=== PATIENT | male | born 1960 | race Caucasian/White ===

== ENCOUNTER 2017-02-12 08:57 | Inpatient (IN) | payer BC ==
[~2017-02-12] VITALS: Ht 167.6 cm; Wt 63.1 kg
[2017-02-12] VITALS (8 sets, daily range): BP systolic 116–125; BP diastolic 60–82; PULSE 51–58; RESP 16–18; TEMP 97.7–98.2; O2SAT 95–98
[~2017-02-12 08:57] MED LIST: OXCA300T2 PO; PROM25SU8 PO
[2017-02-12] MEDS ORDERED: SODIUM CHLORIDE 0.9% FLUSH 5 ML FLUSH IVF PRN ×2 (09:15→13:30)
[2017-02-12 09:35] LABS: AUTOMATED NEUTROPHIL # 2.9 TH/MM3 (1.8-7.7); BASOPHIL # 0.1 TH/MM3 (0-0.2); BASOPHIL % 1.2 % (0.0-2.0); EOSINOPHIL # 0.5 TH/MM3 (0-0.4); EOSINOPHIL % 6.6 % (0.0-4.0); HEMATOCRIT 40.1 % (39.0-51.0); HEMO FLAGS DIFF FINAL; LYMPH % 44.3 % (9.0-44.0); LYMPHOCYTE # 3.2 TH/MM3 (1.0-4.8); MEAN CORPUSCULAR HEMOGLOBIN 28.8 PG (27.0-34.0); MEAN CORPUSCULAR HGB CONC 33.1 % (32.0-36.0); MONO % 8.5 % (0.0-8.0); NEUT % 39.4 % (16.0-70.0); PLATELET COUNT 269 TH/MM3 (150-450); RED BLOOD COUNT 4.61 MIL/MM3 (4.50-5.90); RED CELL DISTRIBUTION WIDTH 14.8 % (11.6-17.2); WHITE BLOOD COUNT 7.2 TH/MM3 (4.0-11.0)
--- NOTE | 2017-02-12 09:35 | RADRPT ---
EXAM DATE/TIME: 02/12/2017 09:08 [facility] COMPARISON: No previous studies available for comparison. INDICATIONS : Left side numbness MEDICAL HISTORY : None. SURGICAL HISTORY : brain tumor and shunt ENCOUNTER: Initial ACUITY: 1 day PAIN SCORE: Non-responsive. LOCATION: Bilateral chest FINDINGS: A single view of the chest demonstrates the lungs to be symmetrically aerated without evidence of mas s, infiltrate or effusion. The cardiomediastinal contours are unremarkable. Osseous structures are intact with a levoscoliosis of the upper dorsal spine. Probable SHAKER OUT shunt tubing overlies the right ch est with some calcification of the tubing tract. CONCLUSION: 1. Right-sided SHAKER OUT shunt tubing. 2. Mild levoscoliosis of the upper dorsal spine. 3. Lungs are clear. Ced Chandler MD on February 12, 2017 at 9:32 Board Certified Radiologist. This report was verified electronically.
[2017-02-12] MEDS ORDERED: MORPHINE SULFATE 4 MG/ML INJ IV PUSH ONE (09:45)
[2017-02-12 09:47] LABS: INTERNATIONAL NORMALIZED RATIO 0.9 RATIO; PROTHROMBIN TIME - PATIENT 10.1 SEC (9.8-11.6)
--- NOTE | 2017-02-12 09:51 | PD ---
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 Symptoms started at around 2 AM today. The patient presents to the emergency department on around 9 AM. He is also having a diffuse headache which he describes as pressure, 7 out of 10. PFSH Past Medical History Cerebrovascular Accident: Yes (BRAIN BLEED S/P TRAUMA ) Neurologic: Yes Seizures: Yes Tetanus Vaccination: Unknown Influenza Vaccination: No ?: Not Past Surgical History Neurologic Surgery: Yes (TUMOR REMOVED FROM OPTIC NERVE) Other Surgery: Yes (VENTRICLE SHUNT 20 YEARS AGO DUE TO TUMOR) Social History Alcohol Use: No Tobacco Use: No (QUIT 5 YEARS AGO) Substance Use: No Allergies-Medications (Allergen,Severity, Reaction): Coded Allergies: Codeine (Verified Allergy, Severe, HEADACHE, 01/05/14) Penicillin (Verified Allergy, Severe, 01/05/14) Ativan (Verified Allergy, Unknown, 01/05/14) Reported Meds & Prescriptions Reported Meds & Active Scripts Active Phenergan (Promethazine HCl) 25 Mg Tab 25 Mg PO EVERY 6 HOURS FOR NAUSEA/VOMITING Reported Oxcarbazepine 300 Mg Tab 600 Mg PO BID Review of Systems Except as stated in HPI: all other systems reviewed are Neg Physical Exam Narrative GENERAL: Well-developed, well-nourished, awake, alert, no acute distress. SKIN: Warm and dry. HEAD: Atraumatic. Right scalp PHYSICAL THERAPY AIDES TEACHER shunt port depressible. EYES: Pupils equal, round, 3 mm, reactive to light. No scleral icterus. No injection or drainage. ENT: Mucous membranes pink and moist. NECK: Trachea midline. No JVD. No nuchal rigidity. CARDIOVASCULAR: Regular rate and rhythm. RESPIRATORY: No accessory muscle use. Clear to auscultation. Breath sounds equal bilaterally. GASTROINTESTINAL: Abdomen soft, non-tender, nondistended. MUSCULOSKELETAL: No obvious deformities. No clubbing. No cyanosis. No edema. NEUROLOGICAL: Awake and alert. No obvious cranial nerve deficits. Normal speech. Mild weakness to left upper and left lower extremity when compared to the right. No pronator drift. Normal finger nose finger test bilaterally. PSYCHIATRIC: Appropriate mood and affect; insight and judgment normal. Data Data Last Documented VS Vital Signs Date Time Temp Pulse Resp B/P Pulse Ox O2 Delivery O2 Flow Rate FiO2 02/12/17 11:08 18 02/12/17 11:06 Room Air 02/12/17 11:06 51 120/82 97 02/12/17 09:21 98.2 Orders Electrocardiogram (02/12/17 09:05) Prothrombin Time / Inr (Pt) (02/12/17 09:05) Act Partial Throm Time (Ptt) (02/12/17 09:05) Complete Blood Count With Diff (02/12/17 09:05) Comprehensive Metabolic Panel (02/12/17 09:05) Ct Brain W/O Iv Contrast(Rout) (02/12/17 09:05) Chest, Single Ap (02/12/17 09:05) Ecg Monitoring (02/12/17 09:05) Iv Access Insert/Monitor (02/12/17 09:05) Oximetry (02/12/17 09:05) Blood Glucose (02/12/17 09:05) Sodium Chloride 0.9% Flush (Ns Flush) (02/12/17 09:15) Shunt Series (02/12/17 ) Morphine Inj (Morphine Inj) (02/12/17 09:45) Aspirin Ec (Ecotrin Ec) (02/12/17 11:30) Labs Laboratory Tests Test 02/12/17 09:14 White Blood Count 7.2 TH/MM3 Red Blood Count 4.61 MIL/MM3 Hemoglobin 13.3 GM/DL Hematocrit 40.1 % Mean Corpuscular Volume 87.0 FL Mean Corpuscular Hemoglobin 28.8 PG Mean Corpuscular Hemoglobin 33.1 % Concent Red Cell Distribution Width 14.8 % Platelet Count 269 TH/MM3 Mean Platelet Volume 9.7 FL Neutrophils (%) (Auto) 39.4 % Lymphocytes (%) (Auto) 44.3 % Monocytes (%) (Auto) 8.5 % Eosinophils (%) (Auto) 6.6 % Basophils (%) (Auto) 1.2 % Neutrophils # (Auto) 2.9 TH/MM3 Lymphocytes # (Auto) 3.2 TH/MM3 Monocytes # (Auto) 0.6 TH/MM3 Eosinophils # (Auto) 0.5 TH/MM3 Basophils # (Auto) 0.1 TH/MM3 CBC Comment DIFF FINAL Differential Comment Prothrombin Time 10.1 SEC Prothromb Time International 0.9 RATIO Ratio Activated Partial 28.0 SEC Thromboplast Time Sodium Level 142 MEQ/L Potassium Level 4.4 MEQ/L Chloride Level 107 MEQ/L Carbon Dioxide Level 28.2 MEQ/L Anion Gap 7 MEQ/L Blood Urea Nitrogen 12 MG/DL Creatinine 1.11 MG/DL Estimat Glomerular Filtration 69 ML/MIN Rate Random Glucose 146 MG/DL Calcium Level 8.4 MG/DL Total Bilirubin 0.2 MG/DL Aspartate Amino Transf 27 U/L (AST/SGOT) Alanine Aminotransferase 35 U/L (ALT/SGPT) Alkaline Phosphatase 62 U/L Total Protein 6.9 GM/DL Albumin 3.6 GM/DL [facility] Medical Decision Making Medical Screen Exam Complete: Yes Emergency Medical Condition: Yes Differential Diagnosis CVA, intracranial abnormality, metabolic abnormality, shunt malfunction Narrative Course Vital signs show heart rate 55, blood pressure 118/82, pulse ox 98% on room air , oral temp of 98.2F. CBC is unremarkable. CMP is unremarkable. CT brain: CONCLUSION: 1. Stable appearance of the brain with a right-sided ventricular shunt, old right craniotomy deformity and old lacunar type infarct in the left basal ganglia. 2. Stable calcification of a suprasellar mass lesion, the vasculature at the [place] and along the tentorium. 3. No acute intracranial process or hemorrhage. Shunt series: Intact shunt. Patient and the patient's family were made aware of all findings. Headache improved with morphine. He is still having left-sided numbness. He states his bag machine tender strength in his left hand feels better since he has been here. He was given a full aspirin. He will be admitted for further treatment and evaluation of CVA. Case discussed with hospitalist Dr. Campbell who will admit the patient to his service. Diagnosis Primary Impression: CVA (cerebral vascular accident) Qualified Code: I63.9 - Cerebrovascular accident (CVA), unspecified mechanism Admitting Information Admitting Physician Requests: Admit Luis Barone MD Feb 12, 2017 09:51
[2017-02-12 09:58] LABS: ALKALINE PHOSPHATASE 62 U/L (45-117); ALT (GPT) 35 U/L (12-78); ANION GAP 7 MEQ/L (5-15); AST (GOT) 27 U/L (15-37); BICARBONATE 28.2 MEQ/L (21.0-32.0); BLOOD UREA NITROGEN 12 MG/DL (7-18); CHLORIDE 107 MEQ/L (98-107); GLOMERULAR FILTRATION RATE 69 ML/MIN (>89); POTASSIUM 4.4 MEQ/L (3.5-5.1); SODIUM (NA) 142 MEQ/L (136-145); TOTAL BILIRUBIN ADULT 0.2 MG/DL (0.2-1.0)
--- NOTE | 2017-02-12 10:57 | RADRPT ---
EXAM DATE/TIME: 02/12/2017 09:57 [facility] COMPARISON: CT BRAIN W/O CONTRAST, January 05, 2014, 20:20. INDICATIONS : Generalized weakness. RADIATION DOSE: 56.35 CTDIvol (mGy) MEDICAL HISTORY : Seizures. SURGICAL HISTORY : Shunt, Brain tumor removal. ENCOUNTER: Initial ACUITY: 1 day PAIN SCALE: 0/10 LOCATION: cranial TECHNIQUE: Multiple contiguous axial images were obtained of the head. Using automated exposure control and adj ustment of the mA and/or kV according to patient size, radiation dose was kept as low as reasonably a chievable to obtain optimal diagnostic quality images. FINDINGS: CEREBRUM: Stable appearance of the brain with volume loss on the right associated with an old craniotomy defect . Stable asymmetry of the ventricular system with the right smaller than the left. Right sided shunt enters the anterior horn of the right lateral ventricle. Old lacunar type infarct in the left basal g [place]. Stable calcification of a suprasellar mass with calcification also seen in the vasculature of the [place] and along the tentorium. POSTERIOR FOSSA: The cerebellum and brainstem are intact. The 4th ventricle is midline. The cerebellopontine angle i s unremarkable. Stable calcification of the tentorium EXTRACRANIAL: The visualized portion of the orbits is intact. SKULL: Old right craniotomy defect. CONCLUSION: 1. Stable appearance of the brain with a right-sided ventricular shunt, old right craniotomy deformit y and old lacunar type infarct in the left basal ganglia. 2. Stable calcification of a suprasellar mass lesion, the vasculature at the [place] and slime ng the tentorium. 3. No acute intracranial process or hemorrhage. Ced Chandler MD on February 12, 2017 at 10:51 Board Certified Radiologist. This report was verified electronically.
[2017-02-12] MEDS ORDERED: ASPIRIN EC 325 MG TABEC PO ONE (11:30)
--- NOTE | 2017-02-12 12:15 | RADRPT ---
EXAM DATE/TIME: 02/12/2017 09:55 [facility] COMPARISON: CT BRAIN W/O CONTRAST, February 12, 2017, 9:57. INDICATIONS : Headaches. Shunt evaluation. MEDICAL HISTORY : Brain tumor. SURGICAL HISTORY : Cerebral shunt. ENCOUNTER: Initial ACUITY: 1 day PAIN SCORE: 4/10 LOCATION: skull FINDINGS: Radiograph of the skull, neck, chest and abdomen performed to evaluate shunt patency. The shunt cath eter is seen entering the right parietal region with its tip in the region of the body of the anterio r horn of the right lateral ventricle. There appears to be a gap in the tubing between 2 radiopaque grommets adjacent to the skull. However, on the CT scan performed earlier today, there is a faintly radiopaque tubing which communicates betw een the 2 grommets. Otherwise, the tubing appears to be continuous into the mid pelvis. There is some calcification along the tubing tract at the base of the neck and upper chest on the right. The visualized heart, lungs and abdominal structures are intact. Levoscoliosis of the lumbar spine wi th associated degenerative changes CONCLUSION: Intact shunt. Ced Chandler MD on February 12, 2017 at 11:34 Board Certified Radiologist. This report was verified electronically.
[2017-02-12] MEDS ORDERED: DEXTROSE 50% IN WATER 50 ML VIAL(D50) IV PUSH PRN (13:30)
[2017-02-12] MEDS ORDERED: TEMAZEPAM 15 MG CAP PO PRN (13:30)
[2017-02-12] MEDS ORDERED: GLUCAGON 1 MG/ML VIAL IM/SQ PRN (13:30)
[2017-02-12] MEDS ORDERED: ALUMINUM/MAGNESIUM/SIMETH 30 ML CUP PO PRN (13:30)
[2017-02-12] MEDS ORDERED: MAGNESIUM HYDROXIDE SUSP 30 ML CUP PO PRN (13:30)
[2017-02-12] MEDS ORDERED: ONDANSETRON HCL 4 MG/2 ML VIAL IV PRN (13:30)
[2017-02-12] MEDS ORDERED: RESP: ALBUTEROL 2.5 MG/IPRATROPIUM 0.5 MG NEB (PRN) NEB (13:30)
[2017-02-12] MEDS ORDERED: ENALAPRILAT 1.25 MG/ML VIAL IV PUSH PRN (13:30)
[2017-02-12] MEDS ORDERED: ACETAMINOPHEN 325 MG TAB PO PRN (13:30)
--- NOTE | 2017-02-12 13:30 | HHI.HP ---
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 Patient states the Headache improved with treatment in the ED after he was given morphine on admission after 9AM however the tingling in his left arm persists despite some improvement on the weakness which is still there. Head CT without any intracranial abnormality and Shunt study was intact. He denies any GI bleed, shortness of breath Review of Systems Other 12 systems reviewed and are negative except for the ones mentioned in the history of Present Illness Past Family Social History Past Medical History BRAIN BLEED S/P TRAUMA Seizures: Yes Past Surgical History TUMOR REMOVED FROM OPTIC NERVE VENTRICLE SHUNT 20 YEARS AGO DUE TO TUMOR Left parietal lashae hole drainage of Left SDH 03/27/08 Reported Medications Not currently on any medication Allergies: Coded Allergies: Codeine (Verified Allergy, Severe, HEADACHE, 01/05/14) Penicillin (Verified Allergy, Severe, 01/05/14) Ativan (Verified Allergy, Unknown, 01/05/14) Family History Mom had HTN, CVA Dad had emphysema Social History Alcohol Use: No Tobacco Use: No (QUIT 5 YEARS AGO) Substance Use: No Physical Exam Vital Signs Vital Signs Date Time Temp Pulse Resp B/P Pulse Ox O2 Delivery O2 Flow Rate FiO2 02/12/17 13:01 53 16 116/75 98 Room Air 02/12/17 13:01 Room Air 02/12/17 11:08 18 02/12/17 11:06 Room Air 02/12/17 11:06 51 16 120/82 97 Room Air 3/20/17 09:21 98.2 55 18 118/82 98 Room Air 02/12/17 09:21 98 Room Air 02/12/17 09:21 55 18 98 Room Air 02/12/17 09:16 98.2 55 18 118/82 98 Physical Exam GENERAL: This is a well-nourished, well-developed patient, in no apparent distress. SKIN: No rashes, ecchymoses or lesions. Cool and dry. HEAD: right sided craniotomy EYES: Pupils equal round and reactive. Extraocular motions intact. No scleral icterus. No injection or drainage. ENT: Nose without bleeding, purulent drainage or septal hematoma. Throat without erythema, tonsillar hypertrophy or exudate. Uvula midline. Airway patent. NECK: Trachea midline. No JVD or lymphadenopathy. Supple, nontender, no meningeal signs. CARDIOVASCULAR: Regular rate and rhythm without murmurs, gallops, or rubs. RESPIRATORY: Clear to auscultation. Breath sounds equal bilaterally. No wheezes , rales, or rhonchi. GASTROINTESTINAL: Abdomen soft, non-tender, nondistended. No hepato-splenomegaly , or palpable masses. No guarding. MUSCULOSKELETAL: Extremities without clubbing, cyanosis, or edema. No joint tenderness, effusion, or edema noted. No calf tenderness. Negative Homans sign bilaterally. NEUROLOGICAL: Awake and alert. Cranial nerves II through XII intact. Motor and sensory grossly within normal limits. Five out of 5 muscle strength in all muscle groups. Normal speech. Laboratory Laboratory Tests Test 02/12/17 09:14 White Blood Count 7.2 Red Blood Count 4.61 Hemoglobin 13.3 Hematocrit 40.1 Mean Corpuscular Volume 87.0 Mean Corpuscular Hemoglobin 28.8 Mean Corpuscular Hemoglobin 33.1 Concent Red Cell Distribution Width 14.8 Platelet Count 269 Mean Platelet Volume 9.7 Neutrophils (%) (Auto) 39.4 Lymphocytes (%) (Auto) 44.3 Monocytes (%) (Auto) 8.5 Eosinophils (%) (Auto) 6.6 Basophils (%) (Auto) 1.2 Neutrophils # (Auto) 2.9 Lymphocytes # (Auto) 3.2 Monocytes # (Auto) 0.6 Eosinophils # (Auto) 0.5 Basophils # (Auto) 0.1 CBC Comment DIFF FINAL Differential Comment Prothrombin Time 10.1 Prothromb Time International 0.9 Ratio Activated Partial 28.0 Thromboplast Time Sodium Level 142 Potassium Level 4.4 Chloride Level 107 Carbon Dioxide Level 28.2 Anion Gap 7 Blood Urea Nitrogen 12 Creatinine 1.11 Estimat Glomerular Filtration 69 Rate Random Glucose 146 Calcium Level 8.4 Total Bilirubin 0.2 Aspartate Amino Transf 27 (AST/SGOT) Alanine Aminotransferase 35 (ALT/SGPT) Alkaline Phosphatase 62 Total Protein 6.9 Albumin 3.6 Result Diagram: 02/12/1791302/12/17913 Imaging Last Impressions Head CT 02/12/17904 Signed Impressions: Service Date/Time: Sunday, February 12, 2017 09:57 - CONCLUSION: 1. Stable appearance of the brain with a right-sided ventricular shunt, old right craniotomy deformity and old lacunar type infarct in the left basal ganglia. 2. Stable calcification of a suprasellar mass lesion, the vasculature at the [place] and along the tentorium. 3. No acute intracranial process or hemorrhage. Ced Chandler MD Chest X-Ray 02/12/17904 Signed Impressions: Service Date/Time: Sunday, February 12, 2017 09:08 - CONCLUSION: 1. 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 2. Mild levoscoliosis of the upper dorsal spine. 3. Lungs are clear. Ced Chandler MD Shunt Study (Imaging) 02/12/17 0000 Signed Impressions: Service Date/Time: Sunday, February 12, 2017 09:55 - CONCLUSION: Intact shunt. Ced Chandler MD Assessment and Plan Problem List: (1) CVA (cerebral vascular accident) ICD Code: I63.9 Status: Acute Assessment and Plan 56-year-old man with Acute TIA/CVA: Treatment per stroke protocol -Continue with aspirin -Start statin therapy -NIHSS, Neuro checks, Monitor on telemetry -PT/OT/ST evaluations, consult rehab medicine -allow permissive HTN, IV Vasotec and IV labetalol if SBP >220 -Check lipid profile and HgbA1c -Check carotid U/S -Head CT 02/12/17 noted and review by me with No acute intracranial disease -Shunt study: noted and review by and Intact shunt -Check brain MRI/MRA -Check echocardiogram and place alter monitoring -Neurology consulted Impaired fasting Glucose: Check HgA1C and treat accordingly DVT prophylaxis: Bilateral SCDs GI prophylaxis: PPI Code Status Full code Discussed Condition With patient, ED physician Physician Certification 2 Midnight Certification Type: Admission for Inpatient Services Order for Inpatient Services The services are ordered in accordance with Medicare regulations or non- Medicare payer requirements, as applicable. In the case of services not specified as inpatient-only, they are appropriately provided as inpatient services in accordance with the 2-midnight benchmark. Estimated LOS (days): 2 days is the estimated time the patient will need to remain in the hospital, assuming treatment plan goals are met and no additional complications. Post-Hospital Plan: Not yet determined Problem Qualifiers (1) CVA (cerebral vascular accident): Qualified Code: I63.9 - Cerebrovascular accident (CVA), unspecified mechanism Driss Campbell MD Feb 12, 2017 13:30
[2017-02-12] MEDS ORDERED: SUMAtriptan SUCCINATE 25 MG TAB PO PRN (13:45)
[2017-02-12] MEDS ORDERED: POTASSIUM CHLOR 10 MEQ PREMIX 100 ML IV SCH (14:00)
--- NOTE | 2017-02-12 14:19 | EKG ---
Date Performed: 02/12/2017 Time Performed: 09:05:25 PTAGE: 56 years EKG: SINUS BRADYCARDIA BORDERLINE ECG PREVIOUS TRACING : 02/12/2017 09.04 Compared to prior tracing no significant change DOCTOR: Binh Bustillo Interpretating Date/Time 02/12/2017 14:17:06
[2017-02-12] MEDS: INSULIN ASPART SUPPLEMENTAL SCALE SQ SCH ×2 (16:00→21:00)
--- NOTE | 2017-02-12 16:28 | RADRPT ---
EXAM DATE/TIME: 02/12/2017 14:48 [facility] COMPARISON: CT BRAIN W/O CONTRAST, February 12, 2017, 9:57. INDICATIONS : Left sided numbness. MEDICAL HISTORY : None. SURGICAL HISTORY : Craniotomy. Cholecystectomy. Appendectomy. 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 ENCOUNTER: Initial ACUITY: 1 day PAIN SCORE: 2/10 LOCATION: head TECHNIQUE: Multiplanar, multisequence MRI of the brain was performed without contrast. FINDINGS: The examination demonstrates extensive postsurgical changes and cranial defect along the right fronta l temporal region. This is unchanged from the CT scan dated 02/12/17. There is a mild mass effect on the right hemisphere. There is approximately 3 mm of [id number] vania cium shift. This appears chronic as there is no evidence of edema within the sulci and gyri. There are some scattered areas of increased T2 signal most consistent with mild microvascular ischemi c demyelinative change. No findings to indicate acute cortical infarction are present. No mass lesion is identified. No significant extra-axial fluid collections are seen. The appearance o f the posterior fossa is unremarkable. Susceptibility weighted imaging is provided. These demonstrate some old hemorrhage along what was lik anaid a prior shunt tract on the left. There is no other significant abnormal signal seen. Note is made of the patient's ventriculoperitoneal shunt which enters from the right sided approach. CONCLUSION: 1. Extensive postsurgical changes within the skull on the right. 2. Mild flattening of the sulci and gyri along the right frontal parietal and temporal cortex which a ppears chronic. There is no evidence of edema within this. There is some slight mass effect on the la teral ventricular system on the right. 3. No findings to indicate acute cortical infarction are present. Joshua Thomson MD on February 12, 2017 at 16:11 Board Certified Radiologist. This report was verified electronically.
--- NOTE | 2017-02-12 16:30 | RADRPT ---
EXAM DATE/TIME: 02/12/2017 14:48 [facility] COMPARISON: No previous studies available for comparison. INDICATIONS : Left sided numbness. MEDICAL HISTORY : None. SURGICAL HISTORY : Craniotomy. Cholecystectomy. Appendectomy. 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 ENCOUNTER: Initial ACUITY: 1 day PAIN SCORE: 2/10 LOCATION: head Please note a normal MRA of the brain does not entirely exclude the possibility of a small aneurysm, nor the possibility of distal intracranial vessel disease. TECHNIQUE: 3D time of flight MRA was performed. Source images, multiplanar STS MIP, and 3D volume MIP reconstru ctions were reviewed. FINDINGS: The distal internal carotids are widely patent. The left vertebral is widely patent. The basilar is w idely patent. The right vertebral terminates in a PICA. There is some shift of the intracranial vessels on the right side. This is felt to be secondary to th e patient's calvarial defect. Intracranial circulation is otherwise widely patent without evidence of aneurysm formation. CONCLUSION: 1. Atretic right vertebral. 2. Slight shift of the intracranial vasculature from right to left secondary to the patient's calvari al defect. 3. No large or central vessel occlusion identified. Joshua Thomson MD on February 12, 2017 at 16:26 Board Certified Radiologist. This report was verified electronically.
--- NOTE | 2017-02-12 17:09 | RADRPT ---
EXAM DATE/TIME: 02/12/2017 14:02 [facility] COMPARISON: No previous studies available for comparison. INDICATIONS : Cerebrovascular accident. MEDICAL HISTORY : Stroke. Brain hemorrhage. Seizures. SURGICAL HISTORY : Ventricular shunt. ENCOUNTER: Initial ACUITY: 1 day PAIN SCORE: 4/10 LOCATION: Bilateral neck PEAK SYSTOLIC VELOCITIES (cm/sec): ICA/CCA RATIO: Right: 1.0 Left: 1.4 ICA: Right: 69 Left: 57 CCA: Right: 68 Left: 63 ECA: Right: 61 Left: 64 VERTEBRAL: Right: 34 antegrade Left: 50 antegrade Elevated flow velocities and ICA/CCA ratios have been found to correlate with increased degrees of vessel stenosis, calculated as percentage of diameter relative to a normal segment of distal ICA/CCA FINDINGS: RIGHT CAROTID: Minimal calcified plaque in the carotid bulb. The waveforms are within normal limits. LEFT CAROTID: Minimal calcified plaquing in the carotid bulb. The waveforms are within normal limits. VERTEBRAL ARTERIES: Antegrade flow is seen in both vertebral arteries. MISCELLANEOUS: None. CONCLUSION: 1. Minimal calcified plaquing in both carotid bulbs. 2. However, no sonographic or Doppler findings of a hemodynamically significant stenosis. Antegrade f low in both vertebral arteries. Ced Chandler MD on February 12, 2017 at 17:06 Board Certified Radiologist. This report was verified electronically.
[2017-02-12] MEDS ORDERED: OXcarbazepine 600 MG TAB PO SCH (18:00)
[2017-02-12] MEDS: CLOPIDOGREL 75 MG TAB PO SCH (18:14)
[2017-02-12 19:55] LABS: BLOOD, URINE NEG (NEG); GLUCOSE,URINE NEG (NEG); KETONE, URINE NEG (NEG); NITRITE,URINE NEG (NEG); URINE COLOR LIGHT-YELLOW (YELLW/STRAW)
[2017-02-12 19:56] LABS: COMMENT (UR) CULT NOT INDICATED; CULTURE IF INDICATED CULT NOT INDICATED
[2017-02-12 20:03] LABS: AMPHETAMINE, URINE NEG (NEG); BARBITURATES, URINE POS (NEG); COCAINE, URINE NEG (NEG)
[2017-02-12 20:45] LABS: FREE T4 0.95 NG/DL (0.76-1.46)
[2017-02-12] MEDS ORDERED: ATORVASTATIN 10 MG TAB PO SCH (21:00)
[2017-02-12] MEDS: SODIUM CHLORIDE 0.9% FLUSH 5 ML FLUSH IVF SCH (21:00)
--- NOTE | 2017-02-12 21:24 | MB ---
cc: BELLE ARGUETA M.D. DATE OF CONSULTATION 02/12/17 REASON FOR CONSULTATION A 56-year-old right-handed man. 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 Some intermittent headaches with weather changes. Saw Dr. Coughlin is 2013 for a headache, had some lethargy with that. CT showed the old right-sided craniotomy defect, ventriculostomy shunt in place, calcified suprasellar mass. He was on Trileptal 600 b.i.d. at that time. He did have a seizure about [address] Morel in 2007. Stroke alert was called at that time. CTA was negative. He had a left subdural hematoma. Possibly some head trauma at that time. He began to clutch his forearm, stiffen up, change in mental status and then a seizure. A focal onset it was felt. This was well after his tumor removal. He stopped taking his Trileptal about a year ago when he ran out of it. Then last night about 2:00 a.m. he developed a headache rather severe and then some tingling on the left side of his face, arm and leg and said he had difficulty using the left arm. He went to bed, woke up, it was still causing it. He still has a little bit of tingling in the left hand now. After he was given some morphine or other pain meds in the ER here his arm seemed to get better. He does have headaches maybe once a month or every 6 weeks, throbbing bifrontally and he does have some scintillations at times. He had some other minor headaches maybe once a week. He was seen here in the ER and the noticed some mild weakness left upper and lower extremity compared to the right MEDICATIONS P.r.n. Phenergan. ALLERGIC TO ATACAND, PENICILLIN, CODEINE. REVIEW OF SYSTEMS He denied any hypertension, diabetes, hypercholesterolemia, MA, CABG, cardiac arrhythmia, renal, hepatic or pulmonary disease, a-fib, Coumadin, thyroid disease, lupus, ulcer, cancer, stroke. SOCIAL HISTORY Not a smoker or drinker. He lives with his . 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 FAMILY HISTORY The family history is positive for cancer in his mother. Negative for seizure. Positive stroke in his mother. PHYSICAL EXAMINATION VITAL SIGNS: On exam afebrile, 53, 16, 116/75. NECK: There were no carotid bruits. HEART: Heart was regular rhythm. I did not detect a murmur. HEAD: He has got a well-healed craniotomy defect right temporal region. NEURO: Visual pal are full. Pupils are equal. Extraocular movements are intact without nystagmus. Face is symmetric with normal sensation. Tongue was midline. There is no drift. He had normal strength, best testing in upper and lower extremities bilaterally. A little bit of giveaway weakness on the left arm but when pushed he has normal strength there. DTRs are 2+ symmetric at the knees. Toes downgoing bilaterally. Pinprick is intact throughout, face, arm and leg bilaterally except the tips of his fingers all of them are very calloused. LABORATORY DATA CBC was normal. Basic metabolic profile normal. Glucose 146. LFTs normal. Albumin normal. Coags normal. IMAGING STUDIES Chest x-ray was clear. An MRI of the brain did not show any acute infarct. MRA [place] slight pressure effect on the arteries, otherwise, negative. Shunt study intact. The carotid ultrasound normal. MRA [place] shows he is left vertebral dominant. Right MCA and right carotid system appears normal. IMPRESSION Possible complicated migraine. TIA is another consideration or small seizure. We will check an EEG, echocardiogram. He has been taking an aspirin almost every day so will put him on Plavix. You can DC his aspirin in 3 days. Restart him on the trileptal. I will be following him with you in the hospital. May be able to be discharged tomorrow depending on the results of this echo. If his echo is normal and the Holter is put on. MD PAULA Anthony/VALENTE /5:43 PM /8:53 PM
[2017-02-12 21:25] LABS: HEMOGLOBIN A1a 0.9 %; HEMOGLOBIN A1b 1.7 %; HEMOGLOBIN Ao 84.7 %; HEMOGLOBIN LA1C 2.3 %; HEMOGLOBIN P3 3.8 %
[2017-02-13] MEDS: OXcarbazepine 600 MG TAB PO SCH ×2 (00:31→05:04)
[2017-02-13 04:33] VITALS: BP 125/73; PULSE 56; RESP 16; TEMP 97; O2SAT 96
[2017-02-13] MEDS: INSULIN ASPART SUPPLEMENTAL SCALE SQ SCH (05:08)
[2017-02-13 07:35] LABS: HDL CHOLESTEROL 47.1 MG/DL (40.0-60.0)
--- NOTE | 2017-02-13 07:38 | EC ---
Study Study Date:02/12/2017 STUDY CONCLUSIONS SUMMARY - Left ventricle: The cavity size was normal. Wall thickness was normal. Systolic function was normal. The estimated ejection fraction was in the range of 55% to 60%. Wall motion was normal; there were no regional wall motion abnormalities. - Aortic valve: Valve area: 3.95cm^2(VTI). Valve area: 3.54cm^2 (Vmax). If LV function is below 40, please consider prescribing an ACEI or ARB or document rationale for non-use. PROCEDURE DATA STUDY STATUS: Elective. Procedure: Transthoracic echocardiography. Image quality was good. Scanning was performed from the parasternal, apical, and subcostal acoustic windows. Study completion: The patient tolerated the procedure well. Transthoracic echocardiography. M-mode, complete 2D, complete spectral Doppler, and color Doppler. Height: Height: 66in. Weight: Weight: 137.7lb. Body mass index: BMI: 22.3kg/m^2. Body surface area: BSA: 1.71m^2. Patient status: Inpatient. CARDIAC ANATOMY LEFT VENTRICLE: The cavity size was normal. Wall thickness was normal. Systolic function was normal. The estimated ejection fraction was in the range of 55% to 60%. Wall motion was normal; there were no regional wall motion abnormalities. AORTIC VALVE: Trileaflet; normal thickness leaflets. Doppler: Transvalvular velocity was within the normal range. There was no stenosis. No regurgitation. Valve area: 3.95cm^2(VTI). Indexed valve area: 2.31cm^2/m^2 (VTI). Valve area: 3.54cm^2 (Vmax). Indexed valve area: 2.07cm^2/m^2 (Vmax). Mean gradient: 2mm Hg (S). AORTA: Aortic root: The aortic root was normal in size. MITRAL VALVE: Structurally normal valve. Doppler: Transvalvular velocity was within the normal range. There was no evidence for stenosis. Trace to mild regurgitation. Peak gradient: 3mm Hg (D). LEFT ATRIUM: The atrium was normal in size. RIGHT VENTRICLE: The cavity size was normal. Wall thickness was normal. PULMONIC VALVE: Doppler: Transvalvular velocity was within the normal range. There was no evidence for stenosis. No regurgitation. TRICUSPID VALVE: Structurally normal valve. Doppler: Transvalvular velocity was within the normal range. No regurgitation. PULMONARY ARTERY: The main pulmonary artery was normal-sized. Systolic pressure was within the normal range. RIGHT ATRIUM: The atrium was normal in size. PERICARDIUM: There was no pericardial effusion. SYSTEMIC VEINS: Inferior vena cava: The vessel was normal in size. Patient weight: 137.7lb _Ejection fraction:_ 65-75% _Fractional shortening:_ 32% up to 5Kg 5-11.5Kg 11.6-22.9Kg 23-45Kg 45-57Kg Aortic Root 7-13 <17 13-22 17-27 17-27 LA diam 6-13 <23 24-38 33-47 37-40 RVID 10-17 7-15 7-15 7-18 8-17 LVIDd 12-22 <32 24-38 33-47 37-40 LVPW 2-4 3-6 5-7 6-8 7-8 IVS 2-4 3-6 5-7 6-8 7-8 BASIC MEASUREMENTS ADULT NORMAL Left ventricle LV internal dimension, ED, chordal 48.8 mm 43-52 level, PLAX LV internal dimension, ES, chordal 32.9 mm 23-38 level, PLAX Fractional shortening, chordal level, 33 % >29 PLAX LV posterior wall thickness, ED 8.61 mm IVS/LVPW ratio, ED 1 <1.3 Ventricular septum Septal thickness, ED 8.61 mm Aortic valve Leaflet separation 21 mm 15-26 Aorta Root diameter, ED 33 mm Left atrium Anterior-posterior dimension 34 mm Anterior-posterior dimension index 1.99 cm/m^2 <2.2 BASIC MEASUREMENTS ADULT NORMAL Aortic valve Leaflet separation 21 mm 15-26 DOPPLER MEASUREMENTS ADULT NORMAL Aortic valve Peak velocity, S 82.7 cm/s Mean velocity, S 61.1 cm/s VTI, S 20.6 cm Mean gradient, S 2 mm Hg Valve area, VTI 3.95 cm^2 Valve area index, VTI 2.31 cm^2/m^2 Valve area, Vmax 3.54 cm^2 Valve area index, Vmax 2.07 cm^2/m^2 Mitral valve Peak E-wave velocity 81.7 cm/s Peak A-wave velocity 30.1 cm/s Deceleration time 201 ms 150-230 Peak gradient, D 3 mm Hg Peak E/A ratio 2.7 Tricuspid valve Regurgitant peak velocity 235 cm/s Peak RV-RA gradient, S 22 mm Hg Maximal regurgitant velocity 235 cm/s Pulmonic valve Peak velocity, S 45.9 cm/s LEGEND: Mean values are shown as u=mean value. Asterisk (*) avelar values outside specified normal range. Prepared and signed by Kurt Kenny [id number]
--- NOTE | 2017-02-13 07:53 | HHI.PR ---
Subjective Remarks sr Objective Vital Signs Date Time Temp Pulse Resp B/P Pulse Ox O2 Delivery O2 Flow Rate FiO2 02/13/17 04:33 97.0 56 16 125/73 96 02/12/17 23:56 97.7 56 18 125/70 95 02/12/17 20:04 97.9 55 18 122/60 98 02/12/17 18:17 58 16 116/68 98 Room Air 02/12/17 18:15 Room Air 02/12/17 18:00 51 02/12/17 13:01 53 16 116/75 98 Room Air 02/12/17 13:01 Room Air 02/12/17 11:08 18 02/12/17 11:06 Room Air 02/12/17 11:06 51 16 120/82 97 Room Air 02/12/17 09:21 98.2 55 18 118/82 98 Room Air 02/12/17 09:21 98 Room Air 02/12/17 09:21 55 18 98 Room Air 02/12/17 09:16 98.2 55 18 118/82 98 Result Diagram: 02/12/17 0914 02/12/17 0914 Other Results eeg pend us neg echo nl b12 239 ldl inc 117 Objective Remarks vff face sym nl left hand Assessment and Plan Assessment and Plan imp probably small sz? trileptal plavix statin b12 shot if holter on and eeg done can dc fu office [address] holt i believe Kurt Feng MD Feb 13, 2017 07:53
[2017-02-13 08:00] VITALS: BP 149/87; PULSE 61; RESP 20; TEMP 96.4; O2SAT 98
[2017-02-13] MEDS ORDERED: CYANOCOBALAMIN 1000 MCG/ML VIAL SQ SCH (09:00)
[2017-02-13] MEDS ORDERED: ASPIRIN 81 MG CHEW TAB PO SCH (09:00)
[2017-02-13] MEDS: CLOPIDOGREL 75 MG TAB PO SCH (09:11)
[2017-02-13] MEDS: SODIUM CHLORIDE 0.9% FLUSH 5 ML FLUSH IVF SCH (09:12)
--- NOTE | 2017-02-13 10:19 | MG ---
cc: MARILEE KENDRICK MD Lab No: [id number] Date: 02/13/2017 Age: 56 Sex: M Race: DATE OF : 1960 HISTORY: 56-year-old history of tingling, numbness, left-sided weakness, headache, history of seizures. Previous brain surgery. PROCEDURE: Tiny phase reversals some rhythmic right temporal theta activity noted epoch 18 seen at T4. Post rhythm otherwise demonstrating 8-9 Hz activity 20-50 microvolts. Reduced driving with photic stimulation. Good EEG variability reactivity. Bursts of temporal slowing, epoch 146 on the right. Single EKG showing sinus rhythm. Good EEG variability reactivity. INTERPRETATION Right frontotemporal structural / seizure focus. No active seizures. Clinical correlation Marilee Kendrick MD MG/ /9:55 AM /10:11 AM
--- NOTE | 2017-02-13 11:05 | HHI.PR ---
Subjective Remarks Follow-up TIA with left-sided weakness/questionable seizure/headache 02/13/17-patient seen and examined; reports significant improvement of headaches and resolution of left-sided weakness and tingling. EEG without any seizure activity. Objective Vitals Vital Signs Date Time Temp Pulse Resp B/P Pulse Ox O2 Delivery O2 Flow Rate FiO2 02/13/17 08:00 96.4 61 20 149/87 98 02/13/17 04:33 97.0 56 16 125/73 96 02/12/17 23:56 97.7 56 18 125/70 95 02/12/17 20:04 97.9 55 18 122/60 98 02/12/17 18:17 58 16 116/68 98 Room Air 02/12/17 18:15 Room Air 02/12/17 18:00 51 02/12/17 13:01 53 16 116/75 98 Room Air 02/12/17 13:01 Room Air 02/12/17 11:08 18 02/12/17 11:06 Room Air 02/12/17 11:06 51 16 120/82 97 Room Air Result Diagram: 02/12/1714 02/12/17913 Imaging Last Impressions Head CT 02/12/17904 Signed Impressions: Service Date/Time: Sunday, February 12, 2017 09:57 - CONCLUSION: 1. Stable appearance of the brain with a right-sided ventricular shunt, old right craniotomy deformity and old lacunar type infarct in the left basal ganglia. 2. Stable calcification of a suprasellar mass lesion, the vasculature at the [place] and along the tentorium. 3. No acute intracranial process or hemorrhage. Ced Chandler MD Chest X-Ray 02/12/17904 Signed Impressions: Service Date/Time: Sunday, February 12, 2017 09:08 - CONCLUSION: 1. Right-sided NUCLE[employer]CH shunt tubing. 2. Mild levoscoliosis of the upper dorsal spine. 3. Lungs are clear. Ced Chandler MD Shunt Study (Imaging) 02/12/17 0000 Signed Impressions: Service Date/Time: Sunday, February 12, 2017 09:55 - CONCLUSION: Intact shunt. Ced Chandler MD Head Magnetic Resonance Angiography 02/12/17 0000 Signed Impressions: Service Date/Time: Sunday, February 12, 2017 14:48 - CONCLUSION: 1. Atretic right vertebral. 2. Slight shift of the intracranial vasculature from right to left secondary to the patient's calvarial defect. 3. No large or central vessel occlusion identified. Joshua Thomson MD Carotid Artery Ultrasound 02/12/17 Signed Impressions: Service Date/Time: Sunday, February 12, 2017 14:02 - CONCLUSION: 1. Minimal calcified plaquing in both carotid bulbs. 2. However, no sonographic or Doppler findings of a hemodynamically significant stenosis. Antegrade flow in both vertebral arteries. Ced Chandler MD Brain MRI 02/12/17 Signed Impressions: Service Date/Time: Sunday, February 12, 2017 14:48 - CONCLUSION: 1. Extensive postsurgical changes within the skull on the right. 2. Mild flattening of the sulci and gyri along the right frontal parietal and temporal cortex which appears chronic. There is no evidence of edema within this. There is some slight mass effect on the lateral ventricular system on the right. 3. No findings to indicate acute cortical infarction are present. Joshua Thomson MD Objective Remarks GENERAL: SKIN: Warm and dry. HEAD: right sided craniotomy EYES: No scleral icterus. No injection or drainage. NECK: Supple, trachea midline. No JVD or lymphadenopathy. CARDIOVASCULAR: Regular rate and rhythm without murmurs, gallops, or rubs. RESPIRATORY: Breath sounds equal bilaterally. No accessory muscle use. GASTROINTESTINAL: Abdomen soft, non-tender, nondistended. MUSCULOSKELETAL: No cyanosis, or edema. BACK: Nontender without obvious deformity. No CVA tenderness. A/P Problem List: (1) CVA (cerebral vascular accident) ICD Code: I63.9 Status: Acute (2) Headache ICD Code: R51 Status: Acute (3) TIA (transient ischemic attack) ICD Code: G45.9 Status: Acute Assessment and Plan 56-year-old man with Acute TIA/CVA: Treatment per stroke protocol -Continue with aspirin x 3 days and now on Plavix -continue statin therapy -NIHSS, Neuro checks, Monitor on telemetry -PT/OT/ST evaluations, -d/c permissive HTN, IV Vasotec and IV labetalol if SBP >220 -LDL of 117 and HgbA1c 5.9 - carotid U/S noted and negative -Head CT 02/12/17 noted and review by me with No acute intracranial disease -Shunt study: noted and review by and Intact shunt -Brain MRI/MRA negative - echocardiogram with EF of 55-60% and Holter monitoring -EEG negative -Neurology ff Migraine Headache: On Trileptal Impaired fasting Glucose: HgA1C 5.9 DVT prophylaxis: Bilateral SCDs GI prophylaxis: PPI Patient's condition significantly improved therefore he will be discharged home. Discharge Planning Discharge patient to home Condition on discharge: Improved Regular Diet as tolerated Ad Cyn activity Rx written: Plavix 75 mg daily, Lipitor 10mg HS, Follow-up with primary care physician in 1 week Neurology 2 weeks Problem Qualifiers (1) CVA (cerebral vascular accident): Qualified Code: I63.9 - Cerebrovascular accident (CVA), unspecified mechanism Driss Campbell MD Feb 13, 2017 11:05
[2017-02-13] MEDS ORDERED: CYAN1000P SQ (11:09)
[2017-02-13] MEDS ORDERED: LIPI10TA PO (11:09)
[2017-02-13] MEDS ORDERED: PLAV75TA29 PO (11:09)
[2017-02-13] MEDS ORDERED: Aspirin Chew PO (11:09)
[2017-02-13] MEDS ORDERED: OXCA600T PO (11:09)
--- NOTE | 2017-02-14 09:49 | HM ---
Date Performed: 02/13/2017 Time Performed: 20:13:00 HOOKUP DATE: 02/13/17 08:13:00 PM Tue ANALYSIS START TIME: 02/13/2017 8:18:00 PM ANALYSIS END TIME: 02/14/2017 10:50:00 AM PATIENT AGE: 56 PATIENT HEIGHT PATIENT WEIGHT DRUG LIST PATIENT DIAGNOSIS: cva TEST NARRATIVE: The patient's average heart rate was 58 BPM. Heart rates greater than 120 B PM were noted < 1% of the time. Heart rates less than 50 BPM were noted 36% of the time. No paus es exceeding 2.0 seconds were noted. 2 ventricular ectopics, which represented < 1% of the total beat count, were noted. The highest ventricular ectopic frequency occurred from 04:00 AM to 05:00 AM Wed. During this time 1 VE(s) occurred. Ventricular ectopics were observed as 2 isolated beat(s) o nly. No couplets or runs were noted. 5 supraventricular ectopics, which represented < 1% of the total beat count, were noted. The highest supraventricular ectopic frequency occurred from 09:00 PM to 10:00 PM Tue. During this time 2 SVE(s) occurred. No episodes of ST depression (defined as -1 .0 mm or more) were noted in channel 1. No episodes of ST depression (defined as -1.0 mm or more) we re noted in channel 2. No episodes of ST depression (defined as -1.0 mm or more) were noted in chann el 3. NO DIARY ENTRIES TEST INTERPRETATION: Sinus rhythm AND SINUS TACHYCARDIA OCCASIONAL PACS AND SHORT ATRIAL RUNS Signed by : Crow Camargo
== END 2017-02-13 12:02 | disposition home or self-care (01) | DRG 69 ==
LOC: NEPC 08:57 → NEDA 12:47 → N05A 19:38
PROVIDERS: ADMIT Hospitalist; ATTEND Hospitalist
DX: G45.9 Transient cerebral ischemic attack, unspecified (principal); G43.909 Migraine, unspecified, not intractable, without status migrainosus; R53.1 Weakness; Z98.2 Presence of cerebrospinal fluid drainage device; R73.01 Impaired fasting glucose; Z87.891 Personal history of nicotine dependence
CPT/HCPCS: 70250; 70450; 70544; 70551; 71010; 72040; 74000; 80053; 80061; 80307; 81001; 82607; 82948; 83036; 84439; 84443; 85025; 85610; 85652; 85730; 86038; 93005; 93225; 93226; 93306; 93880; 95819; 96374; J2270; J3420

== ENCOUNTER 2017-04-28 11:18 | Emergency (ER) | payer BC, OTHER ==
[~2017-04-28 11:18] MED LIST changes: +Aspirin Chew PO; +CYAN1000P SQ; +LIPI10TA PO; -OXCA300T2 PO; +OXCA600T PO; +PLAV75TA29 PO; -PROM25SU8 PO
[2017-04-28 11:19] VITALS: BP 132/77; PULSE 68; RESP 20; TEMP 98; O2SAT 99
--- NOTE | 2017-04-28 11:48 | PD ---
Physical Exam Date Seen by Provider: Apr 28, 2017 Time Seen by Provider: 11:46 Data Data Last Documented VS Vital Signs Date Time Temp Pulse Resp B/P Pulse Ox O2 Delivery O2 Flow Rate FiO2 04/28/17 11:19 98.0 68 20 132/77 99 Room Air MDM Supervised Visit with JORDAN: No Narrative Course 56 YO M complains of bug bite of left forearm x 4 days. Denies fever. Vitals reviewed. Awaiting bed placement. Sherine Merida Apr 28, 2017 11:48
[2017-04-28] MEDS ORDERED: CEPH-460 PO (11:56)
[2017-04-28] MEDS ORDERED: BACT800T5 PO (11:56)
[2017-04-28] MEDS ORDERED: SULFAMETHOXAZOLE-TRIMETHOPRIM DS 800-160 MG TAB PO ONE (12:00)
[2017-04-28] MEDS ORDERED: CEPHALEXIN MONOHYDRATE 500 MG CAP PO ONE (12:00)
--- NOTE | 2017-04-28 12:07 | PD ---
HPI Chief Complaint: Skin Problem Time Seen by Provider: 11:57 Travel History International Travel<30 days: No Contact w/Intl Traveler<30days: No Traveled to known affect area: No History of Present Illness HPI 56-year-old male presents for evaluation of a bug bite to left forearm. He saw a black bug bite him 4 days ago. He is developed some redness and tenderness in the area since then. Burning sensation, worse with palpation. No fevers, chills, drainage. No other complaints. PFSH Past Medical History Cerebrovascular Accident: Yes (BRAIN BLEED S/P TRAUMA ) Genitourinary: No Neurologic: Yes Respiratory: No Seizures: Yes Past Surgical History Neurologic Surgery: Yes (TUMOR REMOVED FROM OPTIC NERVE) Other Surgery: Yes (VENTRICLE SHUNT 20 YEARS AGO DUE TO TUMOR) Social History Alcohol Use: No Tobacco Use: No (QUIT 5 YEARS AGO) Substance Use: No Allergies-Medications (Allergen,Severity, Reaction): Coded Allergies: Codeine (Verified Allergy, Severe, HEADACHE, 04/28/17) Penicillin (Verified Allergy, Severe, 04/28/17) Ativan (Verified Allergy, Unknown, 04/28/17) Reported Meds & Prescriptions Reported Meds & Active Scripts Active Keflex (Cephalexin) 500 Mg Cap 500 Mg PO Q8H Bactrim DS (Sulfamethoxazole-Trimethoprim) 800-160 Mg Tab 1 Tab PO BID Oxcarbazepine 600 Mg Tab 600 Mg PO Q12H Cyanocobalamin Inj (Cyanocobalamin) 1,000 Mcg/Ml Inj 1,000 Mcg SQ DAILY Plavix (Clopidogrel Bisulfate) 75 Mg Tab 75 Mg PO DAILY Lipitor (Atorvastatin Calcium) 10 Mg Tab 10 Mg PO HS [Aspirin Chew] 81 MG Chew 81 Mg PO DAILY Review of Systems Except as stated in HPI: all other systems reviewed are Neg Physical Exam Narrative GENERAL: Well-nourished male in no acute distress SKIN: Warm and dry. 3 cm of erythema, induration left forearm. No proximal streaking, axillary lymphadenopathy HEAD: Atraumatic. Normocephalic. CARDIOVASCULAR: Regular rate and rhythm. No murmur appreciated. RESPIRATORY: No accessory muscle use. Clear to auscultation. Breath sounds equal bilaterally. MUSCULOSKELETAL: No obvious deformities. No clubbing. No cyanosis. No edema. Data Data Last Documented VS Vital Signs Date Time Temp Pulse Resp B/P Pulse Ox O2 Delivery O2 Flow Rate FiO2 04/28/17 11:19 98.0 68 20 132/77 99 Room Air Orders Sulfamet-Trimeth Ds 800-160 Mg (Bactrim (04/28/17 12:00) Cephalexin (Keflex) (04/28/17 12:00) MDM Medical Decision Making Medical Screen Exam Complete: Yes Emergency Medical Condition: Yes Medical Record Reviewed: Yes Differential Diagnosis Cellulitis, allergic reaction to bug bite, erysipelas, abscess Narrative Course Examination reveals mild cellulitis secondary to bug bite. Discharged with oral antibiotics. Diagnosis Primary Impression: Cellulitis of left arm Additional Instructions: Antibiotics as prescribed. Warm compresses several times a day 10-15 minutes at a time. Return for evidence of worsening infection. Med/Other Pt SpecificInfo: Prescription(s) given Scripts Cephalexin (Keflex)500 Mg [id number] Mg PO Q8H #30 CAP Ref 0 Prov:Mlia Menendez MD 04/28/17 Sulfamethoxazole-Trimethoprim (Bactrim DS)800-160 Mg Tab1 Tab PO BID #20 TAB Ref 0 Prov:Mila Menendez MD 04/28/17 Disposition: 01 DISCHARGE HOME Condition: Stable Basil Covington Apr 28, 2017 12:07
== END 2017-04-28 13:44 | disposition home or self-care (01) ==
LOC: NEPK 11:18
DX: L03.114 Cellulitis of left upper limb (principal); Z86.73 Personal history of transient ischemic attack (TIA), and cerebral infarction without residual deficits; Z87.891 Personal history of nicotine dependence
CPT/HCPCS: 99284

== ENCOUNTER 2018-02-20 11:07 | Inpatient (IN) | payer BC, OTHER ==
[~2018-02-20] VITALS: Ht 170.2 cm; Wt 60.4 kg
[~2018-02-20 11:07] MED LIST changes: +BACT800T5 PO; +CEPH-460 PO
[2018-02-20 11:09] VITALS: BP 131/79; PULSE 56; RESP 16; TEMP 97.2; O2SAT 98
[2018-02-20 11:22] VITALS: BP 138/78; PULSE 51; RESP 19; O2SAT 100
[2018-02-20] MEDS ORDERED: SODIUM CHLORIDE 0.9% FLUSH 10 ML FLUSH IVF PRN (11:30)
--- NOTE | 2018-02-20 11:31 | PD ---
HPI Chief Complaint: Neuro Symptoms/ Deficits Time Seen by Provider: 11:16 Travel History International Travel<30 days: No Contact w/Intl Traveler<30days: No Traveled to known affect area: No History of Present Illness HPI Patient is a 57-year-old male presenting to the emergency department for evaluation of right-sided weakness. Patient reports feeling fine yesterday, he worked overnight and approximately 0430 this morning he started experiencing right facial drooping and right-sided weakness in his extremities. He went home at 6 AM went to sleep, reported feeling better to his family and when he woke up at 1030 this morning he was unable to ambulate due to the increased weakness that had progressed since the initiation of his symptoms at 0430. Patient denies any chest pain, shortness of breath, nausea, vomiting, abdominal pain. He does report a dull headache. He rates his pain a 3 out of 10. He denies any visual changes. 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 His states that the shunt was last revised in 1999. He is currently followed by Dr. Morel, his primary doctor is Dr. Bailey. [facility] Past Medical History Cerebrovascular Accident: Yes (BRAIN BLEED S/P TRAUMA ) Genitourinary: No Neurologic: Yes (Brain tumor) Respiratory: No Seizures: Yes Past Surgical History Neurologic Surgery: Yes (TUMOR REMOVED FROM OPTIC NERVE) Other Surgery: Yes (VENTRICLE SHUNT 20 YEARS AGO DUE TO TUMOR) Social History Alcohol Use: No Tobacco Use: No (QUIT 5 YEARS AGO) Substance Use: No Allergies-Medications (Allergen,Severity, Reaction): Coded Allergies: codeine (Unverified Allergy, Severe, HEADACHE, 02/20/18) penicillin G (Unverified Allergy, Severe, 02/20/18) lorazepam (Unverified Allergy, Unknown, 02/20/18) Reported Meds & Prescriptions Reported Meds & Active Scripts Active Oxcarbazepine 600 Mg Tab 600 Mg PO Q12H [Aspirin Chew] 81 MG Chew 81 Mg PO DAILY Review of Systems Except as stated in HPI: all other systems reviewed are Neg Eyes: No: Blurred Vision, Photophobia HENT: Positive: Headaches Cardiovascular: No: Chest Pain or Discomfort Respiratory: No: Shortness of Breath Gastrointestinal: No: Nausea, Abdominal Pain Neurologic: Positive: Weakness, Focal Abnormalities, Coordination Problem, Headache, Slurred Speech Physical Exam Narrative GENERAL: Well-developed, well-nourished, alert male. Presenting in no acute distress. SKIN: Warm and dry. HEAD: Atraumatic. Deformity to right uatsdin. EYES: Pupils equal and round. No scleral icterus. No injection or drainage. Extraocular movements are intact. ENT: No nasal bleeding or discharge. Mucous membranes pink and moist. NECK: Trachea midline. No JVD. CARDIOVASCULAR: Regular rate and rhythm. RESPIRATORY: No accessory muscle use. Clear to auscultation. Breath sounds equal bilaterally. GASTROINTESTINAL: Abdomen soft, non-tender, nondistended. Hepatic and splenic margins not palpable. MUSCULOSKELETAL: Extremities without clubbing, cyanosis, or edema. No obvious deformities. NEUROLOGICAL: Awake and alert. Slurred speech, 1/5 strength on the right side, 5 out of 5 on the left. Right facial droop. PSYCHIATRIC: Appropriate mood and affect; insight and judgment normal. Data Data Last Documented VS Vital Signs Date Time Temp Pulse Resp B/P (MAP) Pulse Ox O2 Delivery O2 Flow Rate FiO2 02/20/18 11:38 100 Room Air 02/20/18 11:22 51 19 02/20/18 11:09 97.2 Orders Orders Electrocardiogram (02/20/18 11:25) Prothrombin Time / Inr (Pt) (02/20/18 11:25) Act Partial Throm Time (Ptt) (02/20/18 11:25) Complete Blood Count With Diff (02/20/18 11:25) Comprehensive Metabolic Panel (02/20/18 11:25) Creatine Kinase (Cpk) (02/20/18 11:25) Troponin I (02/20/18 11:25) Ct Brain W/O Iv Contrast(Rout) (02/20/18 11:25) Chest, Single Ap (02/20/18 11:25) Ecg Monitoring (02/20/18 11:25) Iv Access Insert/Monitor (02/20/18 11:25) Oximetry (02/20/18 11:25) Sodium Chloride 0.9% Flush (Ns Flush) (02/20/18 11:30) Piece Work Checker / Telemetry RADHA.Q8H (02/20/18 13:10) Vital Signs (Adult) Q4H (02/20/18 13:10) Activity Bed Rest (02/20/18 13:10) Notify Dr: Other (02/20/18 13:10) Admit Order (Ed Use Only) (02/20/18 14:45) Labs Laboratory Tests Test 02/20/18 11:40 White Blood Count 6.3 TH/MM3 Red Blood Count 4.67 MIL/MM3 Hemoglobin 13.6 GM/DL Hematocrit 40.2 % Mean Corpuscular Volume 86.0 FL Mean Corpuscular Hemoglobin 29.0 PG Mean Corpuscular Hemoglobin Concent 33.8 % Red Cell Distribution Width 14.0 % Platelet Count 302 TH/MM3 Mean Platelet Volume 8.2 FL Neutrophils (%) (Auto) 50.2 % Lymphocytes (%) (Auto) 32.5 % Monocytes (%) (Auto) 9.5 % Eosinophils (%) (Auto) 7.0 % Basophils (%) (Auto) 0.8 % Neutrophils # (Auto) 3.2 TH/MM3 Lymphocytes # (Auto) 2.1 TH/MM3 Monocytes # (Auto) 0.6 TH/MM3 Eosinophils # (Auto) 0.4 TH/MM3 Basophils # (Auto) 0.1 TH/MM3 CBC Comment DIFF FINAL Differential Comment Prothrombin Time 10.0 SEC Prothromb Time International Ratio 1.0 RATIO Activated Partial Thromboplast Time 27.7 SEC Blood Urea Nitrogen 13 MG/DL Creatinine 0.79 MG/DL Random Glucose 95 MG/DL Total Protein 6.7 GM/DL Albumin 3.4 GM/DL Calcium Level 8.6 MG/DL Alkaline Phosphatase 65 U/L Aspartate Amino Transf (AST/SGOT) 20 U/L Alanine Aminotransferase (ALT/SGPT) 28 U/L Total Bilirubin 0.3 MG/DL Sodium Level 135 MEQ/L Potassium Level 4.4 MEQ/L Chloride Level 101 MEQ/L Carbon Dioxide Level 26.6 MEQ/L Anion Gap 7 MEQ/L Estimat Glomerular Filtration Rate 102 ML/MIN Total Creatine Kinase 169 U/L Troponin I LESS THAN 0.02 NG/ML MDM Medical Decision Making Medical Screen Exam Complete: Yes Emergency Medical Condition: Yes Medical Record Reviewed: Yes Interpretation(s) Last Impressions Head CT 02/20/18 1125 Signed Impressions: Service Date/Time: Tuesday, February 20, 2018 11:48 - CONCLUSION: 1. No acute hemorrhage, midline shift or extra-axial fluid collections. 2. No significant change compared to 02/12/17. Bharat Hu MD Laboratory Tests Test 02/20/18 11:40 White Blood Count 6.3 TH/MM3 Red Blood Count 4.67 MIL/MM3 Hemoglobin 13.6 GM/DL Hematocrit 40.2 % Mean Corpuscular Volume 86.0 FL Mean Corpuscular Hemoglobin 29.0 PG Mean Corpuscular Hemoglobin Concent 33.8 % Red Cell Distribution Width 14.0 % Platelet Count 302 TH/MM3 Mean Platelet Volume 8.2 FL Neutrophils (%) (Auto) 50.2 % Lymphocytes (%) (Auto) 32.5 % Monocytes (%) (Auto) 9.5 % Eosinophils (%) (Auto) 7.0 % Basophils (%) (Auto) 0.8 % Neutrophils # (Auto) 3.2 TH/MM3 Lymphocytes # (Auto) 2.1 TH/MM3 Monocytes # (Auto) 0.6 TH/MM3 Eosinophils # (Auto) 0.4 TH/MM3 Basophils # (Auto) 0.1 TH/MM3 CBC Comment DIFF FINAL Differential Comment Prothrombin Time 10.0 SEC Prothromb Time International Ratio 1.0 RATIO Activated Partial Thromboplast Time 27.7 SEC Blood Urea Nitrogen 13 MG/DL Creatinine 0.79 MG/DL Random Glucose 95 MG/DL Total Protein 6.7 GM/DL Albumin 3.4 GM/DL Calcium Level 8.6 MG/DL Alkaline Phosphatase 65 U/L Aspartate Amino Transf (AST/SGOT) 20 U/L Alanine Aminotransferase (ALT/SGPT) 28 U/L Total Bilirubin 0.3 MG/DL Sodium Level 135 MEQ/L Potassium Level 4.4 MEQ/L Chloride Level 101 MEQ/L Carbon Dioxide Level 26.6 MEQ/L Anion Gap 7 MEQ/L Estimat Glomerular Filtration Rate 102 ML/MIN Total Creatine Kinase 169 U/L Troponin I LESS THAN 0.02 NG/ML Vital Signs Date Time Temp Pulse Resp B/P (MAP) Pulse Ox O2 Delivery O2 Flow Rate FiO2 02/20/18 11:22 51 19 138/78 (98) 100 Room Air 02/20/18 11:09 97.2 56 16 131/79 (96) 98 Differential Diagnosis CVA versus TIA versus cardiac arrhythmia versus metabolic abnormality versus increased intracranial pressure versus other Narrative Course Patient is a 57-year-old male presenting with obvious right-sided deficits. Last seen normal was prior to 4:30 AM this morning. Patient's vital signs are stable, patient placed on bakery technician, continuous pulse oximetry. Labs and imaging ordered and pending. Family is at bedside. CBC is unremarkable Chemistry is unremarkable Cardiac enzymes are negative [address] scan of the brain shows no acute hemorrhage, midline shift, or extra-axial fluid collections. No significant change compared to 02/12/2017. Discussed patient's presentation and plan of care with my attending physician. Chest x-ray resulted and shows no acute cardiopulmonary disease. Patient will be admitted for CVA, discussed findings with and patient. Dr. Bailey accepted admission, admit orders placed. Patient was initially admitted to Dr. Bailey, admission was changed to residents, discussed patient presentation and findings with the resident who accepted admission for Dr. Holden. Admit orders adjusted. Diagnosis Primary Impression: CVA (cerebral vascular accident) Qualified Codes: I63.9 - Cerebral infarction, unspecified Admitting Information Admitting Physician Requests: Admit Condition: Stable Zofia Rodriguez Feb 20, 2018 11:31
[2018-02-20 11:38] VITALS: O2SAT 100
[2018-02-20 11:51] LABS: AUTOMATED NEUTROPHIL # 3.2 TH/MM3 (1.8-7.7); BASOPHIL # 0.1 TH/MM3 (0-0.2); BASOPHIL % 0.8 % (0.0-2.0); EOSINOPHIL # 0.4 TH/MM3 (0-0.4); HEMATOCRIT 40.2 % (39.0-51.0); HEMOGLOBIN 13.6 GM/DL (13.0-17.0); LYMPH % 32.5 % (9.0-44.0); LYMPHOCYTE # 2.1 TH/MM3 (1.0-4.8); MEAN CORPUSCULAR HGB CONC 33.8 % (32.0-36.0); MEAN PLATELET VOLUME 8.2 FL (7.0-11.0); MONO % 9.5 % (0.0-8.0); MONOCYTE # 0.6 TH/MM3 (0-0.9); NEUT % 50.2 % (16.0-70.0); PLATELET COUNT 302 TH/MM3 (150-450); RED BLOOD COUNT 4.67 MIL/MM3 (4.50-5.90); WHITE BLOOD COUNT 6.3 TH/MM3 (4.0-11.0)
--- NOTE | 2018-02-20 12:13 | RADRPT ---
EXAM DATE/TIME: 02/20/2018 11:48 [facility] COMPARISON: MRI BRAIN W/O CONTRAST, February 12, 2017, 14:48. CT BRAIN W/O CONTRAST, February 12, 2017, 9:57. INDICATIONS : Right side facial droop and weakness, trouble walking RADIATION DOSE: 35.85 CTDIvol (mGy) MEDICAL HISTORY : Cerebrovascular disease. Seizures. Tumor removed from optic nerve SURGICAL HISTORY : Craniotomy. ENCOUNTER: Initial ACUITY: 1 day PAIN SCALE: 0/10 LOCATION: cranial TECHNIQUE: Multiple contiguous axial images were obtained of the head. Using automated exposure control and adj ustment of the mA and/or kV according to patient size, radiation dose was kept as low as reasonably a chievable to obtain optimal diagnostic quality images. DICOM format image data is available electro nically for review and comparison. FINDINGS: CEREBRUM: The right-sided ventricular shunt is unchanged in position. Old lacunar infarct within the left basal ganglia is stable. There is a stable calcific density noted within the suprasellar cistern. The vent ricles are normal for age. No evidence of midline shift, mass lesion, hemorrhage or acute infarction . No extra-axial fluid collections are seen. POSTERIOR FOSSA: The cerebellum and brainstem are intact. The 4th ventricle is midline. The cerebellopontine angle i s unremarkable. EXTRACRANIAL: The visualized portion of the orbits is intact. SKULL: Deformity of the right side of the skull is again noted status post craniotomy. No evidence of skull fracture. CONCLUSION: 1. No acute hemorrhage, midline shift or extra-axial fluid collections. 2. No significant change compared to 02/12/17. Bharat Hu MD on February 20, 2018 at 12:06 Board Certified Radiologist. This report was verified electronically.
[2018-02-20 12:14] LABS: ALBUMIN 3.4 GM/DL (3.4-5.0); ALKALINE PHOSPHATASE 65 U/L (45-117); ALT (GPT) 28 U/L (12-78); AST (GOT) 20 U/L (15-37); BICARBONATE 26.6 MEQ/L (21.0-32.0); BLOOD UREA NITROGEN 13 MG/DL (7-18); CALCIUM 8.6 MG/DL (8.5-10.1); CHLORIDE 101 MEQ/L (98-107); CREATININE 0.79 MG/DL (0.60-1.30); GLOMERULAR FILTRATION RATE 102 ML/MIN (>89); GLUCOSE,RANDOM 95 MG/DL (74-106); SODIUM (NA) 135 MEQ/L (136-145); TOTAL BILIRUBIN ADULT 0.3 MG/DL (0.2-1.0); TOTAL PROTEIN 6.7 GM/DL (6.4-8.2); TROPONIN I LESS THAN 0.02 NG/ML (0.02-0.05)
--- NOTE | 2018-02-20 12:53 | RADRPT ---
EXAM DATE/TIME: 02/20/2018 12:24 [facility] COMPARISON: CHEST SINGLE AP, February 12, 2017, 9:08. INDICATIONS : Right side weakness with numbness. MEDICAL HISTORY : Montes tumor SURGICAL HISTORY : Brain surgery ENCOUNTER: Initial ACUITY: 1 day PAIN SCORE: 1/10 LOCATION: Bilateral chest FINDINGS: The heart is stable. The pulmonary vascular pattern is normal. The lungs are clear. Ventriculo-perito marco antonio shunt is noted. Degenerative changes and scoliosis of the thoraco-lumbar spine are noted. CONCLUSION: No acute cardiopulmonary disease. Bharat Hu MD on February 20, 2018 at 12:50 Board Certified Radiologist. This report was verified electronically.
--- NOTE | 2018-02-20 13:09 | PD ---
Physical Exam Date Seen by Provider: Feb 20, 2018 Time Seen by Provider: 13:00 Narrative 57-year-old male came to the emergency room with history of progressive right- sided weakness since 4:30 AM. By this time patient came to the emergency room and was seen it was 11:30 AM. Patient has history of pain tumor with status post craniotomy 20 years ago. Patient was seen by my nurse practitioner. I am supervising her. CT scan was negative for any intracranial bleed. Patient has significant right upper and lower extremity weakness. NIH stroke score of 10 currently. Vital signs were stable. Blood test results of back and within acceptable limits. Given the time lapse of 7 hours patient was not a candidate for TPA or clot retrieval. Hence no stroke alert was called. Patient will need to be admitted. Data Data Last Documented VS Vital Signs Date Time Temp Pulse Resp B/P (MAP) Pulse Ox O2 Delivery O2 Flow Rate FiO2 02/20/18 11:38 100 Room Air 02/20/18 11:22 51 19 02/20/18 11:09 97.2 Orders Orders Electrocardiogram (02/20/18 11:25) Prothrombin Time / Inr (Pt) (02/20/18 11:25) Act Partial Throm Time (Ptt) (02/20/18 11:25) Complete Blood Count With Diff (02/20/18 11:25) Comprehensive Metabolic Panel (02/20/18 11:25) Creatine Kinase (Cpk) (02/20/18 11:25) Troponin I (02/20/18 11:25) Ct Brain W/O Iv Contrast(Rout) (02/20/18 11:25) Chest, Single Ap (02/20/18 11:25) Ecg Monitoring (02/20/18 11:25) Iv Access Insert/Monitor (02/20/18 11:25) Oximetry (02/20/18 11:25) Sodium Chloride 0.9% Flush (Ns Flush) (02/20/18 11:30) Consumer Loan Underwriter / Telemetry RADHA.Q8H (02/20/18 13:10) Vital Signs (Adult) Q4H (02/20/18 13:10) Activity Bed Rest (02/20/18 13:10) Notify Dr: Other (02/20/18 13:10) Labs Laboratory Tests Test 3/28/18 11:40 White Blood Count 6.3 TH/MM3 Red Blood Count 4.67 MIL/MM3 Hemoglobin 13.6 GM/DL Hematocrit 40.2 % Mean Corpuscular Volume 86.0 FL Mean Corpuscular Hemoglobin 29.0 PG Mean Corpuscular Hemoglobin Concent 33.8 % Red Cell Distribution Width 14.0 % Platelet Count 302 TH/MM3 Mean Platelet Volume 8.2 FL Neutrophils (%) (Auto) 50.2 % Lymphocytes (%) (Auto) 32.5 % Monocytes (%) (Auto) 9.5 % Eosinophils (%) (Auto) 7.0 % Basophils (%) (Auto) 0.8 % Neutrophils # (Auto) 3.2 TH/MM3 Lymphocytes # (Auto) 2.1 TH/MM3 Monocytes # (Auto) 0.6 TH/MM3 Eosinophils # (Auto) 0.4 TH/MM3 Basophils # (Auto) 0.1 TH/MM3 CBC Comment DIFF FINAL Differential Comment Prothrombin Time 10.0 SEC Prothromb Time International Ratio 1.0 RATIO Activated Partial Thromboplast Time 27.7 SEC Blood Urea Nitrogen 13 MG/DL Creatinine 0.79 MG/DL Random Glucose 95 MG/DL Total Protein 6.7 GM/DL Albumin 3.4 GM/DL Calcium Level 8.6 MG/DL Alkaline Phosphatase 65 U/L Aspartate Amino Transf (AST/SGOT) 20 U/L Alanine Aminotransferase (ALT/SGPT) 28 U/L Total Bilirubin 0.3 MG/DL Sodium Level 135 MEQ/L Potassium Level 4.4 MEQ/L Chloride Level 101 MEQ/L Carbon Dioxide Level 26.6 MEQ/L Anion Gap 7 MEQ/L Estimat Glomerular Filtration Rate 102 ML/MIN Hemoglobin A1c 6.0 % Total Creatine Kinase 169 U/L Troponin I LESS THAN 0.02 NG/ML [facility] Supervised Visit with JORDAN: Leonard Crawford MD Feb 20, 2018 13:09
[2018-02-20 15:15] VITALS: BP 110/85; PULSE 58; RESP 19; O2SAT 100
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
[2018-02-20] MEDS ORDERED: GLUCAGON 1 MG/ML VIAL OTHER PRN (16:00)
[2018-02-20] MEDS ORDERED: DEXTROSE 50% IN WATER 50 ML VIAL(D50) IV PUSH PRN (16:00)
[2018-02-20] MEDS ORDERED: SODIUM CHLORIDE 0.9% FLUSH 10 ML FLUSH IV FLUSH PRN (16:00)
[2018-02-20] MEDS: INSULIN ASPART SUPPLEMENTAL SCALE SQ SCH ×2 (17:00→20:06)
--- NOTE | 2018-02-20 17:29 | RADRPT ---
EXAM DATE/TIME: 02/20/2018 16:49 [facility] COMPARISON: No previous studies available for comparison. INDICATIONS : Cerebrovascular accident. MEDICAL HISTORY : Stroke. Brain hemorrhage. Seizures. SURGICAL HISTORY : Ventricular shunt. ENCOUNTER: Subsequent ACUITY: 1 day PAIN SCORE: 0/10 LOCATION: Bilateral neck PEAK SYSTOLIC VELOCITIES (cm/sec): ICA/CCA RATIO: Right: 0.9 Left: 1.1 ICA: Right: 85.5 Left: 85.1 CCA: Right: 90.5 Left: 75.8 ECA: Right: 64.5 Left: 87.1 VERTEBRAL: Right: 41.7 antegrade Left: 56.8 antegrade Elevated flow velocities and ICA/CCA ratios have been found to correlate with increased degrees of vessel stenosis, calculated as percentage of diameter relative to a normal segment of distal ICA/CCA FINDINGS: RIGHT CAROTID: No significant stenosis is visualized. The waveforms are within normal limits. LEFT CAROTID: No significant stenosis is visualized. The waveforms are within normal limits. VERTEBRAL ARTERIES: Antegrade flow is seen in both vertebral arteries. MISCELLANEOUS: None. CONCLUSION: No evidence of flow-limiting carotid stenosis. Navneet Nazario MD on February 20, 2018 at 17:26 Board Certified Radiologist. This report was verified electronically.
[2018-02-20] MEDS: OXcarbazepine 600 MG TAB PO SCH (18:00)
[2018-02-20 20:00] VITALS: BP 169/81; PULSE 57; RESP 18; TEMP 97.9; O2SAT 96
[2018-02-20] MEDS: PRAVASTATIN SOD 40 MG TAB PO SCH (20:06)
[2018-02-20] MEDS: SODIUM CHLORIDE 0.9% FLUSH 10 ML FLUSH IV FLUSH SCH (20:06)
[2018-02-20 20:09] VITALS: O2SAT 99
[2018-02-20] MEDS: ACETAMINOPHEN 1000 MG/100 ML 100 ML IV SCH (20:34)
[2018-02-20] MEDS: SODIUM CHLOR 0.9% 1000 ML INJ 1,000 ML IV SCH (20:37)
[2018-02-21] VITALS (10 sets, daily range): BP systolic 136–162; BP diastolic 72–90; PULSE 44–61; RESP 16–19; TEMP 97.2–98.5; O2SAT 98–99
[2018-02-21] MEDS: ACETAMINOPHEN 1000 MG/100 ML 100 ML IV SCH ×2 (02:25→10:13)
[2018-02-21 03:40] LABS: ALBUMIN 3.3 GM/DL (3.4-5.0); BICARBONATE 23.3 MEQ/L (21.0-32.0); CALCIUM 8.2 MG/DL (8.5-10.1); CREATININE 0.64 MG/DL (0.60-1.30); DIRECT BILIRUBIN ADULT 0.1 MG/DL (0.0-0.2)
[2018-02-21 03:43] LABS: CHOLESTEROL/ HDL RATIO 3.3 RATIO; INDIRECT BILIRUBIN 0.3 MG/DL (0.0-0.8); TOTAL BILIRUBIN ADULT 0.4 MG/DL (0.2-1.0); TOTAL PROTEIN 6.4 GM/DL (6.4-8.2)
[2018-02-21 03:57] LABS: AUTOMATED NEUTROPHIL # 3.1 TH/MM3 (1.8-7.7); BASOPHIL # 0.1 TH/MM3 (0-0.2); BASOPHIL % 1.1 % (0.0-2.0); EOSINOPHIL # 0.4 TH/MM3 (0-0.4); EOSINOPHIL % 6.1 % (0.0-4.0); HEMATOCRIT 39.5 % (39.0-51.0); HEMOGLOBIN 13.4 GM/DL (13.0-17.0); LYMPH % 38.9 % (9.0-44.0); LYMPHOCYTE # 2.6 TH/MM3 (1.0-4.8); MEAN CELL VOLUME 84.9 FL (80.0-100.0); MEAN CORPUSCULAR HEMOGLOBIN 28.8 PG (27.0-34.0); MEAN CORPUSCULAR HGB CONC 33.9 % (32.0-36.0); MEAN PLATELET VOLUME 8.6 FL (7.0-11.0); MONO % 7.5 % (0.0-8.0); MONOCYTE # 0.5 TH/MM3 (0-0.9); NEUT % 46.4 % (16.0-70.0); PLATELET COUNT 301 TH/MM3 (150-450); RED BLOOD COUNT 4.66 MIL/MM3 (4.50-5.90); WHITE BLOOD COUNT 6.7 TH/MM3 (4.0-11.0)
[2018-02-21] MEDS: OXcarbazepine 600 MG TAB PO SCH ×2 (07:51→21:27)
[2018-02-21] MEDS: SODIUM CHLORIDE 0.9% FLUSH 10 ML FLUSH IV FLUSH SCH ×2 (07:52→21:27)
[2018-02-21] MEDS: INSULIN ASPART SUPPLEMENTAL SCALE SQ SCH ×4 (08:00→21:00)
[2018-02-21] MEDS ORDERED: ASPIRIN 81 MG CHEW TAB PO SCH (09:00)
[2018-02-21] MEDS ORDERED: ASPIRIN 325 MG TAB PO SCH (09:00)
[2018-02-21] MEDS: SODIUM CHLOR 0.9% 1000 ML INJ 1,000 ML IV SCH ×2 (10:06→11:00)
--- NOTE | 2018-02-21 10:57 | MB ---
cc: Kurt Feng MD DATE: 02/21/2018 HISTORY OF PRESENT ILLNESS: This is a 57-year-old right-handed man with a history of right optic nerve tumor resection. 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 He had seizure. He does not remember exactly how many years ago, but he thinks he only had it one time. He was hospitalized here about a year ago for a headache and tingling on the left side of the face, arm, and leg. Workup was essentially negative at that time and he was placed on Plavix and a statin and discharged. However, he only takes a baby aspirin now. He is also taking Trileptal for a history of seizures which was restarted a year ago. He takes 600 mg every 12 hours of the Trileptal. REVIEW OF SYSTEMS: He denies hypertension, diabetes, hypercholesterolemia, myocardial infarction, bypass and angioplasty, atrial fibrillation, Coumadin, renal disease, hepatic disease, pulmonary disease, thyroid disease, lupus, ulcer, cancer, or stroke before. He states no other major medical problems except for the CUPOLA PATCHER HELPER shunt and brain bleed after a trauma many years ago. SOCIAL HISTORY: He is a nonsmoker and nondrinker. He lives with his . FAMILY HISTORY: Negative for cancer, seizure, or stroke. 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 On the way to his car, he had a slight headache about 3/10 and noticed some numbness on the right side of his body, right arm, right leg, right face and also some weakness not so much in his leg, but in the arm and then he went home. He was feeling better so he went to bed around 6 a.m. and then he woke up and his called his daughter. He had some difficulty walking at that time due to weakness in the right leg and came to the hospital. He thinks he arrived at the hospital around 11:00 a.m. He denies any chest pain, palpitations, lightheadedness, dizziness, odd smells, tastes, Yi vu. He did not wake up with his tongue bitten and did not have bowel or bladder incontinence. He does state that yesterday before going to bed, he was able to raise his right arm off of the bed; however, this morning is not able to move the right arm at all or wiggle the fingers or the thumb, but he is able to move his right leg. MEDICATIONS: At home, he is on a baby aspirin and the Trileptal 600 mg twice a day. MEDICATIONS IN THE HOSPITAL: He is on 325 of aspirin, now Pravastatin and Trileptal. PHYSICAL EXAM: VITAL SIGNS: On admission, 169/81, now 150/85, pulse is 44, respiratory rate 18, pulse oximetry 99% on room air. HEART: Regular rate and rhythm. I did not detect a murmur or carotid bruit. NEUROLOGIC: Visual pal were full. He does have a right temporal defect where the craniotomy was that is healed. Extraocular movements are intact without nystagmus. He does have a right facial droop. Tongue is midline. He is unable to lift the right arm. Strength in the left upper and left lower extremity is 5/5. He is unable to wiggle or move the fingers or the thumb in the right hand. 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 Tibialis anterior is 4/5, iliopsoas 3/5 on the right. Toe is upgoing on the right, downgoing on the left. DTRs are 2+ in the right lower extremity, 1+ in the left lower extremity, 1+ in the upper extremities bilaterally. Pinprick and vibratory sense is intact throughout. Tone is normal throughout. There is no ankle clonus. He is not ataxic on the left arm. Unable to assess gait at this time. He is alert and oriented. He does have a bit of slurred speech, but he is not aphasic. LABORATORY DATA: CBC is normal. Coags are normal. Chemistry profile: Sodium slightly low at 134 and troponin is negative, LDL is 112. IMAGING: CT of the head shows some post-surgical changes and otherwise negative for acute infarct. Chest x-ray was negative. Carotid ultrasound was normal. He had a brain MRI a year ago that did not show any acute infarcts and showed postsurgical changes on the right. Head and neck CTA in 2007 were read as normal at that time. IMPRESSION: Likely a left lacunar infarction since he has worsened overnight. PLAN: We will put him on Plavix, fluid and head of bed flat for now. We will hold blood pressure medication for under 200/100. We will order an MRI and MRA of the brain and some additional blood work, and a hypercoagulation panel. MD Mary Orellana ARNP DJRuma/ANNABELLA , 10:20 AM , 10:56 AM
--- NOTE | 2018-02-21 11:34 | RADRPT ---
EXAM DATE/TIME: 02/21/2018 11:01 [facility] COMPARISON: MRA BRAIN W/O CONTRAST, February 12, 2017, 14:48. INDICATIONS : Stroke. Right sided weakness and facial droop. MEDICAL HISTORY : None. SURGICAL HISTORY : Appendectomy. Cholecystectomy. V/P shunt. ENCOUNTER: Initial ACUITY: 1 day PAIN SCORE: 0/10 LOCATION: Head. Please note a normal MRA of the brain does not entirely exclude the possibility of a small aneurysm, nor the possibility of distal intracranial vessel disease. TECHNIQUE: 3D time of flight MRA was performed. Source images, multiplanar STS MIP, and 3D volume MIP reconstru ctions were reviewed. FINDINGS: There is excellent visualization of the major intracranial arteries out to the second-order branch ve ssels. There is no evidence for aneurysm, vessel truncation or stenosis, and no evidence for vascula r malformation. 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 The appearance is unchanged from prior exam CONCLUSION: No acute [place] [facility] [place] vascular findings Navneet Nazario MD on February 21, 2018 at 11:27 Board Certified Radiologist. This report was verified electronically.
[2018-02-21] MEDS ORDERED: GADODIAMIDE PF 287 MG/ML 20 ML VIAL (for RAD MRI) IVCONTRAST ONE (11:49)
--- NOTE | 2018-02-21 12:00 | RADRPT ---
EXAM DATE/TIME: 02/21/2018 11:01 [facility] COMPARISON: MRI BRAIN W/O CONTRAST, February 12, 2017, 14:48. CT BRAIN W/O CONTRAST, February 20, 2018, 11:48. INDICATIONS : Stroke. Right sided weakness, right facial droop and slurred speech. CONTRAST: 20 cc Omniscan (gadodiamide) IV MEDICAL HISTORY : None. SURGICAL HISTORY : Appendectomy. Cholecystectomy. V/P shunt. ENCOUNTER: Subsequent ACUITY: 1 day PAIN SCORE: 0/10 LOCATION: Head. TECHNIQUE: Multiplanar, multisequence MRI of the brain was performed both prior to and following the administrat ion of paramagnetic contrast. FINDINGS: Today's exam is compared to the prior MRI of the brain of 02/12/2017. There has been an interval soto e on the diffusion weighted images. There are bilateral focal areas of increased signal in the basal ganglia regions consist of an acute infarction. The largest focal area of infarction is involving the left basal ganglia region measuring approximately 1.6 cm. There is a 5 mm area of acute infarction i nvolving the right basal ganglia. These findings are new compared to the prior study. Otherwise, the rest of the appearance of the brain is stable compared to the prior MRI. There continue to be some st able white matter changes bilaterally. The ventricles remain normal in size and midline in position. Stable postsurgical changes are again noted along the right frontoparietal region. The posterior annika a and midbrain are within normal limits and stable. The pituitary gland is stable and unremarkable. CONCLUSION: 1. Compared to the prior study there has been interval development of bilateral acute infarctions in the basal ganglia regions, left greater than right. 2. Otherwise, the rest of the examination is stable compared to the prior study. Ramirez Arenas MD on February 21, 2018 at 11:53 Board Certified Radiologist. This report was verified electronically.
--- NOTE | 2018-02-21 12:01 | RADRPT ---
EXAM DATE/TIME: 02/21/2018 11:01 [facility] COMPARISON: No previous studies available for comparison. INDICATIONS : Stroke. Right sided weakness and facial droop. CONTRAST: 20 cc Omniscan (gadodiamide) IV MEDICAL HISTORY : None. SURGICAL HISTORY : Appendectomy. Cholecystectomy. V/P shunt. ENCOUNTER: Initial ACUITY: 1 day PAIN SCORE: 0/10 LOCATION: Head. Percent stenosis is calculated using the diameter of the stenotic region over the diameter of the nor mal distal internal carotid artery. TECHNIQUE: Bolus infused MRA of the extracranial circulation was performed using a neurovascular coil. Post pro cessing was performed including rotating subvolume maximum intensity projections of each carotid celso ry, rotating full volume maximum intensity projections of both carotid arteries, sagittal and coronal sliding thin slab reformations of each carotid artery, and left oblique sliding thin slab reformatio n through the aortic arch to include the origin of the arch branch vessels. FINDINGS: AORTIC ARCH: There is a three vessel origin of the great vessels from the aorta. No evidence of ostial narrowing. RIGHT CAROTID: The common carotid artery is intact. The carotid bulb has a normal configuration without ulceration or narrowing. The internal carotid artery lumen is smooth without stenosis. The external carotid ar ronald is intact. LEFT CAROTID: The common carotid artery is intact. The carotid bulb has a normal configuration without ulceration or narrowing. The internal carotid artery lumen is smooth without stenosis. The external carotid ar ronald is intact. VERTEBRALS: The vertebral arteries have a symmetric diameter. No stenotic lesions are seen. CONCLUSION: Unremarkable MRA of the carotids. Ramirez Arenas MD on February 21, 2018 at 11:58 Board Certified Radiologist. This report was verified electronically.
--- NOTE | 2018-02-21 12:31 | EKG ---
Date Performed: 02/20/2018 Time Performed: 11:39:21 PTAGE: 57 years EKG: SINUS BRADYCARDIA BORDERLINE ECG PREVIOUS TRACING : 02/12/2017 09.05 Since the previous tracing, no significant change noted DOCTOR: Ilan Tillman Interpretating Date/Time 02/21/2018 12:31:15
[2018-02-21] MEDS: CLOPIDOGREL 75 MG TAB PO SCH (13:05)
--- NOTE | 2018-02-21 13:31 | HHI.FPPN ---
Subjective Remarks No acute events overnight. Patient seen by medicine team in radiology after undergoing MRI. Patient states that the weakness in his R arm is currently worse than yesterday. Facial droop, slurred speech and R leg weakness unchanged. He states his function improves intermittently but nothing persistent. Denies CP, SOB, headache, N/V. (Severo Mott MD R1) Objective Vitals Vital Signs Date Time Temp Pulse Resp B/P (MAP) Pulse Ox O2 Delivery O2 Flow Rate FiO2 02/21/18 09:25 98.3 56 19 140/74 (96) 98 02/21/18 09:21 98 21 02/21/18 05:51 44 02/21/18 04:13 98.3 44 18 150/85 (106) 99 02/21/18 00:17 97.2 55 18 160/90 (113) 99 02/21/18 00:05 47 02/20/18 20:09 99 02/20/18 20:00 97.9 57 18 169/81 (110) 96 02/20/18 16:02 02/20/18 15:15 58 19 110/85 (93) 100 Room Air I/O 02/20/18 02/20/18 02/20/18 02/21/18 02/21/18 02/21/18 07:00 15:00 23:00 07:00 15:00 23:00 Intake Total 100 ml 100 ml Output Total 1000 ml Balance 100 ml -900 ml Intake Oral 0 ml IV Total 100 ml 100 ml Output Urine Total 1000 ml # Voids 4 (Severo Mott MD R1) Result Diagram: 02/21/18 0238 02/21/18 0238 Objective Remarks GENERAL: This is a well-nourished, well-developed patient, in no apparent distress. SKIN: No rashes, ecchymoses or lesions. Cool and dry. HEAD: Atraumatic. Normocephalic. No temporal or scalp tenderness. EYES: Pupils equal round and reactive. Extraocular motions intact. No scleral icterus. No injection or drainage. ENT: Nose without bleeding, purulent drainage or septal hematoma. Throat without erythema, tonsillar hypertrophy or exudate. Uvula midline. Airway patent. NECK: Trachea midline. No JVD or lymphadenopathy. Supple, nontender, no meningeal signs. CARDIOVASCULAR: Regular rate and rhythm without murmurs, gallops, or rubs. RESPIRATORY: Clear to auscultation. Breath sounds equal bilaterally. No wheezes , rales, or rhonchi. GASTROINTESTINAL: Abdomen soft, non-tender, nondistended. No hepato-splenomegaly , or palpable masses. No guarding. MUSCULOSKELETAL: Extremities without clubbing, cyanosis, or edema. No joint tenderness, effusion, or edema noted. No calf tenderness. Negative Homans sign bilaterally. NEUROLOGICAL: Awake and alert. Cranial nerves II through XII intact with the exception of asymmetric smile (facial droop on the R). Sensory intact and equal bilaterally. 3 out of 5 muscle strength in the RLE - stable from admission , 1 out of 5 in the RUE (unable to lift arm - decline in function from admission ), 5 out of 5 on the L. Slurred speech. (Severo Mott MD R1) A/P Assessment and Plan 57 yo with PMH of TIA in 2016, [employer] shunt presenting to ED with 5-6 hour history of R sided weakness, R facial droop and slurred speech. Symptoms have improved but are still present in ED. Admitted for stroke workup. CT head in ED negative for bleed. Neurology consulted. Symptoms persisting on morning of 02/21 Discharge Planning Persistent deficits that will likely need SNF placement. (Severo Mott MD R1) Attending Attestation Table rounds this morning with Dr Perez, Dr Lisa Kenny, Dr Mott and Dr Villafana Patients admission and hospital course discussed in detail EMR reviewed Patient interviewed and examined with medical team Agree with contents of above documentation See Orders (Juan Holden MD) Problem List: (1) CVA (cerebral vascular accident) ICD Codes: I63.9 - Cerebral infarction, unspecified Status: Acute Plan: Patient admitted for R sided weakness, R sided facial droop and slurred speech. Improved but still present on admission Had TIA in january of 2017 with L sided weakness with headache, but returned to baseline within 24 hours - was discharged on plavix and a statin but prescription was not refilled a month later CT head on admission negative for bleed EKG on admission showing sinus bradycardia Troponin x3 negative Neurology consulted Stroke workup as follows: MRI showing interval development of bilateral acute infarctions in the basal ganglia regions, L greater than R MRA negative Carotid U/S no evidence of flow-limiting carotid stenosis Echocardiogram pending EEG pending Hypercoagulability workup pending PT/OT consulted Speech Therapy recommending mechanical soft diet, nectar thick liquids Lipid panel showing elevated LDL at 112 Telemetry Meds: Giving IVF at 75mL/hr ASA 81mg daily Pravastatin 40mg HS Plavix 75mg po daily (2) History of seizure ICD Codes: Z87.898 - Personal history of other specified conditions Plan: Patient had 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 No seizures since Continue home Trileptal EEG pending (3) FEN Plan: F: NS at 75mL/hr E: replete as needed N: Regular diet with mechanical soft food, nectar thick liquids DVT: Holding for now as patient has history of brain bleed, ASA daily and SCDs (Severo Mott MD R1) Problem Qualifiers (1) CVA (cerebral vascular accident): Qualified Codes: I63.9 - Cerebral infarction, unspecified Severo Mott MD R1 Feb 21, 2018 13:31 Juan Holden MD Feb 21, 2018 19:39
--- NOTE | 2018-02-21 14:35 | ECHRPT ---
Indication: CVA/TIA CONCLUSIONS Normal left ventricular size and wall thickness. The left ventricular systolic function is normal wi th an estimated ejection fraction in the range of 60-65%. Wall motion is normal. There is trace tricuspid valve regurgitation. BP: 150 / 85 HR: 44 Rhythm: Sinus MEASUREMENTS (Male / Female) Normal Values Technical Quality:Fair 2D ECHO LV Diastolic Diameter PLAX 4.8 cm 4.2 - 5.9 / 3.9 - 5.3 cm LV Systolic Diameter PLAX 2.9 cm IVS Diastolic Thickness 1.2 cm 0.6 - 1.0 / 0.6 - 0.9 cm LVPW Diastolic Thickness 1.2 cm 0.6 - 1.0 / 0.6 - 0.9 cm LV Relative Wall Thickness 0.5 RV Internal Dim ED PLAX 2.6 cm LVOT Diameter 2.3 cm Aortic Root Diameter 3.4 cm LA Systolic Diameter LX 3.3 cm 3.0 - 4.0 / 2.7 - 3.8 cm M-MODE AV Cusp Separation MM 2.2 cm DOPPLER AV Peak Velocity 146.0 cm/s AV Peak Gradient 8.5 mmHg AV Mean Gradient 3.0 mmHg AV Velocity Time Integral 27.4 cm LVOT Peak Velocity 95.5 cm/s LVOT Peak Gradient 3.6 mmHg LVOT Velocity Time Integral 18.1 cm AV Area Cont Eq vti 2.7 cm AV Area Cont Eq pk 2.7 cm Mitral E Point Velocity 94.3 cm/s Mitral A Point Velocity 53.8 cm/s Mitral E to A Ratio 1.8 LV E' Lateral Velocity 12.5 cm/s Mitral E to LV E' Lateral Ratio 7.5 LV E' Septal Velocity 8.1 cm/s Mitral E to LV E' Septal Ratio 11.7 PV Peak Velocity 80.5 cm/s PV Peak Gradient 2.6 mmHg FINDINGS LEFT VENTRICLE Normal left ventricular size and wall thickness. The left ventricular systolic function is normal wi th an estimated ejection fraction in the range of 60-65%. Wall motion is normal. RIGHT VENTRICLE Normal right ventricular size and systolic function. LEFT ATRIUM The left atrial size is normal. RIGHT ATRIUM The right atrial size is mildly dilated. ATRIAL SEPTUM The interatrial septum not well visualized. AORTA The aortic root and proximal ascending aorta are not well visualized. MITRAL VALVE Structurally normal mitral valve. No mitral valve stenosis or regurgitation. AORTIC VALVE Trileaflet aortic valve. No aortic valve stenosis or regurgitation. TRICUSPID VALVE There is trace tricuspid valve regurgitation. PULMONARY VALVE No pulmonary valve regurgitation or stenosis. VESSELS The inferior vena cava is normal in size. PERICARDIUM No pericardial effusion. Lionel Garcia MD (Electronically Signed) Final Date:21 February 2018 14:34
[2018-02-21 15:40] LABS: RHEUMATOID FACTOR SCREEN NEGATIVE (NEGATIVE)
[2018-02-21 15:42] LABS: C-REACTIVE PROTEIN LESS THAN 0.29 MG/DL (0.00-0.30); CHOLESTEROL 197 MG/DL (120-200); TRIGLYCERIDES 74 MG/DL (42-150)
[2018-02-21 16:07] LABS: CHOLESTEROL/ HDL RATIO 3.51 RATIO; FOLATE 14.2 NG/ML (3.1-17.5); FREE T4 0.94 NG/DL (0.76-1.46); LDL CHOLESTEROL 126 MG/DL (0-99)
--- NOTE | 2018-02-21 16:58 | MG ---
cc: Fahad Coughlin MD, PhD TEST NUMBER: [id number]. TECHNIQUE: 17-channel EEG. DESCRIPTION: Background rhythm is a symmetrical alpha rhythm, frequency 8-9 Hz, amplitude 20 microvolts. There is the expected anterior decrement to the response. There are no lateralizing features seen. There are no epileptiform discharges. Photic stimulation results in a normal driving response. Later in the tracing, there is some sharp activity in the right temporoparietal area, which may represent an ictal focus. INTERPRETATION: Borderline abnormal study. There is some sharp activity over the right hemisphere, possibly related to an ictal focus. Fahad Coughlin MD, PhD SHANTELL/OSCAR , 04:48 PM , 04:57 PM
[2018-02-21 18:46] LABS: BILIRUBIN, URINE NEG (NEG); BLOOD, URINE NEG (NEG); GLUCOSE,URINE NEG (NEG); KETONE, URINE NEG (NEG); NITRITE,URINE NEG (NEG); URINE COLOR LIGHT-YELLOW (YELLW/STRAW); URINE LEUKOCYTE ESTERASE NEG (NEG)
[2018-02-21] MEDS: PRAVASTATIN SOD 40 MG TAB PO SCH (21:27)
[2018-02-21] MEDS ORDERED: ACETAMINOPHEN 325 MG TAB PO PRN (21:45)
[2018-02-22] VITALS (10 sets, daily range): BP systolic 117–167; BP diastolic 63–84; PULSE 48–84; RESP 12–20; TEMP 97.3–98.6; O2SAT 96–99
[2018-02-22] MEDS: SODIUM CHLOR 0.9% 1000 ML INJ 1,000 ML IV SCH ×2 (00:20→12:51)
[2018-02-22] MEDS: INSULIN ASPART SUPPLEMENTAL SCALE SQ SCH ×4 (07:48→21:00)
--- NOTE | 2018-02-22 08:20 | HHI.PR ---
Subjective Remarks sr Objective Vital Signs Date Time Temp Pulse Resp B/P (MAP) Pulse Ox O2 Delivery O2 Flow Rate FiO2 02/22/18 04:00 97.3 50 12 136/63 (87) 97 02/22/18 04:00 97.3 50 12 136/63 (87) 97 02/22/18 00:00 98.6 53 16 160/80 (106) 99 02/21/18 20:00 97.6 51 16 162/80 (107) 98 02/21/18 20:00 97.6 51 16 162/80 (107) 98 02/21/18 17:20 53 02/21/18 16:00 97.6 55 18 152/88 (109) 98 02/21/18 12:00 98.5 61 17 136/72 (93) 98 02/21/18 09:25 98.3 56 19 140/74 (96) 98 02/21/18 09:21 98 21 I/O 02/21/18 02/21/18 02/21/18 02/22/18 02/22/18 02/22/18 07:00 15:00 23:00 07:00 15:00 23:00 Intake Total 100 ml 50 ml 1988 ml Output Total 1000 ml Balance -900 ml 50 ml 1988 ml Intake Oral 0 ml IV Total 100 ml 50 ml 1988 ml Output Urine Total 1000 ml # Voids 4 Result Diagram: 02/21/188 02/21/18 0238 Objective Remarks r droop and still 0/5 rue rle 4/5 speech ok Assessment and Plan Assessment and Plan imp left>right bilat cva deep mrax2 nl echo nl hyper labs pend on plavix and statin he needs alexander and loop placed will need rehab keep ivf on and bp up for next 48 hours would be better to do loop and alexander sunday so he stabilizes neurowise over weekend Kurt Feng MD Feb 22, 2018 08:20
[2018-02-22] MEDS: SODIUM CHLORIDE 0.9% FLUSH 10 ML FLUSH IV FLUSH SCH ×2 (08:33→22:40)
[2018-02-22] MEDS: CLOPIDOGREL 75 MG TAB PO SCH (08:49)
[2018-02-22] MEDS: ASPIRIN 81 MG CHEW TAB PO SCH (08:49)
[2018-02-22] MEDS: OXcarbazepine 600 MG TAB PO SCH ×2 (08:49→22:39)
--- NOTE | 2018-02-22 09:40 | PD.CONS ---
HPI Service cardiology Consult Requested By Reason for Consult CVA Primary Care Physician Irvin Bailey MD History of Present Illness 57 yo WM with prior TIA, optic nerve tumor with removal and [employer] HAND shunt in place who presents with sudden onset R-sided weakness that began several days ago which has progressively worsened. He was diagnosed with TIA in 2017 and reports being compliant with asa and plavix. He denies prior cardiac history; no chest pain,sob or palpitations. Imaging reveals new development of bilateral acute infarctions. carotid ultrasound and transthoracic echo are unremarkable. He is unable to actively lift his R arm at all, R leg remains weak and he continues to have slurred speech. (Janessa Chavez) Review of Systems Consitutional: DENIES: Fever, Chills, Weight gain, Weight loss Respiratory: DENIES: Cough, Snoring, Shortness of breath, Wheezing, Sputum production Cardiovascular: DENIES: Chest pain, Palpitations, Syncope, Tachycardia Gastrointestinal: DENIES: Nausea, Vomiting, Change in bowel habits, Reflux, Bloody stools, Melena (Janessa Chavez) Past Family Social History Allergies: Coded Allergies: codeine (Unverified Allergy, Severe, HEADACHE, 02/20/18) penicillin G (Unverified Allergy, Severe, 02/20/18) lorazepam (Unverified Allergy, Unknown, 02/20/18) Past Medical History 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 Ventricle shunt 20 years ago Left parietal lashae hole drainage of Left SDH 03/27/08 Reported Medications Reported Meds & Active Scripts Active Oxcarbazepine 600 Mg Tab 600 Mg PO Q12H [Aspirin Chew] 81 MG Chew 81 Mg PO DAILY Active Ordered Medications Current Medications Medications (Trade) Dose Ordered Sig/Phil Route Start Time Stop Time Status Last Admin (Trileptal) 600 mg Q12HR PO 02/20/18 18:00 02/22/18 08:49 (NS Flush) 2 ml BID IV FLUSH 02/20/18 21:00 02/21/18 21:27 (NS Flush) 2 ml UNSCH PRN IV FLUSH 02/20/18 16:00 (Pravachol) 40 mg HS PO 02/20/18 21:00 02/21/18 21:27 (NovoLOG SUPPLEMENTAL SCALE) 1 ACHS SQ 02/20/18 17:00 02/21/18 17:00 (D50w (Vial) Inj) 50 ml UNSCH PRN IV PUSH 02/20/18 16:00 (Glucagon Inj) 1 mg UNSCH PRN OTHER 02/20/18 16:00 (Plavix) 75 mg DAILY PO 02/21/18 11:00 02/22/18 08:49 Sodium Chloride 1,000 ml @ 75 mls/hr [id number] IV 02/21/18 11:00 02/22/18 00:20 (Aspirin Chew) 81 mg DAILY PO 02/22/18 09:00 02/22/18 08:49 (Tylenol) 650 mg Q6HR PRN PO 02/21/18 21:45 Family History Mom had HTN, CVA Dad had emphysema Social History 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 at 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 No alcohol Former smoker (quit 13 years ago), smoked 30 years 1ppd No illicit drugs (Janessa Chavez) Physical Exam Vital Signs Vital Signs Date Time Temp Pulse Resp B/P (MAP) Pulse Ox O2 Delivery O2 Flow Rate FiO2 02/22/18 08:00 97.9 52 18 138/79 (98) 99 02/22/18 04:00 97.3 50 12 136/63 (87) 97 02/22/18 04:00 97.3 50 12 136/63 (87) 97 02/22/18 00:00 98.6 53 16 160/80 (106) 99 02/21/18 20:00 97.6 51 16 162/80 (107) 98 02/21/18 20:00 97.6 51 16 162/80 (107) 98 02/21/18 17:20 53 02/21/18 16:00 97.6 55 18 152/88 (109) 98 02/21/18 12:00 98.5 61 17 136/72 (93) 98 02/21/18 09:25 98.3 56 19 140/74 (96) 98 Physical Exam GENERAL: SKIN: Warm and dry. HEAD: Atraumatic. Normocephalic. EYES: Pupils equal and round. No scleral icterus. ENT: No nasal bleeding or discharge. NECK: Trachea midline. No JVD. CARDIOVASCULAR: Regular rate and rhythm. no murmurs RESPIRATORY: No accessory muscle use. Clear to auscultation. Breath sounds equal bilaterally. GASTROINTESTINAL: Abdomen soft, non-tender, nondistended. Hepatic and splenic margins not palpable. MUSCULOSKELETAL: Extremities without clubbing, cyanosis, or edema. R parietal cranium defect NEUROLOGICAL: Awake and alert. gross weakness to R leg, 0/5 strength to R arm, slurred speech PSYCHIATRIC: Appropriate mood and affect; insight and judgment normal. Laboratory Laboratory Tests Test 02/21/18 14:39 02/21/18 18:28 C-Reactive Protein LESS THAN 0.29 Total Protein 6.8 Triglycerides Level 74 Cholesterol Level 197 LDL Cholesterol 126 HDL Cholesterol 56.0 Cholesterol/HDL Ratio 3.51 Vitamin B12 Level 975 Folate 14.2 Free Thyroxine 0.94 Thyroid Stimulating Hormone 3rd Gen 2.530 Rheumatoid Factor Screen NEGATIVE Rheumatoid Factor Titer Urine Color LIGHT-YELLOW Urine Turbidity CLEAR Urine pH 6.0 Urine Specific [place] 1.008 Urine Protein NEG Urine Glucose (UA) NEG Urine Ketones NEG Urine Occult Blood NEG Urine Nitrite NEG Urine Bilirubin NEG Urine Urobilinogen LESS THAN 2.0 Urine Leukocyte Esterase NEG Microscopic Urinalysis Comment CULT NOT INDICATED (Janessa Chavez) Result Diagram: 02/21/188 02/21/18 0238 Imaging Last 24 hours Impressions Neck Magnetic Resonance Angiography 02/21/18955 Signed Impressions: Service Date/Time: January 11:01 - CONCLUSION: Unremarkable MRA of the carotids. Ramirez Arenas MD Brain MRI 02/21/18955 Signed Impressions: Service Date/Time: January 11:01 - CONCLUSION: 1. Compared to the prior study there has been interval development of bilateral acute infarctions in the basal ganglia regions, left greater than right. 2. Otherwise , the rest of the examination is stable compared to the prior study. Ramirez Arenas MD (Jaenssa Chavez) Assessment and Plan Problem List: (1) CVA (cerebral vascular accident) ICD Codes: I63.9 - Cerebral infarction, unspecified Status: Acute Assessment and Plan 57 yo WM with prior TIA, optic nerve tumor with removal and [employer] HAND shunt in place who presents with sudden onset R-sided weakness that began several days ago which has progressively worsened. He was diagnosed with TIA in 2017 and reports being compliant with asa and Plavix. He denies prior cardiac history; no chest pain,sob or palpitations. Imaging reveals new development of bilateral acute infarctions. carotid ultrasound and transthoracic echo are unremarkable. He is unable to actively lift his R arm at all, R leg remains weak and he continues to have slurred speech. CVA- plan for MERON to rule out cardioembolic source consider loop recorder. (Janessa Chavez) Assessment and Plan recurrent stroke on asa plavix ?cardioembolic he ate breakfast this am NPO p MN MERON tomorrow am will need to coordinate loop recorder as outpatient as cardiac cath tech not open until sunday for elective cases (Crow Camargo MD) Problem Qualifiers (1) CVA (cerebral vascular accident): Qualified Codes: I63.9 - Cerebral infarction, unspecified Janessa Chavez Feb 22, 2018 09:40 Crow Camargo MD Feb 22, 2018 10:13
[2018-02-22 09:57] LABS: AUTOMATED NEUTROPHIL # 3.5 TH/MM3 (1.8-7.7); BASOPHIL # 0.1 TH/MM3 (0-0.2); BASOPHIL % 0.9 % (0.0-2.0); EOSINOPHIL # 0.3 TH/MM3 (0-0.4); EOSINOPHIL % 4.8 % (0.0-4.0); HEMATOCRIT 41.4 % (39.0-51.0); HEMOGLOBIN 14.2 GM/DL (13.0-17.0); LYMPH % 26.9 % (9.0-44.0); LYMPHOCYTE # 1.6 TH/MM3 (1.0-4.8); MEAN CELL VOLUME 85.4 FL (80.0-100.0); MEAN CORPUSCULAR HEMOGLOBIN 29.2 PG (27.0-34.0); MEAN CORPUSCULAR HGB CONC 34.2 % (32.0-36.0); MEAN PLATELET VOLUME 8.6 FL (7.0-11.0); MONO % 10.8 % (0.0-8.0); MONOCYTE # 0.7 TH/MM3 (0-0.9); NEUT % 56.6 % (16.0-70.0); PLATELET COUNT 288 TH/MM3 (150-450); RED BLOOD COUNT 4.85 MIL/MM3 (4.50-5.90); RED CELL DISTRIBUTION WIDTH 14.2 % (11.6-17.2); WHITE BLOOD COUNT 6.1 TH/MM3 (4.0-11.0)
[2018-02-22 10:25] LABS: CALCIUM 8.5 MG/DL (8.5-10.1); CREATININE 0.67 MG/DL (0.60-1.30)
--- NOTE | 2018-02-22 10:32 | HHI.FPPN ---
Subjective Remarks No acute events overnight. Patient reports some mild improvement in strength in the RLE but no change in RUE. Continues to have mild facial droop and slurred speech. States he was able to eat meals with no difficulties. Denies CP, SOB, N/ V. Objective Vitals Vital Signs Date Time Temp Pulse Resp B/P (MAP) Pulse Ox O2 Delivery O2 Flow Rate FiO2 02/22/18 08:00 97.9 52 18 138/79 (98) 99 02/22/18 04:00 97.3 50 12 136/63 (87) 97 02/22/18 04:00 97.3 50 12 136/63 (87) 97 02/22/18 00:00 98.6 53 16 160/80 (106) 99 02/21/18 20:00 97.6 51 16 162/80 (107) 98 02/21/18 20:00 97.6 51 16 162/80 (107) 98 02/21/18 17:20 53 02/21/18 16:00 97.6 55 18 152/88 (109) 98 02/21/18 12:00 98.5 61 17 136/72 (93) 98 I/O 02/21/18 02/21/18 02/21/18 02/22/18 02/22/18 02/22/18 07:00 15:00 23:00 07:00 15:00 23:00 Intake Total 100 ml 50 ml 1989 ml Output Total 1000 ml Balance -900 ml 50 ml 1988 ml Intake Oral 0 ml IV Total 100 ml 50 ml 1989 ml Output Urine Total 1000 ml # Voids 4 Result Diagram: 02/22/1881302/22/18813 Objective Remarks GENERAL: This is a well-nourished, well-developed patient, in no apparent distress. SKIN: No rashes, ecchymoses or lesions. Cool and dry. HEAD: Atraumatic. Normocephalic. No temporal or scalp tenderness. EYES: Pupils equal round and reactive. Extraocular motions intact. No scleral icterus. No injection or drainage. ENT: Nose without bleeding, purulent drainage or septal hematoma. Throat without erythema, tonsillar hypertrophy or exudate. Uvula midline. Airway patent. NECK: Trachea midline. No JVD or lymphadenopathy. Supple, nontender, no meningeal signs. CARDIOVASCULAR: Regular rate and rhythm without murmurs, gallops, or rubs. RESPIRATORY: Clear to auscultation. Breath sounds equal bilaterally. No wheezes , rales, or rhonchi. GASTROINTESTINAL: Abdomen soft, non-tender, nondistended. No hepato-splenomegaly , or palpable masses. No guarding. MUSCULOSKELETAL: Extremities without clubbing, cyanosis, or edema. No joint tenderness, effusion, or edema noted. No calf tenderness. Negative Homans sign bilaterally. NEUROLOGICAL: Awake and alert. Cranial nerves II through XII intact with the exception of asymmetric smile (facial droop on the R). Sensory intact and equal bilaterally. 4 out of 5 muscle strength in the RLE - improved from admission, 1 out of 5 in the RUE (unable to lift arm - decline in function from admission), 5 out of 5 on the L. Slurred speech. A/P Assessment and Plan 57 yo with PMH of TIA in 2016, [employer] shunt presenting to ED with 5-6 hour history of R sided weakness, R facial droop and slurred speech. Symptoms have improved but are still present in ED. Admitted for stroke workup. CT head in ED negative for bleed. Neurology consulted. Symptoms persisting on morning of 02/21. MRI brain showed bilateral acute infarctions in the basal ganglia, left greater than R. EEG showed sharp activity over R hemisphere, possibly related to an ictal focus. TTE unremarkable. Planning for MERON, loop recorder to evaluate for cardioembolic source of stroke. Discharge Planning Persistent deficits that will likely need SNF placement. Problem List: (1) CVA (cerebral vascular accident) ICD Codes: I63.9 - Cerebral infarction, unspecified Status: Acute Plan: Patient admitted for R sided weakness, R sided facial droop and slurred speech. Improved but still present on admission Had TIA in january of 2017 with L sided weakness with headache, but returned to baseline within 24 hours - was discharged on plavix and a statin but prescription was not refilled a month later CT head on admission negative for bleed EKG on admission showing sinus bradycardia Troponin x3 negative Neurology consulted Stroke workup as follows: MRI showing interval development of bilateral acute infarctions in the basal ganglia regions, L greater than R MRA negative Carotid U/S no evidence of flow-limiting carotid stenosis Echocardiogram normal EEG sharp activity over R hemisphere, possibly related to an ictal focus Planning for MERON, loop recorder to evaluate for cardioembolic source Hypercoagulability workup pending PT/OT consulted - will need inpatient Rehab Speech Therapy now recommending regular diet with thin liquids Lipid panel showing elevated LDL at 112 Telemetry Meds: Giving IVF at 75mL/hr ASA 81mg daily Pravastatin 40mg HS Plavix 75mg po daily (2) History of seizure ICD Codes: Z87.898 - Personal history of other specified conditions Plan: Patient had 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 No seizures since Continue home Trileptal EEG pending (3) FEN Plan: F: NS at 75mL/hr E: replete as needed N: Regular diet with no restrictions DVT: Holding for now as patient has history of brain bleed, ASA daily and SCDs Problem Qualifiers (1) CVA (cerebral vascular accident): Qualified Codes: I63.9 - Cerebral infarction, unspecified Severo Mott MD R1 Feb 22, 2018 10:32
[2018-02-22] MEDS ORDERED: SODIUM CHLORID 0.9% 500 ML IV PRN (14:00)
[2018-02-22] MEDS ORDERED: CHLORHEXIDINE GLUCONATE 2 % 1 PACK (2 CLOTHS) TOPICAL PRN (14:00)
[2018-02-22] MEDS ORDERED: POVIDONE IODINE 5% (ANTISEPSIS KIT) 4 APPLICATIONS EACH NARE PRN (14:00)
[2018-02-22] MEDS ORDERED: METOPROLOL TARTRATE 25 MG TAB PO PRN (14:00)
[2018-02-22] MEDS ORDERED: LACTATED RINGER'S 1000 ML IV PRN (14:00)
[2018-02-22 22:22] LABS: ALB/GLOB RATIO (SPE) 1.65 (1.39-2.23)
[2018-02-22] MEDS: PRAVASTATIN SOD 40 MG TAB PO SCH (22:39)
[2018-02-23] VITALS (8 sets, daily range): BP systolic 113–141; BP diastolic 66–81; PULSE 45–67; RESP 16–20; TEMP 97.1–98.1; O2SAT 95–99
[2018-02-23] MEDS: SODIUM CHLOR 0.9% 1000 ML INJ 1,000 ML IV SCH ×2 (03:00→16:56)
[2018-02-23] MEDS: SODIUM CHLORIDE 0.9% FLUSH 10 ML FLUSH IV FLUSH SCH ×2 (09:04→21:00)
[2018-02-23] MEDS: OXcarbazepine 600 MG TAB PO SCH ×2 (09:04→22:17)
[2018-02-23] MEDS: ASPIRIN 81 MG CHEW TAB PO SCH (09:04)
[2018-02-23] MEDS: CLOPIDOGREL 75 MG TAB PO SCH (09:04)
[2018-02-23] MEDS: INSULIN ASPART SUPPLEMENTAL SCALE SQ SCH ×4 (09:05→22:18)
--- NOTE | 2018-02-23 10:13 | HHI.FPPN ---
Subjective Remarks No acute events overnight. Patient states his R sided weakness is unchanged. He is scheduled for a MERON this AM and he expressed understanding of why. Was able to tolerate regular diet yesterday with no difficulties. Denies CP, SOB, N/V. Objective Vitals Vital Signs Date Time Temp Pulse Resp B/P (MAP) Pulse Ox O2 Delivery O2 Flow Rate FiO2 02/23/18 08:27 21 02/23/18 08:26 97.5 46 20 141/68 (92) 95 02/23/18 04:00 97.9 53 16 113/75 (88) 99 02/23/18 04:00 97.9 53 16 113/75 (88) 99 02/23/18 00:00 97.1 53 16 136/80 (98) 97 02/22/18 23:50 48 02/22/18 21:08 97.9 48 18 118/78 (91) 97 02/22/18 20:00 98.2 84 16 167/84 (111) 98 02/22/18 20:00 98.0 65 20 117/80 (92) 96 02/22/18 19:52 53 02/22/18 18:50 97.5 55 20 159/82 (107) 97 02/22/18 17:47 21 02/22/18 16:00 97.8 54 18 144/82 (102) 98 02/22/18 12:00 98.0 63 18 157/84 (108) 98 I/O 02/22/18 02/22/18 02/22/18 02/23/18 02/23/18 02/23/18 07:00 15:00 23:00 07:00 15:00 23:00 Intake Total 1988 ml 1001 ml Balance 1988 ml 1001 ml IV Total 1988 ml 1001 ml Result Diagram: 02/22/18 0814 02/22/1814 Objective Remarks GENERAL: This is a well-nourished, well-developed patient, in no apparent distress. SKIN: No rashes, ecchymoses or lesions. Cool and dry. HEAD: Atraumatic. Normocephalic. No temporal or scalp tenderness. EYES: Pupils equal round and reactive. Extraocular motions intact. No scleral icterus. No injection or drainage. ENT: Nose without bleeding, purulent drainage or septal hematoma. Throat without erythema, tonsillar hypertrophy or exudate. Uvula midline. Airway patent. NECK: Trachea midline. No JVD or lymphadenopathy. Supple, nontender, no meningeal signs. CARDIOVASCULAR: Regular rate and rhythm without murmurs, gallops, or rubs. RESPIRATORY: Clear to auscultation. Breath sounds equal bilaterally. No wheezes , rales, or rhonchi. GASTROINTESTINAL: Abdomen soft, non-tender, nondistended. No hepato-splenomegaly , or palpable masses. No guarding. MUSCULOSKELETAL: Extremities without clubbing, cyanosis, or edema. No joint tenderness, effusion, or edema noted. No calf tenderness. Negative Homans sign bilaterally. NEUROLOGICAL: Awake and alert. Cranial nerves II through XII intact with the exception of asymmetric smile (facial droop on the R). Sensory intact and equal bilaterally. 3 out of 5 muscle strength in the RLE - improved from admission but stable, 0 out of 5 in the RUE (unable move arm at all - decline in function from admission), 5 out of 5 on the L. Slurred speech is stable. A/P Assessment and Plan 57 yo with PMH of TIA in 2016, [employer] shunt presenting to ED with 5-6 hour history of R sided weakness, R facial droop and slurred speech. Symptoms have improved but are still present in ED. Admitted for stroke workup. CT head in ED negative for bleed. Neurology consulted. Symptoms persisting on morning of 02/21. MRI brain showed bilateral acute infarctions in the basal ganglia, left greater than R. EEG showed sharp activity over R hemisphere, possibly related to an ictal focus. TTE unremarkable. Planning for MERON on 02/23, loop recorder to evaluate for cardioembolic source of stroke. Discharge Planning Persistent deficits that will likely need SNF placement. Problem List: (1) CVA (cerebral vascular accident) ICD Codes: I63.9 - Cerebral infarction, unspecified Status: Acute Plan: Patient admitted for R sided weakness, R sided facial droop and slurred speech. Improved but still present on admission Had TIA in january of 2017 with L sided weakness with headache, but returned to baseline within 24 hours - was discharged on plavix and a statin but prescription was not refilled a month later CT head on admission negative for bleed EKG on admission showing sinus bradycardia Troponin x3 negative Neurology consulted Stroke workup as follows: MRI showing interval development of bilateral acute infarctions in the basal ganglia regions, L greater than R MRA negative Carotid U/S no evidence of flow-limiting carotid stenosis Echocardiogram normal EEG sharp activity over R hemisphere, possibly related to an ictal focus Planning for MERON on 02/23, loop recorder to evaluate for cardioembolic source Hypercoagulability workup pending PT/OT consulted - will need inpatient Rehab Speech Therapy now recommending regular diet with thin liquids Lipid panel showing elevated LDL at 112 Telemetry Meds: Giving IVF at 75mL/hr ASA 81mg daily Pravastatin 40mg HS Plavix 75mg po daily (2) History of seizure ICD Codes: Z87.898 - Personal history of other specified conditions Plan: Patient had 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 No seizures since Continue home Trileptal EEG with sharp activity over R hemisphere, possibly related to an ictal focus (3) FEN Plan: F: NS at 75mL/hr E: replete as needed N: Regular diet with no restrictions DVT: Holding for now as patient has history of brain bleed, ASA daily and SCDs Problem Qualifiers (1) CVA (cerebral vascular accident): Qualified Codes: I63.9 - Cerebral infarction, unspecified Severo Mott MD R1 Feb 23, 2018 10:13
--- NOTE | 2018-02-23 10:17 | PD.CARD.PN ---
Subjective Subjective Remarks no evnets Objective Medications Current Medications Medications (Trade) Dose Ordered Sig/Phil Route Start Time Stop Time Status Last Admin (Trileptal) 600 mg Q12HR PO 02/20/18 18:00 02/23/18 09:04 (NS Flush) 2 ml BID IV FLUSH 02/20/18 21:00 02/23/18 09:04 (NS Flush) 2 ml UNSCH PRN IV FLUSH 02/20/18 16:00 (Pravachol) 40 mg HS PO 02/20/18 21:00 02/22/18 22:39 (NovoLOG SUPPLEMENTAL SCALE) 1 ACHS SQ 02/20/18 17:00 02/21/18 17:00 (D50w (Vial) Inj) 50 ml UNSCH PRN IV PUSH 02/20/18 16:00 (Glucagon Inj) 1 mg UNSCH PRN OTHER 02/20/18 16:00 (Plavix) 75 mg DAILY PO 02/21/18 11:00 02/23/18 09:04 Sodium Chloride 1,000 ml @ 75 mls/hr [id number] IV 02/21/18 11:00 02/22/18 12:51 (Aspirin Chew) 81 mg DAILY PO 02/22/18 09:00 02/23/18 09:04 (Tylenol) 650 mg Q6HR PRN PO 02/21/18 21:45 02/22/18 22:40 Lactated Ringer's 1,000 ml @ 30 mls/hr Q24H PRN IV 02/22/18 14:00 02/25/18 13:59 Sodium Chloride 500 ml @ 30 mls/hr [id number] PRN IV 02/22/18 14:00 02/25/18 13:59 (Lopressor) 25 mg AGRICULTURAL PLOW OPERATOR PRN PO 02/22/18 14:00 02/25/18 13:59 (Betadine 5% Antisepsis Kit) 1 applic AGRICULTURAL PLOW OPERATOR PRN EACH NARE 02/22/18 14:00 02/25/18 13:59 (Chlorhexidine 2% Cloth) 3 pack AGRICULTURAL PLOW OPERATOR PRN TOPICAL 02/22/18 14:00 02/25/18 13:59 Vital Signs / I&O Vital Signs Date Time Temp Pulse Resp B/P (MAP) Pulse Ox O2 Delivery O2 Flow Rate FiO2 02/23/18 08:27 21 02/23/18 08:26 97.5 46 20 141/68 (92) 95 02/23/18 04:00 97.9 53 16 113/75 (88) 99 02/23/18 04:00 97.9 53 16 113/75 (88) 99 02/23/18 00:00 97.1 53 16 136/80 (98) 97 02/22/18 23:50 48 02/22/18 21:08 97.9 48 18 118/78 (91) 97 02/22/18 20:00 98.2 84 16 167/84 (111) 98 02/22/18 20:00 98.0 65 20 117/80 (92) 96 02/22/18 19:52 53 02/22/18 18:50 97.5 55 20 159/82 (107) 97 02/22/18 17:47 21 02/22/18 16:00 97.8 54 18 144/82 (102) 98 02/22/18 12:00 98.0 63 18 157/84 (108) 98 I/O 02/22/18 02/22/18 02/22/18 02/23/18 02/23/18 02/23/18 07:00 15:00 23:00 07:00 15:00 23:00 Intake Total 1989 ml 1001 ml Balance 1988 ml 1001 ml IV Total 1989 ml 1001 ml Physical Exam GENERAL: SKIN: Warm and dry. HEAD: Normocephalic. EYES: No scleral icterus. No injection or drainage. NECK: Supple, trachea midline. No JVD or lymphadenopathy. CARDIOVASCULAR: Regular rate and rhythm without murmurs, gallops, or rubs. RESPIRATORY: Breath sounds equal bilaterally. No accessory muscle use. GASTROINTESTINAL: Abdomen soft, non-tender, nondistended. MUSCULOSKELETAL: No cyanosis, or edema. BACK: Nontender without obvious deformity. No CVA tenderness. Assessment and Plan Problem List: (1) CVA (cerebral vascular accident) ICD Codes: I63.9 - Cerebral infarction, unspecified Status: Acute Assessment and Plan MERON - no cardioembolic source. management per neuro will sign off call with questions Problem Qualifiers (1) CVA (cerebral vascular accident): Qualified Codes: I63.9 - Cerebral infarction, unspecified Minor,Crow Watson MD Feb 23, 2018 10:17
[2018-02-23] MEDS ORDERED: DO NOT ADM ANY ANTICOAGULANT DRUGS PRN (10:20)
[2018-02-23] MEDS ORDERED: MISCELLANEOUS NURSING INFORMATION XX PRN (10:30)
--- NOTE | 2018-02-23 11:19 | ECHRPT ---
Indication: cva/tia CONCLUSIONS Normal left ventricular size and wall thickness. The left ventricular systolic function is normal wi th an estimated ejection fraction in the range of 60-65%. Left ventricular diastolic function parameters a re normal. Normal left atrial appendage size with no evidence of thrombus formation. Normal atrial septal thickness without atrial level shunting by limited color doppler interrogation. No atrial level shunt is demonstrated by color flow Doppler or agitated saline imaging. Moderate thickening of the mitral valve leaflets. Trace mitral valve regurgitation. BP: / HR: Rhythm: Technical Quality: Medications Complications Proc. Components The patient was brought to the diagnostic imaging area in a fasting state after o btaining an informed consent. The patient was premedicated with IV Versed and IV Fentanyl. The electronic organ technician ior pharynx was sprayed with Cetacaine spray and the patient was administered viscous Xylocaine 2 %. The MERON probe was passed into the posterior pharynx , mid-esophagus, distal esophagus, and gastric fundus. MERON was performed at multiple levels. The patient tolerated the procedure well and there were no complications. The patient was transferred to the floor in satisfactory condition.. FINDINGS LEFT VENTRICLE Normal left ventricular size and wall thickness. The left ventricular systolic function is normal wi th an estimated ejection fraction in the range of 60-65%. Left ventricular diastolic function parameters a re normal. RIGHT VENTRICLE Normal right ventricular size and systolic function. LEFT ATRIUM The left atrial size is normal. RIGHT ATRIUM The right atrial size is normal. ATRIAL APPENDAGES Normal left atrial appendage size with no evidence of thrombus formation. ATRIAL SEPTUM Normal atrial septal thickness without atrial level shunting by limited color doppler interrogation. No atrial level shunt is demonstrated by color flow Doppler or agitated saline imaging. AORTA The aortic root and proximal ascending aorta are normal in size on limited imaging. MITRAL VALVE Moderate thickening of the mitral valve leaflets. Trace mitral valve regurgitation. AORTIC VALVE Trileaflet aortic valve. No aortic valve stenosis or regurgitation. TRICUSPID VALVE Structurally normal tricuspid valve. No tricuspid valve stenosis or regurgitation. VESSELS The inferior vena cava is normal in size. PULMONARY VALVE The pulmonary valve is not well visualized. PERICADIUM No pericardial effusion. Crow Camargo MD, FACC (Electronically Signed) Final Date:23 February 2018 11:18
[2018-02-23] MEDS: PRAVASTATIN SOD 40 MG TAB PO SCH (22:16)
[2018-02-24] VITALS (9 sets, daily range): BP systolic 108–144; BP diastolic 67–76; PULSE 51–71; RESP 17–18; TEMP 97.7–98.2; O2SAT 97–99
[2018-02-24] MEDS: SODIUM CHLOR 0.9% 1000 ML INJ 1,000 ML IV SCH ×2 (05:55→16:22)
[2018-02-24] MEDS: INSULIN ASPART SUPPLEMENTAL SCALE SQ SCH ×4 (07:22→21:55)
[2018-02-24] MEDS: OXcarbazepine 600 MG TAB PO SCH ×2 (07:55→20:31)
[2018-02-24] MEDS: ASPIRIN 81 MG CHEW TAB PO SCH (07:55)
[2018-02-24] MEDS: CLOPIDOGREL 75 MG TAB PO SCH (07:55)
[2018-02-24] MEDS: SODIUM CHLORIDE 0.9% FLUSH 10 ML FLUSH IV FLUSH SCH ×2 (07:55→20:32)
--- NOTE | 2018-02-24 14:37 | HHI.FPPN ---
Subjective Remarks Patient was seen and evaluated this morning. He is feeling well. Patient denies chest pain, heart palpitations, shortness of breath, nausea/vomiting, diarrhea and constipation. All questions were answered. Objective Vitals Vital Signs Date Time Temp Pulse Resp B/P (MAP) Pulse Ox O2 Delivery O2 Flow Rate FiO2 02/24/18 12:00 97.7 68 18 108/67 (81) 98 02/24/18 11:13 64 02/24/18 08:09 51 02/24/18 08:00 97.7 55 18 144/76 (98) 99 02/24/18 04:44 98.0 51 17 130/69 (89) 97 02/24/18 00:06 98.2 71 17 115/68 (84) 98 02/23/18 21:49 98 21 02/23/18 20:00 97.7 67 18 141/66 (91) 99 02/23/18 16:00 98.1 62 20 129/77 (94) 99 I/O 02/23/18 02/23/18 02/23/18 02/24/18 02/24/18 02/24/18 07:00 15:00 23:00 07:00 15:00 23:00 Intake Total 1001 ml 440 ml 847 ml Output Total 0 ml 250 ml Balance 1001 ml 440 ml 597 ml Intake Oral 240 ml IV Total 1001 ml 847 ml Other 200 ml Output Urine Total 0 ml 250 ml # Voids 2 Result Diagram: 02/22/1814 02/22/18 0814 Objective Remarks GENERAL: This is a well-nourished, well-developed patient, in no apparent distress. SKIN: No rashes, ecchymoses or lesions. Cool and dry. HEAD: Atraumatic. Normocephalic. No temporal or scalp tenderness. EYES: Pupils equal round. Extraocular motions intact. No scleral icterus. No injection or drainage. ENT: Nose without bleeding, purulent drainage or septal hematoma. Throat without erythema, tonsillar hypertrophy or exudate. Uvula midline. Airway patent. NECK: Trachea midline. No JVD or lymphadenopathy. Supple, nontender, no meningeal signs. CARDIOVASCULAR: Regular rate and rhythm without murmurs, gallops, or rubs. RESPIRATORY: Clear to auscultation. Breath sounds equal bilaterally. No wheezes , rales, or rhonchi. GASTROINTESTINAL: Abdomen soft, non-tender, nondistended. No hepato-splenomegaly , or palpable masses. No guarding. MUSCULOSKELETAL: Extremities without clubbing, cyanosis, or edema. No joint tenderness, effusion, or edema noted. No calf tenderness. Negative Homans sign bilaterally. NEUROLOGICAL: Awake and alert. Cranial nerves II through XII intact with the exception of asymmetric smile (facial droop on the R). Sensory intact and equal bilaterally. 0 out of 5 in the RLE, 0 out of 5 in the RUE, 5 out of 5 on the L. Slurred speech is stable. Medications and IVs Current Medications Medications (Trade) Dose Ordered Sig/Phil Route Start Time Stop Time Status Last Admin (Trileptal) 600 mg Q12HR PO 02/20/18 18:00 02/24/18 07:55 (NS Flush) 2 ml BID IV FLUSH 02/20/18 21:00 02/24/18 07:55 (NS Flush) 2 ml UNSCH PRN IV FLUSH 02/20/18 16:00 (Pravachol) 40 mg HS PO 02/20/18 21:00 02/23/18 22:16 (NovoLOG SUPPLEMENTAL SCALE) 1 ACHS SQ 02/20/18 17:00 02/23/18 22:18 (D50w (Vial) Inj) 50 ml UNSCH PRN IV PUSH 02/20/18 16:00 (Glucagon Inj) 1 mg UNSCH PRN OTHER 02/20/18 16:00 (Plavix) 75 mg DAILY PO 02/21/18 11:00 02/24/18 07:55 Sodium Chloride 1,000 ml @ 75 mls/hr [id number] IV 02/21/18 11:00 02/24/18 16:22 (Aspirin Chew) 81 mg DAILY PO 02/22/18 09:00 02/24/18 07:55 (Tylenol) 650 mg Q6HR PRN PO 02/21/18 21:45 02/22/18 22:40 Lactated Ringer's 1,000 ml @ 30 mls/hr Q24H PRN IV 02/22/18 14:00 02/25/18 13:59 Sodium Chloride 500 ml @ 30 mls/hr [id number] PRN IV 02/22/18 14:00 4/2/18 13:59 (Lopressor) 25 mg DIGITAL MARKETING ASSOCIATE PRN PO 02/22/18 14:00 02/25/18 13:59 (Betadine 5% Antisepsis Kit) 1 applic DIGITAL MARKETING ASSOCIATE PRN EACH NARE 02/22/18 14:00 02/25/18 13:59 (Chlorhexidine 2% Cloth) 3 pack DIGITAL MARKETING ASSOCIATE PRN TOPICAL 02/22/18 14:00 02/25/18 13:59 Miscellaneous Information 1 UNSCH PRN XX 02/23/18 10:30 02/26/18 10:29 Urinary Catheter: No Vascular Central Line Catheter: No A/P Assessment and Plan 57 yo with PMH of TIA in 2016, [employer] shunt presenting to ED with 5-6 hour history of R sided weakness, R facial droop and slurred speech. Symptoms have improved but are still present in ED. Admitted for stroke workup. CT head in ED negative for bleed. Neurology consulted. Symptoms persisting on morning of 02/21. MRI brain showed bilateral acute infarctions in the basal ganglia, left greater than R. EEG showed sharp activity over R hemisphere, possibly related to an ictal focus. TTE unremarkable. MERON with no cardioembolic source. Discharge Planning Persistent deficits that will likely need SNF placement. Problem List: (1) CVA (cerebral vascular accident) ICD Codes: I63.9 - Cerebral infarction, unspecified Status: Acute Plan: Patient admitted for R sided weakness, R sided facial droop and slurred speech. Improved but still present on admission Had TIA in january of 2017 with L sided weakness with headache, but returned to baseline within 24 hours - was discharged on plavix and a statin but prescription was not refilled a month later CT head on admission negative for bleed EKG on admission showing sinus bradycardia Troponin x3 negative Neurology consulted Stroke workup as follows: MRI showing interval development of bilateral acute infarctions in the basal ganglia regions, L greater than R MRA negative Carotid U/S no evidence of flow-limiting carotid stenosis Echocardiogram normal EEG sharp activity over R hemisphere, possibly related to an ictal focus MERON on 02/23 with no cardioembolic source identified. Hypercoagulability workup pending PT/OT consulted - will need inpatient Rehab Speech Therapy now recommending regular diet with thin liquids Lipid panel showing elevated LDL at 112 Telemetry Meds: Giving IVF at 75mL/hr ASA 81mg daily Pravastatin 40mg HS Plavix 75mg po daily (2) History of seizure ICD Codes: Z87.898 - Personal history of other specified conditions Plan: Patient had 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 No seizures since Continue home Trileptal EEG with sharp activity over R hemisphere, possibly related to an ictal focus (3) FEN Plan: F: NS at 75mL/hr E: replete as needed N: Regular diet with no restrictions DVT: Holding for now as patient has history of brain bleed, ASA daily and SCDs Problem Qualifiers (1) CVA (cerebral vascular accident): Qualified Codes: I63.9 - Cerebral infarction, unspecified Bridget Stone MD R1 Feb 24, 2018 14:37
[2018-02-24] MEDS: PRAVASTATIN SOD 40 MG TAB PO SCH (20:31)
[2018-02-25] VITALS (10 sets, daily range): BP systolic 127–153; BP diastolic 67–86; PULSE 43–63; RESP 16–18; TEMP 97.5–98.3; O2SAT 97–100
[2018-02-25] MEDS: CLOPIDOGREL 75 MG TAB PO SCH (08:27)
[2018-02-25] MEDS: SODIUM CHLOR 0.9% 1000 ML INJ 1,000 ML IV SCH ×2 (08:27→21:40)
[2018-02-25] MEDS: OXcarbazepine 600 MG TAB PO SCH ×2 (08:27→20:31)
[2018-02-25] MEDS: ASPIRIN 81 MG CHEW TAB PO SCH (08:27)
[2018-02-25] MEDS: SODIUM CHLORIDE 0.9% FLUSH 10 ML FLUSH IV FLUSH SCH ×2 (08:28→20:31)
[2018-02-25] MEDS: INSULIN ASPART SUPPLEMENTAL SCALE SQ SCH ×4 (09:22→20:33)
--- NOTE | 2018-02-25 09:56 | HHI.PR ---
Subjective Remarks sr Objective Vital Signs Date Time Temp Pulse Resp B/P (MAP) Pulse Ox O2 Delivery O2 Flow Rate FiO2 02/25/18 04:56 43 02/25/18 04:28 97.6 50 17 150/86 (107) 98 02/25/18 02:33 47 02/25/18 00:01 97.8 59 17 137/67 (90) 98 02/24/18 23:00 56 02/24/18 22:20 21 02/24/18 19:48 98.1 60 18 128/73 (91) 97 02/24/18 16:00 97.8 66 18 144/72 (96) 98 02/24/18 12:00 97.7 68 18 108/67 (81) 98 02/24/18 11:13 64 I/O 02/24/18 02/24/18 02/24/18 02/25/18 02/25/18 02/25/18 07:00 15:00 23:00 07:00 15:00 23:00 Intake Total 847 ml 240 ml Output Total 250 ml 650 ml Balance 597 ml -410 ml Intake Oral 240 ml IV Total 847 ml Output Urine Total 250 ml 650 ml Result Diagram: 02/22/1814 02/22/1814 Objective Remarks r droop and still 0/5 rue rle 4/5 speech ok no change Assessment and Plan Assessment and Plan imp left>right bilat cva deep mrax2 nl echo nl hyper labs pend on plavix and statin he needs alexander and loop placed will need rehab keep ivf on and bp up for next 48 hours would be better to do loop and alexander sunday so he stabilizes neurowise over weekend 02/25/18 stable neuro alexander neg hyper labs pend would like to get loop done b4 dc to rehab after loop ready to go Kurt Feng MD Feb 25, 2018 09:56
[2018-02-25 11:44] LABS: AUTOMATED NEUTROPHIL # 3.7 TH/MM3 (1.8-7.7); BASOPHIL # 0.1 TH/MM3 (0-0.2); BASOPHIL % 1.3 % (0.0-2.0); EOSINOPHIL # 0.4 TH/MM3 (0-0.4); EOSINOPHIL % 6.3 % (0.0-4.0); HEMATOCRIT 38.4 % (39.0-51.0); HEMOGLOBIN 12.8 GM/DL (13.0-17.0); LYMPH % 25.1 % (9.0-44.0); LYMPHOCYTE # 1.6 TH/MM3 (1.0-4.8); MEAN CORPUSCULAR HGB CONC 33.4 % (32.0-36.0); MEAN PLATELET VOLUME 8.9 FL (7.0-11.0); MONO % 10.6 % (0.0-8.0); MONOCYTE # 0.7 TH/MM3 (0-0.9); NEUT % 56.7 % (16.0-70.0); PLATELET COUNT 274 TH/MM3 (150-450); RED BLOOD COUNT 4.41 MIL/MM3 (4.50-5.90); RED CELL DISTRIBUTION WIDTH 14.5 % (11.6-17.2); WHITE BLOOD COUNT 6.5 TH/MM3 (4.0-11.0)
[2018-02-25 12:12] LABS: BICARBONATE 27.2 MEQ/L (21.0-32.0); CALCIUM 8.5 MG/DL (8.5-10.1); CREATININE 0.74 MG/DL (0.60-1.30)
[2018-02-25 15:04] LABS: CARDIOLIPIN IGG AB <9.4 GPL; CARDIOLIPIN IGM AB <9.4 MPL
--- NOTE | 2018-02-25 15:44 | HHI.FPPN ---
Subjective Remarks Patient was seen and evaluated this morning. He feels well overall. He denies chest pain, heart palpitations, shortness of breath, nausea/vomiting, diarrhea and constipation. All questions were answered. Objective Vitals Vital Signs Date Time Temp Pulse Resp B/P (MAP) Pulse Ox O2 Delivery O2 Flow Rate FiO2 02/25/18 12:00 98.1 59 18 136/71 (92) 98 02/25/18 12:00 50 02/25/18 10:10 98 21 02/25/18 08:00 46 02/25/18 08:00 97.6 46 18 153/83 (106) 98 02/25/18 04:56 43 02/25/18 04:28 97.6 50 17 150/86 (107) 98 02/25/18 02:33 47 02/25/18 00:01 97.8 59 17 137/67 (90) 98 02/24/18 23:00 56 02/24/18 22:20 21 02/24/18 19:48 98.1 60 18 128/73 (91) 97 02/24/18 16:00 97.8 66 18 144/72 (96) 98 I/O 02/24/18 02/24/18 02/24/18 02/25/18 02/25/18 02/25/18 07:00 15:00 23:00 07:00 15:00 23:00 Intake Total 847 ml 240 ml Output Total 250 ml 650 ml Balance 597 ml -410 ml Intake Oral 240 ml IV Total 847 ml Output Urine Total 250 ml 650 ml Result Diagram: 02/25/18 1051 02/25/18 1051 Objective Remarks GENERAL: This is a well-nourished, well-developed patient, in no apparent distress. SKIN: No rashes, ecchymoses or lesions. Warm and dry. HEAD: Atraumatic. Normocephalic. EYES: Pupils equal round. Extraocular motions intact. No scleral icterus. No injection or drainage. ENT: Nose without bleeding, purulent drainage or septal hematoma. Airway patent. NECK: Trachea midline. Supple, nontender, no meningeal signs. CARDIOVASCULAR: Regular rate and rhythm without murmurs, gallops, or rubs. RESPIRATORY: Clear to auscultation. Breath sounds equal bilaterally. No wheezes , rales, or rhonchi. GASTROINTESTINAL: Positive bowel sounds. Abdomen soft, non-tender, nondistended. No hepato-splenomegaly, or palpable masses. No guarding. MUSCULOSKELETAL: Extremities without clubbing, cyanosis, or edema. No joint tenderness, effusion, or edema noted. No calf tenderness. NEUROLOGICAL: Awake and alert. Cranial nerves II through XII intact with the exception of asymmetric smile (facial droop on the R - improved). Sensory intact and equal bilaterally. 4 out of 5 in the RLE, 0 out of 5 in the RUE, 5 out of 5 on the L. Slurred speech is improved from yesterday. Procedures MERON 02/23. Loop recorder placement to be performed 02/26. Urinary Catheter: No Vascular Central Line Catheter: No A/P Assessment and Plan Patient is a 57 year old male with a past medical history significant of TIA in January of 2017 who presented to ED with 5-6 hour history of right facial droop with slurred speech and right-sided weakness. Admitted for stroke workup. Neurology consulted. MRI brain showed bilateral acute infarctions in the basal ganglia, left greater than right. EEG showed sharp activity over right hemisphere, possibly related to an ictal focus. TTE unremarkable. MERON with no cardioembolic source. Loop to be placed on 02/26. After procedure, patient cleared for discharge by neurology and cardiology. Discharge Planning Persistent deficits that will likely need SNF placement. Possible discharge 02/26. Problem List: (1) CVA (cerebral vascular accident) ICD Codes: I63.9 - Cerebral infarction, unspecified Status: Acute Plan: Patient admitted for right facial droop with slurred speech and right- sided weakness. Improved. Had TIA in January of 2017 with headache and left-sided weakness; returned to baseline within 24 hours - was discharged on Plavix and a Statin. CT head on admission negative for bleed. EKG on admission showing sinus bradycardia. Troponin x3 negative. Neurology consulted. Stroke workup as follows: MRI showing interval development of bilateral acute infarctions in the basal ganglia regions, left greater than right. MRA negative. Carotid U/S no evidence of flow-limiting carotid stenosis. Echocardiogram normal. EEG sharp activity over right hemisphere, possibly related to an ictal focus. MERON with no cardioembolic source identified. Hypercoagulability workup pending. Loop placement per cardiology on 02/26. PT/OT consulted - will need inpatient rehab. Lipid panel showing elevated LDL at 112. Telemetry. Meds: Giving IVF at 75mL/hr. ASA 81mg daily. Plavix 75mg po daily. Pravastatin 40mg HS. (2) History of seizure ICD Codes: Z87.898 - Personal history of other specified conditions Plan: Patient had 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 No seizures since. Continue home Trileptal. EEG with sharp activity over right hemisphere, possibly related to an ictal focus. (3) FEN Plan: F: NS at 75mL/hr E: Replete as needed. N: Regular diet with no restrictions. DVT: Holding for now as patient has history of brain bleed, ASA daily and SCDs. Problem Qualifiers (1) CVA (cerebral vascular accident): Qualified Codes: I63.9 - Cerebral infarction, unspecified Bridget Stone MD R1 Feb 25, 2018 15:43
[2018-02-25 15:53] LABS: DRVVT 1:1 MIX ND (CORRECTED); DRVVT CONFIRM ND (NEGATIVE); HEXAGONAL PHASE CONFIRM ND (NEGATIVE)
[2018-02-25 17:45] LABS: PROTEIN C ACTIVITY 102 % (70 - 150); PROTEIN S ACTIVITY 119 % (65 - 160)
[2018-02-25] MEDS ORDERED: CHLORHEXIDINE GLUCONATE 2 % 1 PACK (2 CLOTHS) TOPICAL PRN (18:00)
[2018-02-25] MEDS ORDERED: LACTATED RINGER'S 1000 ML IV PRN (18:00)
[2018-02-25] MEDS ORDERED: SODIUM CHLORID 0.9% 500 ML IV PRN (18:00)
[2018-02-25] MEDS ORDERED: POVIDONE IODINE 5% (ANTISEPSIS KIT) 4 APPLICATIONS EACH NARE PRN (18:00)
[2018-02-25] MEDS ORDERED: INSULIN HUMAN REGULAR 1,000 UNITS/10 ML VIAL SQ PRN (18:00)
[2018-02-25] MEDS ORDERED: METOPROLOL TARTRATE 25 MG TAB PO PRN (18:00)
[2018-02-25] MEDS: PRAVASTATIN SOD 40 MG TAB PO SCH (20:31)
[2018-02-25 23:52] LABS: FACTOR VIII(8) ACTIVITY 47 (50-180)
--- NOTE | 2018-02-26 00:35 | HHI.PR ---
Addendum to Inpatient Note Addendum Reason: Additional Documentation Additional Information S: Resident team called at approximately 2350 on 02/25/18 by nursing staff. They reported that the patient had fallen while out of bed. Patient was interviewed. Patient reports that the past he has had "sleepwalking experiences " where he is not quite awake nor asleep but will attempt to walk. He reports this time he stood up and began to walk however due to the weakness in his right leg he fell down. He reports that he fell straight down on to his butt. He did not hit his head or hurt his extremities. No loss of consciousness, headache, nausea, vomiting, change in vision, chest pain, shortness of breath, palpitations. Denies any significant change from when assessed earlier this morning. O: GENERAL: This is a well-nourished, well-developed patient, in no apparent distress. SKIN: No rashes, ecchymoses or lesions. Warm and dry. No new deformities, contusions, abrasions, puncture/penetrations, lacerations, swelling HEAD: Atraumatic. Front right cranial concavity, consistent with history of neurosurgery. EYES: Pupils equal round. Extraocular motions intact. No scleral icterus. No injection or drainage. ENT: Nose without bleeding, purulent drainage or septal hematoma. Airway patent. NECK: Trachea midline. Supple, nontender, no meningeal signs. CARDIOVASCULAR: Regular rate and rhythm without murmurs, gallops, or rubs. RESPIRATORY: Clear to auscultation. Breath sounds equal bilaterally. No wheezes , rales, or rhonchi. GASTROINTESTINAL: Positive bowel sounds. Abdomen soft, non-tender, nondistended. No hepato-splenomegaly, or palpable masses. No guarding. MUSCULOSKELETAL: Extremities without clubbing, cyanosis, or edema. No joint tenderness, effusion, or edema noted. No calf tenderness. NEUROLOGICAL: Awake and alert. Cranial nerves II through XII intact with the exception of asymmetric smile (facial droop on the R ). Sensory intact and equal bilaterally. 3 out of 5 in the RLE, 0 out of 5 in the RUE (no muscle flicker), 5 out of 5 on the L. A/P: Patient with decreased mobility, limited strength in right leg. -Will place bed rails up -Explained to patient importance of only leaving bed assisted, patient expressed understanding and agreed -No further studies indicated at this time as there are new new injuries, signs or symptoms. Ric Evangelista MD R1 Feb 26, 2018 00:35
[2018-02-26 00:40] VITALS: BP 154/70; PULSE 53; RESP 17; TEMP 97.3; O2SAT 100
[2018-02-26 05:47] VITALS: BP 162/84; PULSE 56; RESP 17; TEMP 98; O2SAT 97
[2018-02-26 06:50] LABS: METHYLMALONIC ACID 0.08 nmol/mL (<=0.40)
[2018-02-26] MEDS: INSULIN ASPART SUPPLEMENTAL SCALE SQ SCH ×2 (07:28→11:41)
[2018-02-26] MEDS: SODIUM CHLORIDE 0.9% FLUSH 10 ML FLUSH IV FLUSH SCH (07:28)
[2018-02-26] MEDS: ASPIRIN 81 MG CHEW TAB PO SCH (07:28)
[2018-02-26] MEDS: CLOPIDOGREL 75 MG TAB PO SCH (07:28)
[2018-02-26] MEDS: OXcarbazepine 600 MG TAB PO SCH (07:28)
[2018-02-26 08:00] VITALS: BP 156/81; PULSE 54; RESP 18; TEMP 97.5; O2SAT 98
[2018-02-26] MEDS ORDERED: MIDAZOLAM HCL 5 MG/ML VIAL (1 ML) ONE (08:20)
[2018-02-26] MEDS ORDERED: MIDAZOLAM HCL 5 MG/5 ML VIAL IV ONE (09:00)
--- NOTE | 2018-02-26 09:05 | MA ---
cc: Lionel Garcia MD DATE: 02/26/2018 PROCEDURE: Placement of a Medtronic implantable loop recorder. INDICATIONS: Rule out occult atrial fibrillation, history of CVAs. PROCEDURE NOTE: The patient was brought to the DOC unit in a fasting state after having signed informed consent. The left parasternal chest region was prepped and draped as per policy and a small area anesthetized with 1% lidocaine. A Medtronic Reveal loop recorder was implanted as per protocol without difficulty. A Steri-Strip was placed over the tiny incision. There were no apparent, immediate complications. The patient tolerated the procedure well. CONCLUSIONS: Successful placement of a Medtronic implantable loop recorder. Lionel Garcia MD [facility]/DL , 08:46 AM , 09:04 AM [facility]
[2018-02-26] MEDS: SODIUM CHLOR 0.9% 1000 ML INJ 1,000 ML IV SCH (11:41)
[2018-02-26 12:00] VITALS: BP 137/82; PULSE 53; PULSE 57; RESP 18; TEMP 98; O2SAT 99
[2018-02-26 13:38] VITALS: O2SAT 99
[2018-02-26 13:40] LABS: AUTOMATED NEUTROPHIL # 5.1 TH/MM3 (1.8-7.7); BASOPHIL % 0.5 % (0.0-2.0); EOSINOPHIL # 0.4 TH/MM3 (0-0.4); EOSINOPHIL % 4.6 % (0.0-4.0); HEMATOCRIT 40.2 % (39.0-51.0); HEMOGLOBIN 13.8 GM/DL (13.0-17.0); LYMPH % 19.7 % (9.0-44.0); LYMPHOCYTE # 1.5 TH/MM3 (1.0-4.8); MEAN CELL VOLUME 87.4 FL (80.0-100.0); MEAN CORPUSCULAR HGB CONC 34.4 % (32.0-36.0); MEAN PLATELET VOLUME 8.4 FL (7.0-11.0); MONO % 9.7 % (0.0-8.0); MONOCYTE # 0.7 TH/MM3 (0-0.9); NEUT % 65.5 % (16.0-70.0); PLATELET COUNT 252 TH/MM3 (150-450); RED CELL DISTRIBUTION WIDTH 14.2 % (11.6-17.2); WHITE BLOOD COUNT 7.7 TH/MM3 (4.0-11.0)
[2018-02-26] MEDS ORDERED: PRAV40TA PO (15:24)
[2018-02-26] MEDS ORDERED: PLAV75TA29 PO (15:24)
--- NOTE | 2018-02-26 15:24 | HHI.DCPOC ---
Discharge Care Plan Diagnosis: (1) CVA (cerebral vascular accident) (2) History of seizure Goals to Promote Your Health * To prevent worsening of your condition and complications * To maintain your health at the optimal level Directions to Meet Your Goals Take your medications as prescribed Follow your dietary instruction Follow activity as directed Keep your appointments as scheduled Take your immunizations and boosters as scheduled If your symptoms worsen call your PCP, if no PCP go to Urgent Care Center or Emergency Room Smoking is Dangerous to Your Health. Avoid second hand smoke Call the 24-hour hour crisis hotline for domestic abuse at Bridget Stone MD R1 Feb 26, 2018 15:24
[2018-02-26 16:00] VITALS: BP 130/76; PULSE 51; RESP 18; TEMP 98.1; O2SAT 98
[2018-02-27 03:48] LABS: ANTI-THROMBIN III ACT 107 (80-120)
== END 2018-02-26 17:28 | DRG 41 ==
LOC: NEPC 11:07 → NEDA 13:12 → INTOOBSV 13:12 → N05B 16:04 → OBSVTOIN 02-21 08:42
PROVIDERS: ADMIT Family Medicine; ATTEND Family Medicine
PROC: 0JH602Z Insertion of Monitoring Device into Chest Subcutaneous Tissue and Fascia, Open Approach (ICD-10-PCS; principal; 2018-02-26 08:15)
DX: I63.8 Other cerebral infarction (principal); G81.91 Hemiplegia, unspecified affecting right dominant side; W18.39XA Other fall on same level, initial encounter; Y92.230 Patient room in hospital as the place of occurrence of the external cause; R00.1 Bradycardia, unspecified; R47.81 Slurred speech; R29.710 NIHSS score 10; Z87.891 Personal history of nicotine dependence; Z79.82 Long term (current) use of aspirin; Z82.3 Family history of stroke; Z98.2 Presence of cerebrospinal fluid drainage device; Z86.73 Personal history of transient ischemic attack (TIA), and cerebral infarction without residual deficits
CPT/HCPCS: 33282; 70450; 70544; 70548; 70553; 71045; 80048; 80053; 80061; 80076; 81001; 81240; 81241; 81291; 82550; 82607; 82746; 82948; 83036; 83921; 84165; 84425; 84439; 84443; 84484; 85025; 85240; 85300; 85303; 85306; 85610; 85613; 85652; 85730; 86140; 86147; 86430; 86592; 93005; 93306; 93312; 93320; 93325; 93880; 94150; 95819; 96365; 99152; A9579; C1764; G0378; G8996-GN; G8997-GN; J0131; J1815; J2250; J3010; J7030

== ENCOUNTER 2018-09-22 14:23 | Inpatient (IN) ==
--- NOTE | 2018-09-22 14:48 | ED ---
HPI General Chief Complaint: Fall Stated Complaint: Fall/Head injury Time Seen by Provider: 09/22/18 14:32 Source: patient Mode of arrival: wheelchair Limitations: altered mental status and physical limitation History of Present Illness HPI Narrative: The patient is a 57-year-old male who presents to the emergency department via private vehicle [facility]. 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 The patient then had a stroke January 2018 which slightly affected his speech and right upper extremity. The patient underwent rehab with improvement of his speech. The states that patient's speech is normally normal, however, does become slurred when he is tired. The patient's states he fell earlier today, unknown LOC, and he has had slurred speech since then with slight change in behavior. The patient does take Plavix daily. The patient is unable to provide any information and does not follow commands. MD complaint: Reports fall Onset (ago): hour(s) Fall from: standing Fall witnessed: yes, by family Place fall occurred: other Loss of consciousness: unsure Prolonged down time: no Location of injury: Reports head Severity: severe Severity scale (1-10): 8 Associated symptoms (after fall): Reports unable to walk, confusion and other Related Data Allergies Allergy/AdvReac Type Severity Reaction Status Date / Time codeine Allergy Severe HEADACHE Unverified 02/20/18 11:21 penicillin G Allergy Severe Unverified 02/20/18 11:21 clindamycin Allergy Intermediate Itching Verified 03/01/18 08:16 lorazepam Allergy Unknown Unverified 02/20/18 11:21 Review of Systems ROS: all other systems reviewed are negative [facility] Social History Social History Recent Travel in [facility] within the Last 8 Weeks: No Recent Out of Country Travel within the Last 8 Weeks: No Exam Narrative Exam Narrative: GENERAL: Awake, eyes open, 57-year-old male who appears his stated age. SKIN: Laceration to the right lateral orbit measuring 2 cm in length, L shaped. HEAD: Old appearing deformity to the right temporal parietal region. EYES: Pupils equal and round. 4 mm bilateral and reactive. ENT: No nasal bleeding or discharge. Dry blood in the oropharynx. NECK: Trachea midline. No JVD. CARDIOVASCULAR: Regular, bradycardic with a heart rate in the 40s. RESPIRATORY: No accessory muscle use. Clear to auscultation. Breath sounds equal bilaterally. GASTROINTESTINAL: Abdomen soft, non-tender, nondistended. Hepatic and splenic margins not palpable. MUSCULOSKELETAL: Old appearing ecchymosis over the medial right thigh and lateral aspect of the mid right thigh. Back: No tenderness over the thoracic or lumbar vertebrae. NEUROLOGICAL: Awake, eyes open, apparent receptive and expressive aphasia. Does not follow commands. Does move the left upper extremity and lower extremity spontaneously. No obvious movement of the right upper extremity. Noticeable dysarthria. PSYCHIATRIC: Appears confused. Procedures Intubation Time Out Performed: No Sedative: etomidate Mg Given: 20 Paralytic: succinylcholine Mg Given: 100 Laryngoscope: Joni ET Tube Size: 8 ET Tube Uncuffed: No Tube Secured Depth (cm): 24 Tube Secured Location: lips Tube Placement Confirmation: visualized tube passing through cords, equal breath sounds bilaterally, no breath sounds over epigastrium and confirmation by capnometry Patient Tolerated Procedure: well Intubation Complications: none Laceration Laceration 1: Site: face Side (If applicable): right Size (cm): 2 Description: irregular Depth: simple, single layer Pre-repair:: irrigated extensively and deep structures intact Skin layer closed with: ethilon Size (cm): 4-0 Technique:: simple, interrupted Course Initial Documented Vital Signs Temperature 98.3 F 09/22/18 14:28 Pulse Rate 48 L 09/22/18 14:28 Respiratory Rate 20 09/22/18 14:28 Pulse Oximetry 98 09/22/18 14:28 Last Documented Vital Signs Temperature 98.3 F 09/22/18 14:28 Pulse Rate 48 L 09/22/18 14:28 Respiratory Rate 20 09/22/18 14:28 Pulse Oximetry 98 09/22/18 14:28 Critical Care Time Critical Care Time: Yes Total Critical Care Time: 45 Attestation: Aggregate critical care time was 45 minutes. Time to perform other separately billable procedures was not included in the critical care time. My time did not include minutes spent treating any other patients simultaneously or on activities that did not directly contribute to the patient's treatment. The services I provided to this patient were to treat and/or prevent clinically significant deterioration that could result in: Herniation, aspiration, arrhythmia, anoxic injury, . I provided critical care services requiring my management, as noted below: Chart data review, documentation time, medication orders and management, vital sign assessments/reviewing monitor data, ordering and reviewing lab tests, ordering and interpreting/reviewing x-rays and diagnostic studies, care of the patient and discussion of the patient with the admitting physicians. Medical Decision Making MDM Narrative Medical decision making narrative: The patient was initially evaluated in [place] [id number]. The patient appeared to have altered mental status after a trauma and fall, striking the right aspect of his head. IV was established, labs are drawn and sent, and the patient was placed on cardiac telemetry monitoring and continuous pulse oximetry monitoring. The patient went immediately to CT for CT the brain which did reveal bilateral subdurals with mild shift. The patient had decreasing mental status, would not follow commands, therefore, was taken to the trauma room and a level 1 trauma was called. The patient was intubated using rapid sequence intubation to protect the airway after lidocaine 100 mg was given the patient received etomidate 20 mg intravenously and succinylcholine 100 mg at. The patient was intubated using an endotracheal tube , 8.0, without difficulty. The patient did receive 50 g of mannitol. I discussed the patient with Dr. Tay who evaluated the patient in the trauma room. I also discussed the patient with the neurosurgeon, Dr. Johnson. The patient is on Plavix, therefore, the neurosurgeon requested one single unit donor platelets which were ordered. Chest x-ray and pelvis x-ray were obtained , unremarkable. The patient then went back to the CT suite for CT the cervical spine and facial bones. The patient then went straight to the operating room under the care of the neurosurgeon and will be admitted to the trauma service in the intensive surgical care unit. I discussed the patient with family in the consultation room and they were taken to the intensive surgical care waiting room. Medical Screen Exam Complete: Yes Emergency Medical Condition: Yes Differential Diagnosis Differential Diagnosis: Differential diagnosis includes subdural hemorrhage, epidural hemorrhage, subarachnoid hemorrhage, closed head injury, ischemic stroke, coagulopathy, multisystem trauma, cervical fracture, facial fracture. Lab Data Lab results reviewed: Yes I reviewed the patient's lab results. Result diagrams: 09/22/18 14:42 09/22/18 14:42 Lab Results 09/22/18 09/22/18 Range/Units 14:42 15:30 WBC 12.6 H (4.0-11.0) th/mm3 RBC 4.13 L (4.50-5.90) mil/mm3 Hgb 12.2 L (13.0-17.0) gm/dL Hct 35.9 L (39.0-51.0) % MCV 86.9 (80.0-100.0) fL MCH 29.5 (27.0-34.0) pg MCHC 33.9 (32.0-36.0) % RDW 14.7 (11.6-17.2) % Plt Count 411 (150-450) th/mm3 MPV 8.5 (7.0-11.0) fL Prelim Diff (Auto) Slide review pending Neut % (Auto) 82.0 H (16.0-70.0) % Lymph % (Auto) 8.8 L (9.0-44.0) % [place] % (Auto) 5.4 (0.0-8.0) % Eos % (Auto) 1.8 (0.0-4.0) % Baso % (Auto) 2.0 (0.0-2.0) % Neut # (Auto) 10.3 H (1.8-7.7) th/mm3 Lymph # (Auto) 1.1 (1.0-4.8) th/mm3 [place] # (Auto) 0.7 (0.0-0.9) th/mm3 Eos # (Auto) 0.2 (0.0-0.4) th/mm3 Baso # (Auto) 0.3 H (0.0-0.2) th/mm3 Differential Comment . Bld Prod Order Comment Imaging Data Radiologist's impression: Chest X-Ray 09/22/18 00:00 CONCLUSION: Endotracheal tube in good position. Lungs are clear. Pelvis X-Ray 09/22/18 00:00 CONCLUSION: Negative examination. Head CT 09/22/18 14:40 CONCLUSION: 1. Bilateral subdural hematomas left considerably greater than right. The subdural on the left extends from the left occipital lobe superiorly to the high convexities measuring a small as much as 15 mm across with considerable mixed density. 2. The small right occipital subdural is more homogeneous c/w acute hemorrhagic density. . Discharge Plan Discharge Disposition Patient Disposition: 30 Still Patient Discharge Condition Condition: Critical Discharge Details Diagnosis: Acute subdural hematoma Physicians Team ED Provider: Tadoe Shipman Primary Care Provider: Irvin Bailey Attending Provider: Zach Quiroz ED Status: Admitted Patient
[2018-09-22] MEDS ORDERED: Succinylcholine Inj 200 MG/10 ML Vial ONE (14:49)
[2018-09-22] MEDS ORDERED: Etomidate Inj 40 MG/20 ML Vial IV.PUSH ONE (14:49)
[2018-09-22] MEDS ORDERED: Atropine Inj 1 MG/10 ML Syringe IV.PUSH ONE (14:50)
[2018-09-22] MEDS ORDERED: Lidocaine 2% 100 MG/5 ML Syringe ONE (14:56)
[2018-09-22] MEDS ORDERED: Atropine Inj 1 MG/ML Vial ONE (14:58)
[2018-09-22] MEDS ORDERED: ceFAZolin 2 GM Premix Inj 2 GM/50 ML PIGGYBACK IV.SIG ONE (15:03)
[2018-09-22] MEDS ORDERED: Diphtheria/Tetanus/Pertussis Vaccine Inj 0.5 ML Syringe IM ONE (15:04)
--- NOTE | 2018-09-22 15:06 | CT ---
EXAM DATE: 09/22/2018 2:57 PM EDT AGE/SEX: 57 years / Male INDICATIONS: FALL CLINICAL DATA: This is the patient's initial encounter. Patient reports that signs and symptoms have been present for 1 day and indicates a pain score of Nonresponsive. MEDICAL/SURGICAL HISTORY: Non-responsive. Non-responsive. RADIATION DOSE: 56.35 CTD (mGy) COMPARISON: [facility] [place], CT BRAIN W/O CONTRAST, 02/20/2018. . TECHNIQUE: CT of the head without contrast. Using automated exposure control and adjustment of the mA and/or kV according to patient size, radiation dose was kept as low as reasonably achievable to ob tain optimal diagnostic quality images. DICOM format image data is available electronically for revi ew and comparison. FINDINGS: Cerebrum: There is a mixed density large subdural hematoma on the left side beginning just above the tentorium posteriorly extending all the way to the high convexities. Its a combination of a previous subdural hygroma with definite acute hemorrhage. It Measures 15 mm across in its mid part at the lev el of the posterior temporal lobe. There does appear to be a small amount of parenchymal shift from l eft to right. The patient has undergone a previous right ventriculostomy catheter placement which rem ains in good position. There is a right temporal craniotomy with prominent bony defect. There is a 7 mm small subdural hematoma in the right occipital region. Posterior Fossa: The cerebellum and brainstem are intact. The 4th ventricle is midline. The cerebe llopontine angle is unremarkable. Extracranial: The visualized portion of the orbits is intact. Skull: No evidence of skull fracture. CONCLUSION: 1. Bilateral subdural hematomas left considerably greater than right. The subdural on the left exten ds from the left occipital lobe superiorly to the high convexities measuring a small as much as 15 mm across with considerable mixed density. 2. The small right occipital subdural is more homogeneous c/w acute hemorrhagic density. . Electronically signed by: Crow Perez MD 09/22/2018 3:05 PM EDT
[2018-09-22] MEDS ORDERED: Propofol 1000 mg/100 ml Inj 1,000 MG/100 ML BOTTLE ONE (15:12)
[2018-09-22] MEDS ORDERED: niCARdipine Inj 25 MG/10 ML Vial ONE (15:17)
[2018-09-22] MEDS ORDERED: Labetalol HCl Inj 100 MG/20 ML Vial ONE (15:17)
--- NOTE | 2018-09-22 15:19 | XR ---
EXAM DATE: 09/22/2018 3:15 PM EDT AGE/SEX: 57 years / Male INDICATIONS: Trauma alert. Fall. CLINICAL DATA: This is the patient's initial encounter. Patient reports that signs and symptoms have been present for 1 day and indicates a pain score of Nonresponsive. MEDICAL/SURGICAL HISTORY: Stroke. Brain hemorrhage. Seizures. . Ventricular shunt. COMPARISON: [facility], CHEST SINGLE AP, 02/20/2018. . FINDINGS: The endotracheal tube is in good position. There is a right-sided ventriculostomy catheter extending down the right chest wall. The lungs are clear. Heart and mediastinum are unremarkable. CONCLUSION: Endotracheal tube in good position. Lungs are clear. Electronically signed by: Crow Perez MD 09/22/2018 3:18 PM EDT
--- NOTE | 2018-09-22 15:20 | XR ---
EXAM DATE: 09/22/2018 3:17 PM EDT AGE/SEX: 57 years / Male INDICATIONS: Trauma alert. Fall. CLINICAL DATA: This is the patient's initial encounter. Patient reports that signs and symptoms have been present for 1 day and indicates a pain score of Nonresponsive. MEDICAL/SURGICAL HISTORY: Stroke. Brain hemorrhage. Seizures. . Ventricular shunt. COMPARISON: No prior exams available for comparison. FINDINGS: Examination of the pelvis demonstrates no evidence of fracture or dislocation. Bony mineralization i s normal. There is no widening of the sacroiliac joints. No foreign body is identified. CONCLUSION: Negative examination. Electronically signed by: Crow Perez MD 09/22/2018 3:18 PM EDT
[2018-09-22 15:25] LABS: Baso # (Auto) 0.3 th/mm3 (0.0-0.2); Eos # (Auto) 0.2 th/mm3 (0.0-0.4); Eos % (Auto) 1.8 % (0.0-4.0); Hematocrit 35.9 % (39.0-51.0); Hemoglobin 12.2 gm/dL (13.0-17.0); Lymph # (Auto) 1.1 th/mm3 (1.0-4.8); Lymph % (Auto) 8.8 % (9.0-44.0); Mean Corpuscular HGB Conc 33.9 % (32.0-36.0); Mean Corpuscular Hemoglobin 29.5 pg (27.0-34.0); Mean Corpuscular Volume 86.9 fL (80.0-100.0); Mean Platelet Volume 8.5 fL (7.0-11.0); Mono # (Auto) 0.7 th/mm3 (0.0-0.9); Mono % (Auto) 5.4 % (0.0-8.0); Neut # (Auto) 10.3 th/mm3 (1.8-7.7); Platelet Count 411 th/mm3 (150-450); Red Blood Count 4.13 mil/mm3 (4.50-5.90); Red Cell Distribution Width 14.7 % (11.6-17.2); White Blood Count 12.6 th/mm3 (4.0-11.0)
[2018-09-22 15:39] LABS: Activated Partial Thrombo Time 20.5 sec (24.3-30.1); Prothrombin Time 9.9 sec (9.8-11.6)
[2018-09-22] MEDS ORDERED: Thrombin Topical Soln 5,000 UNIT Vial TOPICAL ONE (15:42)
[2018-09-22] MEDS ORDERED: Gelatin Size 100 Topical Foam ONE (15:42)
[2018-09-22] MEDS ORDERED: Lidocaine 1%/Epinephrine 1:100,000 Inj 30 ML Vial ONE (15:42)
[2018-09-22 15:43] LABS: Anion Gap 12 meq/L (5-15)
[2018-09-22 15:45] LABS: Alanine Aminotransferase 36 U/L (12-78); Albumin 3.8 g/dL (3.4-5.0); Alkaline Phosphatase 82 U/L (45-117); Aspartate Aminotransferase 46 U/L (15-37); Blood Urea Nitrogen 12 mg/dL (7-18); Calcium 8.3 mg/dL (8.5-10.1); Carbon Dioxide 22.3 meq/L (21.0-32.0); Chloride 100 meq/L (98-107); Creatine Kinase 225 U/L (39-308); Glomerular Filtration Rate Greater Than 89 mL/min (>89); Glucose,Random 252 mg/dL (74-106); Potassium 3.8 meq/L (3.5-5.1); Sodium 134 meq/L (136-145); Total Protein 7.1 g/dL (6.4-8.2)
--- NOTE | 2018-09-22 15:57 | CT ---
EXAM DATE: 09/22/2018 3:52 PM EDT AGE/SEX: 57 years / Male INDICATIONS: Trauma alert. Fall. CLINICAL DATA: This is the patient's initial encounter. Patient reports that signs and symptoms have been present for 1 day and indicates a pain score of Nonresponsive. MEDICAL/SURGICAL HISTORY: Non-responsive. Non-responsive. RADIATION DOSE: 63.98 CTDI (mGy) COMPARISON: No prior exams available for comparison. TECHNIQUE: Contiguous images in the axial and coronal planes were obtained using helical multirow de tector technique. Using automated exposure control and adjustment of the mA and/or kV according to p atient size, radiation dose was kept as low as reasonably achievable to obtain optimal diagnostic tiffany lity images. DICOM format image data is available electronically for review and comparison. FINDINGS: The patient's had a previous right temporal craniotomy large bony defect extending for at l east 5.3 cm in length. There are known subdural hematomas present bilaterally left greater than right . Orbits: The orbital and infraorbital osseous structures are intact. The retroconal structures have a normal configuration. No radiopaque foreign bodies are seen. Nasal Bone: The nasal bone and maxillary spine are intact. Zygomatic Arches: Symmetric without evidence of fracture. Sinuses: The maxillary, ethmoid, and frontal sinuses are intact. No air-fluid levels seen. Nasal Cavity: The nasal septum is slightly bowed to the right. The lacrimal ducts are intact. Soft Tissues: No radiopaque foreign bodies seen. No soft-tissue swelling is seen. Intracranial: No intracranial air seen. Cribriform Plate: Grossly intact. CONCLUSION: 1. Evidence of right temporal craniotomy. The patient is intubated. There is some fluid in the nasop harynx. No fractures are seen. Electronically signed by: Crow Perez MD 09/22/2018 3:56 PM EDT
[2018-09-22] MEDS ORDERED: Bisacodyl 10 MG Supp RECTAL PRN ×2 (15:58→19:10)
--- NOTE | 2018-09-22 15:58 | P.CONNS ---
History of Present Illness Service: neurosurgery Consult date: 09/22/18 Requesting Physician: Zach Quiroz Reason for Consult: Trauma alert Primary Care Provider: Irvin Bailey MD Chief Complaint: Head injury, altered mental status History of Present Illness: This is a 57-year-old male with history of a prior right sided craniectomy and cranioplasty, status post ventriculoperitoneal shunt, who was brought to the emergency department and trauma alert was called. He fell at the supermarket earlier today. 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 The patient then had a stroke January 2018 which slightly affected his speech and right upper extremity. The patient underwent rehab with improvement of his speech. The states that patient's speech is normally normal, however, does become slurred when he is tired. The patient's states he fell today. Unknown LOC. No seizure activity noted. No tongue bitting. no inicontinence of stool or urine. The patient was not moving well his upper extremities. He has multilevel degenerative changes throrough his cervical spine but no fractures seen. He developed slurred speech since the fall with with slight change in behavior. The patient takes Plavix daily. The patient is unable to provide any information and does not follow commands. Withdraw to pain in his lower extremities. Trauma alert was called due to the decreased in GCS. CT brain showed a left subdural hematoma. neurosurgery consultation was requested. Family history is unobtainable due to his clinical condition Review of Systems unobtainable due to mental status PMF - History History Provided By: Patient, Family Member - Medical History Medical History: Medical History (Last Reviewed 09/22/18 @ 16:59 by Torrey Wolff MD) Blood thinned due to long-term anticoagulant use Brain tumor Head injury Right-sided sensory deficit present Shunt malfunction Stroke Stroke TIA (transient ischemic attack) - Travel History Recent Travel in the [place] Within the Last 8 Weeks: No Recent Travel Out of the Country Within the Last 8 Weeks: No Medications and Allergies Active Medications: Active Medications Chlorhexidine Gluconate (Chlorhexidine 2% Cloth) 3 pack TOPICAL DAILY@0400 STONEY Stop: 09/28/18 03:59 Chlorhexidine Gluconate (Chlorhexidine 2% Cloth) 3 pack TOPICAL DAILY@0400 PRN PRN Reason: Extra cloth needed Stop: 09/28/18 03:59 Enalaprilat (Vasotec Inj) 1.25 mg IV.PUSH Q8H PRN PRN Reason: Blood pressure 180/95 Sodium Chloride (Ns Inj) 1,000 mls @ 100 mls/hr IV.CONT .Q10H STONEY Ondansetron HCl (Zofran Inj) 4 mg IV.PUSH Q6H PRN PRN Reason: NAUSEA OR VOMITING Pantoprazole Sodium (Protonix Inj) 40 mg IV.PUSH Q24H STONEY Sodium Chloride (Ns Flush) 2 ml IV.FLUSH UNSCH PRN PRN Reason: FLUSH AFTER USING IV ACCESS Allergies Allergy/AdvReac Type Severity Reaction Status Date / Time codeine Allergy Severe HEADACHE Unverified 02/20/18 11:21 penicillin G Allergy Severe Unverified 02/20/18 11:21 clindamycin Allergy Intermediate Itching Verified 03/01/18 08:16 lorazepam Allergy Unknown Unverified 02/20/18 11:21 Home Medications Medication Instructions Recorded Confirmed Type aspirin 81 mg PO DAILY 09/22/18 09/22/18 History atorvastatin 40 mg PO DAILY 09/22/18 09/22/18 History clopidogrel [Plavix] 75 mg PO DAILY 09/22/18 09/22/18 History oxcarbazepine 600 mg PO BID 09/22/18 09/22/18 History Exam Vital signs: Vital Signs 09/22/18 14:28 Temperature 98.3 F Pulse Rate 48 L Respiratory Rate 20 Pulse Oximetry 98 Intake & Output 09/21/18 09/22/18 09/22/18 18:59 06:59 18:59 Weight 62.142 kg Narrative: The patient is intubated and sedated. GCS 7 Cranial Nerves: Pupils equal, 3 mm round, reactive to light. Eyes appear conjugated. There was no nystagmus, no papilledema. Face musculature appeared symmetrical at rest. Face sensation, olfaction, and hearing cannot be adequately assessed due to the patient's neurological condition. The patient has a corneal reflex. The patient has a gag reflex. The sternocleidomastoid and trapezius were symmetrical. Cervical Spine: The patient's neck is soft, supple, without nuchal rigidity. Motor: His muscle tone and bulk are normal. He withdraws to pain with lower extremities Reflexes: Deep tendon reflexes are trace in the biceps, triceps, and brachioradialis, patellar and ankles. There is a bilateral silent response to plantar stimulation. There is no clonus Sensory: On examination there there is response to painful stimuli, withdrawing with his lower extremities. Cerebellar: Examination cannot be adequately assessed due to the patient's neurological condition. Lungs: clear Heart: Regular rhythm and rate Skin: warm and dry Results - Laboratory Findings CBC and BMP: 09/22/18 16:34 09/22/18 14:42 Abnormal lab findings: Abnormal Labs 09/22/18 09/22/18 09/22/18 14:42 14:42 14:42 WBC 12.6 H RBC 4.13 L Hgb 12.2 L Hct 35.9 L Neut % (Auto) 82.0 H Lymph % (Auto) 8.8 L Neut # (Auto) 10.3 H Baso # (Auto) 0.3 H APTT 20.5 L Sodium 134 L Random Glucose 252 H Calcium 8.3 L AST 46 H Troponin I Less than 0.02 L Assessment and Plan - Plan I have reviewed the clinical and radiological findings Chest X-Ray 09/22/18 00:00 CONCLUSION: Endotracheal tube in good position. Lungs are clear. Pelvis X-Ray 09/22/18 00:00 CONCLUSION: Negative examination. Cervical Spine CT 09/22/18 14:40 CONCLUSION: 1. Chronic degenerative disease at multiple levels. No evidence of an acute fracture or injury Face CT 09/22/18 14:40 CONCLUSION: 1. Evidence of right temporal craniotomy. The patient is intubated. There is some fluid in the nasopharynx. No fractures are seen. Head CT 09/22/18 14:40 CONCLUSION: 1. Bilateral subdural hematomas left considerably greater than right. The subdural on the left extends from the left occipital lobe superiorly to the high convexities measuring a small as much as 15 mm across with considerable mixed density. 2. The small right occipital subdural is more homogeneous c/w acute hemorrhagic density. Neuro: neuro checks in a serial fashion. The patient went immediately to CT for CT the brain which did reveal bilateral subdurals with mild shift. The patient had decreasing mental status, would not follow commands, therefore, given his drop in GCS was taken to the trauma room and a level 1 trauma was called. The patient was intubated using rapid sequence intubation to protect the airway after lidocaine 100 mg was given the patient received etomidate 20 mg intravenously and succinylcholine 100 mg at. The patient was intubated using an endotracheal tube, 8.0, without difficulty. The patient did receive [address] Tay who evaluated the patient in the trauma room and he was ressucitated according to ATLS. He will; be taken emergently to the OR for a left decrompresive craniotomy or craniectomy with evacuation opf the subdural hematoma in an attempt to save his life. Placement of ICP monkitor is indicated as recommended by the [place] [employer]. This was a complex patient given his prior craniotomy and cranioplasty, as well as his ventriculoperitoneal shunt, a recent cerebrovascular accident and anticoagulation with Plavix and aspirin. Mr Vu is anticoagulated with plavix and aspirin. which increased his risk of hemorrhagic complications. he will receive 2 units of platelet transfusion during the surgical procedure Keppra for seizure prophylaxis. Hyperosmolar therapy with mannitol followed by 3% Na Cl Pulmonary: on full mechanical ventil;ation on assist control mode of mechanical ventilation, aggressive pulmonary toilette, nasotracheal suction, and breathing treatments with nebulizers. PT and OT evaluation The patient was not moving well his upper extremities. He has multilevel degenerative changes throrough his cervical spine. Rule out central cord syndrome. MRI of cervical spine once that medically stable Renal: Continue to monitor closely urine output, BUN and creatinine Endocrine: Continue to Monitor serial Acu checks and SSI as needed in detail ID continue to monitor for signs of infection Continue Protonix for stress ulcer prophylaxis Continue Kiran hose and SCD's for DVT prophylaxis Further recommendations will be provided depending on the patient's clinical evaluation and follow up studies.
--- NOTE | 2018-09-22 16:07 | CT ---
EXAM DATE: 09/22/2018 3:54 PM EDT AGE/SEX: 57 years / Male INDICATIONS: Trauma alert. Fall. CLINICAL DATA: This is the patient's initial encounter. Patient reports that signs and symptoms have been present for 1 day and indicates a pain score of Nonresponsive. MEDICAL/SURGICAL HISTORY: Non-responsive. Non-responsive. RADIATION DOSE: 14.02 CTDI (mGy) COMPARISON: Unremarkable. TECHNIQUE: Contiguous axial images were obtained using helical multirow detector technique. The vol umetric data was post-processed with multiplanar reconstruction in oblique axial, sagittal, and coron al planes. Using automated exposure control and adjustment of the mA and/or kV according to patient s ize, radiation dose was kept as low as reasonably achievable to obtain optimal diagnostic quality bradford ges. DICOM format image data is available electronically for review and comparison. FINDINGS: Vertebrae: Normal vertebral body height. Moderate disc space narrowing at the C5-6 level. Mild narro wing at C6-7 and C4-5. Alignment: Overall straightening. No subluxation. C2-3: The bony spinal canal is normal in size. No evidence of disc bulge or herniation. The neural foramina are bilaterally patent. C3-4: The bony spinal canal is normal in size. No evidence of disc bulge or herniation. The neural foramina are bilaterally patent. C4-5: The bony spinal canal is normal in size. No evidence of disc bulge or herniation. The neural foramina are bilaterally patent. C5-6: The bony spinal canal is normal in size. No evidence of disc bulge or herniation. The neural foramina are slightly narrowed . C6-7: The bony spinal canal is normal in size. No evidence of disc bulge or herniation. The neural foramina are bilaterally patent. C7-T1: The bony spinal canal is normal in size. No evidence of disc bulge or herniation. The neura l foramina are bilaterally patent. CONCLUSION: 1. Chronic degenerative disease at multiple levels. No evidence of an acute fracture or injury Electronically signed by: Crow Perez MD 09/22/2018 4:05 PM EDT
[2018-09-22 16:45] LABS: ABG Base Excess -3.8 mmol/L (-2-2); ABG PCO2 29 mmHg (38-42); ABG PO2 273 mmHG (61-120)
--- NOTE | 2018-09-22 17:02 | P.OP ---
Preoperative Diagnosis: Trauma alert. Severe traumatic brain injury. left acute subdural hematoma Anticoagulation with Plaxix and Aspirin Postoperative Diagnosis: Trauma alert. Severe traumatic brain injury. left acute subdural hematoma Anticoagulation with Plaxix and Aspirin Date of procedure: 09/22/18 Procedure: Left frontal temporal parietal decompressive craniectomy, evacuation of subdural hematoma Anesthesia: ANA Surgeon: Torrey Wolff MD Agile Test Lead: Uriel Sanderson Pathology: other (Subdural hematoma) Operation and Findings: INDICATIONS FOR THE PROCEDURE The patient is a 57 year old adult male who was brought to [facility] following a fall. he suffered a sudden decline in his mental status with decreased GCS, and a trauma alert level 1 was called due to his with a severe traumatic brain injury CT of the brain showed bilateral subdural hematomas with a large acute left subdural hematoma with mass effect and midline shift An emergency decompressive craniectomy was indicated as recommended by the Trauma Committee of [employer] in a desperate attempt to save his life. This was a complex patient given his prior craniotomy and cranioplasty, as well as his ventriculoperitoneal shunt, a recent cerebrovascular accident eafrlier this year and was anticoagulation with Plavix and aspirin. DETAILS OF THE SURGICAL PROCEDURE The patient was endotracheally intubated and mechanically ventilated. A Brunner catheter, bilateral NNEKA hose and sequential compression devices were placed and kept throughout the procedure. The patient was positioned supine on a 3080 table over a soft mattress. The eyes were tapped shut after ointment was applied by the anesthesiologist to prevent corneal abrasion. A Gen hugger was placed over the exposed lower body to maintain control of the core body temperature. The head was placed on a soft doughnut. All pressure points were carefully padded with egg crate mattress. The left frontotemporal parietal area was shaved, prepped and draped in the usual sterile fashion. A standard inverted question moira incision was outlined on the left frontal temporal parietal scalp and infiltrated with 1% lidocaine with epinephrine. The skin incision was made with a #10 blade down to the level of the periosteum in the frontoparietal region and to the temporalis fascia in the temporal region. Jami clips were applied to the scalp. Using a Bovie, the temporalis fascia and muscle were incised and a subperiosteal dissection was performed reflecting the scalp flap anteriorly. The scalp was covered with a moist sponge and held in position using fish hooks. The TPS drill was brought to the field and a bur hole was made in the temporal region using the craniotome attachment. Then, using the footplate attachment, a large frontotemporoparietal craniotomy flap was elevated. The dura was bulging, very tense with severe pressure and an underlying dark coloration related to the acute subdural hematoma. The dura was opened with a 15 blade and metzembaun scissors and a large subdural hematoma was found, causing significant mass effect. The hematoma was evacuated by gentle irrigation and sent to the lab for histologic analysis. The patient was on Plavix, and there was diffuse bleeding. The bleeding was controlled using the bipolar retail marketing specialist, and gentle irrigation. Then the incision was irrigated with saline solution. The dural edges were tacked to the bone. The dura was loosely reconstructed with 4-0 neurolon sutures. A 10 millimeter Severo-Nowak drain was then left in the subdural space and externalized through a separate stab incision. Given the brain edema and anticipated increased intracranial pressure. the craniotomy flap was saved in sterile condition and saved in the operative room freezer. The incision was then closed in layers. 0 Vicryl in interrupted sutures were used to close the temporalis fascia. The galea was closed with interrupted 3- 0 Vicryl. Morgan were applied to the skin. The drain was secured with a 3-0 nylon. At the end of the procedure, the sponge, needle and instrument counts were all correct. Estimated blood loss was less than 250 cc. No blood transfusion was given. No intraoperative complications occurred. The patient received prophylactic antibiotics. The patient was then transferred to the recovery room in stable condition.
[2018-09-22 17:03] LABS: Hematocrit 25.1 % (39.0-51.0); Hemoglobin 8.5 gm/dL (13.0-17.0)
--- NOTE | 2018-09-22 17:06 | P.OP ---
Preoperative Diagnosis: Severe traumatic brain injury. left acute subdural hematoma Postoperative Diagnosis: Severe traumatic brain injury. left acute subdural hematoma Date of procedure: 09/22/18 Procedure: Right frontal bur hole with placement of an intracranial pressure monitor. Anesthesia: JANISA Surgeon: Torrey Wolff MD Pattern Marking Supervisor: AJ Pathology: none sent Operation and Findings: INTRAOPERATIVE FINDINGS Intracranial pressures of 5 mmHg. INDICATIONS FOR THE PROCEDURE The patient is a 57 year old adult male who was brought to [facility] following a fall. he suffered a sudden decline in his mental status with decreased GCS, and a trauma alert level 1 was called due to his with a severe traumatic brain injury CT of the brain showed bilateral subdural hematomas with a large acute left subdural hematoma with mass effect and midline shift Placement of ICP monitor was indicated as recommended by the Trauma Commitee of [employer] Surgeonbs DETAILS OF THE SURGICAL PROCEDURE The right frontal area was shaved, prepped and draped in the usual sterile fashion. An entry point was selected behind the hairline, approximately 30 mm lateral to the midline. The incision was infiltrated with 1% lidocaine with epinephrine 1:100,000 dilution. A small incision was made with a 15 blade down to the level of the periosteum. Using a twist drill a lashae hole was made. The dura was opened with a blunt stylet, and a [place] bolt was secured to the bone. A fiberoptic transducer was calibrated according to the state comptroller's instructions, and advanced into the parenchyma of the frontal lobe through the bolt. An intracranial pressure of 5 mmHg was achieved with a good waveform. A Betadine sterile dressing was applied. The patient tolerated the procedure well. There were no intraoperative complications. Blood loss was minimal.
[2018-09-22] MEDS ORDERED: Propofol Inj 500 MG/50 ML Vial ONE ×2 (17:12→19:31)
[2018-09-22] MEDS ORDERED: fentaNYL Citrate Inj 100 MCG/2 ML Ampul ONE (17:58)
--- NOTE | 2018-09-22 18:00 | MH ---
cc: Zach Quiroz MD DATE OF ADMISSION: 09/22/2018 HISTORY OF PRESENT ILLNESS: This is a 57-year-old male with a history of optic nerve surgery who was walking and fell. He out at the grocery and as the day progressed, the noted the patient's speech to slur. As a result, she brought him to the emergency room. A CT of the head was performed which revealed a subdural hematoma and shift. Trauma service was requested. On my arrival, the patient was intubated. As a result, all other review of systems and history is unobtainable. By report, the patient takes Plavix daily. PHYSICAL EXAMINATION: HEENT: Reveals a sutured laceration in his right periorbital region and deformity to his right skull. Pupils are equal and round. NECK: In C-collar. RESPIRATORY: Clear. CARDIOVASCULAR: Regular. GASTROINTESTINAL: Soft, nondistended. MUSCULOSKELETAL: No deformities. NEUROLOGIC: He is moving his extremities, intubated, sedated. RADIOLOGIC IMAGING: The patient's head CT revealed a bilateral subdural hematoma, left considerably greater than the right. The subdural on the left extends from the left occipital lobe superiorly to the high convexity, measuring as much as 15 mm across. ASSESSMENT: This is a patient status post fall with a subdural bleed. Neurosurgery has been consulted. The patient is going directly to the operating room. We will monitor his neurological status and provide supportive care. MD MERLIN Bai/samantha , 03:47 PM , 03:55 PM
[2018-09-22] MEDS: Vancomycin Inj 1,000 MG in Sodium Chlor 0.9% Inj 250 ML IV.SIG SCH (18:23)
[2018-09-22 18:36] LABS: ABG PCO2 47 mmHg (38-42); ABG PO2 177 mmHg (61-120)
[2018-09-22 18:39] LABS: Hematocrit 25.4 % (39.0-51.0); Hemoglobin 8.8 gm/dL (13.0-17.0); Mean Corpuscular HGB Conc 34.5 % (32.0-36.0); Mean Corpuscular Hemoglobin 29.4 pg (27.0-34.0); Mean Corpuscular Volume 85.1 fL (80.0-100.0); Mean Platelet Volume 7.8 fL (7.0-11.0); Platelet Count 385 th/mm3 (150-450); Red Blood Count 2.99 mil/mm3 (4.50-5.90); Red Cell Distribution Width 14.2 % (11.6-17.2); White Blood Count 13.6 th/mm3 (4.0-11.0)
[2018-09-22 19:07] LABS: Anion Gap 8 meq/L (5-15); Blood Urea Nitrogen 10 mg/dL (7-18); Calcium 7.2 mg/dL (8.5-10.1); Carbon Dioxide 25.2 meq/L (21.0-32.0); Chloride 103 meq/L (98-107); Glomerular Filtration Rate Greater Than 89 mL/min (>89); Glucose,Random 183 mg/dL (74-106); Potassium 4.3 meq/L (3.5-5.1); Sodium 136 meq/L (136-145)
[2018-09-22] MEDS ORDERED: Post-op Orders (for Pharmacy) OTHER ONE (19:10)
[2018-09-22] MEDS ORDERED: Naloxone Inj 0.4 MG/ML Vial IV.PUSH PRN (19:10)
--- NOTE | 2018-09-22 19:10 | P.PNCC ---
Subjective Brief History: This is a 57-year-old male with history of a prior right sided craniectomy and cranioplasty, status post ventriculoperitoneal shunt, who was brought to the emergency department and trauma alert was called. He fell at the supermarket earlier today. 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 The patient then had a stroke January 2018 which slightly affected his speech and right upper extremity. The patient underwent rehab with improvement of his speech. He developed slurred speech since the fall with with slight change in behavior. The patient takes Plavix daily. The patient is unable to provide any information and does not follow commands. Withdraw to pain in his lower extremities. Trauma alert was called due to the decreased in GCS. The patient went immediately to CT for CT the brain which did reveal bilateral subdurals with mild shift. The patient had decreasing mental status, would not follow commands, therefore, given his drop in GCS was taken to the trauma room and a level 1 trauma was called. The patient was intubated using rapid sequence intubation to protect the airway after lidocaine 100 mg was given the patient received etomidate 20 mg intravenously and succinylcholine 100 mg at. The patient was intubated using an endotracheal tube, 8.0, without difficulty. The patient did receive [address] Tay who evaluated the patient in the trauma room and he was resuscitated according to ATLS principles. Initial diagnostic workup reveals Bilateral subdural hematomas left considerably greater than right. The subdural on the left extends from the left frontal to occipital lobe and superiorly to the high convexity and measures 15 mm across with considerable mixed density. The small right occipital subdural is more homogeneous c/w acute hemorrhagic density Patient is taken immediately to the operating room for decompressive craniectomy and is now in ICU for further care Should be noted patient was on Plavix aspirin which has been stopped Patient will be managed according to the established neurosurgical critical care principles and full evaluation will be completed considering that patient has other comorbidities that need to be addressed Objective Vital Signs / I&O: Vital Signs 09/22/18 14:28 09/22/18 14:31 09/22/18 18:17 Temperature 98.3 F 97.6 F Pulse Rate 48 L 52 L Respiratory Rate 20 17 14 Blood Pressure 195/88 H Pulse Oximetry 98 100 09/22/18 18:30 Temperature Pulse Rate Respiratory Rate 14 Blood Pressure Pulse Oximetry 100 Intake & Output 09/22/18 09/22/18 09/23/18 06:59 18:59 06:59 Intake Total 3000 / 3000 Output Total 2000 / 2000 Balance 1000 / 1000 Weight 62.142 kg Intake: Anesthesia Amount 3000 / 3000 Output: Estimated Blood Loss 400 / 400 Urine Amount (Catheter) 1600 / 1600 Indwelling Urethral Catheter 1600 / 1600 Result Diagrams: 09/23/18 04:50 09/23/18 04:50 Imaging: Impressions Chest X-Ray 09/22/18 00:00 CONCLUSION: Endotracheal tube in good position. Lungs are clear. Pelvis X-Ray 09/22/18 00:00 CONCLUSION: Negative examination. Cervical Spine CT 09/22/18 14:40 CONCLUSION: 1. Chronic degenerative disease at multiple levels. No evidence of an acute fracture or injury Face CT 09/22/18 14:40 CONCLUSION: 1. Evidence of right temporal craniotomy. The patient is intubated. There is some fluid in the nasopharynx. No fractures are seen. Head CT 09/22/18 14:40 CONCLUSION: 1. Bilateral subdural hematomas left considerably greater than right. The subdural on the left extends from the left occipital lobe superiorly to the high convexities measuring a small as much as 15 mm across with considerable mixed density. 2. The small right occipital subdural is more homogeneous c/w acute hemorrhagic density. . Assessment and Plan Attestation: Critical care time 64 minutes
[2018-09-22 19:24] LABS: Total Protein 5.3 g/dL (6.4-8.2)
[2018-09-22] MEDS: Propofol 1000 mg/100 ml Inj 1,000 MG/100 ML BOTTLE IV.CONT PRN (19:50)
[2018-09-22] MEDS: fentaNYL 10 mcg/mL Premix Drip 2,500 MCG/250 ML BAG IV.SIG PRN (19:50)
--- NOTE | 2018-09-22 19:58 | XR ---
EXAM DATE: 09/22/2018 7:33 PM EDT AGE/SEX: 57 years / Male INDICATIONS: Central line and ET tube placement. CLINICAL DATA: This is the patient's initial encounter. Patient reports that signs and symptoms have been present for 1 day and indicates a pain score of Nonresponsive. MEDICAL/SURGICAL HISTORY: . Stroke. Brain hemorrhage. Seizures. . Ventricular shunt. . COMPARISON: [facility], CHEST 1V SINGLE AP, 09/22/2018. . FINDINGS: Endotracheal tube in good position. Left central line in superior vena cava without pneumothorax. Rig ht-sided ventriculostomy catheter extends over right chest wall. Loop recorder left base. Minimal bas ilar atelectasis. Heart size normal. CONCLUSION: Endotracheal tube and left central line in good position. No pneumothorax. Minimal basilar atelectasi s. Electronically signed by: Rex Helms MD 09/22/2018 7:57 PM EDT
[2018-09-22] MEDS ORDERED: Senna/Docusate Sodium 8.6/50 MG Tablet PO SCH (21:00)
[2018-09-22] MEDS ORDERED: Potassium Phosphate Inj 30 MMOL in Sodium Chlor 0.9% Inj 250 ML IV.SIG PRN (21:09)
[2018-09-22] MEDS ORDERED: Potassium Chloride 25 MEQ Effervescent Tablet PO PRN (21:09)
[2018-09-22] MEDS ORDERED: Magnesium Oxide 400 MG Tablet PO PRN (21:09)
[2018-09-22] MEDS ORDERED: Potassium Chlor 40 mEq Premix 40 MEQ/100 ML PIGGYBACK IV.SIG PRN ×2 (21:09)
[2018-09-22] MEDS ORDERED: Sodium Phosphate Inj 30 MMOL in Sodium Chlor 0.9% Inj 250 ML IV.SIG PRN (21:09)
[2018-09-22] MEDS ORDERED: Magnesium Sulfate Inj 4 GM in Sodium Chlor 0.9% Inj 92 ML IV.SIG PRN (21:09)
[2018-09-22] MEDS ORDERED: Potassium Phosphate 500 MG Soluble Tablet PO PRN ×2 (21:09)
[2018-09-22] MEDS ORDERED: Potassium Chlor 20 mEq Premix 20 MEQ/100 ML PIGGYBACK IV.SIG PRN (21:09)
[2018-09-22] MEDS ORDERED: Magnesium Sulfate Inj 2 GM in Sodium Chlor 0.9% Inj 96 ML IV.SIG PRN (21:09)
--- NOTE | 2018-09-22 22:40 | MP ---
cc: Nadia Ramirez MD DATE OF OPERATION: 09/22/2018 PREOPERATIVE DIAGNOSIS: Brain trauma. POSTOPERATIVE DIAGNOSIS: Brain trauma. PROCEDURE: Triple lumen placement, left subclavian. SURGEON: Nadia Ramirez MD ANESTHESIA: 1% Xylocaine. ESTIMATED BLOOD LOSS: Minimal. DESCRIPTION OF PROCEDURE: The patient was prepped and draped in usual fashion. The area was infiltrated with 1% Xylocaine. Needle inserted into the left subclavian vein. Through the needle, a J-wire was passed, and over the J-wire, a dilator and triple lumen placed, sutured in place with 0 silk. Chest x-ray obtained. MD RASHID Gonzales/danna , 10:29 PM , 10:33 PM
[2018-09-22 22:45] LABS: ABG Base Excess -3.6 mmol/L (-2-2); ABG PCO2 34 mmHg (38-42); ABG PO2 221 mmHg (61-120)
[2018-09-22] MEDS: Senna/Docusate Sodium 8.6/50 MG Tablet PO SCH (23:14)
[2018-09-22] MEDS: OXcarbazepine 600 MG Tablet PO SCH (23:14)
[2018-09-22 23:15] LABS: Sodium 139 meq/L (136-145)
[2018-09-22] MEDS: ceFAZolin Inj 1,000 MG in Sodium Chlor 0.9% Inj 100 ML IV.SIG SCH (23:38)
[2018-09-22] MEDS: Oral Hygiene Kit OROPHARYNG SCH (23:39)
[2018-09-23] MEDS: Propofol 1000 mg/100 ml Inj 1,000 MG/100 ML BOTTLE IV.CONT PRN ×5 (00:40→20:47)
[2018-09-23] MEDS: Chlorhexidine Gluconate 2% 1 Pack (2 Cloths) TOPICAL SCH (03:34)
[2018-09-23] MEDS: Oral Hygiene Kit OROPHARYNG SCH ×4 (03:34→23:51)
[2018-09-23] MEDS ORDERED: Chlorhexidine Gluconate 2% 1 Pack (2 Cloths) TOPICAL PRN (04:00)
[2018-09-23] MEDS: Vancomycin Inj 1,000 MG in Sodium Chlor 0.9% Inj 250 ML IV.SIG SCH (04:43)
[2018-09-23] MEDS: ceFAZolin Inj 1,000 MG in Sodium Chlor 0.9% Inj 100 ML IV.SIG SCH ×2 (05:03→16:03)
[2018-09-23 05:08] LABS: Baso # (Auto) 0.1 th/mm3 (0.0-0.2); Baso % (Auto) 0.4 % (0.0-2.0); Hematocrit 28.7 % (39.0-51.0); Hemoglobin 9.9 gm/dL (13.0-17.0); Lymph # (Auto) 0.6 th/mm3 (1.0-4.8); Lymph % (Auto) 3.5 % (9.0-44.0); Mean Corpuscular HGB Conc 34.7 % (32.0-36.0); Mean Corpuscular Hemoglobin 28.9 pg (27.0-34.0); Mean Corpuscular Volume 83.4 fL (80.0-100.0); Mean Platelet Volume 7.9 fL (7.0-11.0); Mono # (Auto) 1.5 th/mm3 (0.0-0.9); Mono % (Auto) 8.9 % (0.0-8.0); Neut # (Auto) 14.8 th/mm3 (1.8-7.7); Neut % (Auto) 87.2 % (16.0-70.0); Platelet Count 301 th/mm3 (150-450); Red Blood Count 3.43 mil/mm3 (4.50-5.90); Red Cell Distribution Width 14.8 % (11.6-17.2); White Blood Count 16.9 th/mm3 (4.0-11.0)
[2018-09-23 05:27] LABS: Activated Partial Thrombo Time 23.7 sec (24.3-30.1); Prothrombin Time 10.6 sec (9.8-11.6)
[2018-09-23 05:32] LABS: Alanine Aminotransferase 26 U/L (12-78); Albumin 2.7 g/dL (3.4-5.0); Alkaline Phosphatase 57 U/L (45-117); Anion Gap 6 meq/L (5-15); Aspartate Aminotransferase 22 U/L (15-37); Blood Urea Nitrogen 10 mg/dL (7-18); Carbon Dioxide 24.9 meq/L (21.0-32.0); Chloride 112 meq/L (98-107); Glomerular Filtration Rate Greater Than 89 mL/min (>89); Glucose,Random 132 mg/dL (74-106); Potassium 4.6 meq/L (3.5-5.1); Sodium 143 meq/L (136-145); Total Protein 5.1 g/dL (6.4-8.2)
--- NOTE | 2018-09-23 05:43 | XR ---
EXAM DATE: 09/23/2018 5:31 AM EDT AGE/SEX: 57 years / Male INDICATIONS: Respiratory distress. CLINICAL DATA: This is the patient's subsequent encounter. Patient reports that signs and symptoms h ave been present for 2 days and indicates a pain score of Nonresponsive. MEDICAL/SURGICAL HISTORY: Stroke. Seizures. . Ventricular shunt. COMPARISON: [facility] [place], CHEST 1V SINGLE AP, 09/22/2018. . FINDINGS: Mild atelectasis and probable tiny effusion again seen left base. Right lung remains clear. No pneumo thorax on either side. Normal, stable heart size. Endotracheal tube tip is 3 cm above the jorge alberto. There is a nasogastric tube coiled in the stomach. Le ft subclavian central venous catheter again noted, tip in the superior vena cava. A ventriculoperiton eal shunt catheter is again noted. CONCLUSION: No significant change. Mild consolidation and tiny effusion again seen left base. Electronically signed by: Navneet Mckenzie MD 09/23/2018 5:42 AM EDT
[2018-09-23 05:45] LABS: Sodium 143 meq/L (136-145)
[2018-09-23 06:15] LABS: ABG Base Excess -1.5 mmol/L (-2-2); ABG PO2 179 mmHg (61-120)
[2018-09-23 06:17] LABS: ABG PCO2 41 mmHg (38-42)
[2018-09-23] MEDS: Chlorhexidine 0.12% Oral Kit 15 ML UDC OROPHARYNG SCH ×2 (08:00→20:48)
--- NOTE | 2018-09-23 08:26 | P.NPEVAL ---
Patient History - Record/History Review Reason for Referral: The patient is a 57 year old unknown handed man status post traumatic brain injury secondary to a fall on 09/22/2018. [place] patient [place] the [employer]. 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 His is s/p right craniectomy and cranioplasty and [employer] shunt. Head CT showed bilateral SDH L>R. He is referred for baseline neurobehavioral status examination per trauma protocol to assess cognitive, behavioral and emotional aspects of the injury and to provide treatment recommendations. [facility] - History History Provided By: Patient, Family Member - Medical History Medical History: Medical History (Last Reviewed 09/23/18 @ 08:22 by Kai Stringer) Blood thinned due to long-term anticoagulant use Brain tumor Head injury Right-sided sensory deficit present Shunt malfunction Stroke Stroke TIA (transient ischemic attack) - Tobacco History Smoking Status: Unknown if ever smoked - Alcohol History How Often Do You Have a Drink Containing Alcohol: Unable to Obtain - Substance Use History Substance History: Unable to Obtain - Travel History Recent Travel in the [place] Within the Last 8 Weeks: No Recent Travel Out of the Country Within the Last 8 Weeks: No - Immunization History Tetanus Immunization: Unable to Assess Hx Influenza Vaccine This Season: Unable to Assess Medications Active Medications Acetaminophen (Tylenol) 650 mg PO Q4H PRN PRN Reason: PAIN 1-10 AND/OR FEVER >101F Al Hydroxide/Mg Hydroxide (Milk Of Magnconrado Liq) 30 ml PO Q12H PRN PRN Reason: Mild Constipation Albuterol (Duoneb Neb (Prn)) 1 ampul NEB Q2HR NEB PRN PRN Reason: SHORTNESS OF BREATH Albuterol (Duoneb Neb (Phil)) 1 ampul NEB Q6HR NEB PHIL Last Admin: 09/23/18 03:22 Dose: 1 ampul Atorvastatin Calcium (Lipitor) 40 mg PO DAILY PHIL Bisacodyl (Dulcolax Supp) 10 mg RECTAL DAILY PRN PRN Reason: SEVERE CONSITIPATION Chlorhexidine Gluconate (Chlorhexidine 2% Cloth) 3 pack TOPICAL DAILY@0400 PHIL Stop: 09/28/18 03:59 Last Admin: 09/23/18 03:34 Dose: 3 pack Chlorhexidine Gluconate (Chlorhexidine 2% Cloth) 3 pack TOPICAL DAILY@0400 PRN PRN Reason: Extra cloth needed Stop: 09/28/18 03:59 Chlorhexidine Gluconate (Peridex 0.12% Oral Kit) 15 ml OROPHARYNG BID@0800, 2000 [facility] Enalaprilat (Vasotec Inj) 1.25 mg IV.PUSH Q8H PRN PRN Reason: Blood pressure 180/95 Last Admin: 09/23/18 00:22 Dose: 1.25 mg Sodium Chloride (Ns Inj) 1,000 mls @ 100 mls/hr IV.CONT .Q10H PHIL Levetiracetam 500 mg/ Sodium (Chloride) 105 mls @ 400 mls/hr IV.SIG Q12H PHIL Last Infusion: 09/23/18 04:59 Dose: Infused Potassium Chloride/Sodium Chloride (Ns + Kcl 20 Meq Inj) 1,000 mls @ 100 mls/ hr IV.CONT .Q10H PHIL Last Admin: 09/23/18 03:34 Dose: 100 mls/hr Cefazolin Sodium 1,000 mg/ (Sodium Chloride) 100 mls @ 200 mls/hr IV.SIG Q8H PHIL Stop: 09/23/18 14:29 Last Infusion: 09/23/18 05:33 Dose: Infused Fentanyl (Fentanyl 10 Mcg/Ml Premix Drip) 2,500 mcg in 250 mls @ 5 mls/hr IV.SIG TITRATE PRN; Protocol PRN Reason: Per Protocol Last Titration: 09/23/18 00:00 Dose: 150 mcg/hr, 15 mls/hr Propofol (Diprivan 1000 Mg/100 Ml Inj) 1,000 mg in 100 mls @ 1.864 mls/hr IV.CONT TITRATE PRN; Protocol PRN Reason: Per Protocol Last Admin: 09/23/18 06:07 Dose: 50 mcg/kg/min, 18.64 mls/hr Magnesium Sulfate 4 gm/ Sodium (Chloride) 100 mls @ 50 mls/hr IV.SIG UNSCH PRN PRN Reason: For Magnesium 0.9 - 1.1 mg/dL Magnesium Sulfate 2 gm/ Sodium (Chloride) 100 mls @ 50 mls/hr IV.SIG UNSCH PRN PRN Reason: For Magnesium 1.2 - 1.6 mg/dL Potassium Chloride (Kcl 40 Meq Premix Inj) 40 meq in 100 mls @ 25 mls/hr IV.SIG Q2H PRN PRN Reason: For Potassium 2.8 - 3.2 mEq/L Potassium Chloride (Kcl 20 Meq Premix Inj) 20 meq in 100 mls @ 50 mls/hr IV.SIG Q2H PRN PRN Reason: For Potassium 3.3 - 3.5 mEq/L Potassium Chloride (Kcl 20 Meq Premix Inj) 20 meq in 100 mls @ 50 mls/hr IV.SIG Q2H PRN PRN Reason: For Potassium 2.8 - 3.2 mEq/L Potassium Phosphate 30 mmol/ (Sodium Chloride) 260 mls @ 42 mls/hr IV.SIG UNSCH PRN PRN Reason: SEE LABEL COMMENTS Sodium Phosphate 30 mmol/ (Sodium Chloride) 260 mls @ 42 mls/hr IV.SIG UNSCH PRN PRN Reason: For Phosphorus < 2.5 mg/dL Potassium Chloride (Kcl 40 Meq Premix Inj) 40 meq in 100 mls @ 25 mls/hr IV.SIG UNSCH PRN PRN Reason: For Potassium 3.3 - 3.5 mEq/L Lactulose (Lactulose Liq) 30 ml PO DAILY PRN PRN Reason: SEVERE CONSITIPATION Magnesium Oxide (Mag-Ox) 800 mg PO UNSCH PRN PRN Reason: For Magnesium 1.2 - 1.6 mg/dL Mannitol (Mannitol Inj) 25 gm IV.SIG Q6H [facility] Last Admin: 09/23/18 06:08 Dose: 25 gm Miscellaneous Medication () 1 each OROPHARYNG 0000,0400,1200,1600 [facility] Last Admin: 09/23/18 03:34 Dose: 1 each Naloxone HCl (Narcan Inj) 0.4 mg IV.PUSH UNSCH PRN PRN Reason: SEE LABEL COMMENTS Ondansetron HCl (Zofran Inj) 4 mg IV.PUSH Q6H PRN PRN Reason: NAUSEA OR VOMITING Ondansetron HCl (Zofran Inj) 4 mg IV.PUSH Q6H PRN PRN Reason: NAUSEA OR VOMITING Oxcarbazepine (Trileptal) 600 mg PO BID [facility] Last Admin: 09/22/18 23:14 Dose: Not Given Pantoprazole Sodium (Protonix Inj) 40 mg IV.PUSH Q24H [facility] Potassium Bicarb/Potassium Chloride (K-Lyte Cl Eff) 50 meq PO UNSCH PRN PRN Reason: For Potassium 3.3 - 3.5 mEq/L Potassium Phosphate (K-Phos Original) 2,000 mg PO Q4H PRN PRN Reason: Phosphorus Less Than 2.5 mg/dL Potassium Phosphate (K-Phos Original) 2,000 mg PO UNSCH PRN PRN Reason: SEE LABEL COMMENTS Senna/Docusate Sodium (Yumiko-Colace) 1 tab PO BID PHIL Last Admin: 09/22/18 23:14 Dose: Not Given Sennosides (Senokot) 17.2 mg PO Q12H PRN PRN Reason: Moderate Constipation Sodium Chloride (Ns Flush) 2 ml IV.FLUSH UNSCH PRN PRN Reason: FLUSH AFTER USING IV ACCESS Mental Status Assessment - Mental Status Orientation: unable to assess: Self, Place, Time, Situation Absent: Hallucinations, Delusions Adjustment/Coping Assessment - Observation This patient is sedated and intubated. - Goals/Team Members LTG Status: Deferred STG Status: Deferred Team Members: Neuropsychologist Behavior - Behavior Treatment Engagement: Average - Observation Behaviorally, the patient demonstrated no signs of agitation, impulsivity or disinhibition. There was no remarkable evidence of a formal thought disorder or psychosis. - Goals LTG Status: Deferred STG Status: Deferred - Team Members Team Members: Neuropsychologist Diagnosis/Discharge Plan - Diagnosis (1) Major neurocognitive disorder as late effect of traumatic brain injury without behavioral disturbance Status: Acute Impression: 57 year old male with complicated neurological history including prior brain surgery for optic nerve tumor, CVA in 01/2018 and now TBI 2T fall. Disinhibition Score: 17.50 Aggression Score: 14.00 Lability Score: 14.00 Agitated Behavior Total Score: 16 Maximizing Acute Care Outcome: It is recommended that the patient be monitored for emergent behavioral impulsivity as the medical condition evolves. This patients neuropathological challenges may limit rehabilitation potential going forward, and these challenges will require specialized therapeutic skills to maximize outcome. Additionally, the patients family is experiencing ongoing issues of adjustment given the traumatic nature of the injury, and they may benefit from ongoing psychological assistance. At this point in the recovery process, the patient does not have cognitive capacity as the patient is unable to understand a situation and its likely consequences, nor is the patient able to manipulate information rationally. Cognitive capacity will be assessed throughout the recovery process. - Discharge Planning Anticipated Problems: Ongoing areas of concern will include behavioral impulsivity, lack of insight and judgment, which is expected to improve with time and treatment. Treatment Plan: This clinician will continue to follow with you throughout the course of this patients critical care treatment, and I will be available to meet with the patients family/support system to facilitate their understanding and the ongoing care of their family member. The goals of neuropsychological intervention shall be both educational and supportive to the family/support system as is deemed clinically appropriate. Thank you for the opportunity to assist in this patients care. Elan Hansen, Ph.D., ABPP Board Certified in Clinical Neuropsychology Citizen Of [place] Board of Professional Psychology [place] Licensed Psychologist #[id number]
[2018-09-23] MEDS ORDERED: Pantoprazole Inj 40 MG Vial IV.PUSH SCH (09:00)
[2018-09-23] MEDS: OXcarbazepine 600 MG Tablet PO SCH ×2 (09:37→20:48)
[2018-09-23] MEDS: Senna/Docusate Sodium 8.6/50 MG Tablet PO SCH ×2 (09:37→20:48)
[2018-09-23] MEDS: Sod Chloride 0.9% Inj 1,000 ML IV.CONT SCH ×3 (10:17→10:21)
--- NOTE | 2018-09-23 11:53 | P.PNCC ---
Subjective Brief History: This is a 57-year-old male with history of a prior right sided craniectomy and cranioplasty, status post ventriculoperitoneal shunt, who was brought to the emergency department and trauma alert was called. [place] earlier today. 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 The patient then had a stroke January 2018 which slightly affected his speech and right upper extremity. The patient underwent rehab with improvement of his speech. He developed slurred speech since the fall with with slight change in behavior. The patient takes Plavix daily. The patient is unable to provide any information and does not follow commands. Withdraw to pain in his lower extremities. Trauma alert was called due to the decreased in GCS. The patient went immediately to CT for CT the brain which did reveal bilateral subdurals with mild shift. The patient had decreasing mental status, would not follow commands, therefore, given his drop in GCS was taken to the trauma room and a level 1 trauma was called. The patient was intubated using rapid sequence intubation to protect the airway after lidocaine 100 mg was given the patient received etomidate 20 mg intravenously and succinylcholine 100 mg at. The patient was intubated using an endotracheal tube, 8.0, without difficulty. The patient did receive [address] Tay who evaluated the patient in the trauma room and he was resuscitated according to ATLS principles. Initial diagnostic workup reveals Bilateral subdural hematomas left considerably greater than right. The subdural on the left extends from the left frontal to occipital lobe and superiorly to the high convexity and measures 15 mm across with considerable mixed density. The small right occipital subdural is more homogeneous c/w acute hemorrhagic density Patient is taken immediately to the operating room for decompressive craniectomy and is now in ICU for further care Should be noted patient was on Plavix aspirin which has been stopped Patient will be managed according to the established neurosurgical critical care principles and full evaluation will be completed considering that patient has other comorbidities that need to be addressed 24 Hour Review/Hospital Course: 09/23/2018 Patient with massive head injury and huge left subdural hematoma status post craniectomy and drainage Patient is sedated on neuroprotective measures including propofol fentanyl and Keppra ICP remains around 8-14 mmHg Patient received 25 g of mannitol last night and since then ICP has been low Serum sodium 142 mEq/L and patient is on 3% saline at 30 cc/h We will keep sodium less than 160 mEq/L At this point [place] Coma Scale remains 3 and patient has no activity whatsoever Hemodynamically patient is stable and hemoglobin and hematocrit are stable after transfusion of 1 unit PRBC last night Bilateral breath sounds patient fully ventilatory supported on assist control ventilation mode with good PO2 FiO2 gradient Keep PCO2 between 32-40 mmHg Abdomen soft Renal function well-preserved patient is euvolemic and will decrease maintenance fluids This patient has very poor prognosis based on his age and severity of brain injury on top of already previous craniotomy for optic nerve tumor Patient has about 80% 1 year mortality and 100% morbidity with 100% chance of permanent neurologic deficits either cognitive motoric or both We will consult palliative care to discuss his further prospects with the family and lay out some options Objective Vital Signs / I&O: Vital Signs 09/22/18 14:28 09/22/18 14:31 09/22/18 17:49 Temperature 98.3 F 97.6 F Pulse Rate 48 L 52 L 100 H Respiratory Rate 20 17 12 Blood Pressure 195/88 H Pulse Oximetry 98 100 100 09/22/18 18:00 09/22/18 18:17 09/22/18 18:30 Temperature Pulse Rate 83 Respiratory Rate 24 14 14 Blood Pressure Pulse Oximetry 100 100 09/22/18 19:00 09/22/18 20:00 09/22/18 20:16 Temperature 94.1 F L 94.0 F L Pulse Rate 56 L 64 57 L Respiratory Rate 38 H 18 18 Blood Pressure 131/74 Pulse Oximetry 100 100 09/22/18 21:00 09/22/18 21:34 09/22/18 21:47 Temperature 94.1 F L Pulse Rate 55 L 47 L 48 L Respiratory Rate 18 18 18 Blood Pressure 148/75 H Pulse Oximetry 100 100 09/22/18 22:00 09/22/18 23:00 09/23/18 00:00 Temperature 97.7 F Pulse Rate 47 L 47 L 47 L Respiratory Rate 18 21 24 Blood Pressure Pulse Oximetry 100 100 100 09/23/18 00:40 09/23/18 01:00 09/23/18 03:23 Temperature Pulse Rate 55 L 63 Respiratory Rate 18 18 18 Blood Pressure Pulse Oximetry 100 100 100 09/23/18 04:00 09/23/18 07:32 09/23/18 07:35 Temperature 99.0 F Pulse Rate 64 Respiratory Rate 18 20 20 Blood Pressure Pulse Oximetry 100 100 100 09/23/18 08:50 Temperature Pulse Rate 58 L Respiratory Rate 20 Blood Pressure Pulse Oximetry Intake & Output 09/22/18 09/23/18 09/23/18 18:59 06:59 18:59 Intake Total 3105 / 3105 3605 / 3605 700 / 700 Output Total 1999 2385 / 2385 Balance 1105 / 1105 1220 / 1220 700 / 700 Weight 62.142 kg 66.9 kg Intake: IV 105 / 105 2004 / 2004 700 / 700 NS + KCl 20 mEq Inj 1,000 ML @ 1000 / 1000 200 / 200 100 mls/hr IV.CONT .Q10H [facility] Rx #:[id number] Diprivan 1000 mg/100 ml Inj 1, 200 / 200 000 mg In 100 ml @ 5 MCG/KG/MIN 1.864 mls/hr IV.CONT TITRATE PRN Rx#:[id number] Sodium Chloride 3% Inj 500 ML @ 500 / 500 40 mls/hr IV.SIG ONCE ONE Rx#: [id number] Vancomycin Inj 1,000 MG In NS 500 / 500 Inj 250 ML @ 250 mls/hr IV.SIG Q12H [facility] Rx#:[id number] Ancef Inj 1,000 MG In NS Inj 200 / 200 100 ML @ 200 mls/hr IV.SIG Q8H [facility] Rx#:[id number] Keppra Inj 500 MG In NS Inj 100 105 / 105 105 / 105 ML @ 400 mls/hr IV.SIG Q12H [facility] Rx#:[id number] Anesthesia Amount 3000 / 3000 Intake (Blood Product) Amt 800 / 800 Rbc As-3 Leukoreduced Unit 400 / 400 [id number] Rbc As-3 Leukoreduced Unit 400 / 400 [id number] Autotransfusion Amount 800 / 800 Output: Estimated Blood Loss 400 / 400 Urine Amount (Catheter) 1600 / 1600 1900 / 1900 Indwelling Urethral Catheter 1600 / 1600 1900 / 1900 Gastric Drainage 300 / 300 Oral Orogastric Tube 300 / 300 Wound Drainage 185 / 185 # 1 Left Head 60 / 60 # 2 Left Head 125 / 125 Other: # Bowel Movements 0 Weight On Admission 62.14 kg Result Diagrams: 09/23/18 04:50 09/23/18 04:50 Imaging: Impressions Chest X-Ray 09/22/18 00:00 CONCLUSION: Endotracheal tube in good position. Lungs are clear. Pelvis X-Ray 09/22/18 00:00 CONCLUSION: Negative examination. Cervical Spine CT 09/22/18 14:40 CONCLUSION: 1. Chronic degenerative disease at multiple levels. No evidence of an acute fracture or injury Face CT 09/22/18 14:40 CONCLUSION: 1. Evidence of right temporal craniotomy. The patient is intubated. There is some fluid in the nasopharynx. No fractures are seen. Head CT 09/22/18 14:40 CONCLUSION: 1. Bilateral subdural hematomas left considerably greater than right. The subdural on the left extends from the left occipital lobe superiorly to the high convexities measuring a small as much as 15 mm across with considerable mixed density. 2. The small right occipital subdural is more homogeneous c/w acute hemorrhagic density. . Chest X-Ray 09/22/18 19:16 CONCLUSION: Endotracheal tube and left central line in good position. No pneumothorax. Minimal basilar atelectasis. Chest X-Ray 09/23/18 06:00 CONCLUSION: No significant change. Mild consolidation and tiny effusion again seen left base. 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: 09/23/2018 Patient with massive head injury and huge left subdural hematoma status post craniectomy and drainage Patient is sedated on neuroprotective measures including propofol fentanyl and Keppra ICP remains around 8-14 mmHg Patient received 25 g of mannitol last night and since then ICP has been low Serum sodium 142 mEq/L and patient is on 3% saline at 30 cc/h We will keep sodium less than 160 mEq/L At this point [place] Coma Scale remains 3 and patient has no activity whatsoever Repeat CT scan of the brain tomorrow and at this point we will leave everything as it is for there is no place to go right now with any of the sedation or other support Hemodynamic/Cardiac: Hemodynamically patient is stable and hemoglobin and hematocrit are stable after transfusion of 1 unit PRBC last night Pulmonary/Respiratory: Bilateral breath sounds patient fully ventilatory supported on assist control ventilation mode with good PO2 FiO2 gradient Keep PCO2 between 32-40 mmHg Abdomen/GI Nutrition: Abdomen soft Depending on the long-term planning will probably start on enteral feedings tomorrow Renal/I&O: Renal function well-preserved patient is euvolemic and will decrease maintenance fluids Assessment and Plan Attestation: This patient has very poor prognosis based on his age and severity of brain injury on top of already previous craniotomy for optic nerve tumor Patient has about 80% 1 year mortality and 100% morbidity with 100% chance of permanent neurologic deficits either cognitive motoric or both We will consult palliative care to discuss his further prospects with the family and lay out some options Critical care 38 minutes
--- NOTE | 2018-09-23 12:10 | P.PNNS ---
Subjective Interval history: intubated, sedated. ICPs controlled. Physical Exam Vital signs: Vital Signs 09/22/18 14:28 09/22/18 14:31 09/22/18 17:49 Temperature 98.3 F 97.6 F Pulse Rate 48 L 52 L 100 H Respiratory Rate 20 17 12 Blood Pressure 195/88 H Pulse Oximetry 98 100 100 09/22/18 18:00 09/22/18 18:17 09/22/18 18:30 Temperature Pulse Rate 83 Respiratory Rate 24 14 14 Blood Pressure Pulse Oximetry 100 100 09/22/18 19:00 09/22/18 20:00 09/22/18 20:16 Temperature 94.1 F L 94.0 F L Pulse Rate 56 L 64 57 L Respiratory Rate 38 H 18 18 Blood Pressure 131/74 Pulse Oximetry 100 100 09/22/18 21:00 09/22/18 21:34 09/22/18 21:47 Temperature 94.1 F L Pulse Rate 55 L 47 L 48 L Respiratory Rate 18 18 18 Blood Pressure 148/75 H Pulse Oximetry 100 100 09/22/18 22:00 09/22/18 23:00 09/23/18 00:00 Temperature 97.7 F Pulse Rate 47 L 47 L 47 L Respiratory Rate 18 21 24 Blood Pressure Pulse Oximetry 100 100 100 09/23/18 00:40 09/23/18 01:00 09/23/18 03:23 Temperature Pulse Rate 55 L 63 Respiratory Rate 18 18 18 Blood Pressure Pulse Oximetry 100 100 100 09/23/18 04:00 09/23/18 07:32 09/23/18 07:35 Temperature 99.0 F Pulse Rate 64 Respiratory Rate 18 20 20 Blood Pressure Pulse Oximetry 100 100 100 09/23/18 08:50 Temperature Pulse Rate 58 L Respiratory Rate 20 Blood Pressure Pulse Oximetry Intake & Output 09/22/18 09/23/18 09/23/18 18:59 06:59 18:59 Intake Total 3105 / 3105 3605 / 3605 700 / 700 Output Total 1999 2385 / 2385 Balance 1105 / 1105 1220 / 1220 700 / 700 Weight 62.142 kg 66.9 kg Intake: IV 105 / 105 2004 / 2004 700 / 700 NS + KCl 20 mEq Inj 1,000 ML @ 1000 / 1000 200 / 200 100 mls/hr IV.CONT .Q10H [facility] Rx #:[id number] Diprivan 1000 mg/100 ml Inj 1, 200 / 200 000 mg In 100 ml @ 5 MCG/KG/MIN 1.864 mls/hr IV.CONT TITRATE PRN Rx#:[id number] Sodium Chloride 3% Inj 500 ML @ 500 / 500 40 mls/hr IV.SIG ONCE ONE Rx#: [id number] Vancomycin Inj 1,000 MG In NS 500 / 500 Inj 250 ML @ 250 mls/hr IV.SIG Q12H [facility] Rx#:[id number] Ancef Inj 1,000 MG In NS Inj 200 / 200 100 ML @ 200 mls/hr IV.SIG Q8H [facility] Rx#:[id number] Keppra Inj 500 MG In NS Inj 100 105 / 105 105 / 105 ML @ 400 mls/hr IV.SIG Q12H [facility] Rx#:[id number] Anesthesia Amount 3000 / 3000 Intake (Blood Product) Amt 800 / 800 Rbc As-3 Leukoreduced Unit 400 / 400 [id number] Rbc As-3 Leukoreduced Unit 400 / 400 [id number] Autotransfusion Amount 800 / 800 Output: Estimated Blood Loss 400 / 400 Urine Amount (Catheter) 1600 / 1600 1900 / 1900 Indwelling Urethral Catheter 1600 / 1600 1900 / 1900 Gastric Drainage 300 / 300 Oral Orogastric Tube 300 / 300 Wound Drainage 185 / 185 # 1 Left Head 60 / 60 # 2 Left Head 125 / 125 Other: # Bowel Movements 0 Weight On Admission 62.14 kg Narrative: intubated, sedated, mechanically ventilated left crani flap full and tight ICP monitor in place = 9 facial swelling and ecchymoses wound with clean dressing, MARK drains in place pupils equal 3 mm, left eyelid swelling no response to pain stimuli - Urinary Catheter Management Indwelling Urethral Catheter Cath placed during this visit: yes Reason for continuing: Hourly intake/output Insertion date: 09/22/18 Insertion time: 15:50 Assessment and Plan - Plan s/p left decompressive craniectomy with evacuation of the subdural hematoma, Placement of ICP monitor, stable ICPs cont icp monitoring cont sedation for ICP control Continue Protonix for stress ulcer prophylaxis continue Kiran hose and SCD's for DVT prophylaxis cont MARK draining and monitoring output f/u cT Brain tomorrow am
[2018-09-23] MEDS: fentaNYL 10 mcg/mL Premix Drip 2,500 MCG/250 ML BAG IV.SIG PRN (12:44)
--- NOTE | 2018-09-23 14:17 | P.CONPAL ---
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 care: There are currently no known ethical issues impacting care at this time Important Contacts: `` Judy Vu, /HCP [phone] Prognosis: This patient is a complicated case with multiple traumatic brain injuries, craniotomies and [employer] shunt placement. He remains critically ill and is at increased risk for continued neurological and physical decompensation. It is unsure if he will have any meaningful neurological recovery at this point. The patient is at high risk for decline and . Code Status: Full Code Plan: * LEGAL DECISION MAKER -Judy Vu, /HCP [phone] * GOALS - Mr. Vu is currently critically ill, intubated and sedated and unable to participate in his own healthcare decision making. Had a long conversation with his , Judy Vu via telephone. We discussed his prognosis and current medical trajectory. She is hopeful for a meaningful neurological recovery and feels that he has the ability to do so given his previous history (previous TBI's, optic nerve tumor removal, etc.) We discussed CODE STATUS, she would like for her to remain full code at this time. Goals are aggressive at this time and she would like every possible avenue explored. * CODE STATUS -FULL CODE * SYMPTOMS: Painthe patient does not appear to be in any acute distress at this time. No nonverbal pain cues were noticed during exam. Patient is currently receiving a fentanyl infusion. Will make suggestions as the case evolves Dyspneacurrently managed by mechanical ventilation. The patient is on AC settings with FiO2 40%, PEEP of 5. Defer to critical care Altered mental statuspatient has a complicated history including optic tumor removal with H[employer] shunt placement, lashae hole placement, and stroke as recent as January 2018. 24 hours post left craniotomy patient remains heavily sedated with fluctuating intracranial pressures. Has had some spikes in pressures overnight and today with care, particularly with repositioning. Appreciate input from neurosurgery Palliative care will continue to follow during hospital course as condition evolves, to assist patient/decision maker with understanding of medical conditions, weighing benefits/burdens of treatment options, for clarification of goals of treatment. Additionally will assist with any symptoms of palliative concern. Appreciation Thank you for the opportunity to participate in the care of Shankar Vu. Attestation Attestation: To help prompt me to consider important information that might be impacting today's encounter and assessment, information from prior notes written by myself or my colleagues may have been "brought forward" into today's note. My signature on this note, however, is an attestation that I personally performed the exam, history, and/or decision-making noted today, and, unless otherwise indicated, the interactions with patient, family, and staff as well as the review of records all occurred today. I also attest that the listed assessment and stated plan reflect my best clinical judgment today based on the combination of historical information, prior notes, and today's exam/ interactions. When time spent is documented, it refers only to time spent today by the signer, or if indicated, combined time spent today by collaborating physician/nurse practitioner.
[2018-09-23] MEDS: Pantoprazole Inj 40 MG Vial IV.PUSH SCH ×2 (15:54→20:46)
--- NOTE | 2018-09-23 18:01 | ECG ---
Date Performed: 09/22/2018 Time Performed: 18:45:36 PTAGE: 57 years EKG: Sinus rhythm . Prolonged QT interval Borderline ECG PREVIOUS TRACING 02/20/2018 @ 11.39 Since the previous tracing, no significant change not ed DOCTOR: Kurt Kenny Interpretating Date/Time 09/23/2018 18:00:31
[2018-09-23 19:51] LABS: Sodium 147 meq/L (136-145)
[2018-09-23 23:05] LABS: Sodium 149 meq/L (136-145)
[2018-09-24] MEDS: Propofol 1000 mg/100 ml Inj 1,000 MG/100 ML BOTTLE IV.CONT PRN ×5 (02:07→23:08)
[2018-09-24] MEDS: fentaNYL 10 mcg/mL Premix Drip 2,500 MCG/250 ML BAG IV.SIG PRN ×2 (02:08→19:53)
[2018-09-24 05:06] LABS: Baso % (Auto) 0.3 % (0.0-2.0); Eos % (Auto) 0.1 % (0.0-4.0); Hemoglobin 7.6 gm/dL (13.0-17.0); Lymph # (Auto) 1.4 th/mm3 (1.0-4.8); Lymph % (Auto) 11.4 % (9.0-44.0); Mean Corpuscular HGB Conc 34.8 % (32.0-36.0); Mean Corpuscular Volume 83.4 fL (80.0-100.0); Mean Platelet Volume 8.4 fL (7.0-11.0); Mono # (Auto) 1.7 th/mm3 (0.0-0.9); Mono % (Auto) 13.2 % (0.0-8.0); Neut # (Auto) 9.5 th/mm3 (1.8-7.7); Platelet Count 231 th/mm3 (150-450); Red Blood Count 2.64 mil/mm3 (4.50-5.90); Red Cell Distribution Width 15.1 % (11.6-17.2); White Blood Count 12.6 th/mm3 (4.0-11.0)
[2018-09-24 05:08] LABS: Alanine Aminotransferase 21 U/L (12-78); Albumin 2.3 g/dL (3.4-5.0); Anion Gap 4 meq/L (5-15); Aspartate Aminotransferase 28 U/L (15-37); Blood Urea Nitrogen 11 mg/dL (7-18); Calcium 7.5 mg/dL (8.5-10.1); Carbon Dioxide 27.4 meq/L (21.0-32.0); Chloride 119 meq/L (98-107); Glomerular Filtration Rate Greater Than 89 mL/min (>89); Glucose,Random 114 mg/dL (74-106); Potassium 3.7 meq/L (3.5-5.1); Sodium 150 meq/L (136-145)
[2018-09-24 05:11] LABS: Alkaline Phosphatase 53 U/L (45-117); Total Protein 4.8 g/dL (6.4-8.2)
[2018-09-24] MEDS: Chlorhexidine Gluconate 2% 1 Pack (2 Cloths) TOPICAL SCH (05:43)
[2018-09-24] MEDS: Oral Hygiene Kit OROPHARYNG SCH ×4 (05:43→23:08)
[2018-09-24 06:05] LABS: ABG Base Excess 0.7 mmol/L (-2-2); ABG PCO2 40 mmHg (38-42); ABG PO2 165 mmHg (61-120)
--- NOTE | 2018-09-24 06:09 | XR ---
EXAM DATE: 09/24/2018 5:50 AM EDT AGE/SEX: 57 years / Male INDICATIONS: Respiratory distress. CLINICAL DATA: This is the patient's subsequent encounter. Patient reports that signs and symptoms h ave been present for 3 days and indicates a pain score of Nonresponsive. MEDICAL/SURGICAL HISTORY: Stroke. Seizures. Craniotomy. Ventricular shunt. COMPARISON: C, CHEST 1V SINGLE AP, 09/23/2018. . FINDINGS: Minimal left base consolidation without change. Right lung clear. No pleural effusion or pneumothorax . Endotracheal tube tip is approximately 1.7 cm above the jorge alberto. There is a nasogastric tube coursing into the stomach. CONCLUSION: No significant change. Minimal left base consolidation again noted. Electronically signed by: Navneet Mckenzie MD 09/24/2018 6:08 AM EDT
--- NOTE | 2018-09-24 08:20 | P.PNNPSY ---
- Behavior Intact: Impulsive/agitated - Progress Notes/Response to Treatment Contents of Sessions: Adjustment, Level of consciousness Time with Patient: 30 minutes Premorbid Psychological Status: Premorbid Cognitive, Emotional and Behavioral Status: Tenuous. The patient has high school years of education and is not in the work force prior to this injury. The patient has no prior psychiatric difficulties, as described above. Substance abuse history is unremarkable. Behavioral Reactions of Patient and Family/Support System: Stable. The patients family is experiencing ongoing issues of adjustment given the nature of the injury, and this aspect of recovery will require ongoing monitoring. Emotional/Behavioral Status of Patient and Family/Support System: Stable. Pertinent issues, if appropriate to this patients clinical care, are described in detail above. Maximizing Acute Care Outcome: It is recommended that the patient be monitored for emergent behavioral impulsivity as the medical condition evolves. This patients neuropathological challenges may limit rehabilitation potential going forward, and these challenges will require specialized therapeutic skills to maximize outcome. Additionally, the patients family is experiencing ongoing issues of adjustment given the traumatic nature of the injury, and they may benefit from ongoing psychological assistance. At this point in the recovery process, the patient does not have cognitive capacity as the patient is unable to understand a situation and its likely consequences, nor is the patient able to manipulate information rationally. Cognitive capacity will be assessed throughout the recovery process. Anticipated Problems: Ongoing areas of concern will include behavioral impulsivity, lack of insight and judgment, which is expected to improve with time and treatment. Treatment Plan: This clinician will continue to follow with you throughout the course of this patients critical care treatment, and I will be available to meet with the patients family/support system to facilitate their understanding and the ongoing care of their family member. The goals of neuropsychological intervention shall be both educational and supportive to the family/support system as is deemed clinically appropriate. Disinhibition Score: 14.00 Aggression Score: 14.00 Lability Score: 14.00 Agitated Behavior Total Score: 14 Impression: 57 year old male with complicated neurological history including prior brain surgery for optic nerve tumor, CVA in 01/2018 and now TBI 2T fall. Progress Note Narrative: PTD 2. There is no neurobehavioral change, and the patient remains sedated and intubated. This patient carries a very poor prognosis considering the underlying comorbidities prior to the TBI, which is quite severe. He is [place]. No agitation/restlessness with ABS = 14 (14,14,14). I will follow. - Diagnosis (1) Major neurocognitive disorder as late effect of traumatic brain injury without behavioral disturbance Status: Acute
[2018-09-24] MEDS: Chlorhexidine 0.12% Oral Kit 15 ML UDC OROPHARYNG SCH ×2 (08:30→20:14)
[2018-09-24] MEDS: Senna/Docusate Sodium 8.6/50 MG Tablet PO SCH ×3 (08:53→20:14)
[2018-09-24] MEDS: OXcarbazepine 600 MG Tablet PO SCH ×2 (08:53→20:14)
--- NOTE | 2018-09-24 12:39 | P.DIET ---
Nutritional Evaluation Type of nutrition evaluation: initial Nutrition consult regarding: Tube Feeding Objective - Diagnosis Subdural Hemorrhage - Objective % IBW: 101 (IBW = 142 #) Body Weight Used for Calculations: Actual (65.3 kg) Energy Needs - Lower Range (kCal/kg): 25 Energy Needs - Upper Range (kCal/kg): 30 Lower Limit kCal/kg (kCals): 1,633 Upper Limit kCal/kg (kCals): 1,959 Lower Limit Protein Factor (Grams per Kg): 1.2 Upper Limit Protein Factor (Grams per Kg): 1.6 Lower Protein Needs (Protein): 78 Upper Protein Needs (Protein): 105 Dietitian Reviewed in Medical Record: Curent medications, Intake & Output, Labs , Medical history, Tube feeding Diet Order: NPO Assessment Assessment: Pt is s/p L prasanth crani (09/22) and needs TFing to meet nutritional needs. Current order is for Jevity 1.5 @ 50 mls/hr. This will provide 1800 kcals, 77 gms protein and 912 mls of free water. Some additional kcals will be provided by propofol (1.1 kcal/ml). Recommend the addition of Beneprotein 1 pack tid for increased protein needs. This will provide an additional 18 gms protein and 75 kcals. Recommendations: Jevity 1.5 @ 50 mls/hr goal Beneprotein 1 pack tid Dietitian to Monitor: Lab values, Intake & Output, Tube feeding tolerance, Weight change, Medical course
--- NOTE | 2018-09-24 12:42 | P.PNPAL ---
Reason for Visit Reason for visit: a. To assist with evaluation and management of symptoms including:pain, dyspnea , debility b. To assist medical decision maker(s) with: better understanding of current medical conditions; weighing benefits/burdens of medical treatment options; making medical treatment decisions. Subjective Subjective/Interval History: Mr. Vu is a 57-year-old male who came into the emergency they will call on after a fall at the grocery store. 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 At that time he had ROLL HAND shunt placement. 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 In March 2008 he suffered a left subdural hematoma for which required rehab. In January 2018 the patient suffered a stroke which slightly affected his speech and right upper extremity. He underwent rehab which resulted in improvement to his speech. Due to his worsening GCS 1 trauma alert was called. As per his , the patient's speech is usually normal but does slur when he is tired. It is unknown if he lost consciousness during the fall. No seizure activity was noted at the scene. The patient takes Plavix daily. The patient was unable to provide any information was not following commands. He was not moving upper extremities and withdrawal only to the lower. The patient was emergently intubated for airway protection and admitted for further evaluation and care. Dr. Wolff (neurosurgery) was consulted the patient was taken emergently to the emergency room for left decompressive craniotomy with evacuation of of the hematoma and attempt to stabilize. A right intracranial monitor was placed with opening pressures of 5 mmHg. He was given Keppra for seizure prophylaxis and started on hyperosmolar therapy. 09/24/18 Palliative care to follow-up with symptom management and goals of medical care. Not much change in clinical status. Patient remains critically ill, intubated and sedated. Some concern neurologically as it appears patient does not have a gag reflex and extremely weak cough. No withdrawal to bilateral upper versus. Extremely weak withdrawal left lower extremity to noxious stimuli. Slightly stronger withdrawal to right lower extremity to noxious stimuli. Left bone flap remains full and firm. Pupils 3 mm and nonreactive. Repeat CT of head showed increasing in size of left subdural hemorrhage measuring 17 mm with prominent edema throughout the left cerebral hemisphere and [id number] midline shift of [address] Wolff was informed of results and felt that if the family requested aggressive treatments, he would require an emergent repeat craniotomy. Today's clinical information revealed: * WBC 12.6, Hgb 7.6, HCT 22.0, platelets 231 * NA 150, K+ 3.7, CL 119, CO2 27.4, BUN 11, creatinine 0.46, glucose 114 * Serum osmolality 303, calcium 7.5 * ABG: PH 7.41, PCO2 40, PO2 165, HCO3 25 settings on FiO2 35% PEEP of 5 * CXR: No significant change. Minimal left base consolidation again noted. Family/Friend Interactions: Dr. Wolff did discuss with the that this neurological insult was worse that the others he suffered previously and verbalized that he was unsure if the patient would survive this event. Dr. Wolff also informed that patient's that if he did survive, there was most probable that he would not have any type of meaningful neurological recovery. She stated that she understood and wished to proceed with surgery. She verbalized that she would like to have everything possible done for her . 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 We will continue with aggressive measures including repeat craniotomy Objective Vital Signs: Vital Signs 09/23/18 15:15 09/23/18 16:00 09/23/18 20:00 Temperature 99.6 F 99.7 F H Pulse Rate 54 L 53 L 52 L Respiratory Rate 17 16 16 Pulse Oximetry 100 100 100 09/23/18 21:19 09/23/18 21:25 09/23/18 22:00 Temperature Pulse Rate 53 L 52 L Respiratory Rate 16 16 Pulse Oximetry 100 100 09/24/18 00:00 09/24/18 00:26 09/24/18 02:00 Temperature 98.4 F Pulse Rate 58 L 58 L Respiratory Rate 16 16 Pulse Oximetry 100 100 09/24/18 03:25 09/24/18 04:00 09/24/18 04:01 Temperature 98.5 F Pulse Rate 54 L 54 L Respiratory Rate 16 16 16 Pulse Oximetry 100 100 09/24/18 06:00 09/24/18 07:24 09/24/18 07:26 Temperature Pulse Rate 56 L Respiratory Rate 14 14 Pulse Oximetry 100 100 09/24/18 08:00 09/24/18 08:51 09/24/18 10:00 Temperature 98 F Pulse Rate 52 L 52 L 52 L Respiratory Rate 14 14 Pulse Oximetry 100 09/24/18 12:00 09/24/18 12:04 Temperature Pulse Rate 51 L Respiratory Rate 14 Pulse Oximetry 100 Intake & Output 09/23/18 09/24/18 09/24/18 18:59 06:59 18:59 Intake Total 1475 / 1475 1105 / 1105 100 / 100 Output Total 1630 / 1630 1105 / 1105 Balance -155 / -155 0 / 0 100 / 100 Weight 65.3 kg Intake: IV 1355 / 1355 1055 / 1055 100 / 100 NS + KCl 20 mEq Inj 1,000 ML @ 200 / 200 100 mls/hr IV.CONT .Q10H STONEY Rx #:[id number] Diprivan 1000 mg/100 ml Inj 1, 200 / 200 200 / 200 100 / 100 000 mg In 100 ml @ 5 MCG/KG/MIN 1.864 mls/hr IV.CONT TITRATE PRN Rx#:[id number] Sodium Chloride 3% Inj 500 ML @ 500 / 500 500 / 500 30 mls/hr IV.SIG DAILY ONE Rx# :[id number] Ancef Inj 1,000 MG In NS Inj 100 / 100 100 ML @ 200 mls/hr IV.SIG Q8H STONEY Rx#:[id number] fentaNYL 10 mcg/mL Premix Drip 250 / 250 250 / 250 2,500 mcg In 250 ml @ 50 MCG/HR 5 mls/hr IV.SIG TITRATE PRN Rx #:[id number] Keppra Inj 500 MG In NS Inj 100 105 / 105 105 / 105 ML @ 400 mls/hr IV.SIG Q12H STONEY Rx#:[id number] Tube Irrigant 50 / 50 Other 120 / 120 Output: Urine Amount (Catheter) 1400 / 1400 950 / 950 Indwelling Urethral Catheter 1400 / 1400 950 / 950 Gastric Drainage 200 / 200 150 / 150 Oral Orogastric Tube 200 / 200 150 / 150 Wound Drainage 30 / 30 5 / 5 # 1 Left Head 10 / 10 0 / 0 # 2 Left Head 20 / 20 5 / 5 Other: # Bowel Movements 0 # Incontinent Bowel Movements 0 Physical Exam: CONSTITUTIONAL/GENERAL: Currently intubated and sedated, appears critically ill. TUBES/LINES/DRAINS:PIV, LSC, LRAL, JPx2, Brunner, bilateral soft wrist restraints , OGT SKIN: No jaundice, rashes, or lesions. Multiple abrasions noted to bilateral toes. Feet appear poorly cared for. Skin temperature appropriate. Not diaphoretic. HEAD: Old right-sided skull deformity noted. Left sided horse shoe incision with jey C/D/I appears full. Bone flap with 2 MARK to left side of the head with scant amount of serosanguineous fluid EYES: Pupils 3 mm with no reaction ENT: Unable to assess hearing due to clinical condition. nose without bleeding or purulent drainage. Throat without visible erythema, exudates, masses, or lesions. CARDIOVASCULAR: Bradycardic with regular rhythm. Without murmurs, gallops, or rubs. No JVD. Peripheral pulses symmetric, weak pedal pulses RESPIRATORY/CHEST: Symmetric, unlabored respirations. Clear to auscultation. Breath sounds equal bilaterally. Diminished at the bases, scattered rhonchi GASTROINTESTINAL: Abdomen soft, non-tender, nondistended. No hepato-splenomegaly , or palpable masses. Bowel sounds hypoactive. OGT to suction. GENITOURINARY: Without palpable bladder distension. Brunner catheter in place. MUSCULOSKELETAL: Extremities without clubbing, cyanosis, or edema. No joint effusion noted. No mottling or clubbing. NEUROLOGICAL: Heavily sedated, no gag, extremely weak cough which is slightly worse from yesterday. Flaccid bilateral upper extremities, very weak withdrawal to noxious stimuli left lower and slight withdrawal right lower also to noxious stimuli. PSYCHIATRIC: Unable to assess due to clinical condition Diagnostic Tests Laboratory: Laboratory Results - last 72 hr 09/22/18 09/22/18 09/22/18 14:42 14:42 14:42 WBC 12.6 H RBC 4.13 L Hgb 12.2 L Hct 35.9 L MCV 86.9 MCH 29.5 MCHC 33.9 RDW 14.7 Plt Count 411 MPV 8.5 Prelim Diff (Auto) Slide review pending Neut % (Auto) 82.0 H Lymph % (Auto) 8.8 L [place] % (Auto) 5.4 Eos % (Auto) 1.8 Baso % (Auto) 2.0 Neut # (Auto) 10.3 H Lymph # (Auto) 1.1 [place] # (Auto) 0.7 Eos # (Auto) 0.2 Baso # (Auto) 0.3 H WBC Differential . Diff Scan Auto diff confirmed Differential Comment . PT 9.9 INR 1.0 APTT 20.5 L Puncture Site Patient Temperature O2 Saturation ABG pH ABG pCO2 ABG pO2 ABG HCO3 ABG O2 Content ABG Base Excess ABG Methemoglobin Hemoglobin Carboxyhemoglobin O2 Delivery Device Vent Setting Inspired O2 Critical Value Sodium 134 L Potassium 3.8 Chloride 100 Carbon Dioxide 22.3 Anion Gap 12 BUN 12 Creatinine 0.85 Estimated GFR Greater than 89 Random Glucose 252 H Osmolality Calcium 8.3 L Prot Corrected Calcium Total Bilirubin 0.3 AST 46 H ALT 36 Alkaline Phosphatase 82 Total Creatine Kinase 225 Troponin I Less than 0.02 L Total Protein 7.1 Albumin 3.8 Nasal Screen MRSA (PCR) Serum Alcohol Blood Type Antibody Screen MTS Gel Crossmatch Bld Prod Order Comment 09/22/18 09/22/18 09/22/18 15:30 16:34 16:34 WBC RBC Hgb 8.5 L D Hct 25.1 L MCV MCH MCHC RDW Plt Count MPV Prelim Diff (Auto) Neut % (Auto) Lymph % (Auto) [place] % (Auto) Eos % (Auto) Baso % (Auto) Neut # (Auto) Lymph # (Auto) [place] # (Auto) Eos # (Auto) Baso # (Auto) WBC Differential Diff Scan Differential Comment PT INR APTT Puncture Site Art line Patient Temperature 98.6 O2 Saturation 97 ABG pH 7.45 H ABG pCO2 29 L ABG pO2 273 H ABG HCO3 20 L ABG O2 Content 12.0 ABG Base Excess -3.8 L ABG Methemoglobin 1.7 Hemoglobin 8.3 L Carboxyhemoglobin 1.3 O2 Delivery Device Ventilator Vent Setting In or Inspired O2 56 Critical Value No Sodium Potassium Chloride Carbon Dioxide Anion Gap BUN Creatinine Estimated GFR Random Glucose Osmolality Calcium Prot Corrected Calcium Total Bilirubin AST ALT Alkaline Phosphatase Total Creatine Kinase Troponin I Total Protein Albumin Nasal Screen MRSA (PCR) Serum Alcohol Blood Type Antibody Screen MTS Gel Crossmatch Bld Prod Order Comment 09/22/18 09/22/18 09/22/18 17:06 18:15 18:15 WBC RBC Hgb Hct MCV MCH MCHC RDW Plt Count MPV Prelim Diff (Auto) Neut % (Auto) Lymph % (Auto) [place] % (Auto) Eos % (Auto) Baso % (Auto) Neut # (Auto) Lymph # (Auto) [place] # (Auto) Eos # (Auto) Baso # (Auto) WBC Differential Diff Scan Differential Comment PT INR APTT Puncture Site Patient Temperature O2 Saturation ABG pH ABG pCO2 ABG pO2 ABG HCO3 ABG O2 Content ABG Base Excess ABG Methemoglobin Hemoglobin Carboxyhemoglobin O2 Delivery Device Vent Setting Inspired O2 Critical Value Sodium Potassium Chloride Carbon Dioxide Anion Gap BUN Creatinine Estimated GFR Random Glucose Osmolality 287 Calcium Prot Corrected Calcium Total Bilirubin AST ALT Alkaline Phosphatase Total Creatine Kinase Troponin I Total Protein Albumin Nasal Screen MRSA (PCR) Serum Alcohol Less than 3 Blood Type A Positive Antibody Screen Negative MTS Gel Crossmatch See Detail Bld Prod Order Comment 09/22/18 09/22/18 09/22/18 18:15 18:15 18:18 WBC 13.6 H RBC 2.99 L Hgb 8.8 L Hct 25.4 L MCV 85.1 MCH 29.4 MCHC 34.5 RDW 14.2 Plt Count 385 MPV 7.8 Prelim Diff (Auto) Neut % (Auto) Lymph % (Auto) [place] % (Auto) Eos % (Auto) Baso % (Auto) Neut # (Auto) Lymph # (Auto) [place] # (Auto) Eos # (Auto) Baso # (Auto) WBC Differential Diff Scan Differential Comment PT INR APTT Puncture Site Art line Patient Temperature 98.6 O2 Saturation 97 ABG pH 7.32 L ABG pCO2 47 H ABG pO2 177 H ABG HCO3 23 ABG O2 Content 12.3 ABG Base Excess -2.0 ABG Methemoglobin 1.2 Hemoglobin 8.8 L Carboxyhemoglobin 1.1 O2 Delivery Device Ventilator Vent Setting Ac/14/500/peep5 Inspired O2 40 Critical Value No Sodium 136 Potassium 4.3 Chloride 103 Carbon Dioxide 25.2 Anion Gap 8 BUN 10 Creatinine 0.62 Estimated GFR Greater than 89 Random Glucose 183 H Osmolality Calcium 7.2 L* D Prot Corrected Calcium 8.2 L Total Bilirubin AST ALT Alkaline Phosphatase Total Creatine Kinase Troponin I Total Protein 5.3 L D Albumin Nasal Screen MRSA (PCR) Serum Alcohol Blood Type Antibody Screen MTS Gel Crossmatch Bld Prod Order Comment 09/22/18 09/22/18 09/22/18 19:17 21:03 22:35 WBC RBC Hgb Hct MCV MCH MCHC RDW Plt Count MPV Prelim Diff (Auto) Neut % (Auto) Lymph % (Auto) [place] % (Auto) Eos % (Auto) Baso % (Auto) Neut # (Auto) Lymph # (Auto) [place] # (Auto) Eos # (Auto) Baso # (Auto) WBC Differential Diff Scan Differential Comment PT INR APTT Puncture Site Art line Patient Temperature 98.6 O2 Saturation 97 ABG pH 7.40 ABG pCO2 34 L ABG pO2 221 H ABG HCO3 21 L ABG O2 Content 12.4 ABG Base Excess -3.6 L ABG Methemoglobin 1.4 Hemoglobin 8.7 L Carboxyhemoglobin 1.1 O2 Delivery Device Ventilator Vent Setting Ac/18/550/peep5 Inspired O2 40 Critical Value No Sodium 139 Potassium Chloride Carbon Dioxide Anion Gap BUN Creatinine Estimated GFR Random Glucose Osmolality 293 Calcium Prot Corrected Calcium Total Bilirubin AST ALT Alkaline Phosphatase Total Creatine Kinase Troponin I Total Protein Albumin Nasal Screen MRSA (PCR) Serum Alcohol Blood Type Antibody Screen MTS Gel Crossmatch See Detail Bld Prod Order Comment Cancelled 09/23/18 09/23/18 09/23/18 04:50 04:50 04:50 WBC 16.9 H RBC 3.43 L Hgb 9.9 L Hct 28.7 L MCV 83.4 MCH 28.9 MCHC 34.7 RDW 14.8 Plt Count 301 MPV 7.9 Prelim Diff (Auto) Neut % (Auto) 87.2 H Lymph % (Auto) 3.5 L [place] % (Auto) 8.9 H Eos % (Auto) 0.0 Baso % (Auto) 0.4 Neut # (Auto) 14.8 H Lymph # (Auto) 0.6 L [place] # (Auto) 1.5 H Eos # (Auto) 0.0 Baso # (Auto) 0.1 WBC Differential . Diff Scan Differential Comment Auto diff final PT 10.6 INR 1.0 APTT 23.7 L Puncture Site Patient Temperature O2 Saturation ABG pH ABG pCO2 ABG pO2 ABG HCO3 ABG O2 Content ABG Base Excess ABG Methemoglobin Hemoglobin Carboxyhemoglobin O2 Delivery Device Vent Setting Inspired O2 Critical Value Sodium 143 Potassium 4.6 Chloride 112 H D Carbon Dioxide 24.9 Anion Gap 6 BUN 10 Creatinine 0.59 L Estimated GFR Greater than 89 Random Glucose 132 H Osmolality Calcium 7.0 L* Prot Corrected Calcium 8.1 L Total Bilirubin 0.3 AST 22 ALT 26 Alkaline Phosphatase 57 Total Creatine Kinase Troponin I Total Protein 5.1 L Albumin 2.7 L D Nasal Screen MRSA (PCR) Serum Alcohol Blood Type Antibody Screen MTS Gel Crossmatch Bld Prod Order Comment 09/23/18 09/23/18 09/23/18 04:50 06:07 08:54 WBC RBC Hgb Hct MCV MCH MCHC RDW Plt Count MPV Prelim Diff (Auto) Neut % (Auto) Lymph % (Auto) [place] % (Auto) Eos % (Auto) Baso % (Auto) Neut # (Auto) Lymph # (Auto) [place] # (Auto) Eos # (Auto) Baso # (Auto) WBC Differential Diff Scan Differential Comment PT INR APTT Puncture Site Art line Patient Temperature 98.6 O2 Saturation 97 ABG pH 7.37 L ABG pCO2 41 ABG pO2 179 H ABG HCO3 23 ABG O2 Content 19.1 ABG Base Excess -1.5 ABG Methemoglobin 1.3 Hemoglobin 13.8 Carboxyhemoglobin 0.9 O2 Delivery Device N Vent Setting 18/550/5peep Inspired O2 40 Critical Value No Sodium 143 Potassium Chloride Carbon Dioxide Anion Gap BUN Creatinine Estimated GFR Random Glucose Osmolality 296 H Calcium Prot Corrected Calcium Total Bilirubin AST ALT Alkaline Phosphatase Total Creatine Kinase Troponin I Total Protein Albumin Nasal Screen MRSA (PCR) Not detected Serum Alcohol Blood Type Antibody Screen MTS Gel Crossmatch Bld Prod Order Comment 09/23/18 09/23/18 09/24/18 18:58 22:45 04:30 WBC RBC Hgb Hct MCV MCH MCHC RDW Plt Count MPV Prelim Diff (Auto) Neut % (Auto) Lymph % (Auto) [place] % (Auto) Eos % (Auto) Baso % (Auto) Neut # (Auto) Lymph # (Auto) [place] # (Auto) Eos # (Auto) Baso # (Auto) WBC Differential Diff Scan Differential Comment PT INR APTT Puncture Site Patient Temperature O2 Saturation ABG pH ABG pCO2 ABG pO2 ABG HCO3 ABG O2 Content ABG Base Excess ABG Methemoglobin Hemoglobin Carboxyhemoglobin O2 Delivery Device Vent Setting Inspired O2 Critical Value Sodium 147 H 149 H 150 H Potassium 3.7 D Chloride 119 H Carbon Dioxide 27.4 Anion Gap 4 L BUN 11 Creatinine 0.46 L Estimated GFR Greater than 89 Random Glucose 114 H Osmolality 306 H 299 H 303 H Calcium 7.5 L Prot Corrected Calcium Total Bilirubin 0.2 AST 28 ALT 21 Alkaline Phosphatase 53 Total Creatine Kinase Troponin I Total Protein 4.8 L Albumin 2.3 L Nasal Screen MRSA (PCR) Serum Alcohol Blood Type Antibody Screen MTS Gel Crossmatch Bld Prod Order Comment 09/24/18 09/24/18 04:30 05:30 WBC 12.6 H RBC 2.64 L Hgb 7.6 L D Hct 22.0 L MCV 83.4 MCH 29.0 MCHC 34.8 RDW 15.1 Plt Count 231 MPV 8.4 Prelim Diff (Auto) Neut % (Auto) 75.0 H Lymph % (Auto) 11.4 [place] % (Auto) 13.2 H Eos % (Auto) 0.1 Baso % (Auto) 0.3 Neut # (Auto) 9.5 H Lymph # (Auto) 1.4 [place] # (Auto) 1.7 H Eos # (Auto) 0.0 Baso # (Auto) 0.0 WBC Differential . Diff Scan Differential Comment Auto diff final PT INR APTT Puncture Site Art line Patient Temperature 98.6 O2 Saturation 97 ABG pH 7.41 ABG pCO2 40 ABG pO2 165 H ABG HCO3 25 ABG O2 Content 10.5 L ABG Base Excess 0.7 ABG Methemoglobin 1.2 Hemoglobin 7.4 L* Carboxyhemoglobin 1.1 O2 Delivery Device Ventilator Vent Setting 14/550/peep 5 Inspired O2 35 Critical Value Yes Sodium Potassium Chloride Carbon Dioxide Anion Gap BUN Creatinine Estimated GFR Random Glucose Osmolality Calcium Prot Corrected Calcium Total Bilirubin AST ALT Alkaline Phosphatase Total Creatine Kinase Troponin I Total Protein Albumin Nasal Screen MRSA (PCR) Serum Alcohol Blood Type Antibody Screen MTS Gel Crossmatch Bld Prod Order Comment Result Diagrams: 09/24/18 04:30 09/24/18 11:37 Imaging: Impressions Chest X-Ray 09/24/18 06:00 CONCLUSION: No significant change. Minimal left base consolidation again noted. Procedures: 09/22/18 * Left craniotomy with subdural hematoma evacuation * Right Davian with ICP monitor placement * Intubation * Left subclavian central line placement * Left radial atrial line placement Assessment and Plan - Disease Oriented Problem List (1) Acute subdural hematoma - Symptom Scale (1) Pain 0-10 Scale: Unable to quantify Comment: Currently managed with fentanyl infusion (2) Dyspnea 0-10 Scale: Unable to quantify Comment: Currently managed with mechanical ventilator (3) Altered mental status 0-10 Scale: Unable to quantify Pertinent Non-Medical Issues: Psychosocial: The patient is currently . The couple have 2 children one who lives in [place] and one who lives locally. He was independent of ambulation and most ADLs. He was currently retired Spiritual: None Legal: In the absence of a documented living will, per [place] statutes, decision making falls to the patient's Judy Vu by proxy Ethical issues impacting care: There are currently no known ethical issues impacting care at this time Important Contacts: `` Judy Vu, /HCP [phone] Yosef Vu, son [phone] Ramona Vu, daughter [phone] Prognosis: This patient is a complicated case with multiple traumatic brain injuries, craniotomies and ROLL HAND shunt placement. He remains critically ill and is at increased risk for continued neurological and physical decompensation. It is unsure if he will have any meaningful neurological recovery at this point. The patient is at high risk for decline and . Code Status: Full Code Plan: * LEGAL DECISION MAKER -Judy Vu, /HCP [phone] * GOALS - Mr. Vu is currently critically ill, intubated and sedated and unable to participate in his own healthcare decision making. Dr. Wolff discussed at length with and son at bedside. They were informed that this neurological incident is worse than any he has received prior. They are aware that he may not survive the procedure and if he does he will most likely not have any meaningful neurological recovery. They wish to proceed with surgery and want full aggressive measures taken. * CODE STATUS -FULL CODE * SYMPTOMS: Painmultifactorial including bedbound status, invasive procedures, invasive tubes and lines etc., The patient does not appear to be in any acute distress at this time. No nonverbal pain cues were noticed during exam. Patient is currently receiving a fentanyl infusion. Will make suggestions as the case evolves Dyspneacurrently managed by mechanical ventilation. The patient is on AC settings with FiO2 40%, PEEP of 5. Continue with pulmonary toilet is appropriate for this patient. Defer to critical care Altered mental statuspatient has a complicated history including optic tumor removal with ROLL HAND shunt placement, lashae hole placement, and stroke as recent as January 2018. 24 hours post left craniotomy patient remains heavily sedated with fluctuating intracranial pressures. Has had some spikes in pressures overnight and today with care, particularly with repositioning. Appreciate input from neurosurgery. CT today showed increased bleed and midline shift. Patient going for emergent repeat craniotomy today. Overall poor outcome. Palliative care will continue to follow during hospital course as condition evolves, to assist patient/decision maker with understanding of medical conditions, weighing benefits/burdens of treatment options, for clarification of goals of treatment. Additionally will assist with any symptoms of palliative concern. Attestation Attestation: To help prompt me to consider important information that might be impacting today's encounter and assessment, information from prior notes written by myself or my colleagues may have been "brought forward" into today's note. My signature on this note, however, is an attestation that I personally performed the exam, history, and/or decision-making noted today, and, unless otherwise indicated, the interactions with patient, family, and staff as well as the review of records all occurred today. I also attest that the listed assessment and stated plan reflect my best clinical judgment today based on the combination of historical information, prior notes, and today's exam/ interactions. When time spent is documented, it refers only to time spent today by the signer, or if indicated, combined time spent today by collaborating physician/nurse practitioner.
[2018-09-24 13:20] LABS: Sodium 153 meq/L (136-145)
--- NOTE | 2018-09-24 13:21 | CT ---
EXAM DATE: 09/24/2018 1:09 PM EDT AGE/SEX: 57 years / Male INDICATIONS: subdural hematoma CLINICAL DATA: This is the patient's subsequent encounter. Patient reports that signs and symptoms h ave been present for 1 day and indicates a pain score of Nonresponsive. MEDICAL/SURGICAL HISTORY: Stroke. Brain and optic nerve tumor Craniotomy. JAVA DEVELOPER shunt RADIATION DOSE: 53.44 CTDI (mGy) COMPARISON: [facility] [place], CT HEAD W/O CONTRAST, 09/22/2018. . TECHNIQUE: CT of the head without contrast. Using automated exposure control and adjustment of the mA and/or kV according to patient size, radiation dose was kept as low as reasonably achievable to ob tain optimal diagnostic quality images. DICOM format image data is available electronically for revi ew and comparison. FINDINGS: Cerebrum: Increasing in size of left subdural hemorrhage measuring 17 mm posteriorly. Large amount o f edema throughout the left cerebral hemisphere. There is mass effect and [id number] midline shift of what appears to be 1.4 cm. Right frontal ventriculostomy catheter. Right lateral ventricle decomp ressed. Right-sided craniectomy. Left-sided craniectomy with postsurgical changes and dural drains x2 . Posterior Fossa: The cerebellum and brainstem are intact. The 4th ventricle is midline. The cerebe llopontine angle is unremarkable. CONCLUSION: 1. Increasing in size of left subdural hemorrhage measuring 17 mm with prominent edema throughout th e left cerebral hemisphere and [id number] midline shift of 14 mm. . Electronically signed by: Driss Henson MD 09/24/2018 1:19 PM EDT
[2018-09-24] MEDS: Pantoprazole Inj 40 MG Vial IV.PUSH SCH (15:30)
--- NOTE | 2018-09-24 15:34 | P.PNCC ---
Subjective Brief History: This is a 57-year-old male with history of a prior right sided craniectomy and cranioplasty, status post ventriculoperitoneal shunt, who was brought to the emergency department and trauma alert was called. He fell at the supermarket earlier today. 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 The patient then had a stroke January 2018 which slightly affected his speech and right upper extremity. The patient underwent rehab with improvement of his speech. He developed slurred speech since the fall with with slight change in behavior. The patient takes Plavix daily. The patient is unable to provide any information and does not follow commands. Withdraw to pain in his lower extremities. Trauma alert was called due to the decreased in GCS. The patient went immediately to CT for CT the brain which did reveal bilateral subdurals with mild shift. The patient had decreasing mental status, would not follow commands, therefore, given his drop in GCS was taken to the trauma room and a level 1 trauma was called. The patient was intubated using rapid sequence intubation to protect the airway after lidocaine 100 mg was given the patient received etomidate 20 mg intravenously and succinylcholine 100 mg at. The patient was intubated using an endotracheal tube, 8.0, without difficulty. The patient did receive [address] Tay who evaluated the patient in the trauma room and he was resuscitated according to ATLS principles. Initial diagnostic workup reveals Bilateral subdural hematomas left considerably greater than right. The subdural on the left extends from the left frontal to occipital lobe and superiorly to the high convexity and measures 15 mm across with considerable mixed density. The small right occipital subdural is more homogeneous c/w acute hemorrhagic density Patient is taken immediately to the operating room for decompressive craniectomy and is now in ICU for further care Should be noted patient was on Plavix aspirin which has been stopped Patient will be managed according to the established neurosurgical critical care principles and full evaluation will be completed considering that patient has other comorbidities that need to be addressed 24 Hour Review/Hospital Course: 09/23/2018 Patient with massive head injury and huge left subdural hematoma status post craniectomy and drainage Patient is sedated on neuroprotective measures including propofol fentanyl and Keppra ICP remains around 8-14 mmHg Patient received 25 g of mannitol last night and since then ICP has been low Serum sodium 142 mEq/L and patient is on 3% saline at 30 cc/h We will keep sodium less than 160 mEq/L At this point Diana Coma Scale remains 3 and patient has no activity whatsoever Hemodynamically patient is stable and hemoglobin and hematocrit are stable after transfusion of 1 unit PRBC last night Bilateral breath sounds patient fully ventilatory supported on assist control ventilation mode with good PO2 FiO2 gradient Keep PCO2 between 32-40 mmHg Abdomen soft Renal function well-preserved patient is euvolemic and will decrease maintenance fluids This patient has very poor prognosis based on his age and severity of brain injury on top of already previous craniotomy for optic nerve tumor Patient has about 80% 1 year mortality and 100% morbidity with 100% chance of permanent neurologic deficits either cognitive motoric or both We will consult palliative care to discuss his further prospects with the family and lay out some options 09/[address] scan today which shows significant worsening of his subdural hematoma His ICPs remain within normal limits his sodium is 150 his CPP is also within normal limits Patient overall is status post multiple craniotomy craniotomy start craniectomies I had a discussion with the neurosurgeon regarding the clinical picture we both agreed that we need to have a discussion with patient's -for a potential craniectomy Overall patient prognosis remain poor If craniectomy is being decided we will need to transfuse patient 2 units of blood Objective Vital Signs / I&O: Vital Signs 09/23/18 16:00 09/23/18 20:00 09/23/18 21:19 Temperature 99.6 F 99.7 F H Pulse Rate 53 L 52 L 53 L Respiratory Rate 16 16 16 Pulse Oximetry 100 100 100 09/23/18 21:25 09/23/18 22:00 09/24/18 00:00 Temperature 98.4 F Pulse Rate 52 L 58 L Respiratory Rate 16 16 Pulse Oximetry 100 100 09/24/18 00:26 09/24/18 02:00 09/24/18 03:25 Temperature Pulse Rate 58 L 54 L Respiratory Rate 16 16 Pulse Oximetry 100 09/24/18 04:00 09/24/18 04:01 09/24/18 06:00 Temperature 98.5 F Pulse Rate 54 L 56 L Respiratory Rate 16 16 Pulse Oximetry 100 100 09/24/18 07:24 09/24/18 07:26 09/24/18 08:00 Temperature 98 F Pulse Rate 52 L Respiratory Rate 14 14 14 Pulse Oximetry 100 100 100 09/24/18 08:51 09/24/18 10:00 09/24/18 12:00 Temperature 98 F Pulse Rate 52 L 52 L 51 L Respiratory Rate 14 14 Pulse Oximetry 100 09/24/18 12:04 09/24/18 13:15 09/24/18 15:06 Temperature Pulse Rate 48 L Respiratory Rate 14 14 Pulse Oximetry 100 100 100 Intake & Output 09/23/18 09/24/18 09/24/18 18:59 06:59 18:59 Intake Total 1475 / 1475 1105 / 1105 200 / 200 Output Total 1630 / 1630 1105 / 1105 Balance -155 / -155 0 / 0 200 / 200 Weight 65.3 kg Intake: IV 1355 / 1355 1055 / 1055 200 / 200 NS + KCl 20 mEq Inj 1,000 ML @ 200 / 200 100 mls/hr IV.CONT .Q10H [facility] Rx #:[id number] Diprivan 1000 mg/100 ml Inj 1, 200 / 200 200 / 200 200 / 200 000 mg In 100 ml @ 5 MCG/KG/MIN 1.864 mls/hr IV.CONT TITRATE PRN Rx#:[id number] Sodium Chloride 3% Inj 500 ML @ 500 / 500 500 / 500 30 mls/hr IV.SIG DAILY ONE Rx# :[id number] Ancef Inj 1,000 MG In NS Inj 100 / 100 100 ML @ 200 mls/hr IV.SIG Q8H [facility] Rx#:[id number] fentaNYL 10 mcg/mL Premix Drip 250 / 250 250 / 250 2,500 mcg In 250 ml @ 50 MCG/HR 5 mls/hr IV.SIG TITRATE PRN Rx #:[id number] Keppra Inj 500 MG In NS Inj 100 105 / 105 105 / 105 ML @ 400 mls/hr IV.SIG Q12H [facility] Rx#:[id number] Tube Irrigant 50 / 50 Other 120 / 120 Output: Urine Amount (Catheter) 1400 / 1400 950 / 950 Indwelling Urethral Catheter 1400 / 1400 950 / 950 Gastric Drainage 200 / 200 150 / 150 Oral Orogastric Tube 200 / 200 150 / 150 Wound Drainage 30 / 30 5 / 5 # 1 Left Head 10 / 10 0 / 0 # 2 Left Head 20 / 20 5 / 5 Other: # Bowel Movements 0 # Incontinent Bowel Movements 0 Result Diagrams: 09/24/18 04:30 09/24/18 11:37 Imaging: Impressions Head CT 09/24/18 00:00 CONCLUSION: 1. Increasing in size of left subdural hemorrhage measuring 17 mm with prominent edema throughout the left cerebral hemisphere and [id number] midline shift of 14 mm. . Chest X-Ray 09/24/18 06:00 CONCLUSION: No significant change. Minimal left base consolidation again noted. 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 3T-scan shows significant increase of his subdural hematoma Hemodynamic/Cardiac: Hemodynamically normal CPP remains within normal limits Pulmonary/Respiratory: Mechanical ventilation sounds clear bilateral Abdomen/GI Nutrition: Abdomen is soft Renal/I&O: Patient is on hypertonic saline continue with the goal to keep sodium in the 150 range Hematologic: Globin is 7.6 Assessment and Plan Plan: Patient overall with poor prognosis Significantly worsening of the CT scan Neurosurgery may bring patient to the OR if family would like to be aggressive with patient's care otherwise palliative care is involved
[2018-09-24] MEDS ORDERED: Sodium Chlor 0.9% Inj 250 ML IV.SIG SCH (17:00)
[2018-09-24] MEDS ORDERED: Bisacodyl 10 MG Supp RECTAL PRN (17:49)
[2018-09-24] MEDS ORDERED: Thrombin Topical Soln 5,000 UNIT Vial TOPICAL ONE (17:55)
[2018-09-24 19:01] LABS: ABG Base Excess 0.1 mmol/L (-2-2); ABG PCO2 30 mmHg (38-42); ABG PO2 279 mmHG (61-120)
[2018-09-24] MEDS ORDERED: fentaNYL Citrate Inj 100 MCG/2 ML Ampul ONE (19:13)
[2018-09-24 19:20] LABS: Baso # (Auto) 0.1 th/mm3 (0.0-0.2); Baso % (Auto) 0.5 % (0.0-2.0); Eos % (Auto) 0.2 % (0.0-4.0); Hematocrit 23.9 % (39.0-51.0); Hemoglobin 8.1 gm/dL (13.0-17.0); Lymph # (Auto) 1.5 th/mm3 (1.0-4.8); Lymph % (Auto) 15.3 % (9.0-44.0); Mean Corpuscular Hemoglobin 28.8 pg (27.0-34.0); Mean Corpuscular Volume 84.5 fL (80.0-100.0); Mean Platelet Volume 8.3 fL (7.0-11.0); Mono # (Auto) 1.1 th/mm3 (0.0-0.9); Mono % (Auto) 11.2 % (0.0-8.0); Neut # (Auto) 7.2 th/mm3 (1.8-7.7); Neut % (Auto) 72.8 % (16.0-70.0); Platelet Count 185 th/mm3 (150-450); Red Blood Count 2.83 mil/mm3 (4.50-5.90); Red Cell Distribution Width 15.1 % (11.6-17.2); White Blood Count 9.9 th/mm3 (4.0-11.0)
--- NOTE | 2018-09-24 19:49 | P.OP ---
Preoperative Diagnosis: Trauma alert, severe traumatic bfrain injury. Recurrent left subdural hematoma Postoperative Diagnosis: Trauma alert, severe traumatic bfrain injury. Recurrent left subdural hematoma Date of procedure: 09/24/18 Procedure: Left frontal temporal parietal decompressive craniectomy, evacuation of subdural hematoma. Duroplasty Anesthesia: ANA Surgeon: Torrey Wolff MD Business Objects Analyst: Emi Grant Operation and Findings: INDICATIONS FOR THE PROCEDURE Mr Cole is a 57 year old adult male who was brought to [facility] following a fall. he suffered a sudden decline in his mental status with decreased GCS, and a trauma alert level 1 was called due to his with a severe traumatic brain injury CT of the brain showed bilateral subdural hematomas with a large acute left subdural hematoma with mass effect and midline shift He underwent an emergency decompressive craniectomy with evacuation of the hematoma and placement of an ICP monitor. He had a prior cerebrovascular accident and he was anticoagulation with Plavix and aspirin. A follow up CT of the brain showed a large recurrent subdural hematoma, mostly located posterior to the craniectomy site. I discussed with his , son, and daughter the findings and the alternatives of treatment, including the possibility of surgical decompression versus no aggressive treatment. Ihave discussed the [id number] details of the surgical procedure, its indications, alternatives, risks, and potential complications. Risks and potential complications include, but are not limited to, infection, blood loss, CSF leak, partial or complete loss of sight in one or both eyes, paresis, paralysis, permanent pain or difficulty swallowing, loss of bowel or bladder function, complications from anesthesia, blood clot, stroke, myocardial infarction, or even . The possibility of nonoperative treatment has been offered. The family requested to continue aggressive treatment and provided surgical informed consents. DETAILS OF THE SURGICAL PROCEDURE The patient was endotracheally intubated and mechanically ventilated. A Brunner catheter, bilateral NNEKA hose and sequential compression devices were placed and kept throughout the procedure. The patient was positioned supine on a 3080 table over a soft mattress. The eyes were tapped shut after ointment was applied by the anesthesiologist to prevent corneal abrasion. A Gen hugger was kept over the exposed lower body to maintain control of the core body temperature. A roll was placed underneath his left shoulder and his head turned to the right side, and kept over a soft noghnut over the horseshoe headholder. All pressure points were carefully padded with egg crate mattress. The left frontotemporal parietal occipital region was shaved, prepped and draped in the usual sterile fashion. The standard inverted question moira incision was opened with Metzembaun scissors reflecting the scalp flap anteriorly. The scalp was covered with a moist sponge and held in position using fish hooks. An epidural hematoma was evacuated. The dura was then opened with Metzenbaun and a subdural hematoma was evacuated. Then, the TPS drill was brought to the field. The skin over the posterior parietal region was retracted using army an navy retractor and then, using the footplate attachment, a posterior parietal craniotomy flap was elevated. The dura was was opened with Metzembaun scissors and a subdural hematoma was evacuated by gentle irrigation and suction. There was again diffuse bleeding. The bleeding was controlled using the bipolar lab intern, and gentle irrigation. Then the incision was irrigated with saline solution. The dural edges were tacked to the bone. The dura was loosely reconstructed with 4-0 neurolon sutures and Duragen. A 10 millimeter Severo-Nowak drain and a 7mm flat fluted drain were left in the subdural space and externalized through a separate stab incisions. Given the brain edema and anticipated increased intracranial pressure. the craniotomy flap was saved in sterile condition and saved in the operative room freezer. The incision was then closed in layers. 0 Vicryl in interrupted sutures were used to close the temporalis fascia. The galea was closed with interrupted 3- 0 Vicryl. [place] were applied to the skin. The drain was secured with a 3-0 nylon. At the end of the procedure, the sponge, needle and instrument counts were all correct. Estimated blood loss was less than 200cc. The patient received @ UPRBC prior to the procedure and 2U platelets No intraoperative complications occurred. The patient received prophylactic antibiotics. The patient was then transferred to the recovery room in stable condition.
[2018-09-24] MEDS: ceFAZolin 2 GM Premix Inj 2 GM/50 ML PIGGYBACK IV.SIG SCH (21:32)
[2018-09-24 21:35] LABS: Alanine Aminotransferase 17 U/L (12-78); Albumin 1.9 g/dL (3.4-5.0); Alkaline Phosphatase 48 U/L (45-117); Anion Gap 6 meq/L (5-15); Aspartate Aminotransferase 24 U/L (15-37); Blood Urea Nitrogen 14 mg/dL (7-18); Calcium 7.4 mg/dL (8.5-10.1); Carbon Dioxide 24.1 meq/L (21.0-32.0); Chloride 124 meq/L (98-107); Glomerular Filtration Rate Greater Than 89 mL/min (>89); Glucose,Random 104 mg/dL (74-106); Potassium 3.1 meq/L (3.5-5.1); Sodium 154 meq/L (136-145); Total Protein 4.5 g/dL (6.4-8.2)
[2018-09-25] MEDS: Chlorhexidine Gluconate 2% 1 Pack (2 Cloths) TOPICAL SCH (03:16)
[2018-09-25] MEDS: Oral Hygiene Kit OROPHARYNG SCH ×4 (03:17→23:20)
[2018-09-25] MEDS: Propofol 1000 mg/100 ml Inj 1,000 MG/100 ML BOTTLE IV.CONT PRN ×3 (04:54→19:56)
[2018-09-25] MEDS: ceFAZolin 2 GM Premix Inj 2 GM/50 ML PIGGYBACK IV.SIG SCH ×2 (05:26→15:56)
[2018-09-25 06:18] LABS: ABG Base Excess 0.4 mmol/L (-2-2); ABG PCO2 39 mmHg (38-42); ABG PO2 161 mmHg (61-120)
--- NOTE | 2018-09-25 06:23 | XR ---
EXAM DATE: 09/25/2018 6:09 AM EDT AGE/SEX: 57 years / Male INDICATIONS: Shortness of breath. CLINICAL DATA: This is the patient's subsequent encounter. Patient reports that signs and symptoms h ave been present for 4 - 6 days and indicates a pain score of Nonresponsive. MEDICAL/SURGICAL HISTORY: . Stroke. Seizures. . Craniotomy. Ventricular shunt. [place] [facility] [place]. . FINDINGS: Mild parenchymal consolidation developing at the left base and possibly with a small effusion. Right lung remains clear. No pneumothorax. Normal, stable heart size. Endotracheal tube tip is approximately 2 cm above the jorge alberto. Nasogastric tube courses into the stoma ch. There is a left subclavian central venous catheter again seen with tip in the superior vena cava. CONCLUSION: Worsening left base consolidation. Electronically signed by: Navneet Mckenzie MD 09/25/2018 6:22 AM EDT
[2018-09-25 07:26] LABS: Alanine Aminotransferase 18 U/L (12-78); Albumin 1.9 g/dL (3.4-5.0); Alkaline Phosphatase 52 U/L (45-117); Anion Gap 8 meq/L (5-15); Aspartate Aminotransferase 22 U/L (15-37); Blood Urea Nitrogen 16 mg/dL (7-18); Calcium 7.3 mg/dL (8.5-10.1); Carbon Dioxide 24.5 meq/L (21.0-32.0); Chloride 123 meq/L (98-107); Glomerular Filtration Rate Greater Than 89 mL/min (>89); Glucose,Random 98 mg/dL (74-106); Potassium 3.1 meq/L (3.5-5.1); Sodium 155 meq/L (136-145); Total Protein 4.6 g/dL (6.4-8.2)
[2018-09-25 07:37] LABS: Baso % (Auto) 0.5 % (0.0-2.0); Eos # (Auto) 0.1 th/mm3 (0.0-0.4); Eos % (Auto) 0.6 % (0.0-4.0); Hematocrit 23.7 % (39.0-51.0); Hemoglobin 8.3 gm/dL (13.0-17.0); Lymph # (Auto) 1.3 th/mm3 (1.0-4.8); Lymph % (Auto) 13.6 % (9.0-44.0); Mean Corpuscular HGB Conc 35.1 % (32.0-36.0); Mean Corpuscular Hemoglobin 29.3 pg (27.0-34.0); Mean Corpuscular Volume 83.5 fL (80.0-100.0); Mean Platelet Volume 8.5 fL (7.0-11.0); Mono % (Auto) 10.4 % (0.0-8.0); Neut % (Auto) 74.9 % (16.0-70.0); Platelet Count 203 th/mm3 (150-450); Red Blood Count 2.85 mil/mm3 (4.50-5.90); Red Cell Distribution Width 15.5 % (11.6-17.2); White Blood Count 9.4 th/mm3 (4.0-11.0)
--- NOTE | 2018-09-25 08:28 | P.PNNPSY ---
- Progress Notes/Response to Treatment Contents of Sessions: Adjustment, Level of consciousness Time with Patient: 30 minutes Premorbid Psychological Status: Premorbid Cognitive, Emotional and Behavioral Status: Tenuous. The patient has high school years of education and is not in the work force prior to this injury. The patient has no prior psychiatric difficulties, as described above. Substance abuse history is unremarkable. Behavioral Reactions of Patient and Family/Support System: Stable. The patients family is experiencing ongoing issues of adjustment given the nature of the injury, and this aspect of recovery will require ongoing monitoring. Emotional/Behavioral Status of Patient and Family/Support System: Stable. Pertinent issues, if appropriate to this patients clinical care, are described in detail above. Maximizing Acute Care Outcome: It is recommended that the patient be monitored for emergent behavioral impulsivity as the medical condition evolves. This patients neuropathological challenges may limit rehabilitation potential going forward, and these challenges will require specialized therapeutic skills to maximize outcome. Additionally, the patients family is experiencing ongoing issues of adjustment given the traumatic nature of the injury, and they may benefit from ongoing psychological assistance. At this point in the recovery process, the patient does not have cognitive capacity as the patient is unable to understand a situation and its likely consequences, nor is the patient able to manipulate information rationally. Cognitive capacity will be assessed throughout the recovery process. Anticipated Problems: Ongoing areas of concern will include behavioral impulsivity, lack of insight and judgment, which is expected to improve with time and treatment. Treatment Plan: This clinician will continue to follow with you throughout the course of this patients critical care treatment, and I will be available to meet with the patients family/support system to facilitate their understanding and the ongoing care of their family member. The goals of neuropsychological intervention shall be both educational and supportive to the family/support system as is deemed clinically appropriate. [place] COG Scale: Level II Disinhibition Score: 14.00 Aggression Score: 14.00 Lability Score: 14.00 Agitated Behavior Total Score: 14 Impression: 57 year old male with complicated neurological history including prior brain surgery for optic nerve tumor, CVA in 01/2018 and now TBI 2T fall. Progress Note Narrative: PTD 3. The patient's SDH worsened, and he underwent craniectomy yesterday. No issues of agitation/restlessness since return from OR with ABS of 14 (14,14,14) . He is Rancho II with poor prognosis. I will follow. - Diagnosis (1) Major neurocognitive disorder as late effect of traumatic brain injury without behavioral disturbance Status: Acute
[2018-09-25] MEDS: Potassium Chlor 20 mEq Premix 20 MEQ/100 ML PIGGYBACK IV.SIG PRN ×4 (08:30→12:37)
[2018-09-25] MEDS: OXcarbazepine 600 MG Tablet PO SCH ×2 (09:03→20:11)
[2018-09-25] MEDS: Chlorhexidine 0.12% Oral Kit 15 ML UDC OROPHARYNG SCH ×2 (09:03→20:12)
[2018-09-25] MEDS: Senna/Docusate Sodium 8.6/50 MG Tablet PO SCH ×2 (09:03→20:11)
--- NOTE | 2018-09-25 13:04 | P.PNNS ---
Subjective Interval history: had f/u CT Brain yesterday which showed subdural hematoma causing significant mass effect and midline shift. he went back to OR for redo Left frontal temporal parietal decompressive craniectomy, evacuation of subdural hematoma, duroplasty 09/24/18 intubated, sedated. ICPs controlled Physical Exam Vital signs: Vital Signs 09/24/18 13:00 09/24/18 13:15 09/24/18 14:00 Temperature Pulse Rate 52 L 49 L Respiratory Rate 14 14 Pulse Oximetry 100 100 100 09/24/18 15:00 09/24/18 15:06 09/24/18 16:00 Temperature Pulse Rate 48 L 48 L 49 L Respiratory Rate 14 14 14 Pulse Oximetry 100 100 100 09/24/18 17:00 09/24/18 17:32 09/24/18 19:17 Temperature Pulse Rate 48 L 65 Respiratory Rate 14 17 Pulse Oximetry 100 100 09/24/18 19:32 09/24/18 20:00 09/24/18 20:51 Temperature 93.8 F L Pulse Rate 42 L 43 L Respiratory Rate 14 14 14 Pulse Oximetry 100 100 09/24/18 21:00 09/24/18 22:00 09/24/18 23:00 Temperature Pulse Rate 43 L 50 L 54 L Respiratory Rate 14 14 14 Pulse Oximetry 100 100 100 09/25/18 00:00 09/25/18 00:07 09/25/18 01:00 Temperature 97.9 F Pulse Rate 53 L 57 L Respiratory Rate 14 14 14 Pulse Oximetry 100 100 100 09/25/18 02:00 09/25/18 03:00 09/25/18 03:51 Temperature Pulse Rate 57 L 59 L 60 Respiratory Rate 14 14 14 Pulse Oximetry 100 100 100 09/25/18 04:00 09/25/18 05:00 09/25/18 06:00 Temperature 98.5 F Pulse Rate 59 L 61 57 L Respiratory Rate 14 14 14 Pulse Oximetry 100 100 100 09/25/18 07:00 09/25/18 07:36 09/25/18 08:00 Temperature 98.2 F Pulse Rate 55 L 54 L Respiratory Rate 14 14 14 Pulse Oximetry 100 100 100 09/25/18 08:49 09/25/18 10:00 09/25/18 12:00 Temperature 98.2 F Pulse Rate 50 L 50 L 83 Respiratory Rate 14 Pulse Oximetry 09/25/18 12:28 Temperature Pulse Rate Respiratory Rate 14 Pulse Oximetry 100 Intake & Output 09/24/18 09/25/18 09/25/18 18:59 06:59 18:59 Intake Total 675 / 675 1125 / 1125 300 / 300 Output Total 910 / 910 400 / 400 Balance -235 / -235 725 / 725 300 / 300 Weight 69.2 kg Intake: IV 555 / 555 1005 / 1005 300 / 300 Sodium Chloride 3% Inj 500 ML @ 500 / 500 30 mls/hr IV.CONT CONT [facility] Rx# :[id number] Diprivan 1000 mg/100 ml Inj 1, 200 / 200 300 / 300 000 mg In 100 ml @ 5 MCG/KG/MIN 1.864 mls/hr IV.CONT TITRATE PRN Rx#:[id number] KCl 20 mEq Premix Inj 20 meq In 300 / 300 100 ml @ 50 mls/hr IV.SIG Q2H [facility] Rx#:[id number] Ancef 2 GM Premix Inj 2 gm In 100 / 100 50 ml @ 100 mls/hr IV.SIG Q8H [facility] Rx#:[id number] fentaNYL 10 mcg/mL Premix Drip 250 / 250 2,500 mcg In 250 ml @ 50 MCG/HR 5 mls/hr IV.SIG TITRATE PRN Rx #:[id number] Keppra Inj 500 MG In NS Inj 100 105 / 105 105 / 105 ML @ 400 mls/hr IV.SIG Q12H [facility] Rx#:[id number] Tube Feeding 0 / 0 Tube Irrigant 120 / 120 Other 120 / 120 Output: Urine Amount (Catheter) 650 / 650 300 / 300 Indwelling Urethral Catheter 650 / 650 300 / 300 Gastric Drainage 250 / 250 100 / 100 Oral Orogastric Tube 250 / 250 100 / 100 Wound Drainage # 1 Left Head 5 / 5 # 2 Left Head 5 / 5 Other: # Bowel Movements 0 # Incontinent Bowel Movements 0 Narrative: intubated, sedated left flap much softer today, MARK drains in place ICP controlled = 0 well sedated, no response to pain stimuli, no eye opening, not following commands - Urinary Catheter Management Indwelling Urethral Catheter Cath placed during this visit: yes Reason for continuing: Hourly intake/output Insertion date: 09/22/18 Insertion time: 15:50 Assessment and Plan - Plan s/p left decompressive craniectomy with evacuation of the subdural hematoma, Placement of ICP monitor, stable ICPs redo left craniectomy evac of SDH 09/24/18 cont icp monitoring cont sedation for ICP control Continue Protonix for stress ulcer prophylaxis continue Krian hose and SCD's for DVT prophylaxis f/u cT Brain tomorrow am
--- NOTE | 2018-09-25 13:21 | P.PNCC ---
Subjective Brief History: This is a 57-year-old male with history of a prior right sided craniectomy and cranioplasty, status post ventriculoperitoneal shunt, who was brought to the emergency department and trauma alert was called. He fell at the supermarket earlier today. 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 The patient then had a stroke January 2018 which slightly affected his speech and right upper extremity. The patient underwent rehab with improvement of his speech. He developed slurred speech since the fall with with slight change in behavior. The patient takes Plavix daily. The patient is unable to provide any information and does not follow commands. Withdraw to pain in his lower extremities. Trauma alert was called due to the decreased in GCS. The patient went immediately to CT for CT the brain which did reveal bilateral subdurals with mild shift. The patient had decreasing mental status, would not follow commands, therefore, given his drop in GCS was taken to the trauma room and a level 1 trauma was called. The patient was intubated using rapid sequence intubation to protect the airway after lidocaine 100 mg was given the patient received etomidate 20 mg intravenously and succinylcholine 100 mg at. The patient was intubated using an endotracheal tube, 8.0, without difficulty. The patient did receive [address] Tay who evaluated the patient in the trauma room and he was resuscitated according to ATLS principles. Initial diagnostic workup reveals Bilateral subdural hematomas left considerably greater than right. The subdural on the left extends from the left frontal to occipital lobe and superiorly to the high convexity and measures 15 mm across with considerable mixed density. The small right occipital subdural is more homogeneous c/w acute hemorrhagic density Patient is taken immediately to the operating room for decompressive craniectomy and is now in ICU for further care Should be noted patient was on Plavix aspirin which has been stopped Patient will be managed according to the established neurosurgical critical care principles and full evaluation will be completed considering that patient has other comorbidities that need to be addressed 24 Hour Review/Hospital Course: 09/23/2018 Patient with massive head injury and huge left subdural hematoma status post craniectomy and drainage Patient is sedated on neuroprotective measures including propofol fentanyl and Keppra ICP remains around 8-14 mmHg Patient received 25 g of mannitol last night and since then ICP has been low Serum sodium 142 mEq/L and patient is on 3% saline at 30 cc/h We will keep sodium less than 160 mEq/L At this point Diana Coma Scale remains 3 and patient has no activity whatsoever Hemodynamically patient is stable and hemoglobin and hematocrit are stable after transfusion of 1 unit PRBC last night Bilateral breath sounds patient fully ventilatory supported on assist control ventilation mode with good PO2 FiO2 gradient Keep PCO2 between 32-40 mmHg Abdomen soft Renal function well-preserved patient is euvolemic and will decrease maintenance fluids This patient has very poor prognosis based on his age and severity of brain injury on top of already previous craniotomy for optic nerve tumor Patient has about 80% 1 year mortality and 100% morbidity with 100% chance of permanent neurologic deficits either cognitive motoric or both We will consult palliative care to discuss his further prospects with the family and lay out some options 09/[address] scan today which shows significant worsening of his subdural hematoma His ICPs remain within normal limits his sodium is 150 his CPP is also within normal limits Patient overall is status post multiple craniotomy craniotomy start craniectomies I had a discussion with the neurosurgeon regarding the clinical picture we both agreed that we need to have a discussion with patient's -for a potential craniectomy Overall patient prognosis remain poor If craniectomy is being decided we will need to transfuse patient 2 units of blood 09/25 Patient is status post decompressive craniectomy postop day 1 Neurosurgery would like to maintain full sedation today and reassess mental status tomorrow His CPP ICP and hemodynamics are within normal limits His sodium is 155 and will keep it at this higher level for now continue the hypertonic saline Continue the tube feeds Family updated at the bedside Objective Vital Signs / I&O: Vital Signs 09/24/18 14:00 09/24/18 15:00 09/24/18 15:06 Temperature Pulse Rate 49 L 48 L 48 L Respiratory Rate 14 14 14 Pulse Oximetry 100 100 100 09/24/18 16:00 09/24/18 17:00 09/24/18 17:32 Temperature Pulse Rate 49 L 48 L Respiratory Rate 14 14 Pulse Oximetry 100 100 100 09/24/18 19:17 09/24/18 19:32 09/24/18 20:00 Temperature 93.8 F L Pulse Rate 65 42 L Respiratory Rate 17 14 14 Pulse Oximetry 100 100 09/24/18 20:51 09/24/18 21:00 09/24/18 22:00 Temperature Pulse Rate 43 L 43 L 50 L Respiratory Rate 14 14 14 Pulse Oximetry 100 100 09/24/18 23:00 09/25/18 00:00 09/25/18 00:07 Temperature 97.9 F Pulse Rate 54 L 53 L Respiratory Rate 14 14 14 Pulse Oximetry 100 100 100 09/25/18 01:00 09/25/18 02:00 09/25/18 03:00 Temperature Pulse Rate 57 L 57 L 59 L Respiratory Rate 14 14 14 Pulse Oximetry 100 100 100 09/25/18 03:51 09/25/18 04:00 09/25/18 05:00 Temperature 98.5 F Pulse Rate 60 59 L 61 Respiratory Rate 14 14 14 Pulse Oximetry 100 100 100 09/25/18 06:00 09/25/18 07:00 09/25/18 07:36 Temperature Pulse Rate 57 L 55 L Respiratory Rate 14 14 14 Pulse Oximetry 100 100 100 09/25/18 08:00 09/25/18 08:49 09/25/18 10:00 Temperature 98.2 F Pulse Rate 54 L 50 L 50 L Respiratory Rate 14 14 Pulse Oximetry 100 09/25/18 12:00 09/25/18 12:28 Temperature 98.2 F Pulse Rate 83 Respiratory Rate 14 Pulse Oximetry 100 Intake & Output 09/24/18 09/25/18 09/25/18 18:59 06:59 18:59 Intake Total 675 / 675 1125 / 1125 400 / 400 Output Total 910 / 910 400 / 400 Balance -235 / -235 725 / 725 400 / 400 Weight 69.2 kg Intake: IV 555 / 555 1005 / 1005 400 / 400 Sodium Chloride 3% Inj 500 ML @ 500 / 500 30 mls/hr IV.CONT CONT [facility] Rx# :[id number] Diprivan 1000 mg/100 ml Inj 1, 200 / 200 300 / 300 100 / 100 000 mg In 100 ml @ 5 MCG/KG/MIN 1.864 mls/hr IV.CONT TITRATE PRN Rx#:[id number] KCl 20 mEq Premix Inj 20 meq In 300 / 300 100 ml @ 50 mls/hr IV.SIG Q2H PRN Rx#:[id number] Ancef 2 GM Premix Inj 2 gm In 100 / 100 50 ml @ 100 mls/hr IV.SIG Q8H [facility] Rx#:[id number] fentaNYL 10 mcg/mL Premix Drip 250 / 250 2,500 mcg In 250 ml @ 50 MCG/HR 5 mls/hr IV.SIG TITRATE PRN Rx #:[id number] Keppra Inj 500 MG In NS Inj 100 105 / 105 105 / 105 ML @ 400 mls/hr IV.SIG Q12H [facility] Rx#:[id number] Tube Feeding 0 / 0 Tube Irrigant 120 / 120 Other 120 / 120 Output: Urine Amount (Catheter) 650 / 650 300 / 300 Indwelling Urethral Catheter 650 / 650 300 / 300 Gastric Drainage 250 / 250 100 / 100 Oral Orogastric Tube 250 / 250 100 / 100 Wound Drainage # 1 Left Head 5 / 5 # 2 Left Head 5 / 5 Other: # Bowel Movements 0 # Incontinent Bowel Movements 0 Result Diagrams: 09/25/18 06:10 09/25/18 06:10 Imaging: Impressions Head CT 09/24/18 00:00 CONCLUSION: 1. Increasing in size of left subdural hemorrhage measuring 17 mm with prominent edema throughout the left cerebral hemisphere and [id number] midline shift of 14 mm. . Chest X-Ray 09/25/18 06:00 CONCLUSION: Worsening left base consolidation. Disinhibition Score: 14.00 Aggression Score: 14.00 Lability Score: 14.00 Agitated Behavior Total Score: 14 - Exam MANAGER WIND: Diana Coma Score is 3T patient is fully sedated on propofol and fentanyl Hemodynamic/Cardiac: hemoDynamically normal Pulmonary/Respiratory: Patient mechanically ventilated breath sounds clear bilateral Abdomen/GI Nutrition: Abdomen is soft tolerating tube feeds Renal/I&O: hypertonic saline ,na 155 Assessment and Plan Plan: Team to keep patient full sedated for 24 hours Met neuro status exam tomorrow hold DVT prophylaxis for now as patient's bleed recurred continue tube feeds Continue mechanical ventilation
[2018-09-25] MEDS: fentaNYL 10 mcg/mL Premix Drip 2,500 MCG/250 ML BAG IV.SIG PRN (17:58)
[2018-09-25] MEDS: Pantoprazole Inj 40 MG Vial IV.PUSH SCH (17:58)
[2018-09-26] MEDS: Propofol 1000 mg/100 ml Inj 1,000 MG/100 ML BOTTLE IV.CONT PRN ×3 (01:04→18:31)
[2018-09-26] MEDS: Oral Hygiene Kit OROPHARYNG SCH ×3 (03:25→15:49)
[2018-09-26] MEDS: Chlorhexidine Gluconate 2% 1 Pack (2 Cloths) TOPICAL SCH (04:04)
[2018-09-26 05:52] LABS: ABG Base Excess -1.2 mmol/L (-2-2); ABG PO2 137 mmHg (61-120)
[2018-09-26 05:53] LABS: ABG PCO2 42 mmHg (38-42)
[2018-09-26 06:57] LABS: Baso % (Auto) 0.2 % (0.0-2.0); Eos # (Auto) 0.1 th/mm3 (0.0-0.4); Eos % (Auto) 0.8 % (0.0-4.0); Hematocrit 24.9 % (39.0-51.0); Hemoglobin 8.7 gm/dL (13.0-17.0); Lymph # (Auto) 0.8 th/mm3 (1.0-4.8); Lymph % (Auto) 8.4 % (9.0-44.0); Mean Corpuscular Hemoglobin 29.8 pg (27.0-34.0); Mean Corpuscular Volume 85.1 fL (80.0-100.0); Mean Platelet Volume 8.6 fL (7.0-11.0); Mono # (Auto) 0.9 th/mm3 (0.0-0.9); Mono % (Auto) 9.5 % (0.0-8.0); Neut # (Auto) 7.7 th/mm3 (1.8-7.7); Neut % (Auto) 81.1 % (16.0-70.0); Platelet Count 213 th/mm3 (150-450); Red Blood Count 2.92 mil/mm3 (4.50-5.90); White Blood Count 9.5 th/mm3 (4.0-11.0)
--- NOTE | 2018-09-26 07:04 | P.PNNPSY ---
- Behavior Intact: Impulsive/agitated - Psychosocial Intact: Psychosocial, Family/other adjustment, Realistic expectation - Progress Notes/Response to Treatment Contents of Sessions: Adjustment, Level of consciousness Time with Patient: 30 minutes Premorbid Psychological Status: Premorbid Cognitive, Emotional and Behavioral Status: Tenuous. The patient has high school years of education and is not in the work force prior to this injury. The patient has no prior psychiatric difficulties, as described above. Substance abuse history is unremarkable. Behavioral Reactions of Patient and Family/Support System: Stable. The patients family is experiencing ongoing issues of adjustment given the nature of the injury, and this aspect of recovery will require ongoing monitoring. Emotional/Behavioral Status of Patient and Family/Support System: Stable. Pertinent issues, if appropriate to this patients clinical care, are described in detail above. Maximizing Acute Care Outcome: It is recommended that the patient be monitored for emergent behavioral impulsivity as the medical condition evolves. This patients neuropathological challenges may limit rehabilitation potential going forward, and these challenges will require specialized therapeutic skills to maximize outcome. Additionally, the patients family is experiencing ongoing issues of adjustment given the traumatic nature of the injury, and they may benefit from ongoing psychological assistance. At this point in the recovery process, the patient does not have cognitive capacity as the patient is unable to understand a situation and its likely consequences, nor is the patient able to manipulate information rationally. Cognitive capacity will be assessed throughout the recovery process. Anticipated Problems: Ongoing areas of concern will include behavioral impulsivity, lack of insight and judgment, which is expected to improve with time and treatment. Treatment Plan: This clinician will continue to follow with you throughout the course of this patients critical care treatment, and I will be available to meet with the patients family/support system to facilitate their understanding and the ongoing care of their family member. The goals of neuropsychological intervention shall be both educational and supportive to the family/support system as is deemed clinically appropriate. [place] COG Scale: Level II Disinhibition Score: 14.00 Aggression Score: 14.00 Lability Score: 14.00 Agitated Behavior Total Score: 14 Impression: 57 year old male with complicated neurological history including prior brain surgery for optic nerve tumor, CVA in 01/2018 and now TBI 2T fall. Progress Note Narrative: PTD 4. The patient remains sedated and intubated. He is s/p DC. No agitation/ restlessness with ABS = 14 (14,14,14). He is Rancho II. I will follow. - Diagnosis (1) Major neurocognitive disorder as late effect of traumatic brain injury without behavioral disturbance Status: Acute
[2018-09-26 07:25] LABS: Blood Urea Nitrogen 18 mg/dL (7-18); Calcium 7.4 mg/dL (8.5-10.1); Carbon Dioxide 24.5 meq/L (21.0-32.0); Chloride 128 meq/L (98-107); Glomerular Filtration Rate Greater Than 89 mL/min (>89); Glucose,Random 154 mg/dL (74-106); Potassium 3.9 meq/L (3.5-5.1)
[2018-09-26 07:27] LABS: Anion Gap 9 meq/L (5-15)
[2018-09-26 07:40] LABS: Sodium 161 meq/L (136-145)
[2018-09-26 07:51] LABS: Total Protein 5.1 g/dL (6.4-8.2)
[2018-09-26] MEDS: Chlorhexidine 0.12% Oral Kit 15 ML UDC OROPHARYNG SCH ×2 (09:13→20:04)
[2018-09-26] MEDS: Senna/Docusate Sodium 8.6/50 MG Tablet PO SCH ×2 (09:14→20:04)
[2018-09-26] MEDS: OXcarbazepine 600 MG Tablet PO SCH ×2 (09:14→20:04)
--- NOTE | 2018-09-26 12:30 | CT ---
EXAM DATE: 09/26/2018 12:17 PM EDT AGE/SEX: 57 years / Male INDICATIONS: Post op craniotomy. CLINICAL DATA: This is the patient's initial encounter. Patient reports that signs and symptoms have been present for 1 day and indicates a pain score of Nonresponsive. MEDICAL/SURGICAL HISTORY: Transient ischemic attack. Stroke. Brain tumor, optic nerve tumor. Cran iotomy. Electrotyper Helper shunt, lashae hole surgery. RADIATION DOSE: 61.98 CTDI (mGy) [place] [facility] [place]. . TECHNIQUE: CT of the head without contrast. Using automated exposure control and adjustment of the mA and/or kV according to patient size, radiation dose was kept as low as reasonably achievable to ob tain optimal diagnostic quality images. DICOM format image data is available electronically for revi ew and comparison. FINDINGS: Cerebrum: Large amount of edema remains throughout the left cerebral hemisphere with mass effect and [id number] midline shift left subdural hematoma parafalcine region has significantly decreased in size measuring only 9 mm in thickness. New dural drain placed. 2 other drains seen on the left. Left craniectomy. There is also right temporal craniectomy. Left frontal horn of the lateral ventricle no w patent. Left to right midline shift of 6 mm. Posterior Fossa: The cerebellum and brainstem are intact. The 4th ventricle is midline. The cerebe llopontine angle is unremarkable. CONCLUSION: 1. Left-sided subdural hematoma is less prominent measuring 9 mm. 2. Edema remains throughout the left cerebral hemisphere with less mass effect and decreasing left t o right midline shift . Electronically signed by: Driss Henson MD 09/26/2018 12:29 PM EDT
--- NOTE | 2018-09-26 13:30 | P.PNCC ---
Subjective Brief History: This is a 57-year-old male with history of a prior right sided craniectomy and cranioplasty, status post ventriculoperitoneal shunt, who was brought to the emergency department and trauma alert was called. [place] earlier [place]. 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 The patient then had a stroke January 2018 which slightly affected his speech and right upper extremity. The patient underwent rehab with improvement of his speech. He developed slurred speech since the fall with with slight change in behavior. The patient takes Plavix daily. The patient is unable to provide any information and does not follow commands. Withdraw to pain in his lower extremities. Trauma alert was called due to the decreased in GCS. The patient went immediately to CT for CT the brain which did reveal bilateral subdurals with mild shift. The patient had decreasing mental status, would not follow commands, therefore, given his drop in GCS was taken to the trauma room and a level 1 trauma was called. The patient was intubated using rapid sequence intubation to protect the airway after lidocaine 100 mg was given the patient received etomidate 20 mg intravenously and succinylcholine 100 mg at. The patient was intubated using an endotracheal tube, 8.0, without difficulty. The patient did receive [address] Tay who evaluated the patient in the trauma room and he was resuscitated according to ATLS principles. Initial diagnostic workup reveals Bilateral subdural hematomas left considerably greater than right. The subdural on the left extends from the left frontal to occipital lobe and superiorly to the high convexity and measures 15 mm across with considerable mixed density. The small right occipital subdural is more homogeneous c/w acute hemorrhagic density Patient is taken immediately to the operating room for decompressive craniectomy and is now in ICU for further care Should be noted patient was on Plavix aspirin which has been stopped Patient will be managed according to the established neurosurgical critical care principles and full evaluation will be completed considering that patient has other comorbidities that need to be addressed 24 Hour Review/Hospital Course: 09/23/2018 Patient with massive head injury and huge left subdural hematoma status post craniectomy and drainage Patient is sedated on neuroprotective measures including propofol fentanyl and Keppra ICP remains around 8-14 mmHg Patient received 25 g of mannitol last night and since then ICP has been low Serum sodium 142 mEq/L and patient is on 3% saline at 30 cc/h We will keep sodium less than 160 mEq/L At this point Diana Coma Scale remains 3 and patient has no activity whatsoever Hemodynamically patient is stable and hemoglobin and hematocrit are stable after transfusion of 1 unit PRBC last night Bilateral breath sounds patient fully ventilatory supported on assist control ventilation mode with good PO2 FiO2 gradient Keep PCO2 between 32-40 mmHg Abdomen soft Renal function well-preserved patient is euvolemic and will decrease maintenance fluids This patient has very poor prognosis based on his age and severity of brain injury on top of already previous craniotomy for optic nerve tumor Patient has about 80% 1 year mortality and 100% morbidity with 100% chance of permanent neurologic deficits either cognitive motoric or both We will consult palliative care to discuss his further prospects with the family and lay out some options 09/[address] scan today which shows significant worsening of his subdural hematoma His ICPs remain within normal limits his sodium is 150 his CPP is also within normal limits Patient overall is status post multiple craniotomy craniotomy start craniectomies I had a discussion with the neurosurgeon regarding the clinical picture we both agreed that we need to have a discussion with patient's -for a potential craniectomy Overall patient prognosis remain poor If craniectomy is being decided we will need to transfuse patient 2 units of blood 09/25 Patient is status post decompressive craniectomy postop day 1 Neurosurgery would like to maintain full sedation today and reassess mental status tomorrow His CPP ICP and hemodynamics are within normal limits His sodium is 155 and will keep it at this level for now Continue the tube feeds Family updated at the bedside 09/26 He- underwent a CT scan of the head in the morning here is still a large amount of edema, subdural hematoma improved however His ICPs and CPPs remain good level-stay fully sedated for now as per neurosurgeon Sodium is 161 and hypertonic saline has been dcd-we will monitor sodium until it reaches the desired level of 150-155 She is on tube feeds and tolerating well In light of increased bleeding and redo craniectomy will discuss with the neurosurgeon before starting chemical DVT prophylaxis Objective Vital Signs / I&O: Vital Signs 09/25/18 14:00 09/25/18 15:00 09/25/18 16:00 Temperature 98.2 F Pulse Rate 53 L 53 L 54 L Respiratory Rate 14 14 14 Pulse Oximetry 100 100 100 09/25/18 16:22 09/25/18 17:00 09/25/18 18:00 Temperature Pulse Rate 65 55 L 54 L Respiratory Rate 20 14 14 Pulse Oximetry 100 100 100 09/25/18 19:00 09/25/18 19:20 09/25/18 20:00 Temperature 98.1 F Pulse Rate 53 L 53 L 56 L Respiratory Rate 14 14 14 Pulse Oximetry 100 100 100 09/25/18 21:00 09/25/18 22:00 09/25/18 23:00 Temperature Pulse Rate 67 60 59 L Respiratory Rate 14 14 14 Pulse Oximetry 100 100 100 09/25/18 23:15 09/26/18 00:00 09/26/18 01:00 Temperature 98.9 F Pulse Rate 60 57 L Respiratory Rate 14 14 14 Pulse Oximetry 100 100 100 09/26/18 02:00 09/26/18 02:04 09/26/18 03:00 Temperature Pulse Rate 57 L 58 L 62 Respiratory Rate 14 15 14 Pulse Oximetry 100 100 09/26/18 04:00 09/26/18 04:38 09/26/18 06:00 Temperature 98.3 F Pulse Rate 64 58 L Respiratory Rate 14 14 Pulse Oximetry 100 100 09/26/18 07:49 09/26/18 07:55 09/26/18 08:00 Temperature 98.6 F Pulse Rate 74 60 Respiratory Rate 14 16 14 Pulse Oximetry 100 100 09/26/18 10:00 09/26/18 11:35 09/26/18 12:00 Temperature 99.3 F Pulse Rate 64 66 Respiratory Rate 14 14 Pulse Oximetry 100 Intake & Output 09/25/18 09/26/18 09/26/18 18:59 06:59 18:59 Intake Total 1675 / 1675 902 / 902 225 / 225 Output Total 400 / 400 605 / 605 Balance 1275 / 1275 297 / 297 225 / 225 Weight 72.5 kg Intake: IV 1255 / 1255 305 / 305 225 / 225 Sodium Chloride 3% Inj 500 ML @ 500 / 500 125 / 125 30 mls/hr IV.CONT CONT [facility] Rx# :[id number] Diprivan 1000 mg/100 ml Inj 1, 100 / 100 200 / 200 100 / 100 000 mg In 100 ml @ 5 MCG/KG/MIN 1.864 mls/hr IV.CONT TITRATE PRN Rx#:[id number] KCl 20 mEq Premix Inj 20 meq In 300 / 300 100 ml @ 50 mls/hr IV.SIG Q2H PRN Rx#:[id number] fentaNYL 10 mcg/mL Premix Drip 250 / 250 2,500 mcg In 250 ml @ 50 MCG/HR 5 mls/hr IV.SIG TITRATE PRN Rx #:[id number] Keppra Inj 500 MG In NS Inj 100 105 / 105 105 / 105 ML @ 400 mls/hr IV.SIG Q12H [facility] Rx#:[id number] Tube Feeding 320 / 320 597 / 597 Tube Irrigant 100 / 100 Output: Urine Amount (Catheter) 350 / 350 550 / 550 Indwelling Urethral Catheter 350 / 350 550 / 550 Wound Drainage 50 / 50 55 / 55 # 1 Head 25 / 25 30 / 30 # 2 Head 5 / 5 10 / 10 # 3 Head 20 / 20 15 / 15 Result Diagrams: 09/26/18 06:25 09/26/18 06:25 Imaging: Impressions Head CT 09/26/18 00:00 CONCLUSION: 1. Left-sided subdural hematoma is less prominent measuring 9 mm. 2. Edema remains throughout the left cerebral hemisphere with less mass effect and decreasing left to right midline shift . Disinhibition Score: 14.00 Aggression Score: 14.00 Lability Score: 14.00 Agitated Behavior Total Score: 14 - Exam GREEN END WORKER: GCS is 3T patient is on propofol and fentanyl Hemodynamic/Cardiac: Patient is hemodynamically normal with good CPP level Pulmonary/Respiratory: Sounds clear bilateral CO2 is 42 Abdomen/GI Nutrition: Abdomen soft patient is tolerating tube feeds Hematologic: Hemoglobin is 8.7 and stable Assessment and Plan Plan: Propofol and fentanyl for sedation continue neuro protection hold DVT prophylaxis for now as patient's bleed recurred continue tube feeds Continue mechanical ventilation
--- NOTE | 2018-09-26 14:17 | P.PNPAL ---
Reason for Visit Reason for visit: a. To assist with evaluation and management of symptoms including:pain, dyspnea , debility b. To assist medical decision maker(s) with: better understanding of current medical conditions; weighing benefits/burdens of medical treatment options; making medical treatment decisions. Subjective Subjective/Interval History: Mr. Vu is a 57-year-old male who came into the emergency they will call on after a fall at the grocery store. 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 In March 2008 he suffered a left subdural hematoma for which required rehab. In January 2018 the patient suffered a stroke which slightly affected his speech and right upper extremity. He underwent rehab which resulted in improvement to his speech. Due to his worsening GCS 1 trauma alert was called. As per his , the patient's speech is usually normal but does slur when he is tired. It is unknown if he lost consciousness during the fall. No seizure activity was noted at the scene. The patient takes Plavix daily. The patient was unable to provide any information was not following commands. He was not moving upper extremities and withdrawal only to the lower. The patient was emergently intubated for airway protection and admitted for further evaluation and care. Dr. Wolff (neurosurgery) was consulted the patient was taken emergently to the emergency room for left decompressive craniotomy with evacuation of of the hematoma and attempt to stabilize. A right intracranial monitor was placed with opening pressures of 5 mmHg. He was given Keppra for seizure prophylaxis and started on hyperosmolar therapy. 09/26/18 Palliative care to follow-up with symptom management and goals of medical care. Not much change in clinical status. Patient remains critically ill, intubated and sedated. Repeat CT of head showed decrease in midline shift and bleed. Hyperosmolar therapy has been discontinued. Patient has regained cough/ gag, pupils equal round reactive. ICPs remained stable and below 10. Did have some instances of persistent hypertension this a.m. has somewhat resolved by now with increased sedation. Plans to begin sedation weaning tomorrow. Today's clinical information revealed: * WBC 9.5, Hgb 8.7, HCT 24.9, platelets 213 * NA 161, K+ 3.9, CL 128, CO2 24.5, BUN 18, creatinine 0.48, glucose 154 * Calcium 7.4, protein corrected calcium 8.5 * ABG: PH 7.37, PCO2 42, PO2 137, HCO3 23 * Head CT: Left-sided subdural hematomas less prominent measuring 9 mm. Edema remains throughout the left cerebral hemisphere with less mass-effect and decreasing left to right midline shift. Family/Friend Interactions: Discussed patient's care with and daughter at bedside. They view his current clinical progression as improvement and are hopeful again for full and meaningful neurological recovery. They appreciate ongoing communication and support. Reviewed results of CT. Anticipate sedation weaning tomorrow. They still understand that it may be some time before we can fully ascertain his neurological status. Advance Directives Living Will: Never completed Health Care Surrogate: Never completed Durable Power of Manager Laboratory: Never completed Health Care Surrogate Name and Number: Judy Vu, /healthcare proxy [phone] Documented care wishes:: Patient does not have a documented living will or DURABLE POWER OF SUPERVISOR SAWMILL Significant change in goals:: No significant changes in goals of care. Continue with all aggressive treatment modalities. Objective Vital Signs: Vital Signs 09/25/18 15:00 09/25/18 16:00 09/25/18 16:22 Temperature 98.2 F Pulse Rate 53 L 54 L 65 Respiratory Rate 14 14 20 Pulse Oximetry 100 100 100 09/25/18 17:00 09/25/18 18:00 09/25/18 19:00 Temperature Pulse Rate 55 L 54 L 53 L Respiratory Rate 14 14 14 Pulse Oximetry 100 100 100 09/25/18 19:20 09/25/18 20:00 09/25/18 21:00 Temperature 98.1 F Pulse Rate 53 L 56 L 67 Respiratory Rate 14 14 14 Pulse Oximetry 100 100 100 09/25/18 22:00 09/25/18 23:00 09/25/18 23:15 Temperature Pulse Rate 60 59 L Respiratory Rate 14 14 14 Pulse Oximetry 100 100 100 09/26/18 00:00 09/26/18 01:00 09/26/18 02:00 Temperature 98.9 F Pulse Rate 60 57 L 57 L Respiratory Rate 14 14 14 Pulse Oximetry 100 100 100 09/26/18 02:04 09/26/18 03:00 09/26/18 04:00 Temperature 98.3 F Pulse Rate 58 L 62 64 Respiratory Rate 15 14 14 Pulse Oximetry 100 100 09/26/18 04:38 09/26/18 06:00 09/26/18 07:49 Temperature Pulse Rate 58 L Respiratory Rate 14 14 Pulse Oximetry 100 100 09/26/18 07:55 09/26/18 08:00 09/26/18 10:00 Temperature 98.6 F Pulse Rate 74 60 64 Respiratory Rate 16 14 Pulse Oximetry 100 09/26/18 11:35 09/26/18 12:00 Temperature 99.3 F Pulse Rate 66 Respiratory Rate 14 14 Pulse Oximetry 100 Intake & Output 09/25/18 09/26/18 09/26/18 18:59 06:59 18:59 Intake Total 1675 / 1675 902 / 902 225 / 225 Output Total 400 / 400 605 / 605 Balance 1275 / 1275 297 / 297 225 / 225 Weight 72.5 kg Intake: IV 1255 / 1255 305 / 305 225 / 225 Sodium Chloride 3% Inj 500 ML @ 500 / 500 125 / 125 30 mls/hr IV.CONT CONT [facility] Rx# :[id number] Diprivan 1000 mg/100 ml Inj 1, 100 / 100 200 / 200 100 / 100 000 mg In 100 ml @ 5 MCG/KG/MIN 1.864 mls/hr IV.CONT TITRATE PRN Rx#:[id number] KCl 20 mEq Premix Inj 20 meq In 300 / 300 100 ml @ 50 mls/hr IV.SIG Q2H PRN Rx#:[id number] fentaNYL 10 mcg/mL Premix Drip 250 / 250 2,500 mcg In 250 ml @ 50 MCG/HR 5 mls/hr IV.SIG TITRATE PRN Rx #:[id number] Keppra Inj 500 MG In NS Inj 100 105 / 105 105 / 105 ML @ 400 mls/hr IV.SIG Q12H [facility] Rx#:[id number] Tube Feeding 320 / 320 597 / 597 Tube Irrigant 100 / 100 Output: Urine Amount (Catheter) 350 / 350 550 / 550 Indwelling Urethral Catheter 350 / 350 550 / 550 Wound Drainage 50 / 50 55 / 55 # 1 Head 25 / 25 30 / 30 # 2 Head 5 / 5 10 / 10 # 3 Head 20 / 20 15 / 15 Physical Exam: CONSTITUTIONAL/GENERAL: Currently intubated and sedated, appears critically ill. TUBES/LINES/DRAINS:PIV, LSC, LRAL, JPx3, Brunner, bilateral soft wrist restraints , OGT SKIN: No jaundice, rashes, or lesions. Multiple abrasions noted to bilateral toes. Feet appear poorly cared for. Skin temperature appropriate. Not diaphoretic. HEAD: Old right-sided skull deformity noted. Left sided horse shoe incision with jey C/D/I now with sunken in appearance. Bone flap with 3 MARK to left side of the head with scant amount of serosanguineous fluid EYES: Pupils 3 mm with sluggish reaction, periorbital edema since resolved. ENT: Unable to assess hearing due to clinical condition. nose without bleeding or purulent drainage. Throat without visible erythema, exudates, masses, or lesions. CARDIOVASCULAR: regular rate and rhythm. SR on tele monitor. Without murmurs, gallops, or rubs. No JVD. Peripheral pulses symmetric, weak pedal pulses RESPIRATORY/CHEST: Symmetric, unlabored respirations. Clear to auscultation. Breath sounds equal bilaterally. Diminished at the bases, scattered rhonchi, remains mechanically ventilated. GASTROINTESTINAL: Abdomen soft, non-tender, nondistended. No hepato-splenomegaly , or palpable masses. Bowel sounds hypoactive. Tolerating TF via OGT. GENITOURINARY: Without palpable bladder distension. Brunner catheter in place. MUSCULOSKELETAL: Extremities without clubbing, cyanosis, or edema. No joint effusion noted. No mottling or clubbing. NEUROLOGICAL: Heavily sedated, + cough/gag. Pupils 3mm bilateral with sluggish reaction. Flaccid bilateral upper extremities, very weak withdrawal to central noxious stimuli right lower, does not appear to withdraw with stimulation to periphery. No movement seen to left lower extremity with stimuli either peripherally or centrally. PSYCHIATRIC: Unable to assess due to clinical condition Diagnostic Tests Laboratory: Laboratory Results - last 72 hr 09/22/18 09/23/18 09/23/18 15:30 08:54 18:58 WBC RBC Hgb Hct MCV MCH MCHC RDW Plt Count MPV Neut % (Auto) Lymph % (Auto) [place] % (Auto) Eos % (Auto) Baso % (Auto) Neut # (Auto) Lymph # (Auto) [place] # (Auto) Eos # (Auto) Baso # (Auto) WBC Differential Differential Comment Puncture Site Patient Temperature O2 Saturation ABG pH ABG pCO2 ABG pO2 ABG HCO3 ABG O2 Content ABG Base Excess ABG Methemoglobin Hemoglobin Carboxyhemoglobin O2 Delivery Device Vent Setting Inspired O2 Critical Value Sodium 147 H Potassium Chloride Carbon Dioxide Anion Gap BUN Creatinine Estimated GFR Random Glucose Osmolality 306 H Calcium Prot Corrected Calcium Total Bilirubin AST ALT Alkaline Phosphatase Total Protein Albumin Nasal Screen MRSA (PCR) Not detected MTS Gel Crossmatch Bld Prod Order Comment 09/23/18 09/24/18 09/24/18 22:45 04:30 04:30 WBC 12.6 H RBC 2.64 L Hgb 7.6 L D Hct 22.0 L MCV 83.4 MCH 29.0 MCHC 34.8 RDW 15.1 Plt Count 231 MPV 8.4 Neut % (Auto) 75.0 H Lymph % (Auto) 11.4 [place] % (Auto) 13.2 H Eos % (Auto) 0.1 Baso % (Auto) 0.3 Neut # (Auto) 9.5 H Lymph # (Auto) 1.4 [place] # (Auto) 1.7 H Eos # (Auto) 0.0 Baso # (Auto) 0.0 WBC Differential . Differential Comment Auto diff final Puncture Site Patient Temperature O2 Saturation ABG pH ABG pCO2 ABG pO2 ABG HCO3 ABG O2 Content ABG Base Excess ABG Methemoglobin Hemoglobin Carboxyhemoglobin O2 Delivery Device Vent Setting Inspired O2 Critical Value Sodium 149 H 150 H Potassium 3.7 D Chloride 119 H Carbon Dioxide 27.4 Anion Gap 4 L BUN 11 Creatinine 0.46 L Estimated GFR Greater than 89 Random Glucose 114 H Osmolality 299 H 303 H Calcium 7.5 L Prot Corrected Calcium Total Bilirubin 0.2 AST 28 ALT 21 Alkaline Phosphatase 53 Total Protein 4.8 L Albumin 2.3 L Nasal Screen MRSA (PCR) MTS Gel Crossmatch Bld Prod Order Comment 09/24/18 09/24/18 09/24/18 05:30 11:37 16:42 WBC RBC Hgb Hct MCV MCH MCHC RDW Plt Count MPV Neut % (Auto) Lymph % (Auto) [place] % (Auto) Eos % (Auto) Baso % (Auto) Neut # (Auto) Lymph # (Auto) [place] # (Auto) Eos # (Auto) Baso # (Auto) WBC Differential Differential Comment Puncture Site Art line Patient Temperature 98.6 O2 Saturation 97 ABG pH 7.41 ABG pCO2 40 ABG pO2 165 H ABG HCO3 25 ABG O2 Content 10.5 L ABG Base Excess 0.7 ABG Methemoglobin 1.2 Hemoglobin 7.4 L* Carboxyhemoglobin 1.1 O2 Delivery Device Ventilator Vent Setting 14/550/peep 5 Inspired O2 35 Critical Value Yes Sodium 153 H Potassium Chloride Carbon Dioxide Anion Gap BUN Creatinine Estimated GFR Random Glucose Osmolality 308 H Calcium Prot Corrected Calcium Total Bilirubin AST ALT Alkaline Phosphatase Total Protein Albumin Nasal Screen MRSA (PCR) MTS Gel Crossmatch See Detail Bld Prod Order Comment 09/24/18 09/24/18 09/24/18 18:49 18:52 20:50 WBC 9.9 RBC 2.83 L Hgb 8.1 L Hct 23.9 L MCV 84.5 MCH 28.8 MCHC 34.0 RDW 15.1 Plt Count 185 MPV 8.3 Neut % (Auto) 72.8 H Lymph % (Auto) 15.3 [place] % (Auto) 11.2 H Eos % (Auto) 0.2 Baso % (Auto) 0.5 Neut # (Auto) 7.2 Lymph # (Auto) 1.5 [place] # (Auto) 1.1 H Eos # (Auto) 0.0 Baso # (Auto) 0.1 WBC Differential . Differential Comment Auto diff final Puncture Site Unknown Patient Temperature 98.6 O2 Saturation 97 ABG pH 7.50 H ABG pCO2 30 L ABG pO2 279 H ABG HCO3 23 ABG O2 Content 12.6 ABG Base Excess 0.1 ABG Methemoglobin 1.6 Hemoglobin 8.7 L Carboxyhemoglobin 1.0 O2 Delivery Device Vent Setting Inspired O2 Critical Value No Sodium 154 H Potassium 3.1 L Chloride 124 H Carbon Dioxide 24.1 Anion Gap 6 BUN 14 Creatinine 0.37 L Estimated GFR Greater than 89 Random Glucose 104 Osmolality Calcium 7.4 L* Prot Corrected Calcium 8.9 D Total Bilirubin 0.6 AST 24 ALT 17 Alkaline Phosphatase 48 Total Protein 4.5 L Albumin 1.9 L Nasal Screen MRSA (PCR) MTS Gel Crossmatch Bld Prod Order Comment 09/25/18 09/25/18 09/25/18 06:09 06:10 06:10 WBC 9.4 RBC 2.85 L Hgb 8.3 L Hct 23.7 L MCV 83.5 MCH 29.3 MCHC 35.1 RDW 15.5 Plt Count 203 MPV 8.5 Neut % (Auto) 74.9 H Lymph % (Auto) 13.6 [place] % (Auto) 10.4 H Eos % (Auto) 0.6 Baso % (Auto) 0.5 Neut # (Auto) 7.0 Lymph # (Auto) 1.3 [place] # (Auto) 1.0 H Eos # (Auto) 0.1 Baso # (Auto) 0.0 WBC Differential . Differential Comment Auto diff final Puncture Site Art line Patient Temperature 98.6 O2 Saturation 97 ABG pH 7.42 ABG pCO2 39 ABG pO2 161 H ABG HCO3 24 ABG O2 Content 11.9 L ABG Base Excess 0.4 ABG Methemoglobin 1.4 Hemoglobin 8.5 L Carboxyhemoglobin 1.2 O2 Delivery Device Ventilator Vent Setting [id number]/vt550/peep5 Inspired O2 35 Critical Value No Sodium 155 H Potassium 3.1 L Chloride 123 H Carbon Dioxide 24.5 Anion Gap 8 BUN 16 Creatinine 0.55 L Estimated GFR Greater than 89 Random Glucose 98 Osmolality 311 H Calcium 7.3 L* Prot Corrected Calcium 8.7 Total Bilirubin 0.2 AST 22 ALT 18 Alkaline Phosphatase 52 Total Protein 4.6 L Albumin 1.9 L Nasal Screen MRSA (PCR) MTS Gel Crossmatch Bld Prod Order Comment 09/25/18 09/25/18 09/26/18 17:30 17:30 05:40 WBC RBC Hgb Hct MCV MCH MCHC RDW Plt Count MPV Neut % (Auto) Lymph % (Auto) [place] % (Auto) Eos % (Auto) Baso % (Auto) Neut # (Auto) Lymph # (Auto) [place] # (Auto) Eos # (Auto) Baso # (Auto) WBC Differential Differential Comment Puncture Site Art line Patient Temperature 98.6 O2 Saturation 97 ABG pH 7.37 L ABG pCO2 42 ABG pO2 137 H ABG HCO3 23 ABG O2 Content 11.9 L ABG Base Excess -1.2 ABG Methemoglobin 1.3 Hemoglobin 8.6 L Carboxyhemoglobin 1.0 O2 Delivery Device Ventilator Vent Setting 14/550/5peep Inspired O2 35 Critical Value No Sodium 158 H* Potassium 3.8 Chloride Carbon Dioxide Anion Gap BUN Creatinine Estimated GFR Random Glucose Osmolality Calcium Prot Corrected Calcium Total Bilirubin AST ALT Alkaline Phosphatase Total Protein Albumin Nasal Screen MRSA (PCR) MTS Gel Crossmatch Bld Prod Order Comment 09/26/18 09/26/18 06:25 06:25 WBC 9.5 RBC 2.92 L Hgb 8.7 L Hct 24.9 L MCV 85.1 MCH 29.8 MCHC 35.0 RDW 16.0 Plt Count 213 MPV 8.6 Neut % (Auto) 81.1 H Lymph % (Auto) 8.4 L [place] % (Auto) 9.5 H Eos % (Auto) 0.8 Baso % (Auto) 0.2 Neut # (Auto) 7.7 Lymph # (Auto) 0.8 L [place] # (Auto) 0.9 Eos # (Auto) 0.1 Baso # (Auto) 0.0 WBC Differential . Differential Comment Auto diff final Puncture Site Patient Temperature O2 Saturation ABG pH ABG pCO2 ABG pO2 ABG HCO3 ABG O2 Content ABG Base Excess ABG Methemoglobin Hemoglobin Carboxyhemoglobin O2 Delivery Device Vent Setting Inspired O2 Critical Value Sodium 161 H* Potassium 3.9 Chloride 128 H Carbon Dioxide 24.5 Anion Gap 9 BUN 18 Creatinine 0.48 L Estimated GFR Greater than 89 Random Glucose 154 H Osmolality Calcium 7.4 L* Prot Corrected Calcium 8.5 Total Bilirubin AST ALT Alkaline Phosphatase Total Protein 5.1 L Albumin Nasal Screen MRSA (PCR) MTS Gel Crossmatch Bld Prod Order Comment Result Diagrams: 09/26/18 06:25 09/26/18 06:25 Imaging: Impressions Chest X-Ray 09/25/18 06:00 CONCLUSION: Worsening left base consolidation. Head CT 09/26/18 00:00 CONCLUSION: 1. Left-sided subdural hematoma is less prominent measuring 9 mm. 2. Edema remains throughout the left cerebral hemisphere with less mass effect and decreasing left to right midline shift . Procedures: 09/22/18 * Left craniotomy with subdural hematoma evacuation * Right Davian with ICP monitor placement * Intubation * Left subclavian central line placement * Left radial atrial line placement 09/24/18 * repeat left craniotomy Assessment and Plan - Disease Oriented Problem List (1) Acute subdural hematoma - Symptom Scale (1) Pain 0-10 Scale: Unable to quantify Comment: Currently managed with fentanyl infusion (2) Dyspnea 0-10 Scale: Unable to quantify Comment: Currently managed with mechanical ventilator (3) Altered mental status 0-10 Scale: Unable to quantify Pertinent Non-Medical Issues: Psychosocial: The patient is currently . The couple have 2 children one who lives in [place] and one who lives locally. He was independent of ambulation and most ADLs. He was currently retired Spiritual: None Legal: In the absence of a documented living will, per [place] statutes, decision making falls to the patient's Judy Vu by proxy Ethical issues impacting care: There are currently no known ethical issues impacting care at this time Important Contacts: `` Judy Vu, /HCP [phone] Yosef Vu, son [phone] Ramona Vu, daughter [phone] Prognosis: This patient is a complicated case with multiple traumatic brain injuries, craniotomies and M[employer] RO[employer]ENDANT shunt placement. He remains critically ill and is at increased risk for continued neurological and physical decompensation. It is unsure if he will have any meaningful neurological recovery at this point. The patient is at high risk for further decline and . If he does survive these original insults, he will be at high risk for continued morbidity and mortality due to associated sequelae Code Status: Full Code Plan: * LEGAL DECISION MAKER -Judy Vu, /HCP [phone] * GOALS - Mr. Vu is currently critically ill, intubated and sedated and unable to participate in his own healthcare decision making. Essentially no significant changes in goals of care. Family wishes for all forms of aggressive medical treatment modalities. They continue to remain hopeful for a full a meaningful neurological recovery. * CODE STATUS -FULL CODE * SYMPTOMS: Painmultifactorial including bedbound status, invasive procedures, invasive tubes and lines etc., The patient does not appear to be in any acute distress at this time. No nonverbal pain cues were noticed during exam. Patient is currently receiving a fentanyl infusion. Will make suggestions as the case evolves Dyspneacurrently managed by mechanical ventilation. The patient is on AC settings with FiO2 35%, PEEP of 5. Continue with pulmonary toilet is appropriate for this patient. Suspect patient will have a long weaning process. Defer to critical care Altered mental statuspatient has a complicated history including optic tumor removal with MEN[employer] ROOM ATTENDANT shunt placement, lashae hole placement, and stroke as recent as January 2018. Is now S/P craniotomy x2 during this admission. Overall prognosis for meaningful neurological recovery remains poor. Palliative care will continue to follow during hospital course as condition evolves, to assist patient/decision maker with understanding of medical conditions, weighing benefits/burdens of treatment options, for clarification of goals of treatment. Additionally will assist with any symptoms of palliative concern. Attestation Attestation: To help prompt me to consider important information that might be impacting today's encounter and assessment, information from prior notes written by myself or my colleagues may have been "brought forward" into today's note. My signature on this note, however, is an attestation that I personally performed the exam, history, and/or decision-making noted today, and, unless otherwise indicated, the interactions with patient, family, and staff as well as the review of records all occurred today. I also attest that the listed assessment and stated plan reflect my best clinical judgment today based on the combination of historical information, prior notes, and today's exam/ interactions. When time spent is documented, it refers only to time spent today by the signer, or if indicated, combined time spent today by collaborating physician/nurse practitioner.
[2018-09-26] MEDS: Pantoprazole Inj 40 MG Vial IV.PUSH SCH (15:49)
--- NOTE | 2018-09-26 16:49 | P.PNNS ---
Subjective Interval history: pt seen this morning during rounds, intubated, sedated. ICPs controlled, for f/ u CT Brain today Physical Exam Vital signs: Vital Signs 09/25/18 17:00 09/25/18 18:00 09/25/18 19:00 Temperature Pulse Rate 55 L 54 L 53 L Respiratory Rate 14 14 14 Pulse Oximetry 100 100 100 09/25/18 19:20 09/25/18 20:00 09/25/18 21:00 Temperature 98.1 F Pulse Rate 53 L 56 L 67 Respiratory Rate 14 14 14 Pulse Oximetry 100 100 100 09/25/18 22:00 09/25/18 23:00 09/25/18 23:15 Temperature Pulse Rate 60 59 L Respiratory Rate 14 14 14 Pulse Oximetry 100 100 100 09/26/18 00:00 09/26/18 01:00 09/26/18 02:00 Temperature 98.9 F Pulse Rate 60 57 L 57 L Respiratory Rate 14 14 14 Pulse Oximetry 100 100 100 09/26/18 02:04 09/26/18 03:00 09/26/18 04:00 Temperature 98.3 F Pulse Rate 58 L 62 64 Respiratory Rate 15 14 14 Pulse Oximetry 100 100 09/26/18 04:38 09/26/18 06:00 09/26/18 07:49 Temperature Pulse Rate 58 L Respiratory Rate 14 14 Pulse Oximetry 100 100 09/26/18 07:55 09/26/18 08:00 09/26/18 10:00 Temperature 98.6 F Pulse Rate 74 60 64 Respiratory Rate 16 14 Pulse Oximetry 100 09/26/18 11:35 09/26/18 12:00 09/26/18 14:00 Temperature 99.3 F Pulse Rate 66 62 Respiratory Rate 14 14 Pulse Oximetry 100 09/26/18 16:00 09/26/18 16:39 09/26/18 16:40 Temperature 99.2 F Pulse Rate 69 65 Respiratory Rate 14 14 15 Pulse Oximetry 100 100 09/26/18 16:41 Temperature Pulse Rate Respiratory Rate 14 Pulse Oximetry 100 Intake & Output 09/25/18 09/26/18 09/26/18 18:59 06:59 18:59 Intake Total 1675 / 1675 902 / 902 225 / 225 Output Total 400 / 400 605 / 605 Balance 1275 / 1275 297 / 297 225 / 225 Weight 72.5 kg Intake: IV 1255 / 1255 305 / 305 225 / 225 Sodium Chloride 3% Inj 500 ML @ 500 / 500 125 / 125 30 mls/hr IV.CONT CONT [facility] Rx# :[id number] Diprivan 1000 mg/100 ml Inj 1, 100 / 100 200 / 200 100 / 100 000 mg In 100 ml @ 5 MCG/KG/MIN 1.864 mls/hr IV.CONT TITRATE PRN Rx#:[id number] KCl 20 mEq Premix Inj 20 meq In 300 / 300 100 ml @ 50 mls/hr IV.SIG Q2H PRN Rx#:[id number] fentaNYL 10 mcg/mL Premix Drip 250 / 250 2,500 mcg In 250 ml @ 50 MCG/HR 5 mls/hr IV.SIG TITRATE PRN Rx #:[id number] Keppra Inj 500 MG In NS Inj 100 105 / 105 105 / 105 ML @ 400 mls/hr IV.SIG Q12H [facility] Rx#:[id number] Tube Feeding 320 / 320 597 / 597 Tube Irrigant 100 / 100 Output: Urine Amount (Catheter) 350 / 350 550 / 550 Indwelling Urethral Catheter 350 / 350 550 / 550 Wound Drainage 50 / 50 55 / 55 # 1 Head 25 / 25 30 / 30 # 2 Head 5 / 5 10 / 10 # 3 Head 20 / 20 15 / 15 - Urinary Catheter Management Indwelling Urethral Catheter Cath placed during this visit: yes Reason for continuing: Hourly intake/output Insertion date: 09/22/18 Insertion time: 15:50 Assessment and Plan - Plan s/p left decompressive craniectomy with evacuation of the subdural hematoma, Placement of ICP monitor, stable ICPs redo left craniectomy evac of SDH 09/24/18 cont Icp monitoring today cont sedation for ICP control f/u CT Brain Continue Protonix for stress ulcer prophylaxis continue Kiran hose and SCD's for DVT prophylaxis
[2018-09-26] MEDS: fentaNYL 10 mcg/mL Premix Drip 2,500 MCG/250 ML BAG IV.SIG PRN (16:50)
[2018-09-27] MEDS: Propofol 1000 mg/100 ml Inj 1,000 MG/100 ML BOTTLE IV.CONT PRN ×3 (04:10→18:50)
[2018-09-27] MEDS: Chlorhexidine Gluconate 2% 1 Pack (2 Cloths) TOPICAL SCH (04:10)
[2018-09-27] MEDS: Oral Hygiene Kit OROPHARYNG SCH ×4 (04:11→15:08)
[2018-09-27 05:26] LABS: ABG Base Excess 2.4 mmol/L (-2-2); ABG PCO2 42 mmHg (38-42); ABG PO2 129 mmHg (61-120)
[2018-09-27 06:09] LABS: Baso % (Auto) 0.4 % (0.0-2.0); Eos # (Auto) 0.2 th/mm3 (0.0-0.4); Eos % (Auto) 2.9 % (0.0-4.0); Hematocrit 26.1 % (39.0-51.0); Hemoglobin 8.6 gm/dL (13.0-17.0); Lymph % (Auto) 12.6 % (9.0-44.0); Mean Corpuscular Hemoglobin 28.7 pg (27.0-34.0); Mean Corpuscular Volume 86.8 fL (80.0-100.0); Mean Platelet Volume 8.3 fL (7.0-11.0); Mono # (Auto) 0.9 th/mm3 (0.0-0.9); Mono % (Auto) 11.2 % (0.0-8.0); Neut # (Auto) 5.6 th/mm3 (1.8-7.7); Neut % (Auto) 72.9 % (16.0-70.0); Platelet Count 240 th/mm3 (150-450); Red Blood Count 3.01 mil/mm3 (4.50-5.90); Red Cell Distribution Width 15.4 % (11.6-17.2); White Blood Count 7.7 th/mm3 (4.0-11.0)
[2018-09-27 06:54] LABS: Anion Gap 5 meq/L (5-15); Blood Urea Nitrogen 18 mg/dL (7-18); Calcium 7.8 mg/dL (8.5-10.1); Chloride 126 meq/L (98-107); Glomerular Filtration Rate Greater Than 89 mL/min (>89); Glucose,Random 123 mg/dL (74-106)
[2018-09-27 07:01] LABS: Sodium 159 meq/L (136-145)
[2018-09-27] MEDS: Senna/Docusate Sodium 8.6/50 MG Tablet PO SCH ×2 (08:12→21:23)
[2018-09-27] MEDS: Chlorhexidine 0.12% Oral Kit 15 ML UDC OROPHARYNG SCH ×2 (08:12→21:22)
[2018-09-27] MEDS: OXcarbazepine 600 MG Tablet PO SCH ×2 (08:13→21:23)
--- NOTE | 2018-09-27 08:17 | P.PNNPSY ---
- Behavior Intact: Impulsive/agitated - Progress Notes/Response to Treatment Contents of Sessions: Adjustment, Level of consciousness Time with Patient: 30 minutes Premorbid Psychological Status: Premorbid Cognitive, Emotional and Behavioral Status: Tenuous. The patient has high school years of education and is not in the work force prior to this injury. The patient has no prior psychiatric difficulties, as described above. Substance abuse history is unremarkable. Behavioral Reactions of Patient and Family/Support System: Stable. The patients family is experiencing ongoing issues of adjustment given the nature of the injury, and this aspect of recovery will require ongoing monitoring. Emotional/Behavioral Status of Patient and Family/Support System: Stable. Pertinent issues, if appropriate to this patients clinical care, are described in detail above. Maximizing Acute Care Outcome: It is recommended that the patient be monitored for emergent behavioral impulsivity as the medical condition evolves. This patients neuropathological challenges may limit rehabilitation potential going forward, and these challenges will require specialized therapeutic skills to maximize outcome. Additionally, the patients family is experiencing ongoing issues of adjustment given the traumatic nature of the injury, and they may benefit from ongoing psychological assistance. At this point in the recovery process, the patient does not have cognitive capacity as the patient is unable to understand a situation and its likely consequences, nor is the patient able to manipulate information rationally. Cognitive capacity will be assessed throughout the recovery process. Anticipated Problems: Ongoing areas of concern will include behavioral impulsivity, lack of insight and judgment, which is expected to improve with time and treatment. Treatment Plan: This clinician will continue to follow with you throughout the course of this patients critical care treatment, and I will be available to meet with the patients family/support system to facilitate their understanding and the ongoing care of their family member. The goals of neuropsychological intervention shall be both educational and supportive to the family/support system as is deemed clinically appropriate. [place] COG Scale: Level II Disinhibition Score: 14.00 Aggression Score: 14.00 Lability Score: 14.00 Agitated Behavior Total Score: 14 Impression: 57 year old male with complicated neurological history including prior brain surgery for optic nerve tumor, CVA in 01/2018 and now TBI 2T fall. Progress Note Narrative: PTD 5. F/U head CT showed improved SDH but ongoing edema. No agitation/ restlessness with ABS of 14(14,14,14). He is Rancho II. From neurobehavioral perspective, he has very poor prognosis. I will follow. - Diagnosis (1) Major neurocognitive disorder as late effect of traumatic brain injury without behavioral disturbance Status: Acute
[2018-09-27] MEDS: fentaNYL 10 mcg/mL Premix Drip 2,500 MCG/250 ML BAG IV.SIG PRN (11:25)
[2018-09-27] MEDS ORDERED: Influenza (Quadrivalent) Vaccine 0.5 ML Syringe IM ONE (14:00)
[2018-09-27] MEDS ORDERED: NIFEdipine 10 MG Capsule PO ONE (14:30)
--- NOTE | 2018-09-27 14:47 | P.PNCC ---
Subjective Brief History: This is a 57-year-old male with history of a prior right sided craniectomy and cranioplasty, status post ventriculoperitoneal shunt, who was brought to the emergency department and trauma alert was called. He [place] at the [place] earlier today. 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 The patient then had a stroke January 2018 which slightly affected his speech and right upper extremity. The patient underwent rehab with improvement of his speech. He developed slurred speech since the fall with with slight change in behavior. The patient takes Plavix daily. The patient is unable to provide any information and does not follow commands. Withdraw to pain in his lower extremities. Trauma alert was called due to the decreased in GCS. The patient went immediately to CT for CT the brain which did reveal bilateral subdurals with mild shift. The patient had decreasing mental status, would not follow commands, therefore, given his drop in GCS was taken to the trauma room and a level 1 trauma was called. The patient was intubated using rapid sequence intubation to protect the airway after lidocaine 100 mg was given the patient received etomidate 20 mg intravenously and succinylcholine 100 mg at. The patient was intubated using an endotracheal tube, 8.0, without difficulty. The patient did receive [address] Tay who evaluated the patient in the trauma room and he was resuscitated according to ATLS principles. Initial diagnostic workup reveals Bilateral subdural hematomas left considerably greater than right. The subdural on the left extends from the left frontal to occipital lobe and superiorly to the high convexity and measures 15 mm across with considerable mixed density. The small right occipital subdural is more homogeneous c/w acute hemorrhagic density Patient is taken immediately to the operating room for decompressive craniectomy and is now in ICU for further care Should be noted patient was on Plavix aspirin which has been stopped Patient will be managed according to the established neurosurgical critical care principles and full evaluation will be completed considering that patient has other comorbidities that need to be addressed 24 Hour Review/Hospital Course: 09/23/2018 Patient with massive head injury and huge left subdural hematoma status post craniectomy and drainage Patient is sedated on neuroprotective measures including propofol fentanyl and Keppra ICP remains around 8-14 mmHg Patient received 25 g of mannitol last night and since then ICP has been low Serum sodium 142 mEq/L and patient is on 3% saline at 30 cc/h We will keep sodium less than 160 mEq/L At this point Diana Coma Scale remains 3 and patient has no activity whatsoever Hemodynamically patient is stable and hemoglobin and hematocrit are stable after transfusion of 1 unit PRBC last night Bilateral breath sounds patient fully ventilatory supported on assist control ventilation mode with good PO2 FiO2 gradient Keep PCO2 between 32-40 mmHg Abdomen soft Renal function well-preserved patient is euvolemic and will decrease maintenance fluids This patient has very poor prognosis based on his age and severity of brain injury on top of already previous craniotomy for optic nerve tumor Patient has about 80% 1 year mortality and 100% morbidity with 100% chance of permanent neurologic deficits either cognitive motoric or both We will consult palliative care to discuss his further prospects with the family and lay out some options 09/[address] scan today which shows significant worsening of his subdural hematoma His ICPs remain within normal limits his sodium is 150 his CPP is also within normal limits Patient overall is status post multiple craniotomy craniotomy start craniectomies I had a discussion with the neurosurgeon regarding the clinical picture we both agreed that we need to have a discussion with patient's -for a potential craniectomy Overall patient prognosis remain poor If craniectomy is being decided we will need to transfuse patient 2 units of blood 09/25 Patient is status post decompressive craniectomy postop day 1 Neurosurgery would like to maintain full sedation today and reassess mental status tomorrow His CPP ICP and hemodynamics are within normal limits His sodium is 155 and will keep it at this level for now Continue the tube feeds Family updated at the bedside 09/26 He- underwent a CT scan of the head in the morning here is still a large amount of edema, subdural hematoma improved however His ICPs and CPPs remain good level-stay fully sedated for now as per neurosurgeon Sodium is 161 and hypertonic saline has been dcd-we will monitor sodium until it reaches the desired level of 150-155 She is on tube feeds and tolerating well In light of increased bleeding and redo craniectomy will discuss with the neurosurgeon before starting chemical DVT prophylaxis 09/27/2018 Neurologically patient is unchanged Patient status post second operation and left craniectomy with evacuation of a subdural hematoma Significant brain swelling with some decrease in shift ICP remains low around 5-8 mmHg and central perfusion pressure within adequate parameters based on mean arterial pressure Adjusted free fluids and serum sodium is on decline which we will keep between 145 and 155 mEq/L Hemodynamically stable Bilateral breath sounds on assist control ventilation with good PO2 FiO2 gradient Renal function preserved Palliative care has been consulted and evaluated the patient and discussed the care with the family. Today and explained the devastating nature of his injury combined with his age carries extremely poor long-term prognosis In the best case scenario this patient will be off the ventilator however permanently on a feeding tube and bedbound Patient has very poor prospects of a long-term quality of life and no reasonable chance of meaningful recovery Objective Vital Signs / I&O: Vital Signs 09/26/18 15:00 09/26/18 16:00 09/26/18 16:39 Temperature 99.2 F Pulse Rate 90 71 Respiratory Rate 14 14 Blood Pressure Pulse Oximetry 100 100 100 09/26/18 16:40 09/26/18 16:41 09/26/18 17:00 Temperature Pulse Rate 65 71 Respiratory Rate 15 14 Blood Pressure Pulse Oximetry 100 100 09/26/18 18:00 09/26/18 19:00 09/26/18 20:00 Temperature 99.9 F H Pulse Rate 68 70 65 Respiratory Rate Blood Pressure Pulse Oximetry 100 100 100 09/26/18 20:07 09/26/18 21:00 09/26/18 22:00 Temperature Pulse Rate 71 80 65 Respiratory Rate 19 Blood Pressure Pulse Oximetry 100 100 100 09/26/18 23:00 09/26/18 23:21 09/27/18 00:00 Temperature 99.8 F H Pulse Rate 63 64 Respiratory Rate 18 Blood Pressure Pulse Oximetry 100 100 100 09/27/18 01:00 09/27/18 02:00 09/27/18 03:00 Temperature Pulse Rate 61 62 65 Respiratory Rate Blood Pressure Pulse Oximetry 100 100 100 09/27/18 04:00 09/27/18 04:05 09/27/18 05:00 Temperature 100.5 F H Pulse Rate 82 78 Respiratory Rate 18 Blood Pressure Pulse Oximetry 100 100 100 09/27/18 06:00 09/27/18 07:00 09/27/18 08:00 Temperature 100.6 F H Pulse Rate 62 104 H 72 Respiratory Rate Blood Pressure Pulse Oximetry 100 100 09/27/18 09:06 09/27/18 09:07 09/27/18 10:00 Temperature Pulse Rate 96 H Respiratory Rate 20 20 Blood Pressure Pulse Oximetry 100 100 09/27/18 12:00 09/27/18 13:08 Temperature 100.2 F H Pulse Rate 71 Respiratory Rate 18 18 Blood Pressure 160/69 H Pulse Oximetry 100 100 Intake & Output 09/26/18 09/27/18 09/27/18 18:59 06:59 18:59 Intake Total 1295 / 1295 810 / 810 450 / 450 Output Total 753 / 753 865 / 865 Balance 542 / 542 -55 / -55 450 / 450 Weight 70.1 kg Intake: IV 680 / 680 205 / 205 450 / 450 Sodium Chloride 3% Inj 500 ML @ 125 / 125 30 mls/hr IV.CONT CONT [facility] Rx# :[id number] Diprivan 1000 mg/100 ml Inj 1, 200 / 200 100 / 100 100 / 100 000 mg In 100 ml @ 5 MCG/KG/MIN 1.864 mls/hr IV.CONT TITRATE PRN Rx#:[id number] KCl 20 mEq Premix Inj 20 meq In 100 / 100 100 ml @ 50 mls/hr IV.SIG Q2H PRN Rx#:[id number] fentaNYL 10 mcg/mL Premix Drip 250 / 250 250 / 250 2,500 mcg In 250 ml @ 50 MCG/HR 5 mls/hr IV.SIG TITRATE PRN Rx #:[id number] Keppra Inj 500 MG In NS Inj 100 105 / 105 105 / 105 ML @ 400 mls/hr IV.SIG Q12H [facility] Rx#:[id number] Tube Feeding 535 / 535 605 / 605 Water Bolus Amount 80 / 80 Output: Urine Amount (Catheter) 725 / 725 825 / 825 Indwelling Urethral Catheter 725 / 725 825 / 825 Gastric Drainage 0 / 0 Oral Orogastric Tube 0 / 0 Wound Drainage 28 / 40 / 40 # 1 Head 25 / 25 # 2 Head # 3 Head 8 5 / 5 Other: Date of Last Bowel Movement 09/26/18 09/26/18 # Bowel Movements 0 # Incontinent Bowel Movements 2 Result Diagrams: 09/27/18 06:00 09/27/18 06:00 Disinhibition Score: 14.00 Aggression Score: 14.00 Lability Score: 14.00 Agitated Behavior Total Score: 14 Assessment and Plan Plan: Propofol and fentanyl for sedation continue neuro protection hold DVT prophylaxis for now as patient's bleed recurred continue tube feeds Continue mechanical ventilation Attestation: Critical care 36 minutes
[2018-09-27] MEDS: Metoprolol Inj 5 MG/5 ML Vial IV.PUSH SCH ×2 (15:07→21:22)
--- NOTE | 2018-09-27 15:39 | P.PNNS ---
Subjective Interval history: intubated, sedated. nursing reports had to increase propofol this am due to elevated bp Physical Exam Vital signs: Vital Signs 09/26/18 16:00 09/26/18 16:39 09/26/18 16:40 Temperature 99.2 F Pulse Rate 71 65 Respiratory Rate 14 14 15 Blood Pressure Pulse Oximetry 100 100 09/26/18 16:41 09/26/18 17:00 09/26/18 18:00 Temperature Pulse Rate 71 68 Respiratory Rate 14 Blood Pressure Pulse Oximetry 100 100 100 09/26/18 19:00 09/26/18 20:00 09/26/18 20:07 Temperature 99.9 F H Pulse Rate 70 65 71 Respiratory Rate 19 Blood Pressure Pulse Oximetry 100 100 100 09/26/18 21:00 09/26/18 22:00 09/26/18 23:00 Temperature Pulse Rate 80 65 63 Respiratory Rate Blood Pressure Pulse Oximetry 100 100 100 09/26/18 23:21 09/27/18 00:00 09/27/18 01:00 Temperature 99.8 F H Pulse Rate 64 61 Respiratory Rate 18 Blood Pressure Pulse Oximetry 100 100 100 09/27/18 02:00 09/27/18 03:00 09/27/18 04:00 Temperature 100.5 F H Pulse Rate 62 65 82 Respiratory Rate Blood Pressure Pulse Oximetry 100 100 100 09/27/18 04:05 09/27/18 05:00 09/27/18 06:00 Temperature Pulse Rate 78 62 Respiratory Rate 18 Blood Pressure Pulse Oximetry 100 100 09/27/18 07:00 09/27/18 08:00 09/27/18 09:06 Temperature 100.6 F H Pulse Rate 104 H 72 Respiratory Rate 20 Blood Pressure Pulse Oximetry 100 100 100 09/27/18 09:07 09/27/18 10:00 09/27/18 12:00 Temperature 100.2 F H Pulse Rate 96 H 71 Respiratory Rate 20 18 Blood Pressure 160/69 H Pulse Oximetry 100 100 09/27/18 13:08 Temperature Pulse Rate Respiratory Rate 18 Blood Pressure Pulse Oximetry 100 Intake & Output 09/26/18 09/27/18 09/27/18 18:59 06:59 18:59 Intake Total 1295 / 1295 810 / 810 450 / 450 Output Total 753 / 753 865 / 865 Balance 542 / 542 -55 / -55 450 / 450 Weight 70.1 kg Intake: IV 680 / 680 205 / 205 450 / 450 Sodium Chloride 3% Inj 500 ML @ 125 / 125 30 mls/hr IV.CONT CONT [facility] Rx# :[id number] Diprivan 1000 mg/100 ml Inj 1, 200 / 200 100 / 100 100 / 100 000 mg In 100 ml @ 5 MCG/KG/MIN 1.864 mls/hr IV.CONT TITRATE PRN Rx#:[id number] KCl 20 mEq Premix Inj 20 meq In 100 / 100 100 ml @ 50 mls/hr IV.SIG Q2H PRN Rx#:[id number] fentaNYL 10 mcg/mL Premix Drip 250 / 250 250 / 250 2,500 mcg In 250 ml @ 50 MCG/HR 5 mls/hr IV.SIG TITRATE PRN Rx #:[id number] Keppra Inj 500 MG In NS Inj 100 105 / 105 105 / 105 ML @ 400 mls/hr IV.SIG Q12H [facility] Rx#:[id number] Tube Feeding 535 / 535 605 / 605 Water Bolus Amount 80 / 80 Output: Urine Amount (Catheter) 725 / 725 825 / 825 Indwelling Urethral Catheter 725 / 725 825 / 825 Gastric Drainage 0 / 0 Oral Orogastric Tube 0 / 0 Wound Drainage 40 / 40 # 1 Head 10 / 10 25 / 25 # 2 Head 10 10 10 # 3 Head 8 / 8 5 / 5 Other: Date of Last Bowel Movement 09/26/18 09/26/18 # Bowel Movements 0 # Incontinent Bowel Movements 2 Narrative: intubated, sedated pupils equal left flap much softer today, MARK drains in place ICP controlled = 5 well sedated, no response to pain stimuli, no eye opening, not following commands - Urinary Catheter Management Indwelling Urethral Catheter Cath placed during this visit: yes Reason for continuing: Hourly intake/output Insertion date: 09/22/18 Insertion time: 15:50 Assessment and Plan - Plan s/p left decompressive craniectomy with evacuation of the subdural hematoma, Placement of ICP monitor, stable ICPs redo left craniectomy evac of SDH 09/24/18, f/u CT Brain with extensive left cerebral edema, improvement of midline shift and decrease in SDH, dc ICP monitor, dc MARK drains start weaning sedation as tolerated Continue Protonix for stress ulcer prophylaxis continue Kiran hose and SCD's for DVT prophylaxis critical care mgt
[2018-09-27] MEDS: Pantoprazole Inj 40 MG Vial IV.PUSH SCH (16:35)
--- NOTE | 2018-09-27 17:37 | P.PNPAL ---
Reason for Visit Reason for visit: a. To assist with evaluation and management of symptoms including:pain, dyspnea , debility b. To assist medical decision maker(s) with: better understanding of current medical conditions; weighing benefits/burdens of medical treatment options; making medical treatment decisions. Subjective Subjective/Interval History: Mr. Vu is a 57-year-old male who came into the emergency they will call on after a fall at the grocery store. 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 At that time he had SHIPPING PROCESSOR shunt placement. 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 In March 2008 he suffered a left subdural hematoma for which required rehab. In January 2018 the patient suffered a stroke which slightly affected his speech and right upper extremity. He underwent rehab which resulted in improvement to his speech. Due to his worsening GCS 1 trauma alert was called. As per his , the patient's speech is usually normal but does slur when he is tired. It is unknown if he lost consciousness during the fall. No seizure activity was noted at the scene. The patient takes Plavix daily. The patient was unable to provide any information was not following commands. He was not moving upper extremities and withdrawal only to the lower. The patient was emergently intubated for airway protection and admitted for further evaluation and care. Dr. Wolff (neurosurgery) was consulted the patient was taken emergently to the emergency room for left decompressive craniotomy with evacuation of of the hematoma and attempt to stabilize. A right intracranial monitor was placed with opening pressures of 5 mmHg. He was given Keppra for seizure prophylaxis and started on hyperosmolar therapy. 09/27/18 Palliative care to follow-up with symptom management and goals of medical care. Not much change in clinical status. Patient remains critically ill, intubated and sedated. Patient has regained cough/gag, pupils equal round reactive. ICPs remained stable and below 10. Did have some instances of persistent hypertension this a.m. has somewhat resolved by now with increased sedation. There is a having a hard time decreasing propofol as patient becomes hypertensive. His continued ICP monitor DC MARK drains. We will do slow weaning of IV sedation as opposed to vacation sedations. Today's clinical information revealed: * WBC 7.7, Hgb 8.6, HCT 26.1, platelets 240 * NA 159, K+ 4.0, CL 126, CO2 28, BUN 18, creatinine 0.49, glucose 123 * ABG: PH 7.42, PCO2 42, PO2 129, HCO3 27 ventilator settings AC 550 PEEP 5 FiO2 35% Family/Friend Interactions: and daughter at bedside. They are understandably tearful given her father' s current condition. They understand the need for slow sedation weaning. Again discussed is unsure neurological status once sedation has been completed. They understand there is still significant amount of cerebral edema present and this will be a long process. The again voiced their wishes for aggressive care and are hopeful for meaningful neurological recovery. Advance Directives Living Will: Never completed Health Care Surrogate: Never completed Durable Power of Warp Knitting Machine Operator: Never completed Health Care Surrogate Name and Number: Judy Vu, /healthcare proxy Documented care wishes:: Patient does not have a documented living will or DURABLE POWER OF SLIP BOX CHANGER Significant change in goals:: Currently no significant changes in goals of care Objective Vital Signs: Vital Signs 09/26/18 18:00 09/26/18 19:00 09/26/18 20:00 Temperature 99.9 F H Pulse Rate 68 70 65 Respiratory Rate Blood Pressure Pulse Oximetry 100 100 100 09/26/18 20:07 09/26/18 21:00 09/26/18 22:00 Temperature Pulse Rate 71 80 65 Respiratory Rate 19 Blood Pressure Pulse Oximetry 100 100 100 09/26/18 23:00 09/26/18 23:21 09/27/18 00:00 Temperature 99.8 F H Pulse Rate 63 64 Respiratory Rate 18 Blood Pressure Pulse Oximetry 100 100 100 09/27/18 01:00 09/27/18 02:00 09/27/18 03:00 Temperature Pulse Rate 61 62 65 Respiratory Rate Blood Pressure Pulse Oximetry 100 100 100 09/27/18 04:00 09/27/18 04:05 09/27/18 05:00 Temperature 100.5 F H Pulse Rate 82 78 Respiratory Rate 18 Blood Pressure Pulse Oximetry 100 100 100 09/27/18 06:00 09/27/18 07:00 09/27/18 08:00 Temperature 100.6 F H Pulse Rate 62 104 H 72 Respiratory Rate Blood Pressure Pulse Oximetry 100 100 09/27/18 09:06 09/27/18 09:07 09/27/18 10:00 Temperature Pulse Rate 96 H Respiratory Rate 20 20 Blood Pressure Pulse Oximetry 100 100 09/27/18 12:00 09/27/18 13:08 09/27/18 14:00 Temperature 100.2 F H Pulse Rate 71 65 Respiratory Rate 18 18 Blood Pressure 160/69 H Pulse Oximetry 100 100 09/27/18 15:48 09/27/18 16:00 Temperature 100.0 F H Pulse Rate 66 Respiratory Rate 18 18 Blood Pressure 160/68 H Pulse Oximetry 100 100 Intake & Output 09/26/18 09/27/18 09/27/18 18:59 06:59 18:59 Intake Total 1295 / 1295 810 / 810 450 / 450 Output Total 753 / 753 865 / 865 Balance 542 / 542 -55 / -55 450 / 450 Weight 70.1 kg Intake: IV 680 / 680 205 / 205 450 / 450 Sodium Chloride 3% Inj 500 ML @ 125 / 125 30 mls/hr IV.CONT CONT STONEY Rx# :[id number] Diprivan 1000 mg/100 ml Inj 1, 200 / 200 100 / 100 100 / 100 000 mg In 100 ml @ 5 MCG/KG/MIN 1.864 mls/hr IV.CONT TITRATE PRN Rx#:[id number] KCl 20 mEq Premix Inj 20 meq In 100 / 100 100 ml @ 50 mls/hr IV.SIG Q2H PRN Rx#:[id number] fentaNYL 10 mcg/mL Premix Drip 250 / 250 250 / 250 2,500 mcg In 250 ml @ 50 MCG/HR 5 mls/hr IV.SIG TITRATE PRN Rx #:[id number] Keppra Inj 500 MG In NS Inj 100 105 / 105 105 / 105 ML @ 400 mls/hr IV.SIG Q12H STONEY Rx#:[id number] Tube Feeding 535 / 535 605 / 605 Water Bolus Amount 80 / 80 Output: Urine Amount (Catheter) 725 / 725 825 / 825 Indwelling Urethral Catheter 725 / 725 825 / 825 Gastric Drainage 0 / 0 Oral Orogastric Tube 0 / 0 Wound Drainage 28 / 40 / 40 # 1 Head 10 25 / 25 # 2 Head 10 # 3 Head 8 5 / 5 Other: Date of Last Bowel Movement 09/26/18 09/26/18 # Bowel Movements 0 # Incontinent Bowel Movements 2 Physical Exam: CONSTITUTIONAL/GENERAL: Currently intubated and sedated, appears critically ill. TUBES/LINES/DRAINS:PIV, LSC, LRAL, Brunner, bilateral soft wrist restraints, OGT SKIN: No jaundice, rashes, or lesions. Multiple abrasions noted to bilateral toes. Feet appear poorly cared for. Skin temperature appropriate. Not diaphoretic. HEAD: Old right-sided skull deformity noted. Left sided horse shoe incision with jey C/D/I now with sunken in appearance. EYES: Pupils 3 mm with sluggish reaction, periorbital edema since resolved. ENT: Unable to assess hearing due to clinical condition. nose without bleeding or purulent drainage. Throat without visible erythema, exudates, masses, or lesions. CARDIOVASCULAR: regular rate and rhythm. SR on tele monitor. Without murmurs, gallops, or rubs. No JVD. Peripheral pulses symmetric, weak pedal pulses RESPIRATORY/CHEST: Symmetric, unlabored respirations. Clear to auscultation. Breath sounds equal bilaterally. Diminished at the bases, scattered rhonchi, remains mechanically ventilated. GASTROINTESTINAL: Abdomen soft, non-tender, nondistended. No hepato-splenomegaly , or palpable masses. Bowel sounds hypoactive. Tolerating TF via OGT. GENITOURINARY: Without palpable bladder distension. Brunner catheter in place. MUSCULOSKELETAL: Extremities without clubbing, cyanosis, or edema. No joint effusion noted. No mottling or clubbing. NEUROLOGICAL: Heavily sedated, + cough/gag. Pupils 3mm bilateral with sluggish reaction. Flaccid bilateral upper extremities, very weak withdrawal to central noxious stimuli right lower, does not appear to withdraw with stimulation to periphery. No movement seen to left lower extremity with stimuli either peripherally or centrally. PSYCHIATRIC: Unable to assess due to clinical condition Diagnostic Tests Laboratory: Laboratory Results - last 72 hr 09/24/18 09/24/18 09/24/18 16:42 18:49 18:52 WBC 9.9 RBC 2.83 L Hgb 8.1 L Hct 23.9 L MCV 84.5 MCH 28.8 MCHC 34.0 RDW 15.1 Plt Count 185 MPV 8.3 Neut % (Auto) 72.8 H Lymph % (Auto) 15.3 [place] % (Auto) 11.2 H Eos % (Auto) 0.2 Baso % (Auto) 0.5 Neut # (Auto) 7.2 Lymph # (Auto) 1.5 [place] # (Auto) 1.1 H Eos # (Auto) 0.0 Baso # (Auto) 0.1 WBC Differential . Differential Comment Auto diff final Puncture Site Unknown Patient Temperature 98.6 O2 Saturation 97 ABG pH 7.50 H ABG pCO2 30 L ABG pO2 279 H ABG HCO3 23 ABG O2 Content 12.6 ABG Base Excess 0.1 ABG Methemoglobin 1.6 Hemoglobin 8.7 L Carboxyhemoglobin 1.0 O2 Delivery Device Vent Setting Inspired O2 Critical Value No Sodium Potassium Chloride Carbon Dioxide Anion Gap BUN Creatinine Estimated GFR Random Glucose Osmolality Calcium Prot Corrected Calcium Total Bilirubin AST ALT Alkaline Phosphatase Total Protein Albumin MTS Gel Crossmatch See Detail Bld Prod Order Comment 09/24/18 09/25/18 09/25/18 20:50 06:09 06:10 WBC RBC Hgb Hct MCV MCH MCHC RDW Plt Count MPV Neut % (Auto) Lymph % (Auto) Bos[place] % (Auto) Eos % (Auto) Baso % (Auto) Neut # (Auto) Lymph # (Auto) [place] # (Auto) Eos # (Auto) Baso # (Auto) WBC Differential Differential Comment Puncture Site Art line Patient Temperature 98.6 O2 Saturation 97 ABG pH 7.42 ABG pCO2 39 ABG pO2 161 H ABG HCO3 24 ABG O2 Content 11.9 L ABG Base Excess 0.4 ABG Methemoglobin 1.4 Hemoglobin 8.5 L Carboxyhemoglobin 1.2 O2 Delivery Device Ventilator Vent Setting Ac/rr14/vt550/[id number] Inspired O2 35 Critical Value No Sodium 154 H 155 H Potassium 3.1 L 3.1 L Chloride 124 H 123 H Carbon Dioxide 24.1 24.5 Anion Gap 6 8 BUN 14 16 Creatinine 0.37 L 0.55 L Estimated GFR Greater than 89 Greater than 89 Random Glucose 104 98 Osmolality 311 H Calcium 7.4 L* 7.3 L* Prot Corrected Calcium 8.9 D 8.7 Total Bilirubin 0.6 0.2 AST 24 22 ALT 17 18 Alkaline Phosphatase 48 52 Total Protein 4.5 L 4.6 L Albumin 1.9 L 1.9 L MTS Gel Crossmatch Bld Prod Order Comment 09/25/18 09/25/18 09/25/18 06:10 17:30 17:30 WBC 9.4 RBC 2.85 L Hgb 8.3 L Hct 23.7 L MCV 83.5 MCH 29.3 MCHC 35.1 RDW 15.5 Plt Count 203 MPV 8.5 Neut % (Auto) 74.9 H Lymph % (Auto) 13.6 [place] % (Auto) 10.4 H Eos % (Auto) 0.6 Baso % (Auto) 0.5 Neut # (Auto) 7.0 Lymph # (Auto) 1.3 [place] # (Auto) 1.0 H Eos # (Auto) 0.1 Baso # (Auto) 0.0 WBC Differential . Differential Comment Auto diff final Puncture Site Patient Temperature O2 Saturation ABG pH ABG pCO2 ABG pO2 ABG HCO3 ABG O2 Content ABG Base Excess ABG Methemoglobin Hemoglobin Carboxyhemoglobin O2 Delivery Device Vent Setting Inspired O2 Critical Value Sodium 158 H* Potassium 3.8 Chloride Carbon Dioxide Anion Gap BUN Creatinine Estimated GFR Random Glucose Osmolality Calcium Prot Corrected Calcium Total Bilirubin AST ALT Alkaline Phosphatase Total Protein Albumin MTS Gel Crossmatch Bld Prod Order Comment 09/26/18 09/26/18 09/26/18 05:40 06:25 06:25 WBC 9.5 RBC 2.92 L Hgb 8.7 L Hct 24.9 L MCV 85.1 MCH 29.8 MCHC 35.0 RDW 16.0 Plt Count 213 MPV 8.6 Neut % (Auto) 81.1 H Lymph % (Auto) 8.4 L [place] % (Auto) 9.5 H Eos % (Auto) 0.8 Baso % (Auto) 0.2 Neut # (Auto) 7.7 Lymph # (Auto) 0.8 L [place] # (Auto) 0.9 Eos # (Auto) 0.1 Baso # (Auto) 0.0 WBC Differential . Differential Comment Auto diff final Puncture Site Art line Patient Temperature 98.6 O2 Saturation 97 ABG pH 7.37 L ABG pCO2 42 ABG pO2 137 H ABG HCO3 23 ABG O2 Content 11.9 L ABG Base Excess -1.2 ABG Methemoglobin 1.3 Hemoglobin 8.6 L Carboxyhemoglobin 1.0 O2 Delivery Device Ventilator Vent Setting 14/550/5peep Inspired O2 35 Critical Value No Sodium 161 H* Potassium 3.9 Chloride 128 H Carbon Dioxide 24.5 Anion Gap 9 BUN 18 Creatinine 0.48 L Estimated GFR Greater than 89 Random Glucose 154 H Osmolality Calcium 7.4 L* Prot Corrected Calcium 8.5 Total Bilirubin AST ALT Alkaline Phosphatase Total Protein 5.1 L Albumin MTS Gel Crossmatch Bld Prod Order Comment 09/26/18 09/27/18 09/27/18 16:08 00:00 05:15 WBC RBC Hgb Hct MCV MCH MCHC RDW Plt Count MPV Neut % (Auto) Lymph % (Auto) Bos[place] % (Auto) Eos % (Auto) Baso % (Auto) Neut # (Auto) Lymph # (Auto) [place] # (Auto) Eos # (Auto) Baso # (Auto) WBC Differential Differential Comment Puncture Site Art line Patient Temperature 98.6 O2 Saturation 96 ABG pH 7.42 ABG pCO2 42 ABG pO2 129 H ABG HCO3 27 H ABG O2 Content 11.9 L ABG Base Excess 2.4 H ABG Methemoglobin 1.3 Hemoglobin 8.6 L Carboxyhemoglobin 1.2 O2 Delivery Device Ventilator Vent Setting 18/550/5peep Inspired O2 35 Critical Value No Sodium 161 H* 161 H* Potassium Chloride Carbon Dioxide Anion Gap BUN Creatinine Estimated GFR Random Glucose Osmolality Calcium Prot Corrected Calcium Total Bilirubin AST ALT Alkaline Phosphatase Total Protein Albumin MTS Gel Crossmatch Bld Prod Order Comment 09/27/18 09/27/18 06:00 06:00 WBC 7.7 RBC 3.01 L Hgb 8.6 L Hct 26.1 L MCV 86.8 MCH 28.7 MCHC 33.0 RDW 15.4 Plt Count 240 MPV 8.3 Neut % (Auto) 72.9 H Lymph % (Auto) 12.6 [place] % (Auto) 11.2 H Eos % (Auto) 2.9 Baso % (Auto) 0.4 Neut # (Auto) 5.6 Lymph # (Auto) 1.0 [place] # (Auto) 0.9 Eos # (Auto) 0.2 Baso # (Auto) 0.0 WBC Differential . Differential Comment Auto diff final Puncture Site Patient Temperature O2 Saturation ABG pH ABG pCO2 ABG pO2 ABG HCO3 ABG O2 Content ABG Base Excess ABG Methemoglobin Hemoglobin Carboxyhemoglobin O2 Delivery Device Vent Setting Inspired O2 Critical Value Sodium 159 H* Potassium 4.0 Chloride 126 H Carbon Dioxide 28.0 Anion Gap 5 BUN 18 Creatinine 0.49 L Estimated GFR Greater than 89 Random Glucose 123 H Osmolality Calcium 7.8 L Prot Corrected Calcium Total Bilirubin AST ALT Alkaline Phosphatase Total Protein Albumin MTS Gel Crossmatch Bld Prod Order Comment Result Diagrams: 09/27/18 06:00 09/27/18 06:00 Imaging: Impressions Head CT 09/26/18 00:00 CONCLUSION: 1. Left-sided subdural hematoma is less prominent measuring 9 mm. 2. Edema remains throughout the left cerebral hemisphere with less mass effect and decreasing left to right midline shift . Procedures: 09/22/18 * Left craniotomy with subdural hematoma evacuation * Right Davian with ICP monitor placement * Intubation * Left subclavian central line placement * Left radial atrial line placement 09/24/18 * repeat left craniotomy 09/27/18 * ICP monitor removed * MARK drains removed Assessment and Plan - Disease Oriented Problem List (1) Acute subdural hematoma - Symptom Scale (1) Pain 0-10 Scale: Unable to quantify Comment: Currently managed with fentanyl infusion (2) Dyspnea 0-10 Scale: Unable to quantify Comment: Currently managed with mechanical ventilator (3) Altered mental status 0-10 Scale: Unable to quantify Pertinent Non-Medical Issues: Psychosocial: The patient is currently . The couple have 2 children one who lives in [place] and one who lives locally. He was independent of ambulation and most ADLs. He was currently retired Spiritual: None Legal: In the absence of a documented living will, per [place] statutes, decision making falls to the patient's Judy Vu by proxy Ethical issues impacting care: There are currently no known ethical issues impacting care at this time Important Contacts: `` Judy Vu, /HCP [phone] Yosef Vu, son [phone] Ramona Vu, daughter [phone] Prognosis: This patient is a complicated case with multiple traumatic brain injuries, craniotomies and SHIPPING PROCESSOR shunt placement. He remains critically ill and is at increased risk for continued neurological and physical decompensation. It is unsure if he will have any meaningful neurological recovery at this point. The patient is at high risk for further decline and . If he does survive these original insults, he will be at high risk for continued morbidity and mortality due to associated sequelae Code Status: Full Code Plan: * LEGAL DECISION MAKER -Judy Vu, /HCP [phone] * GOALS - Mr. Vu is currently critically ill, intubated and sedated and unable to participate in his own healthcare decision making. Essentially no significant changes in goals of care. Family wishes for all forms of aggressive medical treatment modalities. They continue to remain hopeful for a full a meaningful neurological recovery. * CODE STATUS -FULL CODE * SYMPTOMS: Painmultifactorial including bedbound status, invasive procedures, invasive tubes and lines etc., The patient does not appear to be in any acute distress at this time. No nonverbal pain cues were noticed during exam. Patient is currently receiving a fentanyl infusion. Will make suggestions as the case evolves Dyspneacurrently managed by mechanical ventilation. The patient is on AC settings with FiO2 35%, PEEP of 5. Continue with pulmonary toilet is appropriate for this patient. Suspect patient will have a long weaning process. Defer to critical care Altered mental statuspatient has a complicated history including optic tumor removal with SHIPPING PROCESSOR shunt placement, lashae hole placement, and stroke as recent as January 2018. Is now S/P craniotomy x2 during this admission. Overall prognosis for meaningful neurological recovery remains poor. Palliative care will continue to follow during hospital course as condition evolves, to assist patient/decision maker with understanding of medical conditions, weighing benefits/burdens of treatment options, for clarification of goals of treatment. Additionally will assist with any symptoms of palliative concern. Attestation Attestation: To help prompt me to consider important information that might be impacting today's encounter and assessment, information from prior notes written by myself or my colleagues may have been "brought forward" into today's note. My signature on this note, however, is an attestation that I personally performed the exam, history, and/or decision-making noted today, and, unless otherwise indicated, the interactions with patient, family, and staff as well as the review of records all occurred today. I also attest that the listed assessment and stated plan reflect my best clinical judgment today based on the combination of historical information, prior notes, and today's exam/ interactions. When time spent is documented, it refers only to time spent today by the signer, or if indicated, combined time spent today by collaborating physician/nurse practitioner.
[2018-09-27] MEDS: NIFEdipine 10 MG Capsule PO SCH (18:14)
--- NOTE | 2018-09-27 18:54 | MG ---
cc: Symone Hayden MD,Yolande GAMBINO ELECTROENCEPHALOGRAM NUMBER: [id number] REFERRING PHYSICIAN: MAKI Combs AGE: 57 CLINICAL HISTORY: In room 1327. With photic stimulation. 40 mcg of Diprivan, 100 mcg of fentanyl on board. Intubated. Deep tactile stimulation given to all 4 extremities. Withdrawal in the legs, not in the arms. Status post left decompressive craniotomy for subdural hematoma. No bone flap over the left hemisphere. History of right-sided cranioplasty and SEAWEED HARVESTER shunt, right side. On Keppra, Trileptal and Protonix. DESCRIPTION OF RECORD: Some high amplitude waves over the left hemisphere seen and may be a breach-type rhythm. Overall slowing, 2-3 Hz. I do not appreciate any significant epileptiform features. EKG is unable to be interpreted. Photic stimulation without any significant driving response. IMPRESSION: Abnormal findings over the left hemisphere, likely due to a breach rhythm, but I do not see any epileptiform features. Clinical correlation. MD SHANELLE Kirby/samantha , 06:32 PM , 06:37 PM
[2018-09-28] MEDS: Oral Hygiene Kit OROPHARYNG SCH ×4 (01:53→15:40)
[2018-09-28] MEDS: Metoprolol Inj 5 MG/5 ML Vial IV.PUSH SCH ×6 (02:14→20:39)
[2018-09-28] MEDS: Propofol 1000 mg/100 ml Inj 1,000 MG/100 ML BOTTLE IV.CONT PRN ×3 (02:14→18:44)
[2018-09-28 05:52] LABS: ABG Base Excess 3.1 mmol/L (-2-2); ABG PCO2 39 mmHg (38-42); ABG PO2 112 mmHg (61-120)
[2018-09-28 06:03] LABS: Baso % (Auto) 0.3 % (0.0-2.0); Eos # (Auto) 0.5 th/mm3 (0.0-0.4); Eos % (Auto) 4.4 % (0.0-4.0); Hematocrit 25.2 % (39.0-51.0); Hemoglobin 8.6 gm/dL (13.0-17.0); Lymph % (Auto) 8.7 % (9.0-44.0); Mean Corpuscular HGB Conc 34.3 % (32.0-36.0); Mean Corpuscular Hemoglobin 29.1 pg (27.0-34.0); Mean Platelet Volume 8.6 fL (7.0-11.0); Mono # (Auto) 1.2 th/mm3 (0.0-0.9); Mono % (Auto) 10.5 % (0.0-8.0); Neut % (Auto) 76.1 % (16.0-70.0); Platelet Count 220 th/mm3 (150-450); Red Blood Count 2.96 mil/mm3 (4.50-5.90); Red Cell Distribution Width 15.2 % (11.6-17.2); White Blood Count 11.9 th/mm3 (4.0-11.0)
[2018-09-28 06:36] LABS: Anion Gap 6 meq/L (5-15); Blood Urea Nitrogen 22 mg/dL (7-18); Calcium 7.8 mg/dL (8.5-10.1); Chloride 117 meq/L (98-107); Glomerular Filtration Rate Greater Than 89 mL/min (>89); Glucose,Random 134 mg/dL (74-106); Potassium 4.1 meq/L (3.5-5.1); Sodium 151 meq/L (136-145)
[2018-09-28] MEDS: Chlorhexidine 0.12% Oral Kit 15 ML UDC OROPHARYNG SCH ×2 (07:59→20:39)
[2018-09-28] MEDS: Senna/Docusate Sodium 8.6/50 MG Tablet PO SCH ×2 (08:00→20:39)
[2018-09-28] MEDS: NIFEdipine 10 MG Capsule PO SCH ×3 (08:00→17:58)
[2018-09-28] MEDS: OXcarbazepine 600 MG Tablet PO SCH ×2 (08:01→20:39)
--- NOTE | 2018-09-28 09:05 | P.PNNS ---
Subjective Interval history: No reported issues overnight. Physical Exam Vital signs: Vital Signs 09/27/18 09:06 09/27/18 09:07 09/27/18 10:00 Temperature Pulse Rate 96 H Respiratory Rate 20 20 Blood Pressure Pulse Oximetry 100 100 09/27/18 12:00 09/27/18 13:08 09/27/18 14:00 Temperature 100.2 F H Pulse Rate 71 65 Respiratory Rate 18 18 Blood Pressure 160/69 H Pulse Oximetry 100 100 09/27/18 15:48 09/27/18 16:00 09/27/18 18:00 Temperature 100.0 F H Pulse Rate 66 75 Respiratory Rate 18 18 Blood Pressure 160/68 H Pulse Oximetry 100 100 09/27/18 20:00 09/27/18 21:32 09/27/18 22:00 Temperature 101.4 F H Pulse Rate 84 66 Respiratory Rate 18 19 Blood Pressure Pulse Oximetry 99 99 09/28/18 00:00 09/28/18 00:45 09/28/18 02:00 Temperature 100.6 F H Pulse Rate 69 69 Respiratory Rate 18 18 Blood Pressure 141/64 H Pulse Oximetry 100 100 09/28/18 03:38 09/28/18 04:00 09/28/18 06:00 Temperature 99.3 F Pulse Rate 59 L 59 L Respiratory Rate 18 18 Blood Pressure 144/59 H Pulse Oximetry 100 100 09/28/18 08:09 Temperature Pulse Rate Respiratory Rate 18 Blood Pressure Pulse Oximetry 100 Intake & Output 09/27/18 09/28/18 09/28/18 18:59 06:59 18:59 Intake Total 1791 / 1791 1132 / 1132 100 / 100 Output Total 1150 / 1150 1000 / 1000 Balance 641 / 641 132 / 132 100 / 100 Weight 68.6 kg Intake: IV 655 / 655 205 / 205 100 / 100 Diprivan 1000 mg/100 ml Inj 1, 200 / 200 100 / 100 100 / 100 000 mg In 100 ml @ 5 MCG/KG/MIN 1.864 mls/hr IV.CONT TITRATE PRN Rx#:[id number] KCl 20 mEq Premix Inj 20 meq In 100 / 100 100 ml @ 50 mls/hr IV.SIG Q2H PRN Rx#:[id number] fentaNYL 10 mcg/mL Premix Drip 250 / 250 2,500 mcg In 250 ml @ 50 MCG/HR 5 mls/hr IV.SIG TITRATE PRN Rx #:[id number] Keppra Inj 500 MG In NS Inj 100 105 / 105 105 / 105 ML @ 400 mls/hr IV.SIG Q12H STONEY Rx#:[id number] Tube Feeding 616 / 616 527 / 527 Tube Irrigant 0 / 0 Water Bolus Amount 400 / 400 400 / 400 Other 120 / 120 Output: Urine Amount (Catheter) 1100 / 1100 1000 / 1000 Indwelling Urethral Catheter 1100 / 1100 1000 / 1000 Gastric Drainage 0 / 0 0 / 0 Oral Orogastric Tube 0 / 0 0 / 0 Wound Drainage 50 / 50 # 1 Head 15 / 15 # 2 Head 20 / 20 # 3 Head 15 / 15 Other: Date of Last Bowel Movement 09/27/18 09/28/18 # Bowel Movements 1 1 # Incontinent Bowel Movements 1 1 - Routine Neurological Exam Intubated, on moderate sedation. Pupils roughly equal. No eye opening to noxious stimuli. No motor response to noxious stimuli throughout. Flap sunken and soft. All drains and ICP monitor out. - Urinary Catheter Management Indwelling Urethral Catheter Cath placed during this visit: yes Reason for continuing: Hourly intake/output Insertion date: 09/22/18 Insertion time: 15:50 Assessment and Plan - Plan s/p craniotomy for subdural hemorrhage evacuation, followed by redo decompressive hemicraniectomy on 09/24 for reaccumulation. Had MARK drain and ICP monitor, both now removed. Exam remains poor, even off sedation per nursing staff. Working on slow sedation wean. Last head CT on 09/26, seen by Dr. Wolff Continue sedation wean as tolerated We will follow the flap for ICP; sunken and soft now, no concern for ongoing elevated ICP Continue Protonix for stress ulcer prophylaxis continue Kiran lindquist and SCD's for DVT prophylaxis
[2018-09-28] MEDS: fentaNYL 10 mcg/mL Premix Drip 2,500 MCG/250 ML BAG IV.SIG PRN (09:49)
[2018-09-28] MEDS ORDERED: hydrALAZINE HCl Inj 20 MG/ML Vial IV.PUSH PRN (11:00)
--- NOTE | 2018-09-28 13:06 | P.PNCC ---
Subjective Brief History: This is a 57-year-old male with history of a prior right sided craniectomy and cranioplasty, status post ventriculoperitoneal shunt, who was brought to the emergency department and trauma alert was called. He fell at the supermarket earlier today. 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 The patient then had a stroke January 2018 which slightly affected his speech and right upper extremity. The patient underwent rehab with improvement of his speech. He developed slurred speech since the fall with with slight change in behavior. The patient takes Plavix daily. The patient is unable to provide any information and does not follow commands. Withdraw to pain in his lower extremities. Trauma alert was called due to the decreased in GCS. The patient went immediately to CT for CT the brain which did reveal bilateral subdurals with mild shift. The patient had decreasing mental status, would not follow commands, therefore, given his drop in GCS was taken to the trauma room and a level 1 trauma was called. The patient was intubated using rapid sequence intubation to protect the airway after lidocaine 100 mg was given the patient received etomidate 20 mg intravenously and succinylcholine 100 mg at. The patient was intubated using an endotracheal tube, 8.0, without difficulty. The patient did receive [address] Tay who evaluated the patient in the trauma room and he was resuscitated according to ATLS principles. Initial diagnostic workup reveals Bilateral subdural hematomas left considerably greater than right. The subdural on the left extends from the left frontal to occipital lobe and superiorly to the high convexity and measures 15 mm across with considerable mixed density. The small right occipital subdural is more homogeneous c/w acute hemorrhagic density Patient is taken immediately to the operating room for decompressive craniectomy and is now in ICU for further care Should be noted patient was on Plavix aspirin which has been stopped Patient will be managed according to the established neurosurgical critical care principles and full evaluation will be completed considering that patient has other comorbidities that need to be addressed 24 Hour Review/Hospital Course: 09/23/2018 Patient with massive head injury and huge left subdural hematoma status post craniectomy and drainage Patient is sedated on neuroprotective measures including propofol fentanyl and Keppra ICP remains around 8-14 mmHg Patient received 25 g of mannitol last night and since then ICP has been low Serum sodium 142 mEq/L and patient is on 3% saline at 30 cc/h We will keep sodium less than 160 mEq/L At this point [place] Coma Scale remains 3 and patient has no activity whatsoever Hemodynamically patient is stable and hemoglobin and hematocrit are stable after transfusion of 1 unit PRBC last night Bilateral breath sounds patient fully ventilatory supported on assist control ventilation mode with good PO2 FiO2 gradient Keep PCO2 between 32-40 mmHg Abdomen soft Renal function well-preserved patient is euvolemic and will decrease maintenance fluids This patient has very poor prognosis based on his age and severity of brain injury on top of already previous craniotomy for optic nerve tumor Patient has about 80% 1 year mortality and 100% morbidity with 100% chance of permanent neurologic deficits either cognitive motoric or both We will consult palliative care to discuss his further prospects with the family and lay out some options 09/[address] scan today which shows significant worsening of his subdural hematoma His ICPs remain within normal limits his sodium is 150 his CPP is also within normal limits Patient overall is status post multiple craniotomy craniotomy start craniectomies I had a discussion with the neurosurgeon regarding the clinical picture we both agreed that we need to have a discussion with patient's -for a potential craniectomy Overall patient prognosis remain poor If craniectomy is being decided we will need to transfuse patient 2 units of blood 09/25 Patient is status post decompressive craniectomy postop day 1 Neurosurgery would like to maintain full sedation today and reassess mental status tomorrow His CPP ICP and hemodynamics are within normal limits His sodium is 155 and will keep it at this level for now Continue the tube feeds Family updated at the bedside 09/26 He- underwent a CT scan of the head in the morning here is still a large amount of edema, subdural hematoma improved however His ICPs and CPPs remain good level-stay fully sedated for now as per neurosurgeon Sodium is 161 and hypertonic saline has been dcd-we will monitor sodium until it reaches the desired level of 150-155 She is on tube feeds and tolerating well In light of increased bleeding and redo craniectomy will discuss with the neurosurgeon before starting chemical DVT prophylaxis 09/27/2018 Neurologically patient is unchanged Patient status post second operation and left craniectomy with evacuation of a subdural hematoma Significant brain swelling with some decrease in shift ICP remains low around 5-8 mmHg and central perfusion pressure within adequate parameters based on mean arterial pressure Adjusted free fluids and serum sodium is on decline which we will keep between 145 and 155 mEq/L Hemodynamically stable Bilateral breath sounds on assist control ventilation with good PO2 FiO2 gradient Renal function preserved Palliative care has been consulted and evaluated the patient and discussed the care with the family. Today and explained the devastating nature of his injury combined with his age carries extremely poor long-term prognosis In the best case scenario this patient will be off the ventilator however permanently on a feeding tube and bedbound Patient has very poor prospects of a long-term quality of life and no reasonable chance of meaningful recovery 09/28/2018 Neurologically unchanged ICP monitor has been removed in face of normal values Propofol and fentanyl have been stopped to see the neurologic function however patient is only slightly withdrawing to pain with left leg consistent with [place] Coma Scale of 4 Hemodynamically remains stable Bilateral breath sounds remains on assist control ventilation I discussed again at length with the family the current picture and the dismal prognosis of the same If family proceeds with full care patient will require tracheostomy and PEG and placement in a jail All the options have been evaluated as well as the status including DNR possibility Family will think about it and come to a joint decision Objective Vital Signs / I&O: Vital Signs 09/27/18 13:08 09/27/18 14:00 09/27/18 15:48 Temperature Pulse Rate 65 Respiratory Rate 18 18 Blood Pressure Pulse Oximetry 100 100 09/27/18 16:00 09/27/18 18:00 09/27/18 20:00 Temperature 100.0 F H 101.4 F H Pulse Rate 66 75 84 Respiratory Rate 18 18 Blood Pressure 160/68 H Pulse Oximetry 100 99 09/27/18 21:32 09/27/18 22:00 09/28/18 00:00 Temperature 100.6 F H Pulse Rate 66 69 Respiratory Rate 19 18 Blood Pressure 141/64 H Pulse Oximetry 99 100 09/28/18 00:45 09/28/18 02:00 09/28/18 03:38 Temperature Pulse Rate 69 Respiratory Rate 18 18 Blood Pressure Pulse Oximetry 100 100 09/28/18 04:00 09/28/18 06:00 09/28/18 07:00 Temperature 99.3 F Pulse Rate 59 L 59 L 59 L Respiratory Rate 18 18 Blood Pressure 144/59 H Pulse Oximetry 100 100 09/28/18 08:00 09/28/18 08:09 09/28/18 09:00 Temperature 99.9 F H Pulse Rate 61 62 Respiratory Rate 18 18 18 Blood Pressure Pulse Oximetry 100 100 94 L 09/28/18 12:30 Temperature Pulse Rate Respiratory Rate 14 Blood Pressure Pulse Oximetry 100 Intake & Output 09/27/18 09/28/18 09/28/18 18:59 06:59 18:59 Intake Total 1791 / 1791 1132 / 1132 350 / 350 Output Total 1150 / 1150 1000 / 1000 Balance 641 / 641 132 / 132 350 / 350 Weight 68.6 kg Intake: IV 655 / 655 205 / 205 350 / 350 Diprivan 1000 mg/100 ml Inj 1, 200 / 200 100 / 100 100 / 100 000 mg In 100 ml @ 5 MCG/KG/MIN 1.864 mls/hr IV.CONT TITRATE PRN Rx#:[id number] KCl 20 mEq Premix Inj 20 meq In 100 / 100 100 ml @ 50 mls/hr IV.SIG Q2H PRN Rx#:[id number] fentaNYL 10 mcg/mL Premix Drip 250 / 250 250 / 250 2,500 mcg In 250 ml @ 50 MCG/HR 5 mls/hr IV.SIG TITRATE PRN Rx #:[id number] Keppra Inj 500 MG In NS Inj 100 105 / 105 105 / 105 ML @ 400 mls/hr IV.SIG Q12H STONEY Rx#:[id number] Tube Feeding 616 / 616 527 / 527 Tube Irrigant 0 / 0 Water Bolus Amount 400 / 400 400 / 400 Other 120 / 120 Output: Urine Amount (Catheter) 1100 / 1100 1000 / 1000 Indwelling Urethral Catheter 1100 / 1100 1000 / 1000 Gastric Drainage 0 / 0 0 / 0 Oral Orogastric Tube 0 / 0 0 / 0 Wound Drainage 50 / 50 # 1 Head 15 / 15 # 2 Head 20 / 20 # 3 Head 15 / 15 Other: Date of Last Bowel Movement 09/27/18 09/28/18 09/28/18 # Bowel Movements 1 1 # Incontinent Bowel Movements 1 1 Result Diagrams: 09/28/18 05:20 09/28/18 05:20 Disinhibition Score: 14.00 Aggression Score: 14.00 Lability Score: 14.00 Agitated Behavior Total Score: 14 Assessment and Plan Plan: Propofol and fentanyl for sedation continue neuro protection hold DVT prophylaxis for now as patient's bleed recurred continue tube feeds Continue mechanical ventilation Attestation: Critical care 32
[2018-09-28] MEDS: Pantoprazole Inj 40 MG Vial IV.PUSH SCH (15:40)
[2018-09-29] MEDS: Oral Hygiene Kit OROPHARYNG SCH ×4 (01:35→16:27)
[2018-09-29] MEDS: Metoprolol Inj 5 MG/5 ML Vial IV.PUSH SCH ×4 (02:23→20:53)
[2018-09-29] MEDS: Propofol 1000 mg/100 ml Inj 1,000 MG/100 ML BOTTLE IV.CONT PRN ×3 (04:08→17:42)
[2018-09-29 05:00] LABS: Baso % (Auto) 0.2 % (0.0-2.0); Eos # (Auto) 0.4 th/mm3 (0.0-0.4); Eos % (Auto) 4.3 % (0.0-4.0); Hematocrit 27.6 % (39.0-51.0); Hemoglobin 9.2 gm/dL (13.0-17.0); Lymph # (Auto) 0.8 th/mm3 (1.0-4.8); Lymph % (Auto) 7.3 % (9.0-44.0); Mean Corpuscular HGB Conc 33.5 % (32.0-36.0); Mean Corpuscular Hemoglobin 28.9 pg (27.0-34.0); Mean Corpuscular Volume 86.4 fL (80.0-100.0); Mean Platelet Volume 8.7 fL (7.0-11.0); Mono % (Auto) 9.8 % (0.0-8.0); Neut # (Auto) 8.1 th/mm3 (1.8-7.7); Neut % (Auto) 78.4 % (16.0-70.0); Platelet Count 238 th/mm3 (150-450); Red Blood Count 3.19 mil/mm3 (4.50-5.90); Red Cell Distribution Width 14.8 % (11.6-17.2); White Blood Count 10.4 th/mm3 (4.0-11.0)
[2018-09-29 05:33] LABS: Anion Gap 5 meq/L (5-15); Blood Urea Nitrogen 24 mg/dL (7-18); Calcium 7.7 mg/dL (8.5-10.1); Carbon Dioxide 27.6 meq/L (21.0-32.0); Chloride 109 meq/L (98-107); Glomerular Filtration Rate Greater Than 89 mL/min (>89); Glucose,Random 139 mg/dL (74-106); Potassium 4.1 meq/L (3.5-5.1); Sodium 142 meq/L (136-145)
[2018-09-29] MEDS: Chlorhexidine 0.12% Oral Kit 15 ML UDC OROPHARYNG SCH ×2 (09:25→20:57)
[2018-09-29] MEDS: Senna/Docusate Sodium 8.6/50 MG Tablet PO SCH ×2 (09:26→20:57)
--- NOTE | 2018-09-29 09:36 | P.PNNS ---
Subjective Interval history: No acute events overnight. Exam has remained poor. Physical Exam Vital signs: Vital Signs 09/28/18 11:00 09/28/18 12:00 09/28/18 12:30 Temperature 98.6 F Pulse Rate 62 58 L Respiratory Rate 16 14 14 Pulse Oximetry 93 L 100 100 09/28/18 13:00 09/28/18 14:00 09/28/18 15:00 Temperature Pulse Rate 59 L 63 68 Respiratory Rate 14 13 13 Pulse Oximetry 100 100 100 09/28/18 16:00 09/28/18 16:09 09/28/18 17:00 Temperature 99 F Pulse Rate 55 L 56 L Respiratory Rate 14 16 Pulse Oximetry 100 100 100 09/28/18 18:00 09/28/18 19:00 09/28/18 19:54 Temperature Pulse Rate 65 97 H Respiratory Rate 15 16 Pulse Oximetry 100 100 100 09/28/18 20:00 09/28/18 21:00 09/28/18 22:00 Temperature 99.2 F Pulse Rate 98 H 59 L 65 Respiratory Rate 17 17 Pulse Oximetry 100 100 100 09/28/18 23:00 09/28/18 23:51 09/29/18 00:00 Temperature 99.2 F Pulse Rate 60 58 L Respiratory Rate 15 16 Pulse Oximetry 100 100 100 09/29/18 01:35 EDT 09/29/18 01:00 EST 09/29/18 02:00 Temperature Pulse Rate 58 L 61 62 Respiratory Rate Pulse Oximetry 100 100 09/29/18 03:00 09/29/18 03:23 09/29/18 04:00 Temperature 100 F H Pulse Rate 82 68 Respiratory Rate 17 17 Pulse Oximetry 100 100 100 09/29/18 05:00 09/29/18 06:00 09/29/18 07:54 Temperature Pulse Rate 64 70 Respiratory Rate 21 Pulse Oximetry 100 100 100 Intake & Output 09/28/18 09/29/18 09/29/18 19:59 06:59 18:59 Intake Total 105 / 105 Output Total Balance 105 / 105 Weight Intake: IV 105 / 105 Diprivan 1000 mg/100 ml Inj 1, 000 mg In 100 ml @ 5 MCG/KG/MIN 2.058 mls/hr IV.CONT TITRATE PRN Rx#:[id number] fentaNYL 10 mcg/mL Premix Drip 2,500 mcg In 250 ml @ 50 MCG/HR 5 mls/hr IV.SIG TITRATE PRN Rx #:[id number] Keppra Inj 500 MG In NS Inj 100 105 / 105 ML @ 400 mls/hr IV.SIG Q12H STONEY Rx#:[id number] Tube Feeding Water Bolus Amount Output: Urine Amount (Catheter) Condom Indwelling Urethral Catheter Other: Date of Last Bowel Movement # Bowel Movements # Incontinent Bowel Movements - Routine Neurological Exam No eye opening to noxious stim. No motor response to noxious stim x4. Had a weak cough reflex. Hemicraniectomy flap is sunken and soft. - Urinary Catheter Management Indwelling Urethral Catheter Cath placed during this visit: yes, but has since been removed by the nurse Reason for continuing: Decision to DC catheter Insertion date: 09/22/18 Insertion time: 15:50 Removal date: 09/28/18 Removal time: 16:30 Condom Cath placed during this visit: yes Reason for continuing: Not indwelling catheter Insertion date: 09/28/18 Insertion time: 16:30 Assessment and Plan - Plan s/p craniotomy for subdural hemorrhage evacuation, followed by redo decompressive hemicraniectomy on 09/24 for reaccumulation. Had MARK drain and ICP monitor, both now removed. Exam remains poor, even off sedation per nursing staff. Working on slow sedation wean. Last head CT on 09/26, seen by Dr. Wolff Exam poor, with lack of recovery and his age, this is a poor prognostic indicator. Will need goals of care discussion with family. If he requires ongoing medical management, high likelihood of requirement of tracheostomy and PEG tube Continue sedation wean as tolerated We will follow the flap for ICP; sunken and soft now, no concern for ongoing elevated ICP Continue Protonix for stress ulcer prophylaxis continue Kiran lindquist and SCD's for DVT prophylaxis
[2018-09-29] MEDS: Midazolam 50 MG/50 ML Inj 50 MG/50 ML BAG IV.CONT PRN ×3 (09:46→20:50)
[2018-09-29] MEDS: OXcarbazepine 600 MG Tablet PO SCH ×2 (09:56→20:53)
[2018-09-29] MEDS: NIFEdipine 10 MG Capsule PO SCH ×3 (09:56→17:41)
--- NOTE | 2018-09-29 12:48 | P.PNCC ---
Subjective Brief History: This is a 57-year-old male with history of a prior right sided craniectomy and cranioplasty, status post ventriculoperitoneal shunt, who was brought to the emergency department and trauma alert was called. [place] earlier [place]. 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 The patient then had a stroke January 2018 which slightly affected his speech and right upper extremity. The patient underwent rehab with improvement of his speech. He developed slurred speech since the fall with with slight change in behavior. The patient takes Plavix daily. The patient is unable to provide any information and does not follow commands. Withdraw to pain in his lower extremities. Trauma alert was called due to the decreased in GCS. The patient went immediately to CT for CT the brain which did reveal bilateral subdurals with mild shift. The patient had decreasing mental status, would not follow commands, therefore, given his drop in GCS was taken to the trauma room and a level 1 trauma was called. The patient was intubated using rapid sequence intubation to protect the airway after lidocaine 100 mg was given the patient received etomidate 20 mg intravenously and succinylcholine 100 mg at. The patient was intubated using an endotracheal tube, 8.0, without difficulty. The patient did receive [address] Tay who evaluated the patient in the trauma room and he was resuscitated according to ATLS principles. Initial diagnostic workup reveals Bilateral subdural hematomas left considerably greater than right. The subdural on the left extends from the left frontal to occipital lobe and superiorly to the high convexity and measures 15 mm across with considerable mixed density. The small right occipital subdural is more homogeneous c/w acute hemorrhagic density Patient is taken immediately to the operating room for decompressive craniectomy and is now in ICU for further care Should be noted patient was on Plavix aspirin which has been stopped Patient will be managed according to the established neurosurgical critical care principles and full evaluation will be completed considering that patient has other comorbidities that need to be addressed 24 Hour Review/Hospital Course: 09/23/2018 Patient with massive head injury and huge left subdural hematoma status post craniectomy and drainage Patient is sedated on neuroprotective measures including propofol fentanyl and Keppra ICP remains around 8-14 mmHg Patient received 25 g of mannitol last night and since then ICP has been low Serum sodium 142 mEq/L and patient is on 3% saline at 30 cc/h We will keep sodium less than 160 mEq/L At this point [place] Coma Scale remains 3 and patient has no activity whatsoever Hemodynamically patient is stable and hemoglobin and hematocrit are stable after transfusion of 1 unit PRBC last night Bilateral breath sounds patient fully ventilatory supported on assist control ventilation mode with good PO2 FiO2 gradient Keep PCO2 between 32-40 mmHg Abdomen soft Renal function well-preserved patient is euvolemic and will decrease maintenance fluids This patient has very poor prognosis based on his age and severity of brain injury on top of already previous craniotomy for optic nerve tumor Patient has about 80% 1 year mortality and 100% morbidity with 100% chance of permanent neurologic deficits either cognitive motoric or both We will consult palliative care to discuss his further prospects with the family and lay out some options 09/[address] scan today which shows significant worsening of his subdural hematoma His ICPs remain within normal limits his sodium is 150 his CPP is also within normal limits Patient overall is status post multiple craniotomy craniotomy start craniectomies I had a discussion with the neurosurgeon regarding the clinical picture we both agreed that we need to have a discussion with patient's -for a potential craniectomy Overall patient prognosis remain poor If craniectomy is being decided we will need to transfuse patient 2 units of blood 09/25 Patient is status post decompressive craniectomy postop day 1 Neurosurgery would like to maintain full sedation today and reassess mental status tomorrow His CPP ICP and hemodynamics are within normal limits His sodium is 155 and will keep it at this level for now Continue the tube feeds Family updated at the bedside 09/26 He- underwent a CT scan of the head in the morning here is still a large amount of edema, subdural hematoma improved however His ICPs and CPPs remain good level-stay fully sedated for now as per neurosurgeon Sodium is 161 and hypertonic saline has been dcd-we will monitor sodium until it reaches the desired level of 150-155 She is on tube feeds and tolerating well In light of increased bleeding and redo craniectomy will discuss with the neurosurgeon before starting chemical DVT prophylaxis 09/27/2018 Neurologically patient is unchanged Patient status post second operation and left craniectomy with evacuation of a subdural hematoma Significant brain swelling with some decrease in shift ICP remains low around 5-8 mmHg and central perfusion pressure within adequate parameters based on mean arterial pressure Adjusted free fluids and serum sodium is on decline which we will keep between 145 and 155 mEq/L Hemodynamically stable Bilateral breath sounds on assist control ventilation with good PO2 FiO2 gradient Renal function preserved Palliative care has been consulted and evaluated the patient and discussed the care with the family. Today and explained the devastating nature of his injury combined with his age carries extremely poor long-term prognosis In the best case scenario this patient will be off the ventilator however permanently on a feeding tube and bedbound Patient has very poor prospects of a long-term quality of life and no reasonable chance of meaningful recovery 09/28/2018 Neurologically unchanged ICP monitor has been removed in face of normal values Propofol and fentanyl have been stopped to see the neurologic function however patient is only slightly withdrawing to pain with left leg consistent with [place] Coma Scale of 4 Hemodynamically remains stable Bilateral breath sounds remains on assist control ventilation I discussed again at length with the family the current picture and the dismal prognosis of the same If family proceeds with full care patient will require tracheostomy and PEG and placement in a halfway All the options have been evaluated as well as the status including DNR possibility Family will think about it and come to a joint decision 09/29/2018 Neurologically patient is unchanged With decrease in propofol sedation patient is becoming agitated tachypneic and hypertensive however does not follow commands does not open eyes does not move other than uncontrolled motion [place] Coma Scale remains very low probably 4-5 Hemodynamically stable and hypertensive On number of antihypertensive medications including Catapres patch/IV Lopressor/ IV Procardia/hydralazine Bilateral breath sounds on assist control ventilation and does not tolerate CPAP Abdomen soft enteral feeds tolerated Renal function preserved Following the wishes of the family patient is made DNR at this time I discussed tracheostomy and PEG with patient's family and they adamantly refused this and believe that patient would not want to live like this and I believe based on my discussion with the family they are making decision whether or not to withdraw the care Objective Vital Signs / I&O: Vital Signs 09/28/18 14:00 09/28/18 15:00 09/28/18 16:00 Temperature 99 F Pulse Rate 63 68 55 L Respiratory Rate 13 13 14 Pulse Oximetry 100 100 100 09/28/18 16:09 09/28/18 17:00 09/28/18 18:00 Temperature Pulse Rate 56 L 65 Respiratory Rate 16 Pulse Oximetry 100 100 100 09/28/18 19:00 09/28/18 19:54 09/28/18 20:00 Temperature 99.2 F Pulse Rate 97 H 98 H Respiratory Rate 15 16 17 Pulse Oximetry 100 100 100 09/28/18 21:00 09/28/18 22:00 09/28/18 23:00 Temperature Pulse Rate 59 L 65 60 Respiratory Rate 17 15 Pulse Oximetry 100 100 100 09/28/18 23:51 09/29/18 00:00 09/29/18 01:35 EDT Temperature 99.2 F Pulse Rate 58 L 58 L Respiratory Rate 16 Pulse Oximetry 100 100 09/29/18 01:00 EST 09/29/18 02:00 09/29/18 03:00 Temperature Pulse Rate 61 62 82 Respiratory Rate Pulse Oximetry 100 100 100 09/29/18 03:23 09/29/18 04:00 09/29/18 05:00 Temperature 100 F H Pulse Rate 68 64 Respiratory Rate 17 17 Pulse Oximetry 100 100 100 09/29/18 06:00 09/29/18 07:00 09/29/18 07:54 Temperature Pulse Rate 70 73 Respiratory Rate 21 Pulse Oximetry 100 100 100 09/29/18 08:00 09/29/18 09:00 09/29/18 10:00 Temperature 100.6 F H Pulse Rate 66 111 H 96 H Respiratory Rate 25 H Pulse Oximetry 100 100 99 Intake & Output 09/28/18 09/29/18 09/29/18 19:59 06:59 18:59 Intake Total 105 / 105 Output Total Balance 105 / 105 Weight Intake: IV 105 / 105 Diprivan 1000 mg/100 ml Inj 1, 000 mg In 100 ml @ 5 MCG/KG/MIN 2.058 mls/hr IV.CONT TITRATE PRN Rx#:[id number] fentaNYL 10 mcg/mL Premix Drip 2,500 mcg In 250 ml @ 50 MCG/HR 5 mls/hr IV.SIG TITRATE PRN Rx #:[id number] Keppra Inj 500 MG In NS Inj 100 105 / 105 ML @ 400 mls/hr IV.SIG Q12H STONEY Rx#:[id number] Tube Feeding Water Bolus Amount Output: Urine Amount (Catheter) Condom Indwelling Urethral Catheter Other: Date of Last Bowel Movement 09/29/18 # Bowel Movements # Incontinent Bowel Movements Result Diagrams: 09/29/18 04:45 09/29/18 04:45 Disinhibition Score: 14.00 Aggression Score: 14.00 Lability Score: 14.00 Agitated Behavior Total Score: 14 Assessment and Plan Plan: Propofol and fentanyl for sedation continue neuro protection hold DVT prophylaxis for now as patient's bleed recurred continue tube feeds Continue mechanical ventilation Attestation: Critical care time 32-minute
[2018-09-29] MEDS: Pantoprazole Inj 40 MG Vial IV.PUSH SCH (16:27)
[2018-09-30] MEDS: Oral Hygiene Kit OROPHARYNG SCH ×4 (01:55→16:09)
[2018-09-30] MEDS: Metoprolol Inj 5 MG/5 ML Vial IV.PUSH SCH ×4 (02:54→20:26)
[2018-09-30] MEDS: Propofol 1000 mg/100 ml Inj 1,000 MG/100 ML BOTTLE IV.CONT PRN (04:12)
--- NOTE | 2018-09-30 04:23 | XR ---
EXAM DATE: 09/30/2018 4:20 AM EST AGE/SEX: 57 years / Male INDICATIONS: Respiratory distress. CLINICAL DATA: This is the patient's subsequent encounter. Patient reports that signs and symptoms h ave been present for 1 week and indicates a pain score of Nonresponsive. MEDICAL/SURGICAL HISTORY: Stroke. Seizures. . Craniotomy. Ventricular shunt. COMPARISON: [facility], CHEST 1V SINGLE AP, 09/25/2018. . FINDINGS: Endotracheal tube and nasogastric tube are present in good position. Shunt tubing traverses the right chest. Implanted medical oncology physician noted over the low left chest. Hazy bibasilar pleural-parenchymal o pacities are present. Cardiac contours are grossly unchanged. CONCLUSION: Slight interval worsening in aeration with persistent left base parenchymal opacity and developing op acity at the right base. Electronically signed by: Navneet Nazario MD 09/30/2018 4:22 AM EST
[2018-09-30] MEDS: Midazolam 50 MG/50 ML Inj 50 MG/50 ML BAG IV.CONT PRN (04:35)
[2018-09-30 04:41] LABS: Baso % (Auto) 0.4 % (0.0-2.0); Eos # (Auto) 0.6 th/mm3 (0.0-0.4); Eos % (Auto) 6.4 % (0.0-4.0); Hematocrit 26.7 % (39.0-51.0); Hemoglobin 9.1 gm/dL (13.0-17.0); Lymph % (Auto) 10.3 % (9.0-44.0); Mean Corpuscular Hemoglobin 28.8 pg (27.0-34.0); Mean Corpuscular Volume 84.6 fL (80.0-100.0); Mean Platelet Volume 8.9 fL (7.0-11.0); Mono # (Auto) 1.3 th/mm3 (0.0-0.9); Mono % (Auto) 13.4 % (0.0-8.0); Neut # (Auto) 6.6 th/mm3 (1.8-7.7); Neut % (Auto) 69.5 % (16.0-70.0); Platelet Count 274 th/mm3 (150-450); Red Blood Count 3.16 mil/mm3 (4.50-5.90); Red Cell Distribution Width 14.4 % (11.6-17.2); White Blood Count 9.4 th/mm3 (4.0-11.0)
[2018-09-30 04:57] LABS: Anion Gap 6 meq/L (5-15); Blood Urea Nitrogen 27 mg/dL (7-18); Calcium 7.6 mg/dL (8.5-10.1); Carbon Dioxide 28.3 meq/L (21.0-32.0); Chloride 108 meq/L (98-107); Glomerular Filtration Rate Greater Than 89 mL/min (>89); Glucose,Random 106 mg/dL (74-106); Potassium 3.9 meq/L (3.5-5.1); Sodium 142 meq/L (136-145)
[2018-09-30 05:58] LABS: ABG Base Excess 3.7 mmol/L (-2-2); ABG PCO2 42 mmHg (38-42); ABG PO2 144 mmHg (61-120)
[2018-09-30] MEDS: OXcarbazepine 600 MG Tablet PO SCH ×2 (08:12→20:26)
[2018-09-30] MEDS: Chlorhexidine 0.12% Oral Kit 15 ML UDC OROPHARYNG SCH ×2 (08:13→20:27)
[2018-09-30] MEDS: NIFEdipine 10 MG Capsule PO SCH ×3 (08:13→17:24)
[2018-09-30] MEDS: Senna/Docusate Sodium 8.6/50 MG Tablet PO SCH ×2 (08:13→20:26)
--- NOTE | 2018-09-30 08:19 | P.PNNPSY ---
- Behavior Intact: Impulsive/agitated - Psychosocial Intact: Psychosocial, Family/other adjustment, Realistic expectation - Progress Notes/Response to Treatment Contents of Sessions: Adjustment, Level of consciousness Time with Patient: 30 minutes Premorbid Psychological Status: Premorbid Cognitive, Emotional and Behavioral Status: Tenuous. The patient has high school years of education and is not in the work force prior to this injury. The patient has no prior psychiatric difficulties, as described above. Substance abuse history is unremarkable. Behavioral Reactions of Patient and Family/Support System: Stable. The patients family is experiencing ongoing issues of adjustment given the nature of the injury, and this aspect of recovery will require ongoing monitoring. Emotional/Behavioral Status of Patient and Family/Support System: Stable. Pertinent issues, if appropriate to this patients clinical care, are described in detail above. Maximizing Acute Care Outcome: It is recommended that the patient be monitored for emergent behavioral impulsivity as the medical condition evolves. This patients neuropathological challenges may limit rehabilitation potential going forward, and these challenges will require specialized therapeutic skills to maximize outcome. Additionally, the patients family is experiencing ongoing issues of adjustment given the traumatic nature of the injury, and they may benefit from ongoing psychological assistance. At this point in the recovery process, the patient does not have cognitive capacity as the patient is unable to understand a situation and its likely consequences, nor is the patient able to manipulate information rationally. Cognitive capacity will be assessed throughout the recovery process. Anticipated Problems: Ongoing areas of concern will include behavioral impulsivity, lack of insight and judgment, which is expected to improve with time and treatment. Treatment Plan: This clinician will continue to follow with you throughout the course of this patients critical care treatment, and I will be available to meet with the patients family/support system to facilitate their understanding and the ongoing care of their family member. The goals of neuropsychological intervention shall be both educational and supportive to the family/support system as is deemed clinically appropriate. [place] COG Scale: Level II Disinhibition Score: 14.00 Aggression Score: 14.00 Lability Score: 14.00 Agitated Behavior Total Score: 14 Impression: 57 year old male with complicated neurological history including prior brain surgery for optic nerve tumor, CVA in 01/2018 and now TBI 2T fall. Progress Note Narrative: PTD 8. There is no change in this patient's neurobehavioral status. No agitation/restlessness. The patient is a DNR status at present. I will change. - Diagnosis (1) Major neurocognitive disorder as late effect of traumatic brain injury without behavioral disturbance Status: Acute
--- NOTE | 2018-09-30 10:46 | P.PNCC ---
Subjective Brief History: This is a 57-year-old male with history of a prior right sided craniectomy and cranioplasty, status post ventriculoperitoneal shunt, who was brought to the emergency department and trauma alert was called. [place] at the [place] earlier today. 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 The patient then had a stroke January 2018 which slightly affected his speech and right upper extremity. The patient underwent rehab with improvement of his speech. He developed slurred speech since the fall with with slight change in behavior. The patient takes Plavix daily. The patient is unable to provide any information and does not follow commands. Withdraw to pain in his lower extremities. Trauma alert was called due to the decreased in GCS. The patient went immediately to CT for CT the brain which did reveal bilateral subdurals with mild shift. The patient had decreasing mental status, would not follow commands, therefore, given his drop in GCS was taken to the trauma room and a level 1 trauma was called. The patient was intubated using rapid sequence intubation to protect the airway after lidocaine 100 mg was given the patient received etomidate 20 mg intravenously and succinylcholine 100 mg at. The patient was intubated using an endotracheal tube, 8.0, without difficulty. The patient did receive [address] Tay who evaluated the patient in the trauma room and he was resuscitated according to ATLS principles. Initial diagnostic workup reveals Bilateral subdural hematomas left considerably greater than right. The subdural on the left extends from the left frontal to occipital lobe and superiorly to the high convexity and measures 15 mm across with considerable mixed density. The small right occipital subdural is more homogeneous c/w acute hemorrhagic density Patient is taken immediately to the operating room for decompressive craniectomy and is now in ICU for further care Should be noted patient was on Plavix aspirin which has been stopped Patient will be managed according to the established neurosurgical critical care principles and full evaluation will be completed considering that patient has other comorbidities that need to be addressed 24 Hour Review/Hospital Course: 09/23/2018 Patient with massive head injury and huge left subdural hematoma status post craniectomy and drainage Patient is sedated on neuroprotective measures including propofol fentanyl and Keppra ICP remains around 8-14 mmHg Patient received 25 g of mannitol last night and since then ICP has been low Serum sodium 142 mEq/L and patient is on 3% saline at 30 cc/h We will keep sodium less than 160 mEq/L At this point Diana Coma Scale remains 3 and patient has no activity whatsoever Hemodynamically patient is stable and hemoglobin and hematocrit are stable after transfusion of 1 unit PRBC last night Bilateral breath sounds patient fully ventilatory supported on assist control ventilation mode with good PO2 FiO2 gradient Keep PCO2 between 32-40 mmHg Abdomen soft Renal function well-preserved patient is euvolemic and will decrease maintenance fluids This patient has very poor prognosis based on his age and severity of brain injury on top of already previous craniotomy for optic nerve tumor Patient has about 80% 1 year mortality and 100% morbidity with 100% chance of permanent neurologic deficits either cognitive motoric or both We will consult palliative care to discuss his further prospects with the family and lay out some options 09/[address] scan today which shows significant worsening of his subdural hematoma His ICPs remain within normal limits his sodium is 150 his CPP is also within normal limits Patient overall is status post multiple craniotomy craniotomy start craniectomies I had a discussion with the neurosurgeon regarding the clinical picture we both agreed that we need to have a discussion with patient's -for a potential craniectomy Overall patient prognosis remain poor If craniectomy is being decided we will need to transfuse patient 2 units of blood 09/25 Patient is status post decompressive craniectomy postop day 1 Neurosurgery would like to maintain full sedation today and reassess mental status tomorrow His CPP ICP and hemodynamics are within normal limits His sodium is 155 and will keep it at this level for now Continue the tube feeds Family updated at the bedside 09/26 He- underwent a CT scan of the head in the morning here is still a large amount of edema, subdural hematoma improved however His ICPs and CPPs remain good level-stay fully sedated for now as per neurosurgeon Sodium is 161 and hypertonic saline has been dcd-we will monitor sodium until it reaches the desired level of 150-155 She is on tube feeds and tolerating well In light of increased bleeding and redo craniectomy will discuss with the neurosurgeon before starting chemical DVT prophylaxis 09/27/2018 Neurologically patient is unchanged Patient status post second operation and left craniectomy with evacuation of a subdural hematoma Significant brain swelling with some decrease in shift ICP remains low around 5-8 mmHg and central perfusion pressure within adequate parameters based on mean arterial pressure Adjusted free fluids and serum sodium is on decline which we will keep between 145 and 155 mEq/L Hemodynamically stable Bilateral breath sounds on assist control ventilation with good PO2 FiO2 gradient Renal function preserved Palliative care has been consulted and evaluated the patient and discussed the care with the family. Today and explained the devastating nature of his injury combined with his age carries extremely poor long-term prognosis In the best case scenario this patient will be off the ventilator however permanently on a feeding tube and bedbound Patient has very poor prospects of a long-term quality of life and no reasonable chance of meaningful recovery 09/28/2018 Neurologically unchanged ICP monitor has been removed in face of normal values Propofol and fentanyl have been stopped to see the neurologic function however patient is only slightly withdrawing to pain with left leg consistent with [place] Coma Scale of 4 Hemodynamically remains stable Bilateral breath sounds remains on assist control ventilation I discussed again at length with the family the current picture and the dismal prognosis of the same If family proceeds with full care patient will require tracheostomy and PEG and placement in a residential All the options have been evaluated as well as the status including DNR possibility Family will think about it and come to a joint decision 09/29/2018 Neurologically patient is unchanged With decrease in propofol sedation patient is becoming agitated tachypneic and hypertensive however does not follow commands does not open eyes does not move other than uncontrolled motion [place] Coma Scale remains very low probably 4-5 Hemodynamically stable and hypertensive On number of antihypertensive medications including Catapres patch/IV Lopressor/ IV Procardia/hydralazine Bilateral breath sounds on assist control ventilation and does not tolerate CPAP Abdomen soft enteral feeds tolerated Renal function preserved Following the wishes of the family patient is made DNR at this time I discussed tracheostomy and PEG with patient's family and they adamantly refused this and believe that patient would not want to live like this and I believe based on my discussion with the family they are making decision whether or not to withdraw the care 09/30/2018 Patient was made DO NOT RESUSCITATE yesterday, await discussion with neurosurgery and palliative care regarding possible withdrawal of care and timing of withdrawal. There is no hope for meaningful recovery or any thing resembling quality of life Objective Vital Signs / I&O: Vital Signs 09/29/18 11:00 09/29/18 12:00 09/29/18 12:41 Temperature 99.2 F Pulse Rate 94 H 97 H Respiratory Rate 21 16 Pulse Oximetry 100 100 100 09/29/18 13:00 09/29/18 14:00 09/29/18 15:00 Temperature Pulse Rate 99 H 96 H 89 Respiratory Rate Pulse Oximetry 100 100 100 09/29/18 16:00 09/29/18 16:36 09/29/18 17:00 Temperature 99.1 F Pulse Rate 87 95 H Respiratory Rate 13 12 Pulse Oximetry 100 100 100 09/29/18 18:00 09/29/18 19:00 09/29/18 20:00 Temperature 98.8 F Pulse Rate 94 H 92 H 87 Respiratory Rate 17 Pulse Oximetry 100 100 100 09/29/18 20:11 09/29/18 21:00 09/29/18 22:00 Temperature Pulse Rate 88 87 Respiratory Rate 20 Pulse Oximetry 100 97 100 09/29/18 23:00 09/29/18 23:58 09/30/18 00:00 Temperature 98.3 F Pulse Rate 85 88 Respiratory Rate 15 14 Pulse Oximetry 100 100 100 09/30/18 01:00 09/30/18 02:00 09/30/18 03:00 Temperature Pulse Rate 86 80 79 Respiratory Rate Pulse Oximetry 100 100 100 09/30/18 03:28 09/30/18 04:00 09/30/18 05:00 Temperature 98.3 F Pulse Rate 77 73 Respiratory Rate 18 14 Pulse Oximetry 97 100 100 09/30/18 06:00 09/30/18 07:00 09/30/18 08:00 Temperature 98.1 F Pulse Rate 80 77 76 Respiratory Rate Pulse Oximetry 100 100 100 Intake & Output 09/29/18 09/30/18 09/30/18 18:59 06:59 18:59 Intake Total 1079 / 1079 1110 / 1110 Output Total 500 / 500 600 / 600 Balance 579 / 579 510 / 510 Weight 69.4 kg Intake: IV 405 / 405 305 / 305 Versed Inj 50 mg In 50 ml @ 2 35 / 35 100 / 100 MG/HR 2 mls/hr IV.CONT TITRATE PRN Rx#:[id number] Diprivan 1000 mg/100 ml Inj 1, 160 / 160 100 / 100 000 mg In 100 ml @ 5 MCG/KG/MIN 2.058 mls/hr IV.CONT TITRATE PRN Rx#:[id number] Keppra Inj 500 MG In NS Inj 100 210 / 210 105 / 105 ML @ 400 mls/hr IV.SIG Q12H STONEY Rx#:[id number] Tube Feeding 614 / 614 685 / 685 Tube Irrigant 60 / 60 120 / 120 Output: Urine Amount (Catheter) 500 / 500 600 / 600 Condom 500 / 500 600 / 600 Gastric Drainage 0 / 0 Oral Orogastric Tube 0 / 0 Other: Date of Last Bowel Movement 09/29/18 09/29/18 09/29/18 # Bowel Movements 0 # Incontinent Bowel Movements 1 Result Diagrams: 10/01/18 05:20 10/01/18 05:20 Imaging: Impressions Chest X-Ray 09/30/18 00:00 CONCLUSION: Slight interval worsening in aeration with persistent left base parenchymal opacity and developing opacity at the right base. Disinhibition Score: 14.00 Aggression Score: 14.00 Lability Score: 14.00 Agitated Behavior Total Score: 14 - Exam [employer] TESTING: Intubated sedated Hemodynamic/Cardiac: Regular rate and rhythm Pulmonary/Respiratory: Clear to auscultation bilaterally Abdomen/GI Nutrition: Soft nontender nondistended Renal/I&O: Adequate urine output Assessment and Plan Plan: Propofol and fentanyl for sedation continue neuro protection hold medical DVT prophylaxis for recurrent bleed continue tube feeds for nutritional support Continue full mechanical ventilation Await discussion with family between neurosurgery and palliative care regarding possible withdrawal
[2018-09-30] MEDS ORDERED: Gadobutrol PF 7.5 MMOL/7.5 ML Vial (for RAD) IV.SIG ONE (13:02)
--- NOTE | 2018-09-30 13:37 | MR ---
EXAM DATE: 09/30/2018 1:11 PM EST AGE/SEX: 57 years / Male INDICATIONS: Altered mental status. CLINICAL DATA: This is the patient's initial encounter. Patient reports that signs and symptoms have been present for 1 day and indicates a pain score of Nonresponsive. MEDICAL/SURGICAL HISTORY: Stroke. TOBACCO GROWER Shunt, Brain tumor. Craniotomy. Loop recorder, Non progra bryan TOBACCO GROWER shunt, Tumor removed from optic nerve in 1997. [place] [facility] [place]. . TECHNIQUE: Multiplanar, multisequence examination of the brain was performed without and with 7 ml Ga davist (gadobutrol) contrast as a single exam dose. FINDINGS: Cerebrum: Extensive restricted diffusion with underlying edema is evident throughout the majority of the left cerebral hemisphere with some sparing of the frontal lobe. Susceptibility weighted imaging demonstrates scattered parenchymal hemorrhage especially in the parietal and occipital regions. The r estricted diffusion extends across the midline via the splenium of the corpus callosum. The left cran ial decompression craniotomy has helped decrease the amount of midline shift. Significant mass effect remains evident. Significant edematous changes remains evident within the deep young nuclei predominant within the thal amus. Subdural hematomas within the interhemispheric fissure and along the cerebral convexities are again identified and appear stable compared to recent CT. Posterior Fossa: Subdural hematomas are seen along the posterior margin of both cerebral hemispheres especially on the left. These are not clearly evident on the CT but do not appear to be causing signi ficant mass effect. Brainstem and cerebellum are remain relatively normal without evidence of restric cristina diffusion or significant edema. Extracranial: Bilateral decompression craniotomies are noted. CONCLUSION: 1. Restricted diffusion is identified throughout the left cerebral hemisphere with some sparing of t he left frontal lobe. There is underlying parenchymal hemorrhage associated with this area which represents a large region of infarction. There is continued generalized edema with mass effect however less midline shift is id entified. 2. Stable subdural hematomas. 3. Left-sided decompression craniotomy with decrease left to right midline shift. Electronically signed by: Sajan Mitchell MD 09/30/2018 1:36 PM EST
[2018-09-30] MEDS: Pantoprazole Inj 40 MG Vial IV.PUSH SCH (16:08)
--- NOTE | 2018-09-30 16:13 | P.PNPAL ---
Reason for Visit Reason for visit: a. To assist with evaluation and management of symptoms including:pain, dyspnea , debility b. To assist medical decision maker(s) with: better understanding of current medical conditions; weighing benefits/burdens of medical treatment options; making medical treatment decisions. Subjective Subjective/Interval History: Mr. Vu is a 57-year-old male who came into the emergency they will call on after a fall at the grocery store. 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 At that time he had PULVERIZING AND SIFTING OPERATOR shunt placement. 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 In March 2008 he suffered a left subdural hematoma for which required rehab. In January 2018 the patient suffered a stroke which slightly affected his speech and right upper extremity. He underwent rehab which resulted in improvement to his speech. Due to his worsening GCS 1 trauma alert was called. As per his , the patient's speech is usually normal but does slur when he is tired. It is unknown if he lost consciousness during the fall. No seizure activity was noted at the scene. The patient takes Plavix daily. The patient was unable to provide any information was not following commands. He was not moving upper extremities and withdrawal only to the lower. The patient was emergently intubated for airway protection and admitted for further evaluation and care. Dr. Wolff (neurosurgery) was consulted the patient was taken emergently to the emergency room for left decompressive craniotomy with evacuation of of the hematoma and attempt to stabilize. A right intracranial monitor was placed with opening pressures of 5 mmHg. He was given Keppra for seizure prophylaxis and started on hyperosmolar therapy. 09/30/18 Palliative care to follow-up with symptom management and goals of medical care. Patient was weaned off sedation over the weekend. Had periods of what appeared to be neuro storming and placed back on sedation as well as multiple medications to help control blood pressure. Sedation was again discontinued since 7 AM. Patient with no eye opening has a weak cough and gag. Pupils 3 mm and reactive. Per RN he does extend with left lower to central noxious stimulation. I am not able to re-create this during my exam. He went for repeat MRI today which showed extensive edema despite left-sided decompressive craniotomy. Awaiting neurosurgery input. Today's clinical information revealed: * WBC 9.4, Hgb 9.1, HCT 26.7, platelet 274 * NA 142, K+ 3.9, CL 108, CO2 28.3, BUN 27, creatinine 0.42, glucose 106 * ABG: PH 7.43, PCO2 42, PO2 144, HCO3 28, base excess 3.7, settings are AC 12/ 550/5/35% Family/Friend Interactions: Discuss today's events with patient's , Judy Vu via telephone. She was aware that patient had been off sedation since 7 AM. She was informed that the MRI showed significant swelling but that neurosurgery had yet to opine as to the implications of this for her . Anticipatory guidance was provided as she reiterated her would not want to move forward with trach and PEG placement. Patient wishes to discuss this these findings with neurosurgery before pursuing any other aggressive treatment options or de- escalating care. We will re-convene tomorrow after she has had a chance to discuss the MRI finding Dr. Wolff. Advance Directives Living Will: Never completed Health Care Surrogate: Never completed Durable Power of Pre Fabricator: Never completed Health Care Surrogate Name and Number: Judy Vu, /healthcare proxy Documented care wishes:: Patient does not have a documented living will or DURABLE POWER OF MANAGER DEVELOPMENTAL Significant change in goals:: Patient was made a DNR over the weekend. Family has voiced that they would not want to have patient trach and PEG. Pending results of MRI family will make a decision as to continue with aggressive treatment or transition to comfort measures. Objective Vital Signs: Vital Signs 09/29/18 16:36 09/29/18 17:00 09/29/18 18:00 Temperature Pulse Rate 95 H 94 H Respiratory Rate 12 Blood Pressure Pulse Oximetry 100 100 100 09/29/18 19:00 09/29/18 20:00 09/29/18 20:11 Temperature 98.8 F Pulse Rate 92 H 87 Respiratory Rate 17 20 Blood Pressure Pulse Oximetry 100 100 100 09/29/18 21:00 09/29/18 22:00 09/29/18 23:00 Temperature Pulse Rate 88 87 85 Respiratory Rate Blood Pressure Pulse Oximetry 97 100 100 09/29/18 23:58 09/30/18 00:00 09/30/18 01:00 Temperature 98.3 F Pulse Rate 88 86 Respiratory Rate 15 14 Blood Pressure Pulse Oximetry 100 100 100 09/30/18 02:00 09/30/18 03:00 09/30/18 03:28 Temperature Pulse Rate 80 79 Respiratory Rate 18 Blood Pressure Pulse Oximetry 100 100 97 09/30/18 04:00 09/30/18 05:00 09/30/18 06:00 Temperature 98.3 F Pulse Rate 77 73 80 Respiratory Rate 14 Blood Pressure Pulse Oximetry 100 100 100 09/30/18 07:00 09/30/18 08:00 09/30/18 09:00 Temperature 98.1 F Pulse Rate 77 76 72 Respiratory Rate Blood Pressure Pulse Oximetry 100 100 100 09/30/18 10:00 09/30/18 10:39 09/30/18 11:00 Temperature Pulse Rate 74 73 72 Respiratory Rate Blood Pressure 111/62 108/59 L Pulse Oximetry 100 100 98 09/30/18 11:05 09/30/18 12:00 09/30/18 13:02 Temperature 98.3 F Pulse Rate 72 87 Respiratory Rate 17 Blood Pressure 131/73 Pulse Oximetry 98 100 09/30/18 14:00 Temperature Pulse Rate 69 Respiratory Rate Blood Pressure Pulse Oximetry Intake & Output 09/29/18 09/30/18 09/30/18 18:59 06:59 18:59 Intake Total 1079 / 1079 1110 / 1110 Output Total 500 / 500 600 / 600 Balance 579 / 579 510 / 510 Weight 69.4 kg Intake: IV 405 / 405 305 / 305 Versed Inj 50 mg In 50 ml @ 2 35 / 35 100 / 100 MG/HR 2 mls/hr IV.CONT TITRATE PRN Rx#:[id number] Diprivan 1000 mg/100 ml Inj 1, 160 / 160 100 / 100 000 mg In 100 ml @ 5 MCG/KG/MIN 2.058 mls/hr IV.CONT TITRATE PRN Rx#:[id number] Keppra Inj 500 MG In NS Inj 100 210 / 210 105 / 105 ML @ 400 mls/hr IV.SIG Q12H STONEY Rx#:[id number] Tube Feeding 614 / 614 685 / 685 Tube Irrigant 60 / 60 120 / 120 Output: Urine Amount (Catheter) 500 / 500 600 / 600 Condom 500 / 500 600 / 600 Gastric Drainage 0 / 0 Oral Orogastric Tube 0 / 0 Other: Date of Last Bowel Movement 09/29/18 09/29/18 09/29/18 # Bowel Movements 0 # Incontinent Bowel Movements 1 Physical Exam: CONSTITUTIONAL/GENERAL: Currently intubated and sedated, appears critically ill. TUBES/LINES/DRAINS:PIV, Brunner, bilateral soft wrist restraints, OGT SKIN: No jaundice, rashes, or lesions. Multiple abrasions noted to bilateral toes. Feet appear poorly cared for. Skin temperature appropriate. Not diaphoretic. HEAD: Old right-sided skull deformity noted. Left sided horse shoe incision with jey C/D/I now with sunken in appearance. EYES: Pupils 3 mm with sluggish reaction, periorbital edema since resolved. ENT: Unable to assess hearing due to clinical condition. nose without bleeding or purulent drainage. Throat without visible erythema, exudates, masses, or lesions. CARDIOVASCULAR: regular rate and rhythm. SR on tele monitor. Without murmurs, gallops, or rubs. No JVD. Peripheral pulses symmetric, weak pedal pulses RESPIRATORY/CHEST: Symmetric, unlabored respirations. Clear to auscultation. Breath sounds equal bilaterally. Diminished at the bases, scattered rhonchi, remains mechanically ventilated. GASTROINTESTINAL: Abdomen soft, non-tender, nondistended. No hepato-splenomegaly , or palpable masses. Bowel sounds hypoactive. Tolerating TF via OGT. GENITOURINARY: Without palpable bladder distension. Brunner catheter in place. MUSCULOSKELETAL: Extremities without clubbing, cyanosis, or edema. No joint effusion noted. No mottling or clubbing. NEUROLOGICAL: Has been off sedation, weak cough/gag. Pupils 3mm bilateral with sluggish reaction. Flaccid x4 PSYCHIATRIC: Unable to assess due to clinical condition Diagnostic Tests Laboratory: Laboratory Results - last 72 hr 09/27/18 09/28/18 09/28/18 17:43 05:20 05:20 WBC 11.9 H D RBC 2.96 L Hgb 8.6 L Hct 25.2 L MCV 85.0 MCH 29.1 MCHC 34.3 RDW 15.2 Plt Count 220 MPV 8.6 Neut % (Auto) 76.1 H Lymph % (Auto) 8.7 L [place] % (Auto) 10.5 H Eos % (Auto) 4.4 H Baso % (Auto) 0.3 Neut # (Auto) 9.0 H Lymph # (Auto) 1.0 [place] # (Auto) 1.2 H Eos # (Auto) 0.5 H Baso # (Auto) 0.0 WBC Differential . Differential Comment Auto diff final Puncture Site Patient Temperature O2 Saturation ABG pH ABG pCO2 ABG pO2 ABG HCO3 ABG O2 Content ABG Base Excess ABG Methemoglobin Hemoglobin Carboxyhemoglobin O2 Delivery Device Vent Setting Inspired O2 Critical Value Sodium 154 H 151 H Potassium 4.1 Chloride 117 H D Carbon Dioxide 28.0 Anion Gap 6 BUN 22 H Creatinine 0.51 L Estimated GFR Greater than 89 Random Glucose 134 H Calcium 7.8 L 09/28/18 09/29/18 09/29/18 05:38 04:45 04:45 WBC 10.4 RBC 3.19 L Hgb 9.2 L Hct 27.6 L MCV 86.4 MCH 28.9 MCHC 33.5 RDW 14.8 Plt Count 238 MPV 8.7 Neut % (Auto) 78.4 H Lymph % (Auto) 7.3 L [place] % (Auto) 9.8 H Eos % (Auto) 4.3 H Baso % (Auto) 0.2 Neut # (Auto) 8.1 H Lymph # (Auto) 0.8 L [place] # (Auto) 1.0 H Eos # (Auto) 0.4 Baso # (Auto) 0.0 WBC Differential . Differential Comment Auto diff final Puncture Site Art line Patient Temperature 98.6 O2 Saturation 96 ABG pH 7.45 H ABG pCO2 39 ABG pO2 112 ABG HCO3 27 H ABG O2 Content 11.5 L ABG Base Excess 3.1 H ABG Methemoglobin 1.3 Hemoglobin 8.3 L Carboxyhemoglobin 1.4 O2 Delivery Device Ventilator Vent Setting Ac/18/550/peep 5 Inspired O2 35 Critical Value No Sodium 142 Potassium 4.1 Chloride 109 H D Carbon Dioxide 27.6 Anion Gap 5 BUN 24 H Creatinine 0.47 L Estimated GFR Greater than 89 Random Glucose 139 H Calcium 7.7 L 09/30/18 09/30/18 09/30/18 04:07 04:07 05:49 WBC 9.4 RBC 3.16 L Hgb 9.1 L Hct 26.7 L MCV 84.6 MCH 28.8 MCHC 34.0 RDW 14.4 Plt Count 274 MPV 8.9 Neut % (Auto) 69.5 Lymph % (Auto) 10.3 [place] % (Auto) 13.4 H Eos % (Auto) 6.4 H Baso % (Auto) 0.4 Neut # (Auto) 6.6 Lymph # (Auto) 1.0 [place] # (Auto) 1.3 H Eos # (Auto) 0.6 H Baso # (Auto) 0.0 WBC Differential . Differential Comment Auto diff final Puncture Site Art line Patient Temperature 98.6 O2 Saturation 97 ABG pH 7.43 H ABG pCO2 42 ABG pO2 144 H ABG HCO3 28 H ABG O2 Content 12.6 ABG Base Excess 3.7 H ABG Methemoglobin 1.1 Hemoglobin 9.0 L Carboxyhemoglobin 1.3 O2 Delivery Device Ventilator Vent Setting Ac/rr12/vt550/peep5 Inspired O2 35 Critical Value No Sodium 142 Potassium 3.9 Chloride 108 H Carbon Dioxide 28.3 Anion Gap 6 BUN 27 H Creatinine 0.42 L Estimated GFR Greater than 89 Random Glucose 106 Calcium 7.6 L Result Diagrams: 09/30/18 04:07 09/30/18 04:07 Imaging: Impressions Chest X-Ray 09/30/18 00:00 CONCLUSION: Slight interval worsening in aeration with persistent left base parenchymal opacity and developing opacity at the right base. Head MRI 09/30/18 00:00 CONCLUSION: 1. Restricted diffusion is identified throughout the left cerebral hemisphere with some sparing of the left frontal lobe. There is underlying parenchymal hemorrhage associated with this area which represents a large region of infarction. There is continued generalized edema with mass effect however less midline shift is identified. 2. Stable subdural hematomas. 3. Left-sided decompression craniotomy with decrease left to right midline shift. Procedures: 09/22/18 * Left craniotomy with subdural hematoma evacuation * Right Davian with ICP monitor placement * Intubation * Left subclavian central line placement * Left radial atrial line placement 09/24/18 * repeat left craniotomy 09/27/18 * ICP monitor removed * MARK drains removed Assessment and Plan - Disease Oriented Problem List (1) Acute subdural hematoma - Symptom Scale (1) Pain 0-10 Scale: Unable to quantify Comment: Fentanyl has been discontinued in light of questionable mental status. Appears comfortable at this time nonverbal pain cues not identified (2) Dyspnea 0-10 Scale: Unable to quantify Comment: Currently managed with mechanical ventilator (3) Altered mental status 0-10 Scale: Unable to quantify Pertinent Non-Medical Issues: Psychosocial: The patient is currently . The couple have 2 children one who lives in [place] and one who lives locally. He was independent of ambulation and most ADLs. He was currently retired Spiritual: None Legal: In the absence of a documented living will, per [place] statutes, decision making falls to the patient's Judy Vu by proxy Ethical issues impacting care: There are currently no known ethical issues impacting care at this time Important Contacts: `` Judy Vu, /HCP [phone] Yosef Vu, son [phone] Ramona Vu, daughter [phone] Prognosis: This patient is a complicated case with multiple traumatic brain injuries, craniotomies and PULVERIZING AND SIFTING OPERATOR shunt placement. He remains critically ill and is at increased risk for continued neurological and physical decompensation. It is unsure if he will have any meaningful neurological recovery at this point. The patient is at high risk for further decline and . If he does survive these original insults, he will be at high risk for continued morbidity and mortality due to associated sequelae Code Status: No Code DNR Plan: * LEGAL DECISION MAKER -Judy Vu, /HCP [phone] * GOALS - Discuss today's events with patient's , Judy Vu via telephone. She was aware that patient had been off sedation since 7 AM. She was informed that the MRI showed significant swelling but that neurosurgery had yet to opine as to the implications of this for her . Anticipatory guidance was provided as she reiterated her would not want to move forward with trach and PEG placement. Patient wishes to discuss this these findings with neurosurgery before pursuing any other aggressive treatment options or de-escalating care. We will re-convene tomorrow after she has had a chance to discuss the MRI finding Dr. Wolff. * CODE STATUS -DNR * SYMPTOMS: Painmultifactorial including bedbound status, invasive procedures, invasive tubes and lines etc., The patient does not appear to be in any acute distress at this time. No nonverbal pain cues were noticed during exam. Depending on course of action (aggressive care or comfort measure) will make pertinent opiate adjustments as necessary Dyspneacurrently managed by mechanical ventilation. The patient is on AC settings with FiO2 35%, PEEP of 5. Continue with pulmonary toilet is appropriate for this patient. Suspect patient will have a long weaning process. Defer to critical care Altered mental statuspatient has a complicated history including optic tumor removal with PULVERIZING AND SIFTING OPERATOR shunt placement, lashae hole placement, and stroke as recent as January 2018. Is now S/P craniotomy x2 during this admission. Repeat MRI showed extensive edema despite decompressive craniotomy. Overall prognosis for meaningful neurological recovery remains poor. Palliative care will continue to follow during hospital course as condition evolves, to assist patient/decision maker with understanding of medical conditions, weighing benefits/burdens of treatment options, for clarification of goals of treatment. Additionally will assist with any symptoms of palliative concern. Attestation Attestation: To help prompt me to consider important information that might be impacting today's encounter and assessment, information from prior notes written by myself or my colleagues may have been "brought forward" into today's note. My signature on this note, however, is an attestation that I personally performed the exam, history, and/or decision-making noted today, and, unless otherwise indicated, the interactions with patient, family, and staff as well as the review of records all occurred today. I also attest that the listed assessment and stated plan reflect my best clinical judgment today based on the combination of historical information, prior notes, and today's exam/ interactions. When time spent is documented, it refers only to time spent today by the signer, or if indicated, combined time spent today by collaborating physician/nurse practitioner.
--- NOTE | 2018-09-30 16:52 | P.PNNS ---
Subjective Interval history: patient seen this morning during rounds, when seen patient has been off sedation approx 1 hour, no eye opening to purposeful movements. family in room Physical Exam Vital signs: Vital Signs 09/29/18 17:00 09/29/18 18:00 09/29/18 19:00 Temperature Pulse Rate 95 H 94 H 92 H Respiratory Rate Blood Pressure Pulse Oximetry 100 100 100 09/29/18 20:00 09/29/18 20:11 09/29/18 21:00 Temperature 98.8 F Pulse Rate 87 88 Respiratory Rate 17 20 Blood Pressure Pulse Oximetry 100 100 97 09/29/18 22:00 09/29/18 23:00 09/29/18 23:58 Temperature Pulse Rate 87 85 Respiratory Rate 15 Blood Pressure Pulse Oximetry 100 100 100 09/30/18 00:00 09/30/18 01:00 09/30/18 02:00 Temperature 98.3 F Pulse Rate 88 86 80 Respiratory Rate 14 Blood Pressure Pulse Oximetry 100 100 100 09/30/18 03:00 09/30/18 03:28 09/30/18 04:00 Temperature 98.3 F Pulse Rate 79 77 Respiratory Rate 18 14 Blood Pressure Pulse Oximetry 100 97 100 09/30/18 05:00 09/30/18 06:00 09/30/18 07:00 Temperature Pulse Rate 73 80 77 Respiratory Rate Blood Pressure Pulse Oximetry 100 100 100 09/30/18 08:00 09/30/18 09:00 09/30/18 10:00 Temperature 98.1 F Pulse Rate 76 72 74 Respiratory Rate Blood Pressure Pulse Oximetry 100 100 100 09/30/18 10:39 09/30/18 11:00 09/30/18 11:05 Temperature Pulse Rate 73 72 Respiratory Rate 17 Blood Pressure 111/62 108/59 L Pulse Oximetry 100 98 98 09/30/18 12:00 09/30/18 13:02 09/30/18 14:00 Temperature 98.3 F Pulse Rate 72 87 71 Respiratory Rate Blood Pressure 131/73 Pulse Oximetry 100 94 L 09/30/18 14:03 09/30/18 15:00 09/30/18 15:55 Temperature Pulse Rate 72 75 75 Respiratory Rate Blood Pressure 115/61 112/59 L Pulse Oximetry 93 L 94 L 95 09/30/18 16:00 09/30/18 16:41 Temperature 99.2 F Pulse Rate 75 Respiratory Rate 14 Blood Pressure Pulse Oximetry 94 L 94 L Intake & Output 09/29/18 09/30/18 09/30/18 18:59 06:59 18:59 Intake Total 1079 / 1079 1110 / 1110 105 / 105 Output Total 500 / 500 600 / 600 Balance 579 / 579 510 / 510 105 / 105 Weight 69.4 kg Intake: IV 405 / 405 305 / 305 105 / 105 Versed Inj 50 mg In 50 ml @ 2 35 / 35 100 / 100 MG/HR 2 mls/hr IV.CONT TITRATE PRN Rx#:[id number] Diprivan 1000 mg/100 ml Inj 1, 160 / 160 100 / 100 000 mg In 100 ml @ 5 MCG/KG/MIN 2.058 mls/hr IV.CONT TITRATE PRN Rx#:[id number] Keppra Inj 500 MG In NS Inj 100 210 / 210 105 / 105 105 / 105 ML @ 400 mls/hr IV.SIG Q12H STONEY Rx#:[id number] Tube Feeding 614 / 614 685 / 685 Tube Irrigant 60 / 60 120 / 120 Output: Urine Amount (Catheter) 500 / 500 600 / 600 Condom 500 / 500 600 / 600 Gastric Drainage 0 / 0 Oral Orogastric Tube 0 / 0 Other: Date of Last Bowel Movement 09/29/18 09/29/18 09/29/18 # Bowel Movements 0 # Incontinent Bowel Movements 1 Narrative: IV sedation off for 1 hour no eye opening not following commands no spontaneous movements, no response to pain stimuli x 4 Left flat soft, mildly decompressed incision healing well, steri strips intact over bolt and MARK drain sites pupils 2-3 mm b/l, mild dysconjugate gaze b/l - Urinary Catheter Management Indwelling Urethral Catheter Cath placed during this visit: yes, but has since been removed by the nurse Reason for continuing: Decision to DC catheter Insertion date: 09/22/18 Insertion time: 15:50 Removal date: 09/28/18 Removal time: 16:30 Condom Cath placed during this visit: yes Reason for continuing: Not indwelling catheter Insertion date: 09/28/18 Insertion time: 16:30 Assessment and Plan - Plan s/p craniotomy for subdural hemorrhage evacuation, followed by redo decompressive hemicraniectomy on 09/24 for reaccumulation cont keep sedation off as patient tolerates and f/u exam obtain MRI Brain Continue Protonix for stress ulcer prophylaxis continue Kiran lindquist and SCD's for DVT prophylaxis
[2018-09-30] MEDS: Acetaminophen 325 MG Tablet PO PRN (23:09)
[2018-10-01] MEDS: Oral Hygiene Kit OROPHARYNG SCH ×5 (00:39→23:33)
[2018-10-01] MEDS: Metoprolol Inj 5 MG/5 ML Vial IV.PUSH SCH ×4 (01:23→20:24)
--- NOTE | 2018-10-01 05:19 | XR ---
EXAM DATE: 10/01/2018 4:48 AM EST AGE/SEX: 57 years / Male INDICATIONS: Respiratory distress. CLINICAL DATA: This is the patient's subsequent encounter. Patient reports that signs and symptoms h ave been present for 1 week and indicates a pain score of Nonresponsive. MEDICAL/SURGICAL HISTORY: Stroke. Craniotomy. Ventricular shunt. COMPARISON: [facility], CHEST 1V SINGLE AP, 09/30/2018. . FINDINGS: Endotracheal tube, nasogastric tube are stable. Aeration is slightly improved with decrease in conflu ence of hazy bilateral primarily basilar pleural-parenchymal opacities. Cardiac contours are unchange d. CONCLUSION: Slight improvement in aeration Electronically signed by: Navneet Nazario MD 10/01/2018 5:18 AM EST
[2018-10-01 05:44] LABS: ABG PCO2 38 mmHg (38-42); ABG PO2 105 mmHg (61-120)
[2018-10-01 05:51] LABS: Baso # (Auto) 0.1 th/mm3 (0.0-0.2); Baso % (Auto) 0.8 % (0.0-2.0); Eos # (Auto) 0.3 th/mm3 (0.0-0.4); Eos % (Auto) 2.8 % (0.0-4.0); Hematocrit 29.3 % (39.0-51.0); Hemoglobin 9.6 gm/dL (13.0-17.0); Lymph # (Auto) 0.8 th/mm3 (1.0-4.8); Lymph % (Auto) 6.7 % (9.0-44.0); Mean Corpuscular HGB Conc 32.8 % (32.0-36.0); Mean Corpuscular Hemoglobin 28.5 pg (27.0-34.0); Mean Corpuscular Volume 86.9 fL (80.0-100.0); Mono # (Auto) 1.2 th/mm3 (0.0-0.9); Mono % (Auto) 9.6 % (0.0-8.0); Neut # (Auto) 9.9 th/mm3 (1.8-7.7); Neut % (Auto) 80.1 % (16.0-70.0); Platelet Count 321 th/mm3 (150-450); Red Blood Count 3.37 mil/mm3 (4.50-5.90); Red Cell Distribution Width 14.4 % (11.6-17.2); White Blood Count 12.4 th/mm3 (4.0-11.0)
[2018-10-01 06:20] LABS: Anion Gap 6 meq/L (5-15); Calcium 7.8 mg/dL (8.5-10.1); Carbon Dioxide 29.9 meq/L (21.0-32.0); Chloride 106 meq/L (98-107); Glomerular Filtration Rate Greater Than 89 mL/min (>89); Glucose,Random 130 mg/dL (74-106); Sodium 142 meq/L (136-145)
[2018-10-01 06:29] LABS: Blood Urea Nitrogen 26 mg/dL (7-18)
[2018-10-01] MEDS: Acetaminophen 325 MG Tablet PO PRN ×3 (07:55→23:33)
[2018-10-01] MEDS: Chlorhexidine 0.12% Oral Kit 15 ML UDC OROPHARYNG SCH ×2 (08:00→20:24)
--- NOTE | 2018-10-01 08:02 | P.PNNPSY ---
- Behavior Intact: Impulsive/agitated - Psychosocial Intact: Psychosocial, Family/other adjustment, Realistic expectation - Progress Notes/Response to Treatment Contents of Sessions: Adjustment, Level of consciousness Time with Patient: 30 minutes Premorbid Psychological Status: Premorbid Cognitive, Emotional and Behavioral Status: Tenuous. The patient has high school years of education and is not in the work force prior to this injury. The patient has no prior psychiatric difficulties, as described above. Substance abuse history is unremarkable. Behavioral Reactions of Patient and Family/Support System: Stable. The patients family is experiencing ongoing issues of adjustment given the nature of the injury, and this aspect of recovery will require ongoing monitoring. Emotional/Behavioral Status of Patient and Family/Support System: Stable. Pertinent issues, if appropriate to this patients clinical care, are described in detail above. Maximizing Acute Care Outcome: It is recommended that the patient be monitored for emergent behavioral impulsivity as the medical condition evolves. This patients neuropathological challenges may limit rehabilitation potential going forward, and these challenges will require specialized therapeutic skills to maximize outcome. Additionally, the patients family is experiencing ongoing issues of adjustment given the traumatic nature of the injury, and they may benefit from ongoing psychological assistance. At this point in the recovery process, the patient does not have cognitive capacity as the patient is unable to understand a situation and its likely consequences, nor is the patient able to manipulate information rationally. Cognitive capacity will be assessed throughout the recovery process. Anticipated Problems: Ongoing areas of concern will include behavioral impulsivity, lack of insight and judgment, which is expected to improve with time and treatment. Treatment Plan: This clinician will continue to follow with you throughout the course of this patients critical care treatment, and I will be available to meet with the patients family/support system to facilitate their understanding and the ongoing care of their family member. The goals of neuropsychological intervention shall be both educational and supportive to the family/support system as is deemed clinically appropriate. [place] COG Scale: Level II Disinhibition Score: 14.00 Aggression Score: 14.00 Lability Score: 14.00 Agitated Behavior Total Score: 14 Impression: 57 year old male with complicated neurological history including prior brain surgery for optic nerve tumor, CVA in 01/2018 and now TBI 2T fall. Progress Note Narrative: PTD 9. There is no neurobehavioral change in this patient. No agitation/ restlessness with ABS of 14 (14,14,14). He is Ranch[place] II, optimistically. His prognosis is poor for any type of meaningful neurobehavioral recovery. He is DNR, per family. I will follow. - Diagnosis (1) Major neurocognitive disorder as late effect of traumatic brain injury without behavioral disturbance Status: Acute
[2018-10-01] MEDS: OXcarbazepine 600 MG Tablet PO SCH ×2 (08:04→20:24)
[2018-10-01] MEDS: NIFEdipine 10 MG Capsule PO SCH ×3 (08:04→18:12)
--- NOTE | 2018-10-01 11:03 | P.PNPAL ---
Reason for Visit Reason for visit: a. To assist with evaluation and management of symptoms including:pain, dyspnea , debility b. To assist medical decision maker(s) with: better understanding of current medical conditions; weighing benefits/burdens of medical treatment options; making medical treatment decisions. Subjective Subjective/Interval History: Mr. Vu is a 57-year-old male who came into the emergency they will call on after a fall at the grocery store. 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 At that time he had CLOAK ROOM ATTENDANT shunt placement. 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 In March 2008 he suffered a left subdural hematoma for which required rehab. In January 2018 the patient suffered a stroke which slightly affected his speech and right upper extremity. He underwent rehab which resulted in improvement to his speech. Due to his worsening GCS 1 trauma alert was called. As per his , the patient's speech is usually normal but does slur when he is tired. It is unknown if he lost consciousness during the fall. No seizure activity was noted at the scene. The patient takes Plavix daily. The patient was unable to provide any information was not following commands. He was not moving upper extremities and withdrawal only to the lower. The patient was emergently intubated for airway protection and admitted for further evaluation and care. Dr. Wolff (neurosurgery) was consulted the patient was taken emergently to the emergency room for left decompressive craniotomy with evacuation of of the hematoma and attempt to stabilize. A right intracranial monitor was placed with opening pressures of 5 mmHg. He was given Keppra for seizure prophylaxis and started on hyperosmolar therapy. 10/01/18 Palliative care to follow-up with symptom management and goals of medical care. Patient remains off sedation x 24 hours. Neurologically remains the same. Pupils equal, round, and reactive. Dr. Wolff was able to discuss the results of yesterday's MRI with the family. They were informed that its likely he would not regain conscious. If he did, it would be a prolonged process require tracheostomy and PEG placement as well as long-term SNF placement. The family asked to speak with palliative care to discuss options moving forward with this information. Today's clinical information revealed: * WBC 12.4, Hgb 9.6, Hct 29.3, Plt 321 * Na 142, K+ 4.0, Cl 106, Co2 29.9, BUN 26, creatinine 0.52, glucose 130 * CXR: slight improvement in aeration Family/Friend Interactions: Discussed clinical course with (Judy) and daughter (Ramona) at bedside. Family asked what their options were moving on from this point. We again reviewed the results of the MRI and their discussion with Dr. Wolff. We discussed the usual clinical course of a patient in his state once the family has elected to move forward with trach and PEG placement, including the need to for long-term placement, vent weaning, and any possible sequelae related to such. We also discussed options if they decided to transition to comfort care. Anticipatory guidance was provided concerning compassionate extubation and what would be included in comfort care. We also discussed hospice as an added layer of support. The family were open to these conversations and asked to speak with a shipper and receiving for more information. They asked for some time to weigh their options before coming to a decision. They will let the RN at bedside or palliative care service know once they have made a final decision. Advance Directives Living Will: Never completed Health Care Surrogate: Never completed Durable Power of Veterinary Medical Officer: Never completed Health Care Surrogate Name and Number: Judy Vu, /healthcare proxy Documented care wishes:: Patient does not have a documented living will or DURABLE POWER OF RFP WRITER Significant change in goals:: The family has agreed to make the patient a DNR. They have expressed their wished in the past to not proceed with trach and PEG. They have asked to speak with shipper and receiving today for more information. They state they feel the patient would not want have quality of life in his current condition but would like a little more time before making any final decisions. Objective Vital Signs: Vital Signs 09/30/18 11:00 09/30/18 11:05 09/30/18 12:00 Temperature 98.3 F Pulse Rate 72 72 Respiratory Rate 17 Blood Pressure 108/59 L 131/73 Pulse Oximetry 98 98 100 09/30/18 13:02 09/30/18 14:00 09/30/18 14:03 Temperature Pulse Rate 87 71 72 Respiratory Rate Blood Pressure 115/61 Pulse Oximetry 94 L 93 L 09/30/18 15:00 09/30/18 15:55 09/30/18 16:00 Temperature 99.2 F Pulse Rate 75 75 75 Respiratory Rate Blood Pressure 112/59 L Pulse Oximetry 94 L 95 94 L 09/30/18 16:41 09/30/18 16:55 09/30/18 17:00 Temperature Pulse Rate 74 75 Respiratory Rate 14 Blood Pressure 109/60 Pulse Oximetry 94 L 93 L 94 L 09/30/18 17:55 09/30/18 18:00 09/30/18 18:55 Temperature Pulse Rate 77 88 83 Respiratory Rate Blood Pressure 109/57 L 111/61 Pulse Oximetry 93 L 95 91 L 09/30/18 19:00 09/30/18 20:00 09/30/18 20:35 Temperature 101.0 F H Pulse Rate 79 83 Respiratory Rate 22 17 Blood Pressure 113/57 L Pulse Oximetry 91 L 94 L 93 L 09/30/18 21:00 09/30/18 22:00 09/30/18 23:00 Temperature Pulse Rate 75 79 82 Respiratory Rate Blood Pressure 110/55 L 111/60 112/59 L Pulse Oximetry 94 L 94 L 94 L 09/30/18 23:47 10/01/18 00:00 10/01/18 01:00 Temperature 102.0 F H Pulse Rate 88 102 H Respiratory Rate 20 22 Blood Pressure 115/56 L 120/61 Pulse Oximetry 93 L 89 L 94 L 10/01/18 02:00 10/01/18 03:00 10/01/18 03:58 Temperature Pulse Rate 79 82 Respiratory Rate 20 Blood Pressure 110/59 L 112/58 L Pulse Oximetry 94 L 95 95 10/01/18 04:00 10/01/18 05:00 10/01/18 06:00 Temperature 100.8 F H Pulse Rate 85 91 H 92 H Respiratory Rate 20 Blood Pressure 117/58 L 122/62 128/66 Pulse Oximetry 95 93 L 93 L 10/01/18 07:00 10/01/18 08:00 10/01/18 08:01 Temperature 101.2 F H Pulse Rate 102 H 126 H 125 H Respiratory Rate Blood Pressure 139/76 198/109 H Pulse Oximetry 93 L 95 96 10/01/18 08:08 10/01/18 08:14 10/01/18 09:00 Temperature Pulse Rate 108 H 94 H Respiratory Rate 31 H Blood Pressure 170/81 H 127/58 L Pulse Oximetry 94 L 93 L 93 L 10/01/18 10:00 Temperature Pulse Rate 96 H Respiratory Rate Blood Pressure Pulse Oximetry Intake & Output 09/30/18 10/01/18 10/01/18 18:59 06:59 18:59 Intake Total 794 / 794 822 / 822 Output Total 1100 / 1100 550 / 550 Balance -306 / -306 272 / 272 Weight 69.3 kg Intake: IV 105 / 105 105 / 105 Keppra Inj 500 MG In NS Inj 100 105 / 105 105 / 105 ML @ 400 mls/hr IV.SIG Q12H STONEY Rx#:[id number] Tube Feeding 569 / 569 597 / 597 Tube Irrigant 120 / 120 120 / 120 Output: Urine 1100 / 1100 Urine Amount (Catheter) 550 / 550 Condom 550 / 550 Other: Date of Last Bowel Movement 09/29/18 10/01/18 10/01/18 # Incontinent Bowel Movements 1 Physical Exam: CONSTITUTIONAL/GENERAL: Currently intubated TUBES/LINES/DRAINS:PIV, Brunner, bilateral soft wrist restraints, OGT SKIN: No jaundice, rashes, or lesions. Multiple abrasions noted to bilateral toes. Feet appear poorly cared for. Skin temperature appropriate. Not diaphoretic. HEAD: Old right-sided skull deformity noted. Left sided horse shoe incision with jey C/D/I now with sunken in appearance. EYES: Pupils 3 mm with sluggish reaction, periorbital edema since resolved. ENT: Unable to assess hearing due to clinical condition. nose without bleeding or purulent drainage. Throat without visible erythema, exudates, masses, or lesions. CARDIOVASCULAR: Tachycardic with regular rhythm. ST on tele monitor. Without murmurs, gallops, or rubs. No JVD. Peripheral pulses symmetric, weak pedal pulses RESPIRATORY/CHEST: Symmetric, unlabored respirations. Clear to auscultation. Breath sounds equal bilaterally. Diminished at the bases, scattered rhonchi, remains mechanically ventilated. GASTROINTESTINAL: Abdomen soft, non-tender, nondistended. No hepato-splenomegaly , or palpable masses. Bowel sounds hypoactive. Tolerating TF via OGT. GENITOURINARY: Without palpable bladder distension. Brunner catheter in place. MUSCULOSKELETAL: Extremities without clubbing, cyanosis, or edema. No joint effusion noted. No mottling or clubbing. NEUROLOGICAL: Has been off sedation, + cough/gag. Pupils 3mm bilateral with sluggish reaction. Flaccid x4, will slightly withdraw RUE to central noxious stimuli PSYCHIATRIC: Unable to assess due to clinical condition Diagnostic Tests Laboratory: Laboratory Results - last 72 hr 09/29/18 09/29/18 09/30/18 04:45 04:45 04:07 WBC 10.4 9.4 RBC 3.19 L 3.16 L Hgb 9.2 L 9.1 L Hct 27.6 L 26.7 L MCV 86.4 84.6 MCH 28.9 28.8 MCHC 33.5 34.0 RDW 14.8 14.4 Plt Count 238 274 MPV 8.7 8.9 Neut % (Auto) 78.4 H 69.5 Lymph % (Auto) 7.3 L 10.3 Moody % (Auto) 9.8 H 13.4 H Eos % (Auto) 4.3 H 6.4 H Baso % (Auto) 0.2 0.4 Neut # (Auto) 8.1 H 6.6 Lymph # (Auto) 0.8 L 1.0 Moody # (Auto) 1.0 H 1.3 H Eos # (Auto) 0.4 0.6 H Baso # (Auto) 0.0 0.0 WBC Differential . . Differential Comment Auto diff final Auto diff final Puncture Site Patient Temperature O2 Saturation ABG pH ABG pCO2 ABG pO2 ABG HCO3 ABG O2 Content ABG Base Excess ABG Methemoglobin Edward Test Hemoglobin Carboxyhemoglobin O2 Delivery Device Vent Setting Inspired O2 Critical Value Sodium 142 Potassium 4.1 Chloride 109 H D Carbon Dioxide 27.6 Anion Gap 5 BUN 24 H Creatinine 0.47 L Estimated GFR Greater than 89 Random Glucose 139 H Calcium 7.7 L 09/30/18 09/30/18 10/01/18 04:07 05:49 05:20 WBC 12.4 H RBC 3.37 L Hgb 9.6 L Hct 29.3 L MCV 86.9 MCH 28.5 MCHC 32.8 RDW 14.4 Plt Count 321 MPV 9.0 Neut % (Auto) 80.1 H Lymph % (Auto) 6.7 L Moody % (Auto) 9.6 H Eos % (Auto) 2.8 Baso % (Auto) 0.8 Neut # (Auto) 9.9 H Lymph # (Auto) 0.8 L Moody # (Auto) 1.2 H Eos # (Auto) 0.3 Baso # (Auto) 0.1 WBC Differential . Differential Comment Auto diff final Puncture Site Art line Patient Temperature 98.6 O2 Saturation 97 ABG pH 7.43 H ABG pCO2 42 ABG pO2 144 H ABG HCO3 28 H ABG O2 Content 12.6 ABG Base Excess 3.7 H ABG Methemoglobin 1.1 Edward Test Hemoglobin 9.0 L Carboxyhemoglobin 1.3 O2 Delivery Device Ventilator Vent Setting [id number] Inspired O2 35 Critical Value No Sodium 142 Potassium 3.9 Chloride 108 H Carbon Dioxide 28.3 Anion Gap 6 BUN 27 H Creatinine 0.42 L Estimated GFR Greater than 89 Random Glucose 106 Calcium 7.6 L 10/01/18 10/01/18 05:20 05:35 WBC RBC Hgb Hct MCV MCH MCHC RDW Plt Count MPV Neut % (Auto) Lymph % (Auto) Moody % (Auto) Eos % (Auto) Baso % (Auto) Neut # (Auto) Lymph # (Auto) Moody # (Auto) Eos # (Auto) Baso # (Auto) WBC Differential Differential Comment Puncture Site Left radial Patient Temperature 98.6 O2 Saturation 96 ABG pH 7.47 H ABG pCO2 38 ABG pO2 105 ABG HCO3 28 H ABG O2 Content 13.8 ABG Base Excess 4.0 H ABG Methemoglobin 1.1 Edward Test Present Hemoglobin 10.1 L Carboxyhemoglobin 1.1 O2 Delivery Device Ventilator Vent Setting 12/550/5peep Inspired O2 40 Critical Value No Sodium 142 Potassium 4.0 Chloride 106 Carbon Dioxide 29.9 Anion Gap 6 BUN 26 H Creatinine 0.52 L Estimated GFR Greater than 89 Random Glucose 130 H Calcium 7.8 L Result Diagrams: 10/01/18 05:20 10/01/18 05:20 Imaging: Impressions Head MRI 09/30/18 00:00 CONCLUSION: 1. Restricted diffusion is identified throughout the left cerebral hemisphere with some sparing of the left frontal lobe. There is underlying parenchymal hemorrhage associated with this area which represents a large region of infarction. There is continued generalized edema with mass effect however less midline shift is identified. 2. Stable subdural hematomas. 3. Left-sided decompression craniotomy with decrease left to right midline shift. Chest X-Ray 10/01/18 06:00 CONCLUSION: Slight improvement in aeration Procedures: 09/22/18 * Left craniotomy with subdural hematoma evacuation * Right Davian with ICP monitor placement * Intubation * Left subclavian central line placement * Left radial atrial line placement 09/24/18 * repeat left craniotomy 09/27/18 * ICP monitor removed * MARK drains removed Assessment and Plan - Disease Oriented Problem List (1) Acute subdural hematoma - Symptom Scale (1) Pain 0-10 Scale: Unable to quantify Comment: Fentanyl has been discontinued in light of questionable mental status. Appears comfortable at this time nonverbal pain cues not identified (2) Dyspnea 0-10 Scale: Unable to quantify Comment: Currently managed with mechanical ventilator (3) Altered mental status 0-10 Scale: Unable to quantify Pertinent Non-Medical Issues: Psychosocial: The patient is currently . The couple have 2 children one who lives in [place] and one who lives locally. He was independent of ambulation and most ADLs. He was currently retired Spiritual: None Legal: In the absence of a documented living will, per [place] statutes, decision making falls to the patient's Judy Vu by proxy Ethical issues impacting care: There are currently no known ethical issues impacting care at this time Important Contacts: `` Judy Vu, /HCP [phone] Yosef Vu, son [phone] Ramona Vu, daughter [phone] Prognosis: This patient is a complicated case with multiple traumatic brain injuries, craniotomies and CLOAK ROOM ATTENDANT shunt placement. He remains critically ill and is at increased risk for continued neurological and physical decompensation. It is unsure if he will have any meaningful neurological recovery at this point. The patient is at high risk for further decline and . If he does survive these original insults, he will be at high risk for continued morbidity and mortality due to associated sequelae Code Status: No Code DNR Plan: * LEGAL DECISION MAKER -Judy Vu, /HCP [phone] * GOALS - Discussed clinical course with (Judy) and daughter (Ramona) at bedside. Family asked what their options were moving on from this point. We again reviewed the results of the MRI and their discussion with Dr. Wolff. We discussed the usual clinical course of a patient in his state once the family has elected to move forward with trach and PEG placement, including the need to for long-term placement, vent weaning, and any possible sequelae related to such. We also discussed options if they decided to transition to comfort care. Anticipatory guidance was provided concerning compassionate extubation and what would be included in comfort care. We also discussed hospice as an added layer of support. The family were open to these conversations and asked to speak with a shipper and receiving for more information. They asked for some time to weigh their options before coming to a decision. They will let the RN at bedside or palliative care service know once they have made a final decision. * CODE STATUS -DNR * SYMPTOMS: Painmultifactorial including bedbound status, invasive procedures, invasive tubes and lines etc., The patient does not appear to be in any acute distress at this time. No nonverbal pain cues were noticed during exam. Depending on course of action (aggressive care or comfort measure) will make pertinent opiate adjustments as necessary Dyspneacurrently managed by mechanical ventilation. The patient is on AC settings with FiO2 35%, PEEP of 5. Continue with pulmonary toilet is appropriate for this patient. Suspect patient will have a long weaning process should the family decide to remain aggressive. Altered mental statuspatient has a complicated history including optic tumor removal with CLOAK ROOM ATTENDANT shunt placement, lashae hole placement, and stroke as recent as January 2018. Is now S/P craniotomy x2 during this admission. Repeat MRI showed extensive edema despite decompressive craniotomy. Overall prognosis for meaningful neurological recovery remains poor. Palliative care will continue to follow during hospital course as condition evolves, to assist patient/decision maker with understanding of medical conditions, weighing benefits/burdens of treatment options, for clarification of goals of treatment. Additionally will assist with any symptoms of palliative concern. Case was discussed with neurosurgery and RN at bedside Attestation Attestation: To help prompt me to consider important information that might be impacting today's encounter and assessment, information from prior notes written by myself or my colleagues may have been "brought forward" into today's note. My signature on this note, however, is an attestation that I personally performed the exam, history, and/or decision-making noted today, and, unless otherwise indicated, the interactions with patient, family, and staff as well as the review of records all occurred today. I also attest that the listed assessment and stated plan reflect my best clinical judgment today based on the combination of historical information, prior notes, and today's exam/ interactions. When time spent is documented, it refers only to time spent today by the signer, or if indicated, combined time spent today by collaborating physician/nurse practitioner.
[2018-10-01] MEDS: Senna/Docusate Sodium 8.6/50 MG Tablet PO SCH ×2 (11:55→20:24)
--- NOTE | 2018-10-01 13:30 | P.PNCC ---
Subjective Brief History: This is a 57-year-old male with history of a prior right sided craniectomy and cranioplasty, status post ventriculoperitoneal shunt, who was brought to the emergency department and trauma alert was called. He fell at the supermarket earlier today. 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 The patient then had a stroke January 2018 which slightly affected his speech and right upper extremity. The patient underwent rehab with improvement of his speech. He developed slurred speech since the fall with with slight change in behavior. The patient takes Plavix daily. The patient is unable to provide any information and does not follow commands. Withdraw to pain in his lower extremities. Trauma alert was called due to the decreased in GCS. The patient went immediately to CT for CT the brain which did reveal bilateral subdurals with mild shift. The patient had decreasing mental status, would not follow commands, therefore, given his drop in GCS was taken to the trauma room and a level 1 trauma was called. The patient was intubated using rapid sequence intubation to protect the airway after lidocaine 100 mg was given the patient received etomidate 20 mg intravenously and succinylcholine 100 mg at. The patient was intubated using an endotracheal tube, 8.0, without difficulty. The patient did receive [address] Tay who evaluated the patient in the trauma room and he was resuscitated according to ATLS principles. Initial diagnostic workup reveals Bilateral subdural hematomas left considerably greater than right. The subdural on the left extends from the left frontal to occipital lobe and superiorly to the high convexity and measures 15 mm across with considerable mixed density. The small right occipital subdural is more homogeneous c/w acute hemorrhagic density Patient is taken immediately to the operating room for decompressive craniectomy and is now in ICU for further care Should be noted patient was on Plavix aspirin which has been stopped Patient will be managed according to the established neurosurgical critical care principles and full evaluation will be completed considering that patient has other comorbidities that need to be addressed 24 Hour Review/Hospital Course: 09/23/2018 Patient with massive head injury and huge left subdural hematoma status post craniectomy and drainage Patient is sedated on neuroprotective measures including propofol fentanyl and Keppra ICP remains around 8-14 mmHg Patient received 25 g of mannitol last night and since then ICP has been low Serum sodium 142 mEq/L and patient is on 3% saline at 30 cc/h We will keep sodium less than 160 mEq/L At this point [place] Coma Scale remains 3 and patient has no activity whatsoever Hemodynamically patient is stable and hemoglobin and hematocrit are stable after transfusion of 1 unit PRBC last night Bilateral breath sounds patient fully ventilatory supported on assist control ventilation mode with good PO2 FiO2 gradient Keep PCO2 between 32-40 mmHg Abdomen soft Renal function well-preserved patient is euvolemic and will decrease maintenance fluids This patient has very poor prognosis based on his age and severity of brain injury on top of already previous craniotomy for optic nerve tumor Patient has about 80% 1 year mortality and 100% morbidity with 100% chance of permanent neurologic deficits either cognitive motoric or both We will consult palliative care to discuss his further prospects with the family and lay out some options 09/[address] scan today which shows significant worsening of his subdural hematoma His ICPs remain within normal limits his sodium is 150 his CPP is also within normal limits Patient overall is status post multiple craniotomy craniotomy start craniectomies I had a discussion with the neurosurgeon regarding the clinical picture we both agreed that we need to have a discussion with patient's -for a potential craniectomy Overall patient prognosis remain poor If craniectomy is being decided we will need to transfuse patient 2 units of blood 09/25 Patient is status post decompressive craniectomy postop day 1 Neurosurgery would like to maintain full sedation today and reassess mental status tomorrow His CPP ICP and hemodynamics are within normal limits His sodium is 155 and will keep it at this level for now Continue the tube feeds Family updated at the bedside 09/26 He- underwent a CT scan of the head in the morning here is still a large amount of edema, subdural hematoma improved however His ICPs and CPPs remain good level-stay fully sedated for now as per neurosurgeon Sodium is 161 and hypertonic saline has been dcd-we will monitor sodium until it reaches the desired level of 150-155 She is on tube feeds and tolerating well In light of increased bleeding and redo craniectomy will discuss with the neurosurgeon before starting chemical DVT prophylaxis 09/27/2018 Neurologically patient is unchanged Patient status post second operation and left craniectomy with evacuation of a subdural hematoma Significant brain swelling with some decrease in shift ICP remains low around 5-8 mmHg and central perfusion pressure within adequate parameters based on mean arterial pressure Adjusted free fluids and serum sodium is on decline which we will keep between 145 and 155 mEq/L Hemodynamically stable Bilateral breath sounds on assist control ventilation with good PO2 FiO2 gradient Renal function preserved Palliative care has been consulted and evaluated the patient and discussed the care with the family. Today and explained the devastating nature of his injury combined with his age carries extremely poor long-term prognosis In the best case scenario this patient will be off the ventilator however permanently on a feeding tube and bedbound Patient has very poor prospects of a long-term quality of life and no reasonable chance of meaningful recovery 09/28/2018 Neurologically unchanged ICP monitor has been removed in face of normal values Propofol and fentanyl have been stopped to see the neurologic function however patient is only slightly withdrawing to pain with left leg consistent with [place] Coma Scale of 4 Hemodynamically remains stable Bilateral breath sounds remains on assist control ventilation I discussed again at length with the family the current picture and the dismal prognosis of the same If family proceeds with full care patient will require tracheostomy and PEG and placement in a shelter All the options have been evaluated as well as the status including DNR possibility Family will think about it and come to a joint decision 09/29/2018 Neurologically patient is unchanged With decrease in propofol sedation patient is becoming agitated tachypneic and hypertensive however does not follow commands does not open eyes does not move other than uncontrolled motion [place] Coma Scale remains very low probably 4-5 Hemodynamically stable and hypertensive On number of antihypertensive medications including Catapres patch/IV Lopressor/ IV Procardia/hydralazine Bilateral breath sounds on assist control ventilation and does not tolerate CPAP Abdomen soft enteral feeds tolerated Renal function preserved Following the wishes of the family patient is made DNR at this time I discussed tracheostomy and PEG with patient's family and they adamantly refused this and believe that patient would not want to live like this and I believe based on my discussion with the family they are making decision whether or not to withdraw the care 09/30/2018 Patient was made DO NOT RESUSCITATE yesterday, await discussion with neurosurgery and palliative care regarding possible withdrawal of care and timing of withdrawal. There is no hope for meaningful recovery or any thing resembling quality of life 10/01/2018 Discussion with family at the bedside today. There is no hope for meaningful recovery or any quality of life. They state he would not wish to have a tracheostomy or feeding tube or be sustained in a long-term care situation without hope of recovery. Plan is for withdrawal of care when family is ready. Objective Vital Signs / I&O: Vital Signs 09/30/18 14:00 09/30/18 14:03 09/30/18 15:00 Temperature Pulse Rate 71 72 75 Respiratory Rate Blood Pressure 115/61 Pulse Oximetry 94 L 93 L 94 L 09/30/18 15:55 09/30/18 16:00 09/30/18 16:41 Temperature 99.2 F Pulse Rate 75 75 Respiratory Rate 14 Blood Pressure 112/59 L Pulse Oximetry 95 94 L 94 L 09/30/18 16:55 09/30/18 17:00 09/30/18 17:55 Temperature Pulse Rate 74 75 77 Respiratory Rate Blood Pressure 109/60 109/57 L Pulse Oximetry 93 L 94 L 93 L 09/30/18 18:00 09/30/18 18:55 09/30/18 19:00 Temperature Pulse Rate 88 83 79 Respiratory Rate Blood Pressure 111/61 Pulse Oximetry 95 91 L 91 L 09/30/18 20:00 09/30/18 20:35 09/30/18 21:00 Temperature 101.0 F H Pulse Rate 83 75 Respiratory Rate 22 17 Blood Pressure 113/57 L 110/55 L Pulse Oximetry 94 L 93 L 94 L 09/30/18 22:00 09/30/18 23:00 09/30/18 23:47 Temperature Pulse Rate 79 82 Respiratory Rate 20 Blood Pressure 111/60 112/59 L Pulse Oximetry 94 L 94 L 93 L 10/01/18 00:00 10/01/18 01:00 10/01/18 02:00 Temperature 102.0 F H Pulse Rate 88 102 H 79 Respiratory Rate 22 Blood Pressure 115/56 L 120/61 110/59 L Pulse Oximetry 89 L 94 L 94 L 10/01/18 03:00 10/01/18 03:58 10/01/18 04:00 Temperature 100.8 F H Pulse Rate 82 85 Respiratory Rate 20 20 Blood Pressure 112/58 L 117/58 L Pulse Oximetry 95 95 95 10/01/18 05:00 10/01/18 06:00 10/01/18 07:00 Temperature Pulse Rate 91 H 92 H 102 H Respiratory Rate Blood Pressure 122/62 128/66 139/76 Pulse Oximetry 93 L 93 L 93 L 10/01/18 08:00 10/01/18 08:01 10/01/18 08:08 Temperature 101.2 F H Pulse Rate 126 H 125 H Respiratory Rate 31 H Blood Pressure 198/109 H Pulse Oximetry 95 96 94 L 10/01/18 08:14 10/01/18 09:00 10/01/18 10:00 Temperature Pulse Rate 108 H 94 H 93 H Respiratory Rate Blood Pressure 170/81 H 127/58 L 123/61 Pulse Oximetry 93 L 93 L 94 L 10/01/18 11:00 10/01/18 12:00 Temperature 98.9 F Pulse Rate 102 H 98 H Respiratory Rate Blood Pressure 125/66 127/66 Pulse Oximetry 95 95 Intake & Output 09/30/18 10/01/18 10/01/18 18:59 06:59 18:59 Intake Total 794 / 794 822 / 822 Output Total 1100 / 1100 550 / 550 Balance -306 / -306 272 / 272 Weight 69.3 kg Intake: IV 105 / 105 105 / 105 Keppra Inj 500 MG In NS Inj 100 105 / 105 105 / 105 ML @ 400 mls/hr IV.SIG Q12H [facility] Rx#:[id number] Tube Feeding 569 / 569 597 / 597 Tube Irrigant 120 / 120 120 / 120 Output: Urine 1100 / 1100 Urine Amount (Catheter) 550 / 550 Condom 550 / 550 Other: Date of Last Bowel Movement 09/29/18 10/01/18 10/01/18 # Incontinent Bowel Movements 1 Result Diagrams: 10/01/18 05:20 10/01/18 05:20 Imaging: Impressions Head MRI 09/30/18 00:00 CONCLUSION: 1. Restricted diffusion is identified throughout the left cerebral hemisphere with some sparing of the left frontal lobe. There is underlying parenchymal hemorrhage associated with this area which represents a large region of infarction. There is continued generalized edema with mass effect however less midline shift is identified. 2. Stable subdural hematomas. 3. Left-sided decompression craniotomy with decrease left to right midline shift. Chest X-Ray 10/01/18 06:00 CONCLUSION: Slight improvement in aeration Disinhibition Score: 14.00 Aggression Score: 14.00 Lability Score: 14.00 Agitated Behavior Total Score: 14 - Exam [employer]IDENT [employer]IC[employer]: Intubated sedated Hemodynamic/Cardiac: Regular rate and rhythm Pulmonary/Respiratory: Clear to auscultation bilaterally, on full ventilator support Abdomen/GI Nutrition: Soft nontender nondistended, tolerating tube feeds Assessment and Plan Plan: Propofol and fentanyl for sedation continue neuro protection hold medical DVT prophylaxis for recurrent bleed continue tube feeds for nutritional support Continue full mechanical ventilation Family is adamant that the patient would not want to be sustained on artificial life support nor would he want a tracheostomy or feeding tube and long-term care. Await family decision for withdrawal of care, until then continue current care with the patient DNR
--- NOTE | 2018-10-01 14:25 | P.PNNS ---
Subjective Interval history: remains off IV sedatives, MR Brain completed yesterday. Physical Exam Vital signs: Vital Signs 09/30/18 15:00 09/30/18 15:55 09/30/18 16:00 Temperature 99.2 F Pulse Rate 75 75 75 Respiratory Rate Blood Pressure 112/59 L Pulse Oximetry 94 L 95 94 L 09/30/18 16:41 09/30/18 16:55 09/30/18 17:00 Temperature Pulse Rate 74 75 Respiratory Rate 14 Blood Pressure 109/60 Pulse Oximetry 94 L 93 L 94 L 09/30/18 17:55 09/30/18 18:00 09/30/18 18:55 Temperature Pulse Rate 77 88 83 Respiratory Rate Blood Pressure 109/57 L 111/61 Pulse Oximetry 93 L 95 91 L 09/30/18 19:00 09/30/18 20:00 09/30/18 20:35 Temperature 101.0 F H Pulse Rate 79 83 Respiratory Rate 22 17 Blood Pressure 113/57 L Pulse Oximetry 91 L 94 L 93 L 09/30/18 21:00 09/30/18 22:00 09/30/18 23:00 Temperature Pulse Rate 75 79 82 Respiratory Rate Blood Pressure 110/55 L 111/60 112/59 L Pulse Oximetry 94 L 94 L 94 L 09/30/18 23:47 10/01/18 00:00 10/01/18 01:00 Temperature 102.0 F H Pulse Rate 88 102 H Respiratory Rate 20 22 Blood Pressure 115/56 L 120/61 Pulse Oximetry 93 L 89 L 94 L 10/01/18 02:00 10/01/18 03:00 10/01/18 03:58 Temperature Pulse Rate 79 82 Respiratory Rate 20 Blood Pressure 110/59 L 112/58 L Pulse Oximetry 94 L 95 95 10/01/18 04:00 10/01/18 05:00 10/01/18 06:00 Temperature 100.8 F H Pulse Rate 85 91 H 92 H Respiratory Rate 20 Blood Pressure 117/58 L 122/62 128/66 Pulse Oximetry 95 93 L 93 L 10/01/18 07:00 10/01/18 08:00 10/01/18 08:01 Temperature 101.2 F H Pulse Rate 102 H 126 H 125 H Respiratory Rate Blood Pressure 139/76 198/109 H Pulse Oximetry 93 L 95 96 10/01/18 08:08 10/01/18 08:14 10/01/18 09:00 Temperature Pulse Rate 108 H 94 H Respiratory Rate 31 H Blood Pressure 170/81 H 127/58 L Pulse Oximetry 94 L 93 L 93 L 10/01/18 10:00 10/01/18 11:00 10/01/18 12:00 Temperature 98.9 F Pulse Rate 93 H 102 H 98 H Respiratory Rate Blood Pressure 123/61 125/66 127/66 Pulse Oximetry 94 L 95 95 Intake & Output 09/30/18 10/01/18 10/01/18 18:59 06:59 18:59 Intake Total 794 / 794 822 / 822 Output Total 1100 / 1100 550 / 550 Balance -306 / -306 272 / 272 Weight 69.3 kg Intake: IV 105 / 105 105 / 105 Keppra Inj 500 MG In NS Inj 100 105 / 105 105 / 105 ML @ 400 mls/hr IV.SIG Q12H [facility] Rx#:[id number] Tube Feeding 569 / 569 597 / 597 Tube Irrigant 120 / 120 120 / 120 Output: Urine 1100 / 1100 Urine Amount (Catheter) 550 / 550 Condom 550 / 550 Other: Date of Last Bowel Movement 09/29/18 10/01/18 10/01/18 # Incontinent Bowel Movements 1 Narrative: comatose no eye opening left flap soft pupils 4 mm bilaterally mild right babinsky response no spontaneous movement - Urinary Catheter Management Indwelling Urethral Catheter Cath placed during this visit: yes, but has since been removed by the nurse Reason for continuing: Decision to DC catheter Insertion date: 09/22/18 Insertion time: 15:50 Removal date: 09/28/18 Removal time: 16:30 Condom Cath placed during this visit: yes Reason for continuing: Not indwelling catheter Insertion date: 09/28/18 Insertion time: 16:30 Assessment and Plan - Plan s/p craniotomy for subdural hemorrhage evacuation, followed by redo decompressive hemicraniectomy on 09/24 for reaccumulation cont keep sedation off as patient tolerates and f/u exam Dr. Wolff reviewed MRI Brain, dw family results, their questions answered cont follow up examination palliative care following
--- NOTE | 2018-10-01 14:43 | P.DIET ---
Nutritional Evaluation Type of nutrition evaluation: follow-up Nutrition consult regarding: Tube Feeding Objective - Diagnosis Subdural Hemorrhage - Objective % IBW: 101 (IBW = 142 #) Body Weight Used for Calculations: Actual (65.3 kg) Energy Needs - Lower Range (kCal/kg): 25 Energy Needs - Upper Range (kCal/kg): 30 Lower Limit kCal/kg (kCals): 1,633 Upper Limit kCal/kg (kCals): 1,959 Lower Limit Protein Factor (Grams per Kg): 1.2 Upper Limit Protein Factor (Grams per Kg): 1.6 Lower Protein Needs (Protein): 78 Upper Protein Needs (Protein): 105 Dietitian Reviewed in Medical Record: Curent medications, Intake & Output, Labs , Medical history, Tube feeding Diet Order: NPO Assessment Assessment: Pt is s/p L prasanth crani (09/22) and needs TFing to meet nutritional needs. Currently receiving Jevity 1.5 @ 50 mls/hr. This provides 1800 kcals, 77 gms protein and 912 mls of free water. Recommend the addition of Beneprotein 1 pack tid for increased protein needs. This will provide an additional 18 gms protein and 75 kcals. Labs, wts and clinical course reviewed. CBW = 69.3 kg. Recommendations: Jevity 1.5 @ 50 mls/hr goal Beneprotein 1 pack tid Dietitian to Monitor: Lab values, Intake & Output, Tube feeding tolerance, Weight change, Medical course
[2018-10-01] MEDS: Pantoprazole Inj 40 MG Vial IV.PUSH SCH (15:54)
[2018-10-02] MEDS: Metoprolol Inj 5 MG/5 ML Vial IV.PUSH SCH ×2 (01:41→07:58)
[2018-10-02] MEDS: Oral Hygiene Kit OROPHARYNG SCH ×2 (04:15→14:36)
[2018-10-02] MEDS: Chlorhexidine 0.12% Oral Kit 15 ML UDC OROPHARYNG SCH (07:58)
[2018-10-02] MEDS: Acetaminophen 325 MG Tablet PO PRN (08:00)
[2018-10-02] MEDS: Senna/Docusate Sodium 8.6/50 MG Tablet PO SCH (08:00)
[2018-10-02] MEDS: NIFEdipine 10 MG Capsule PO SCH (08:00)
[2018-10-02] MEDS: OXcarbazepine 600 MG Tablet PO SCH (08:00)
--- NOTE | 2018-10-02 08:05 | P.PNNPSY ---
- Behavior Intact: Impulsive/agitated - Psychosocial Intact: Psychosocial, Family/other adjustment, Realistic expectation - Progress Notes/Response to Treatment Contents of Sessions: Adjustment, Level of consciousness Time with Patient: 30 minutes Premorbid Psychological Status: Premorbid Cognitive, Emotional and Behavioral Status: Tenuous. The patient has high school years of education and is not in the work force prior to this injury. The patient has no prior psychiatric difficulties, as described above. Substance abuse history is unremarkable. Behavioral Reactions of Patient and Family/Support System: Stable. The patients family is experiencing ongoing issues of adjustment given the nature of the injury, and this aspect of recovery will require ongoing monitoring. Emotional/Behavioral Status of Patient and Family/Support System: Stable. Pertinent issues, if appropriate to this patients clinical care, are described in detail above. Maximizing Acute Care Outcome: It is recommended that the patient be monitored for emergent behavioral impulsivity as the medical condition evolves. This patients neuropathological challenges may limit rehabilitation potential going forward, and these challenges will require specialized therapeutic skills to maximize outcome. Additionally, the patients family is experiencing ongoing issues of adjustment given the traumatic nature of the injury, and they may benefit from ongoing psychological assistance. At this point in the recovery process, the patient does not have cognitive capacity as the patient is unable to understand a situation and its likely consequences, nor is the patient able to manipulate information rationally. Cognitive capacity will be assessed throughout the recovery process. Anticipated Problems: Ongoing areas of concern will include behavioral impulsivity, lack of insight and judgment, which is expected to improve with time and treatment. Treatment Plan: This clinician will continue to follow with you throughout the course of this patients critical care treatment, and I will be available to meet with the patients family/support system to facilitate their understanding and the ongoing care of their family member. The goals of neuropsychological intervention shall be both educational and supportive to the family/support system as is deemed clinically appropriate. [place] COG Scale: Level II Disinhibition Score: 14.00 Aggression Score: 14.00 Lability Score: 14.00 Agitated Behavior Total Score: 14 Impression: 57 year old male with complicated neurological history including prior brain surgery for optic nerve tumor, CVA in 01/2018 and now TBI 2T fall. Progress Note Narrative: PTD 10. There is no neurobehavioral change in this patient. No agitation/ restlessness. ABS is 14 (14,14,14). He is optimistically [place] II. The plan is withdrawal of care. I will follow. - Diagnosis (1) Major neurocognitive disorder as late effect of traumatic brain injury without behavioral disturbance Status: Acute
--- NOTE | 2018-10-02 11:00 | P.PNPAL ---
Reason for Visit Reason for visit: a. To assist with evaluation and management of symptoms including:pain, dyspnea , debility b. To assist medical decision maker(s) with: better understanding of current medical conditions; weighing benefits/burdens of medical treatment options; making medical treatment decisions. Subjective Subjective/Interval History: Mr. Vu is a 57-year-old male who came into the emergency they will call on after a fall at the grocery store. 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 At that time he had SURVEILLANCE SYSTEM MONITOR shunt placement. 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 In March 2008 he suffered a left subdural hematoma for which required rehab. In January 2018 the patient suffered a stroke which slightly affected his speech and right upper extremity. He underwent rehab which resulted in improvement to his speech. Due to his worsening GCS 1 trauma alert was called. As per his , the patient's speech is usually normal but does slur when he is tired. It is unknown if he lost consciousness during the fall. No seizure activity was noted at the scene. The patient takes Plavix daily. The patient was unable to provide any information was not following commands. He was not moving upper extremities and withdrawal only to the lower. The patient was emergently intubated for airway protection and admitted for further evaluation and care. Dr. Wolff (neurosurgery) was consulted the patient was taken emergently to the emergency room for left decompressive craniotomy with evacuation of of the hematoma and attempt to stabilize. A right intracranial monitor was placed with opening pressures of 5 mmHg. He was given Keppra for seizure prophylaxis and started on hyperosmolar therapy. 10/02/18 Family present and requesting compassionate withdrawal of life support this morning, with transition to comfort focus. I am informed that they have already met with hospice and wished to proceed with hospice enrollment upon extubation. I am also informed they do not wish for the patient to be moved out of the hospital setting to a care center. Patient without any significant changes overnight. Remains stable on mechanical vent. Overbreathing vent 3. No changes in neurologic assessment. Neurosurgery spoke with family at length yesterday regarding prognostication. Seen today in room, dual visit with Oliver Clayton APRN. Patient minimally responsive to exam no eye opening. No withdrawal to upper extremities slight flexion right foot to pain stimuli. Daughter, at bedside. They expressed desire to transition to comfort focus. They are tearful. Briefly review with them their understanding of conditions and options to proceed with aggressive interventions versus transition to comfort focus. They indicate they wish to proceed with removal of artificial measures and comfort measures only. They tell me they have already signed some paperwork with hospice. Briefly explore anticipatory guidance for withdrawal and making patient comfortable. They wish to proceed today. Discussed with RN, who has notified medical attending to sign exhibit. Palliative LOADER to sign exhibits as well. Family signed exhibits, all in chart. Comfort orders entered for pre-withdrawal, time of withdrawal and post withdrawal. 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 Objective Vital Signs: Vital Signs 10/01/18 11:00 10/01/18 12:00 10/01/18 13:00 Temperature 98.9 F Pulse Rate 102 H 98 H 103 H Respiratory Rate Blood Pressure 125/66 127/66 119/59 L Pulse Oximetry 95 95 97 10/01/18 14:00 10/01/18 15:00 10/01/18 16:00 Temperature 98.9 F Pulse Rate 104 H 82 85 Respiratory Rate Blood Pressure 128/67 122/65 123/69 Pulse Oximetry 98 97 97 10/01/18 16:23 10/01/18 17:00 10/01/18 18:00 Temperature Pulse Rate 99 H 92 H Respiratory Rate 29 H Blood Pressure 132/74 131/64 Pulse Oximetry 95 97 98 10/01/18 19:00 10/01/18 20:00 10/01/18 20:38 Temperature 100.3 F H Pulse Rate 89 89 Respiratory Rate 20 18 Blood Pressure 118/61 120/65 Pulse Oximetry 96 93 L 97 10/01/18 21:00 10/01/18 22:00 10/01/18 23:00 Temperature Pulse Rate 77 80 90 Respiratory Rate Blood Pressure 115/60 118/59 L 126/63 Pulse Oximetry 96 94 L 95 10/01/18 23:54 10/02/18 00:00 10/02/18 01:00 Temperature 102.6 F H Pulse Rate 83 78 Respiratory Rate 18 16 Blood Pressure 119/59 L 114/57 L Pulse Oximetry 95 94 L 96 10/02/18 02:00 10/02/18 03:00 10/02/18 03:35 Temperature 101.3 F H Pulse Rate 79 81 Respiratory Rate 16 Blood Pressure 124/67 117/59 L Pulse Oximetry 95 96 96 10/02/18 04:00 10/02/18 05:00 10/02/18 06:00 Temperature 100.3 F H Pulse Rate 84 90 85 Respiratory Rate Blood Pressure 116/64 120/68 121/60 Pulse Oximetry 96 96 95 10/02/18 07:00 10/02/18 07:55 10/02/18 08:00 Temperature 102 F H Pulse Rate 89 105 H Respiratory Rate 19 Blood Pressure 124/64 132/74 Pulse Oximetry 94 L 95 97 10/02/18 10:00 Temperature Pulse Rate 83 Respiratory Rate Blood Pressure Pulse Oximetry Intake & Output 10/01/18 10/02/18 10/02/18 18:59 06:59 18:59 Intake Total 1018 / 1018 841 / 841 Output Total 1000 / 1000 850 / 850 Balance -9 / -9 Weight 68.5 kg Intake: IV 105 / 105 105 / 105 Keppra Inj 500 MG In NS Inj 100 105 / 105 105 / 105 ML @ 400 mls/hr IV.SIG Q12H [facility] Rx#:[id number] Tube Feeding 733 / 733 616 / 616 Tube Irrigant 180 / 180 120 / 120 Output: Urine 1000 / 1000 Urine Amount (Catheter) 850 / 850 Condom 850 / 850 Other: Date of Last Bowel Movement 10/01/18 10/01/18 10/01/18 # Bowel Movements 3 0 Physical Exam: CONSTITUTIONAL/GENERAL: nonresponsive, no apparent distress. on [facility] vent TUBES/LINES/DRAINS:PIV, Brunner, bilateral soft wrist restraints, OGT, ETT SKIN: No jaundice, rashes, or lesions. Multiple abrasions noted to RT toes. toenails long. Skin warm/dry HEAD: Old right-sided skull deformity noted. Left sided horse shoe incision with jey C/D/I now with concave appearance. EYES: Pupils 3 mm with sluggish reaction ENT: nose without bleeding or purulent drainage. Throat without visible erythema, exudates, masses, or lesions. CARDIOVASCULAR: regular rhythm. SR via bedside monitor. No murmurs. No JVD. Peripheral pulses symmetric, weak pedal pulses RESPIRATORY/CHEST: Symmetric, unlabored respirations. Clear to auscultation. Breath sounds equal bilaterally. Diminished at the bases GASTROINTESTINAL: Abdomen soft, no apparent tenderness, nondistended. No hepato- splenomegaly, or palpable masses. Bowel sounds hypoactive. TF infusing via OGT. GENITOURINARY: Without palpable bladder distension. Brunner catheter in place. clear yellow urine MUSCULOSKELETAL: Extremities without clubbing, cyanosis. Edema to bilat hands, Rt > left. No joint effusion noted. No mottling or clubbing. NEUROLOGICAL: Has been off sedation, + cough/gag. Pupils 3mm bilateral with sluggish reaction. no response BUE to pain. No eye opening. No movement LLE to pain, slight flexion will slightly withdraw RUE to central noxious stimuli PSYCHIATRIC: Unable to assess due to clinical condition Diagnostic Tests Laboratory: Laboratory Results - last 72 hr 09/30/18 09/30/18 09/30/18 04:07 04:07 05:49 WBC 9.4 RBC 3.16 L Hgb 9.1 L Hct 26.7 L MCV 84.6 MCH 28.8 MCHC 34.0 RDW 14.4 Plt Count 274 MPV 8.9 Neut % (Auto) 69.5 Lymph % (Auto) 10.3 [place] % (Auto) 13.4 H Eos % (Auto) 6.4 H Baso % (Auto) 0.4 Neut # (Auto) 6.6 Lymph # (Auto) 1.0 [place] # (Auto) 1.3 H Eos # (Auto) 0.6 H Baso # (Auto) 0.0 WBC Differential . Differential Comment Auto diff final Puncture Site Art line Patient Temperature 98.6 O2 Saturation 97 ABG pH 7.43 H ABG pCO2 42 ABG pO2 144 H ABG HCO3 28 H ABG O2 Content 12.6 ABG Base Excess 3.7 H ABG Methemoglobin 1.1 Edward Test Hemoglobin 9.0 L Carboxyhemoglobin 1.3 O2 Delivery Device Ventilator Vent Setting [id number]/[id number] Inspired O2 35 Critical Value No Sodium 142 Potassium 3.9 Chloride 108 H Carbon Dioxide 28.3 Anion Gap 6 BUN 27 H Creatinine 0.42 L Estimated GFR Greater than 89 Random Glucose 106 Calcium 7.6 L 10/01/18 10/01/18 10/01/18 05:20 05:20 05:35 WBC 12.4 H RBC 3.37 L Hgb 9.6 L Hct 29.3 L MCV 86.9 MCH 28.5 MCHC 32.8 RDW 14.4 Plt Count 321 MPV 9.0 Neut % (Auto) 80.1 H Lymph % (Auto) 6.7 L [place] % (Auto) 9.6 H Eos % (Auto) 2.8 Baso % (Auto) 0.8 Neut # (Auto) 9.9 H Lymph # (Auto) 0.8 L [place] # (Auto) 1.2 H Eos # (Auto) 0.3 Baso # (Auto) 0.1 WBC Differential . Differential Comment Auto diff final Puncture Site Left radial Patient Temperature 98.6 O2 Saturation 96 ABG pH 7.47 H ABG pCO2 38 ABG pO2 105 ABG HCO3 28 H ABG O2 Content 13.8 ABG Base Excess 4.0 H ABG Methemoglobin 1.1 Edward Test Present Hemoglobin 10.1 L Carboxyhemoglobin 1.1 O2 Delivery Device Ventilator Vent Setting 12/550/5peep Inspired O2 40 Critical Value No Sodium 142 Potassium 4.0 Chloride 106 Carbon Dioxide 29.9 Anion Gap 6 BUN 26 H Creatinine 0.52 L Estimated GFR Greater than 89 Random Glucose 130 H Calcium 7.8 L Result Diagrams: 10/01/18 05:20 10/01/18 05:20 Imaging: Impressions Head MRI 09/30/18 00:00 CONCLUSION: 1. Restricted diffusion is identified throughout the left cerebral hemisphere with some sparing of the left frontal lobe. There is underlying parenchymal hemorrhage associated with this area which represents a large region of infarction. There is continued generalized edema with mass effect however less midline shift is identified. 2. Stable subdural hematomas. 3. Left-sided decompression craniotomy with decrease left to right midline shift. Chest X-Ray 10/01/18 06:00 CONCLUSION: Slight improvement in aeration Procedures: 09/22/18 * Left craniotomy with subdural hematoma evacuation * Right Davian with ICP monitor placement * Intubation * Left subclavian central line placement * Left radial atrial line placement 09/24/18 * repeat left craniotomy 09/27/18 * ICP monitor removed * MARK drains removed Assessment and Plan Pertinent Non-Medical Issues: Psychosocial: The patient is currently . The couple have 2 children one who lives in [place] and one who lives locally. He was independent of ambulation and most ADLs. He was currently retired Spiritual: None Legal: In the absence of a documented living will, per [place] statutes, decision making falls to the patient's Judy Vu by proxy Ethical issues impacting care: There are currently no known ethical issues impacting care at this time Important Contacts: `` Judy Vu, /HCP [phone] Yosef Vu, son [phone] Ramona Vu, daughter [phone] Prognosis: This patient is a complicated case with multiple traumatic brain injuries, craniotomies and SURVEILLANCE SYSTEM MONITOR shunt placement. He remains critically ill and is at increased risk for continued neurological and physical decompensation. It is unsure if he will have any meaningful neurological recovery at this point. The patient is at high risk for further decline and . If he does survive these original insults, he will be at high risk for continued morbidity and mortality due to associated sequelae Code Status: No Code DNR Plan: DRAFT * LEGAL DECISION MAKER -Judy Vu, /HCP [phone] * GOALS - FAMILY REQUESTS COMPASSIONATE WITHDRAWAL OF LIFE SUPPORT TODAY, transition to comfort focus only. Has elected hospice enrollment , though does NOT WANT PT MOVED TO [facility] . hospice to follow in patient here. * comfort orders entered for prewithdrawal, time of withdrawal and post withdrawal. * CODE STATUS -DNR * SYMPTOMS: Painmultifactorial including bedbound status, invasive procedures, invasive tubes and lines etc., The patient does not appear to be in any acute distress at this time. No nonverbal pain cues were noticed during exam. Prns ordered. Dyspneacurrently managed by mechanical ventilation. The patient is on AC settings with FiO2 35%, PEEP of 5. Continue with pulmonary toilet is appropriate for this patient. Suspect patient will have a long weaning process should the family decide to remain aggressive. Altered mental statuspatient has a complicated history including optic tumor removal with SURVEILLANCE SYSTEM MONITOR shunt placement, lashae hole placement, and stroke as recent as January 2018. Is now S/P craniotomy x2 during this admission. Repeat MRI showed extensive edema despite decompressive craniotomy. Overall prognosis for meaningful neurological recovery remains poor. Palliative care will continue to follow during hospital course as condition evolves, to assist patient/decision maker with understanding of medical conditions, weighing benefits/burdens of treatment options, for clarification of goals of treatment. Additionally will assist with any symptoms of palliative concern. Case was discussed with neurosurgery and RN at bedside Attestation Attestation: To help prompt me to consider important information that might be impacting today's encounter and assessment, information from prior notes written by myself or my colleagues may have been "brought forward" into today's note. My signature on this note, however, is an attestation that I personally performed the exam, history, and/or decision-making noted today, and, unless otherwise indicated, the interactions with patient, family, and staff as well as the review of records all occurred today. I also attest that the listed assessment and stated plan reflect my best clinical judgment today based on the combination of historical information, prior notes, and today's exam/ interactions. When time spent is documented, it refers only to time spent today by the signer, or if indicated, combined time spent today by collaborating physician/nurse practitioner.
[2018-10-02] MEDS ORDERED: Acetaminophen 650 MG Supp RECTAL PRN (11:02)
[2018-10-02] MEDS ORDERED: Hyoscyamine Inj 0.5 MG/ML Ampul IV.PUSH PRN (11:02)
--- NOTE | 2018-10-02 11:29 | P.PNCC ---
Subjective Brief History: This is a 57-year-old male with history of a prior right sided craniectomy and cranioplasty, status post ventriculoperitoneal shunt, who was brought to the emergency department and trauma alert was called. He fell at the [place] earlier today. 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 The patient then had a stroke January 2018 which slightly affected his speech and right upper extremity. The patient underwent rehab with improvement of his speech. He developed slurred speech since the fall with with slight change in behavior. The patient takes Plavix daily. The patient is unable to provide any information and does not follow commands. Withdraw to pain in his lower extremities. Trauma alert was called due to the decreased in GCS. The patient went immediately to CT for CT the brain which did reveal bilateral subdurals with mild shift. The patient had decreasing mental status, would not follow commands, therefore, given his drop in GCS was taken to the trauma room and a level 1 trauma was called. The patient was intubated using rapid sequence intubation to protect the airway after lidocaine 100 mg was given the patient received etomidate 20 mg intravenously and succinylcholine 100 mg at. The patient was intubated using an endotracheal tube, 8.0, without difficulty. The patient did receive [address] Tay who evaluated the patient in the trauma room and he was resuscitated according to ATLS principles. Initial diagnostic workup reveals Bilateral subdural hematomas left considerably greater than right. The subdural on the left extends from the left frontal to occipital lobe and superiorly to the high convexity and measures 15 mm across with considerable mixed density. The small right occipital subdural is more homogeneous c/w acute hemorrhagic density Patient is taken immediately to the operating room for decompressive craniectomy and is now in ICU for further care Should be noted patient was on Plavix aspirin which has been stopped Patient will be managed according to the established neurosurgical critical care principles and full evaluation will be completed considering that patient has other comorbidities that need to be addressed 24 Hour Review/Hospital Course: 09/23/2018 Patient with massive head injury and huge left subdural hematoma status post craniectomy and drainage Patient is sedated on neuroprotective measures including propofol fentanyl and Keppra ICP remains around 8-14 mmHg Patient received 25 g of mannitol last night and since then ICP has been low Serum sodium 142 mEq/L and patient is on 3% saline at 30 cc/h We will keep sodium less than 160 mEq/L At this point [place] Coma Scale remains 3 and patient has no activity whatsoever Hemodynamically patient is stable and hemoglobin and hematocrit are stable after transfusion of 1 unit PRBC last night Bilateral breath sounds patient fully ventilatory supported on assist control ventilation mode with good PO2 FiO2 gradient Keep PCO2 between 32-40 mmHg Abdomen soft Renal function well-preserved patient is euvolemic and will decrease maintenance fluids This patient has very poor prognosis based on his age and severity of brain injury on top of already previous craniotomy for optic nerve tumor Patient has about 80% 1 year mortality and 100% morbidity with 100% chance of permanent neurologic deficits either cognitive motoric or both We will consult palliative care to discuss his further prospects with the family and lay out some options 09/[address] scan today which shows significant worsening of his subdural hematoma His ICPs remain within normal limits his sodium is 150 his CPP is also within normal limits Patient overall is status post multiple craniotomy craniotomy start craniectomies I had a discussion with the neurosurgeon regarding the clinical picture we both agreed that we need to have a discussion with patient's -for a potential craniectomy Overall patient prognosis remain poor If craniectomy is being decided we will need to transfuse patient 2 units of blood 09/25 Patient is status post decompressive craniectomy postop day 1 Neurosurgery would like to maintain full sedation today and reassess mental status tomorrow His CPP ICP and hemodynamics are within normal limits His sodium is 155 and will keep it at this level for now Continue the tube feeds Family updated at the bedside 09/26 He- underwent a CT scan of the head in the morning here is still a large amount of edema, subdural hematoma improved however His ICPs and CPPs remain good level-stay fully sedated for now as per neurosurgeon Sodium is 161 and hypertonic saline has been dcd-we will monitor sodium until it reaches the desired level of 150-155 She is on tube feeds and tolerating well In light of increased bleeding and redo craniectomy will discuss with the neurosurgeon before starting chemical DVT prophylaxis 09/27/2018 Neurologically patient is unchanged Patient status post second operation and left craniectomy with evacuation of a subdural hematoma Significant brain swelling with some decrease in shift ICP remains low around 5-8 mmHg and central perfusion pressure within adequate parameters based on mean arterial pressure Adjusted free fluids and serum sodium is on decline which we will keep between 145 and 155 mEq/L Hemodynamically stable Bilateral breath sounds on assist control ventilation with good PO2 FiO2 gradient Renal function preserved Palliative care has been consulted and evaluated the patient and discussed the care with the family. Today and explained the devastating nature of his injury combined with his age carries extremely poor long-term prognosis In the best case scenario this patient will be off the ventilator however permanently on a feeding tube and bedbound Patient has very poor prospects of a long-term quality of life and no reasonable chance of meaningful recovery 09/28/2018 Neurologically unchanged ICP monitor has been removed in face of normal values Propofol and fentanyl have been stopped to see the neurologic function however patient is only slightly withdrawing to pain with left leg consistent with [place] Coma Scale of 4 Hemodynamically remains stable Bilateral breath sounds remains on assist control ventilation I discussed again at length with the family the current picture and the dismal prognosis of the same If family proceeds with full care patient will require tracheostomy and PEG and placement in a residential All the options have been evaluated as well as the status including DNR possibility Family will think about it and come to a joint decision 09/29/2018 Neurologically patient is unchanged With decrease in propofol sedation patient is becoming agitated tachypneic and hypertensive however does not follow commands does not open eyes does not move other than uncontrolled motion [place] Coma Scale remains very low probably 4-5 Hemodynamically stable and hypertensive On number of antihypertensive medications including Catapres patch/IV Lopressor/ IV Procardia/hydralazine Bilateral breath sounds on assist control ventilation and does not tolerate CPAP Abdomen soft enteral feeds tolerated Renal function preserved Following the wishes of the family patient is made DNR at this time I discussed tracheostomy and PEG with patient's family and they adamantly refused this and believe that patient would not want to live like this and I believe based on my discussion with the family they are making decision whether or not to withdraw the care 09/30/2018 Patient was made DO NOT RESUSCITATE yesterday, await discussion with neurosurgery and palliative care regarding possible withdrawal of care and timing of withdrawal. There is no hope for meaningful recovery or any thing resembling quality of life 10/01/2018 Discussion with family at the bedside today. There is no hope for meaningful recovery or any quality of life. They state he would not wish to have a tracheostomy or feeding tube or be sustained in a long-term care situation without hope of recovery. Plan is for withdrawal of care when family is ready. 10/02/2018 The plan is to transfer to hospice and withdraw care today Objective Vital Signs / I&O: Vital Signs 10/01/18 12:00 10/01/18 13:00 10/01/18 14:00 Temperature 98.9 F Pulse Rate 98 H 103 H 104 H Respiratory Rate Blood Pressure 127/66 119/59 L 128/67 Pulse Oximetry 95 97 98 10/01/18 15:00 10/01/18 16:00 10/01/18 16:23 Temperature 98.9 F Pulse Rate 82 85 Respiratory Rate 29 H Blood Pressure 122/65 123/69 Pulse Oximetry 97 97 95 10/01/18 17:00 10/01/18 18:00 10/01/18 19:00 Temperature Pulse Rate 99 H 92 H 89 Respiratory Rate Blood Pressure 132/74 131/64 118/61 Pulse Oximetry 97 98 96 10/01/18 20:00 10/01/18 20:38 10/01/18 21:00 Temperature 100.3 F H Pulse Rate 89 77 Respiratory Rate 20 18 Blood Pressure 120/65 115/60 Pulse Oximetry 93 L 97 96 10/01/18 22:00 10/01/18 23:00 10/01/18 23:54 Temperature Pulse Rate 80 90 Respiratory Rate 18 Blood Pressure 118/59 L 126/63 Pulse Oximetry 94 L 95 95 10/02/18 00:00 10/02/18 01:00 10/02/18 02:00 Temperature 102.6 F H 101.3 F H Pulse Rate 83 78 79 Respiratory Rate 16 Blood Pressure 119/59 L 114/57 L 124/67 Pulse Oximetry 94 L 96 95 10/02/18 03:00 10/02/18 03:35 10/02/18 04:00 Temperature 100.3 F H Pulse Rate 81 84 Respiratory Rate 16 Blood Pressure 117/59 L 116/64 Pulse Oximetry 96 96 96 10/02/18 05:00 10/02/18 06:00 10/02/18 07:00 Temperature Pulse Rate 90 85 89 Respiratory Rate Blood Pressure 120/68 121/60 124/64 Pulse Oximetry 96 95 94 L 10/02/18 07:55 10/02/18 08:00 10/02/18 10:00 Temperature 102 F H Pulse Rate 105 H 83 Respiratory Rate 19 Blood Pressure 132/74 Pulse Oximetry 95 97 Intake & Output 10/01/18 10/02/18 10/02/18 18:59 06:59 18:59 Intake Total 1018 / 1018 841 / 841 Output Total 1000 / 1000 850 / 850 Balance -9 / -9 Weight 68.5 kg Intake: IV 105 / 105 105 / 105 Keppra Inj 500 MG In NS Inj 100 105 / 105 105 / 105 ML @ 400 mls/hr IV.SIG Q12H STONEY Rx#:[id number] Tube Feeding 733 / 733 616 / 616 Tube Irrigant 180 / 180 120 / 120 Output: Urine 1000 / 1000 Urine Amount (Catheter) 850 / 850 Condom 850 / 850 Other: Date of Last Bowel Movement 10/01/18 10/01/18 10/01/18 # Bowel Movements 3 0 Result Diagrams: 10/01/18 05:20 10/01/18 05:20 Disinhibition Score: 14.00 Aggression Score: 14.00 Lability Score: 14.00 Agitated Behavior Total Score: 14 - Exam [facility]NAGER: Intubated sedated Hemodynamic/Cardiac: Regular rate and rhythm Abdomen/GI Nutrition: Soft nontender nondistended Assessment and Plan Plan: The plan is to withdraw care today and transfer to hospice for comfort measures and further management
[2018-10-02] MEDS ORDERED: Midazolam Inj 5 MG/ML 1 ML Vial IV.PUSH ONE ×2 (11:30)
[2018-10-02] MEDS ORDERED: Hyoscyamine Inj 0.5 MG/ML Ampul IV.PUSH ONE (11:30)
[2018-10-02] MEDS ORDERED: fentaNYL Citrate Inj 100 MCG/2 ML Ampul IV.PUSH ONE ×2 (11:30)
[2018-10-02] MEDS ORDERED: HYDROmorphone PF Inj 1 MG/ML Ampul IV.PUSH PRN (13:00)
--- NOTE | 2018-10-02 14:54 | P.PNNS ---
Subjective Interval history: remains comatose, intubated, no sedatives Physical Exam Vital signs: Vital Signs 10/01/18 15:00 10/01/18 16:00 10/01/18 16:23 Temperature 98.9 F Pulse Rate 82 85 Respiratory Rate 29 H Blood Pressure 122/65 123/69 Pulse Oximetry 97 97 95 10/01/18 17:00 10/01/18 18:00 10/01/18 19:00 Temperature Pulse Rate 99 H 92 H 89 Respiratory Rate Blood Pressure 132/74 131/64 118/61 Pulse Oximetry 97 98 96 10/01/18 20:00 10/01/18 20:38 10/01/18 21:00 Temperature 100.3 F H Pulse Rate 89 77 Respiratory Rate 20 18 Blood Pressure 120/65 115/60 Pulse Oximetry 93 L 97 96 10/01/18 22:00 10/01/18 23:00 10/01/18 23:54 Temperature Pulse Rate 80 90 Respiratory Rate 18 Blood Pressure 118/59 L 126/63 Pulse Oximetry 94 L 95 95 10/02/18 00:00 10/02/18 01:00 10/02/18 02:00 Temperature 102.6 F H 101.3 F H Pulse Rate 83 78 79 Respiratory Rate 16 Blood Pressure 119/59 L 114/57 L 124/67 Pulse Oximetry 94 L 96 95 10/02/18 03:00 10/02/18 03:35 10/02/18 04:00 Temperature 100.3 F H Pulse Rate 81 84 Respiratory Rate 16 Blood Pressure 117/59 L 116/64 Pulse Oximetry 96 96 96 10/02/18 05:00 10/02/18 06:00 10/02/18 07:00 Temperature Pulse Rate 90 85 89 Respiratory Rate Blood Pressure 120/68 121/60 124/64 Pulse Oximetry 96 95 94 L 10/02/18 07:55 10/02/18 08:00 10/02/18 10:00 Temperature 102 F H Pulse Rate 105 H 83 Respiratory Rate 19 Blood Pressure 132/74 Pulse Oximetry 95 97 Intake & Output 10/01/18 10/02/18 10/02/18 18:59 06:59 18:59 Intake Total 1018 / 1018 841 / 841 Output Total 1000 / 1000 850 / 850 Balance -9 / -9 Weight 68.5 kg Intake: IV 105 / 105 105 / 105 Keppra Inj 500 MG In NS Inj 100 105 / 105 105 / 105 ML @ 400 mls/hr IV.SIG Q12H STONE[facility] Rx#:[id number] Tube Feeding 733 / 733 616 / 616 Tube Irrigant 180 / 180 120 / 120 Output: Urine 1000 / 1000 Urine Amount (Catheter) 850 / 850 Condom 850 / 850 Other: Date of Last Bowel Movement 10/01/18 10/01/18 10/01/18 # Bowel Movements 3 0 Narrative: comatose no eye opening left flap soft, pulsating pupils 4 mm bilaterally mild right babinsky response no spontaneous movement - Urinary Catheter Management Indwelling Urethral Catheter Cath placed during this visit: yes, but has since been removed by the nurse Reason for continuing: Decision to DC catheter Insertion date: 09/22/18 Insertion time: 15:50 Removal date: 09/28/18 Removal time: 16:30 Condom Cath placed during this visit: yes Reason for continuing: Not indwelling catheter Insertion date: 09/28/18 Insertion time: 16:30 Assessment and Plan - Plan s/p craniotomy for subdural hemorrhage evacuation, followed by redo decompressive hemicraniectomy on 09/24 for reaccumulation Head MRI 09/30/18 00:00 CONCLUSION: 1. Restricted diffusion is identified throughout the left cerebral hemisphere with some sparing of the left frontal lobe. There is underlying parenchymal hemorrhage associated with this area which represents a large region of infarction. There is continued generalized edema with mass effect however less midline shift is identified. 2. Stable subdural hematomas. 3. Left-sided decompression craniotomy with decrease left to right midline shift. cont keep sedation off as patient tolerates and f/u exam so far, no clinical improvement, poor examination Continue Protonix for stress ulcer prophylaxis continue Kiran lindquist and SCD's for DVT prophylaxis palliative care following
--- NOTE | 2018-10-03 14:05 | P.DS ---
<Gwendolyn Montalvo - Last Filed: 10/03/18 13:59> Date of admission: 09/22/18 15:19 Primary care physician: Irvin Bailey MD Attending physician on discharge: Surendra Jones Anticipated date of discharge: 10/02/18 Brief History from admission: Fall. DS: Diagnosis - Discharge Diagnosis (1) Acute subdural hematoma Status: Acute (2) Major neurocognitive disorder as late effect of traumatic brain injury without behavioral disturbance Status: Acute (3) Traumatic brain injury Status: Acute (4) Altered mental status Status: Acute DS: Summary Hospital Course: RESIGHINI: This is a 57-year-old male with history of a prior right sided craniectomy and cranioplasty, status post ventriculoperitoneal shunt, who was brought to the emergency department and trauma alert was called. He fell at the [facility] earlier today. 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 The patient then had a stroke January 2018 which slightly affected his speech and right upper extremity. The patient underwent rehab with improvement of his speech. He developed slurred speech since the fall with with slight change in behavior. The patient takes Plavix daily. The patient is unable to provide any information and does not follow commands. Withdraw to pain in his lower extremities. Trauma alert was called due to the decreased in GCS. The patient went immediately to CT for CT the brain which did reveal bilateral subdurals with mild shift. The patient had decreasing mental status, would not follow commands, therefore, given his drop in GCS was taken to the trauma room and a level 1 trauma was called. The patient was intubated using rapid sequence intubation to protect the airway after lidocaine 100 mg was given the patient received etomidate 20 mg intravenously and succinylcholine 100 mg at. The patient was intubated using an endotracheal tube, 8.0, without difficulty. The patient did receive [address] Tay who evaluated the patient in the trauma room and he was resuscitated according to ATLS principles. Initial diagnostic workup reveals Bilateral subdural hematomas left considerably greater than right. The subdural on the left extends from the left frontal to occipital lobe and superiorly to the high convexity and measures 15 mm across with considerable mixed density. The small right occipital subdural is more homogeneous c/w acute hemorrhagic density Patient is taken immediately to the operating room for decompressive craniectomy and is now in ICU for further care Should be noted patient was on Plavix aspirin which has been stopped Patient will be managed according to the established neurosurgical critical care principles and full evaluation will be completed considering that patient has other comorbidities that need to be addressed Procedures: 09/22: Intubated. 09/22: LEFT decompressive craniectomy with evacuation of the subdural hematoma. ICP bolt monitor. 09/24: LEFT frontal temporal parietal decompressive craniectomy, evacuation of subdural hematoma. 09/27: [facility] removed 10/02: Withdraw Hospital Course: 09/23/2018 Patient with massive head injury and huge left subdural hematoma status post craniectomy and drainage Patient is sedated on neuroprotective measures including propofol fentanyl and Keppra ICP remains around 8-14 mmHg Patient received 25 g of mannitol last night and since then ICP has been low Serum sodium 142 mEq/L and patient is on 3% saline at 30 cc/h We will keep sodium less than 160 mEq/L At this point Pitman Coma Scale remains 3 and patient has no activity whatsoever Hemodynamically patient is stable and hemoglobin and hematocrit are stable after transfusion of 1 unit PRBC last night Bilateral breath sounds patient fully ventilatory supported on assist control ventilation mode with good PO2 FiO2 gradient Keep PCO2 between 32-40 mmHg Abdomen soft Renal function well-preserved patient is euvolemic and will decrease maintenance fluids This patient has very poor prognosis based on his age and severity of brain injury on top of already previous craniotomy for optic nerve tumor Patient has about 80% 1 year mortality and 100% morbidity with 100% chance of permanent neurologic deficits either cognitive motoric or both We will consult palliative care to discuss his further prospects with the family and lay out some options 09/24/[address] scan today which shows significant worsening of his subdural hematoma His ICPs remain within normal limits his sodium is 150 his CPP is also within normal limits Patient overall is status post multiple craniotomy craniotomy start craniectomies I had a discussion with the neurosurgeon regarding the clinical picture we both agreed that we need to have a discussion with patient's -for a potential craniectomy Overall patient prognosis remain poor If craniectomy is being decided we will need to transfuse patient 2 units of blood 09/25/2018 Patient is status post decompressive craniectomy postop day 1 Neurosurgery would like to maintain full sedation today and reassess mental status tomorrow His CPP ICP and hemodynamics are within normal limits His sodium is 155 and will keep it at this level for now Continue the tube feeds Family updated at the bedside 09/26/2018 He- underwent a CT scan of the head in the morning here is still a large amount of edema, subdural hematoma improved however His ICPs and CPPs remain good level-stay fully sedated for now as per neurosurgeon Sodium is 161 and hypertonic saline has been dcd-we will monitor sodium until it reaches the desired level of 150-155 She is on tube feeds and tolerating well In light of increased bleeding and redo craniectomy will discuss with the neurosurgeon before starting chemical DVT prophylaxis 09/27/2018 Neurologically patient is unchanged Patient status post second operation and left craniectomy with evacuation of a subdural hematoma Significant brain swelling with some decrease in shift ICP remains low around 5-8 mmHg and central perfusion pressure within adequate parameters based on mean arterial pressure Adjusted free fluids and serum sodium is on decline which we will keep between 145 and 155 mEq/L Hemodynamically stable Bilateral breath sounds on assist control ventilation with good PO2 FiO2 gradient Renal function preserved Palliative care has been consulted and evaluated the patient and discussed the care with the family. Today and explained the devastating nature of his injury combined with his age carries extremely poor long-term prognosis In the best case scenario this patient will be off the ventilator however permanently on a feeding tube and bedbound Patient has very poor prospects of a long-term quality of life and no reasonable chance of meaningful recovery 09/28/2018 Neurologically unchanged ICP monitor has been removed in face of normal values Propofol and fentanyl have been stopped to see the neurologic function however patient is only slightly withdrawing to pain with left leg consistent with Diana Coma Scale of 4 Hemodynamically remains stable Bilateral breath sounds remains on assist control ventilation I discussed again at length with the family the current picture and the dismal prognosis of the same If family proceeds with full care patient will require tracheostomy and PEG and placement in a chcf All the options have been evaluated as well as the status including DNR possibility Family will think about it and come to a joint decision 09/29/2018 Neurologically patient is unchanged With decrease in propofol sedation patient is becoming agitated tachypneic and hypertensive however does not follow commands does not open eyes does not move other than uncontrolled motion Diana Coma Scale remains very low probably 4-5 Hemodynamically stable and hypertensive On number of antihypertensive medications including Catapres patch/IV Lopressor/ IV Procardia/hydralazine Bilateral breath sounds on assist control ventilation and does not tolerate CPAP Abdomen soft enteral feeds tolerated Renal function preserved Following the wishes of the family patient is made DNR at this time I discussed tracheostomy and PEG with patient's family and they adamantly refused this and believe that patient would not want to live like this and I believe based on my discussion with the family they are making decision whether or not to withdraw the care 09/30/2018 Patient was made DO NOT RESUSCITATE yesterday, await discussion with neurosurgery and palliative care regarding possible withdrawal of care and timing of withdrawal. There is no hope for meaningful recovery or any thing resembling quality of life 10/01/2018 Discussion with family at the bedside today. There is no hope for meaningful recovery or any quality of life. They state he would not wish to have a tracheostomy or feeding tube or be sustained in a long-term care situation without hope of recovery. Plan is for withdrawal of care when family is ready. 10/02/2018 The plan is to transfer to hospice and withdraw care today The family has decided upon compassionate withdrawal. Patient was withdrawn from the ventilator and allowed to naturally and with dignity surrounded by his family. Patient was pronounced on 10/02/2018 @ 1224. No spontaneous movements noted. Patient does not respond to voice or tactile stimuli. Pupils are fixed and dilated. No spontaneous respirations. No palpable pulses. No audible heart tones costume director shows asystole in 2 separate leads. May Shankar rest in peace. - Time Spent with Patient Total time spent providing and/or coordinating discharge services: Greater than 30 minutes - Quality: VTE Deep Vein Thrombosis/Pulmonary Embolism Present on Admission: No Exam Vital signs: Intake & Output 10/02/18 10/03/1818 18:59 06:59 18:59 Other: Date of Last Bowel Movement 10/01/18 Results Procedures completed during hospitalization: . Completed studies during hospitalization: Pending at discharge 09/22/18 10:11 Surgical [PTH] Routine - Impressions ITS Impressions Pelvis X-Ray 09/22/18 00:00 CONCLUSION: Negative examination. Cervical Spine CT 09/22/18 14:40 CONCLUSION: 1. Chronic degenerative disease at multiple levels. No evidence of an acute fracture or injury Face CT 09/22/18 14:40 CONCLUSION: 1. Evidence of right temporal craniotomy. The patient is intubated. There is some fluid in the nasopharynx. No fractures are seen. Head CT 09/26/18 00:00 CONCLUSION: 1. Left-sided subdural hematoma is less prominent measuring 9 mm. 2. Edema remains throughout the left cerebral hemisphere with less mass effect and decreasing left to right midline shift . Head MRI 09/30/18 00:00 CONCLUSION: 1. Restricted diffusion is identified throughout the left cerebral hemisphere with some sparing of the left frontal lobe. There is underlying parenchymal hemorrhage associated with this area which represents a large region of infarction. There is continued generalized edema with mass effect however less midline shift is identified. 2. Stable subdural hematomas. 3. Left-sided decompression craniotomy with decrease left to right midline shift. Chest X-Ray 10/01/18 06:00 CONCLUSION: Slight improvement in aeration <Surendra Jones - Last Filed: 10/04/18 08:51> Date of admission: 09/22/18 15:19 Primary care physician: Irvin Bailey MD DS: Summary - Time Spent with Patient Total time spent providing and/or coordinating discharge services: Exam - Additional findings Additional findings: The exam, history, and the medical decision-making described in the above note were completed with the assistance of the mid-level provider. I reviewed and agree with the findings presented. I attest that I had a [id number] encounter with the patient on the same day, and personally performed my assessment and findings in the medical record. Results Completed studies during hospitalization: Pending at discharge 09/22/18 10:11 Surgical [PTH] Routine - Impressions ITS Impressions Pelvis X-Ray 09/22/18 00:00 CONCLUSION: Negative examination. Cervical Spine CT 09/22/18 14:40 CONCLUSION: 1. Chronic degenerative disease at multiple levels. No evidence of an acute fracture or injury Face CT 09/22/18 14:40 CONCLUSION: 1. Evidence of right temporal craniotomy. The patient is intubated. There is some fluid in the nasopharynx. No fractures are seen. Head CT 09/26/18 00:00 CONCLUSION: 1. Left-sided subdural hematoma is less prominent measuring 9 mm. 2. Edema remains throughout the left cerebral hemisphere with less mass effect and decreasing left to right midline shift . Head MRI 09/30/18 00:00 CONCLUSION: 1. Restricted diffusion is identified throughout the left cerebral hemisphere with some sparing of the left frontal lobe. There is underlying parenchymal hemorrhage associated with this area which represents a large region of infarction. There is continued generalized edema with mass effect however less midline shift is identified. 2. Stable subdural hematomas. 3. Left-sided decompression craniotomy with decrease left to right midline shift. Chest X-Ray 10/01/18 06:00 CONCLUSION: Slight improvement in aeration Discharge Plan - Discharge Details Date/Time: 10/02/18 12:24 - Physicians Team Primary Care Provider: Irvin Bailey Attending Provider: Zach Quiroz Other Providers: Torrey Wolff MD ; Rodrigo Bell MD ; Surendra Jones MD ; [employer] ; Zach Quiroz MD ; Gwendolyn Montalvo ARNP ; Shaheen Cortes MD ; Juliette Terry MD ; Alan Miguel ARNP ; Nadia Ramirez MD ; Elan Hansen, PhD ; Rey Ovalle MD
== END 2018-10-02 15:28 | disposition expired ==
LOC: NEPI 14:23 → NEDA 15:19 → N03 17:49
PROVIDERS: ADMIT Surgery; ATTEND Surgery
PROC: CRASUBD (ICD-10-PCS; 2018-09-24 17:27)